=== PATIENT | female | born 1935 | race Caucasian/White ===

== ENCOUNTER 2016-10-31 09:34 | Emergency (ER) | payer MEDICARE, OTHER ==
--- NOTE | 2016-10-31 09:40 | EDM.PDOC ---
ED HPI GENERAL MEDICAL PROBLEM - General Chief Complaint: Respiratory Problem Stated Complaint: SOB, NOT FEELING GOOD Time Seen by Provider: 10/31/16 09:40 Source of Information: Reports: Patient, Family (daughter), Old Records, RN, RN Notes Reviewed History Limitations: Reports: No Limitations - History of Present Illness INITIAL COMMENTS - FREE TEXT/NARRATIVE: Arrives by POV with c/o "Just not feeling well at all". Pt reports increased Rt low back/flank pain since trying to lift and help her when he fell last week. Pt also c/o moist cough with increased shortness of breath with posttussive vomiting. In addition to posttussive vomiting, she admits to decreased appetite, nausea, and vomiting. Denies fevers, chest pain, or edema. Onset: Gradual Duration: Day(s): (3-4) Location: Reports: Chest, Back, Generalized Quality: Reports: Ache Severity: Severe Improves with: Reports: None Worsens with: Reports: Movement Context: Reports: Lifting Associated Symptoms: Reports: No Other Symptoms Treatments BALLASTER: Reports: Acetaminophen Left Lower Back Pain Score (Numeric/FACES): 8 - Related Data Allergies Allergy/AdvReac Type Severity Reaction Status Date / Time No Known Allergies Allergy Verified 10/31/16 09:46 Home Meds: Home Meds Albuterol [Proair HFA] 2 puff INH BID PRN 10/31/16 [History] Aspirin [[place] Aspirin] 81 mg PO DAILY 10/31/16 [History] Calcium Carbonate/Vitamin D3 [Calcium 500 + Vit D Caplet] 1 tab PO DAILY [History] Clopidogrel Bisulfate [Clopidogrel] 75 mg PO DAILY 10/31/16 [History] Esomeprazole Magnesium [Nexium 24Hr] 20 mg PO DAILY 10/31/16 [History] Metoprolol Succinate [Toprol XL] 50 mg PO DAILY 10/31/16 [History] Risedronate Sodium 35 mg PO WEEKLY 10/31/16 [History] atorvaSTATin [Lipitor] 40 mg PO DAILY 10/31/16 [History] Past Medical History HEENT History: Reports: Impaired Vision Cardiovascular History: Reports: High Cholesterol, Hypertension Respiratory History: Reports: Pulmonary Fibrosis, SOB Gastrointestinal History: Reports: GERD Musculoskeletal History: Reports: Back Pain, Chronic, Osteoarthritis Neurological History: Reports: CVA Endocrine/Metabolic History: Reports: Osteoporosis - Past Surgical History HEENT Surgical History: Reports: Adenoidectomy, Tonsillectomy GI Surgical History: Reports: Appendectomy Social & Family History - Family History Family Medical History: Noncontributory - Tobacco Use Smoking Status *Q: Never Smoker - Alcohol Use Alcohol Use History: No - Living Situation & Occupation Living situation: Reports: , with Spouse Occupation: Retired ED ROS GENERAL - Review of Systems Review Of Systems: ROS reveals no pertinent complaints other than HPI. ED EXAM, GENERAL - Physical Exam Exam: See Below Exam Limited By: No Limitations General Appearance: Alert, No Apparent Distress, Other (frail elderly) Ears: Normal External Exam, Hearing Grossly Normal Nose: Normal Inspection, Normal Mucosa, No Blood Throat/Mouth: Normal Inspection, Normal Lips, Normal Oropharynx, Normal Voice, No Airway Compromise Head: Atraumatic, Normocephalic Neck: Normal Inspection, Supple, Non-Tender, Full Range of Motion Respiratory/Chest: No Respiratory Distress, No Accessory Muscle Use, Decreased Breath Sounds, Crackles Cardiovascular: Normal Peripheral Pulses, Regular Rate, Rhythm, No Edema, No Gallop, No JVD, No Murmur, No Rub, Tachycardia GI/Abdominal: Normal Bowel Sounds, Soft, No Organomegaly, No Distention, No Abnormal Bruit, Tender (RUQ). No: Guarding, Rigid, Rebound (Female) Exam: Deferred Rectal (Female) Exam: Deferred Back Exam: CVA Tenderness (R), Decreased Range of Motion, Paraspinal Tenderness (Rt lower). No: CVA Tenderness (L), Vertebral Tenderness EKG INTERPRETATION EKG Date: 10/31/16 Time: 10:30 Rhythm: other (Sinus tach) Rate (beats/min): 109 [place]: LAD-left axis deviation P-wave: present QRS: other (probable left atrial enlargement, early transition) ST-T: other (nonspecific anterior T wave abnormalities) QT: normal Comparison: NA - no prior EKG Course - Vital Signs Last Recorded V/S: Last Vital Signs Temp 35.9 C 10/31/16 11:33 Pulse 106 H 10/31/16 11:33 Resp 32 H 10/31/16 11:33 BP 126/71 10/31/16 11:33 Pulse Ox 95 10/31/16 11:33 - Orders/Labs/Meds Orders: Active Orders 24 hr Category Date Time Status EKG 12 Lead [EKG Documentation Completion] [] STAT Care 10/31/16 10:06 Active Peripheral IV Care [] . DIRECTED Care 10/31/16 10:07 Active CULTURE BLOOD [] Stat Lab 10/31/16 11:05 Received CULTURE BLOOD [] Stat Lab 10/31/16 11:10 Results Sodium Chloride 0.9% [Saline Flush] Med 10/31/16 10:06 Active 10 ml FLUSH ASDIRECTED PRN Blood Culture x2 Reflex Set [OM.PC] Stat Oth 10/31/16 10:56 Ordered Peripheral IV Insertion Adult [OM.PC] Stat Ot 10/31/16 10:06 Ordered Medication Orders Sodium Chloride (Saline Flush) 10 ml FLUSH ASDIRECTED PRN PRN Reason: Keep Vein Open Last Admin: 10/31/16 10:26 Dose: 10 ml Labs: Laboratory Tests 10/31/16 10/31/16 10/31/16 Range/Units 10:17 10:17 10:54 WBC 22.5 H (5.0-10.0) 10^3/uL RBC 4.27 (4.2-5.4) 10^6/uL Hgb 12.9 (12.0-16.0) g/dL Hct 38.4 (37.0-47.0) % MCV 89.9 (80-100) fL MCH 30.2 (27.0-34.0) pg MCHC 33.6 (33.0-35.0) g/dL Plt Count 390 (150-450) 10^3/uL Neut % (Auto) 91.6 H (42.2-75.2) % Lymph % (Auto) 4.8 L (20.5-50.1) % [place] % (Auto) 3.4 (2-8) % Eos % (Auto) 0.1 L (1.0-3.0) % Baso % (Auto) 0.1 (0.0-1.0) % Sodium 136 (135-145) mmol/L Potassium 4.0 (3.6-5.0) mmol/L Chloride 97 L (101-111) mmol/L Carbon Dioxide 21.0 (21.0-31.0) mmol/L Anion Gap 22.0 BUN 31 H (7-18) mg/dL Creatinine 1.1 (0.6-1.3) mg/dL Est Cr Clr Drug Dosing 32.26 mL/min Estimated GFR (MDRD) 48 BUN/Creatinine Ratio 28.18 Glucose 142 H (74-105) mg/dL Lactic Acid (0.5-2.2) mmol/L Calcium 9.1 (8.4-10.2) mg/dl Total Bilirubin 1.1 H (0.2-1.0) mg/dL AST 45 H (10-42) IU/L ALT 30 (10-60) IU/L Alkaline Phosphatase 105 (42-121) IU/L Troponin I < 0.02 (0.00-0.02) ng/ml B-Natriuretic Peptide 275 H (0-100) pg/ml Total Protein 8.1 (6.7-8.2) g/dl Albumin 3.1 L (3.2-5.5) g/dl Globulin 5.0 Albumin/Globulin Ratio 0.62 Amylase 53 (28-100) U/L Lipase 23 (22-51) U/L Urine Color Dark yellow (YELLOW) Urine Appearance Turbid (CLEAR) Urine pH 5.5 (5.0-9.0) Ur Specific [place] 1.025 (1.005-1.030) Urine Protein 100 H (NEGATIVE) Urine Glucose (UA) Negative (NEGATIVE) Urine Ketones 15 H (NEGATIVE) Urine Occult Blood Small H (NEGATIVE) Urine Nitrite Negative (NEGATIVE) Urine Bilirubin Large H (NEGATIVE) Urine Urobilinogen 4.0 H (0.2-1.0) mg/dL Ur Leukocyte Esterase Small H (NEGATIVE) Urine RBC 0-5 /HPF Urine WBC 5-10 H (0-5/HPF) /HPF Ur Epithelial Cells Many H /HPF Amorphous Sediment Rare (0/HPF) /HPF Urine Bacteria Moderate H (0-FEW/HPF) /HPF 10/31/16 Range/Units 11:05 WBC (5.0-10.0) 10^3/uL RBC (4.2-5.4) 10^6/uL Hgb (12.0-16.0) g/dL Hct (37.0-47.0) % MCV (80-100) fL MCH (27.0-34.0) pg MCHC (33.0-35.0) g/dL Plt Count (150-450) 10^3/uL Neut % (Auto) (42.2-75.2) % Lymph % (Auto) (20.5-50.1) % [place] % (Auto) (2-8) % Eos % (Auto) (1.0-3.0) % Baso % (Auto) (0.0-1.0) % Sodium (135-145) mmol/L Potassium (3.6-5.0) mmol/L Chloride (101-111) mmol/L Carbon Dioxide (21.0-31.0) mmol/L Anion Gap BUN (7-18) mg/dL Creatinine (0.6-1.3) mg/dL Est Cr Clr Drug Dosing mL/min Estimated GFR (MDRD) BUN/Creatinine Ratio Glucose (74-105) mg/dL Lactic Acid 1.6 (0.5-2.2) mmol/L Calcium (8.4-10.2) mg/dl Total Bilirubin (0.2-1.0) mg/dL AST (10-42) IU/L ALT (10-60) IU/L Alkaline Phosphatase (42-121) IU/L Troponin I (0.00-0.02) ng/ml B-Natriuretic Peptide (0-100) pg/ml Total Protein (6.7-8.2) g/dl Albumin (3.2-5.5) g/dl Globulin Albumin/Globulin Ratio Amylase (28-100) U/L Lipase (22-51) U/L Urine Color (YELLOW) Urine Appearance (CLEAR) Urine pH (5.0-9.0) Ur Specific [place] (1.005-1.030) Urine Protein (NEGATIVE) Urine Glucose (UA) (NEGATIVE) Urine Ketones (NEGATIVE) Urine Occult Blood (NEGATIVE) Urine Nitrite (NEGATIVE) Urine Bilirubin (NEGATIVE) Urine Urobilinogen (0.2-1.0) mg/dL Ur Leukocyte Esterase (NEGATIVE) Urine RBC /HPF Urine WBC (0-5/HPF) /HPF Ur Epithelial Cells /HPF Amorphous Sediment (0/HPF) /HPF Urine Bacteria (0-FEW/HPF) /HPF Meds: Medications Generic Name Dose Route Start Last Admin Trade Name Freq PRN Reason Stop Dose Admin Sodium Chloride 10 ml 10/31/16 10:06 10/31/16 10:26 Saline Flush FLUSH 10 ml ASDIRECTED PRN Administration Keep Vein Open Discontinued Medications Generic Name Dose Route Start Last Admin Trade Name Freq PRN Reason Stop Dose Admin Hydromorphone HCl 0.25 mg 10/31/16 10:08 10/31/16 10:26 Dilaudid IVPUSH 10/31/16 10:09 0.25 mg ONETIME ONE Administration Sodium Chloride 1,000 mls @ 500 mls/hr 10/31/16 10:08 10/31/16 10:26 Normal Saline IV 10/31/16 12:07 500 mls/hr .BOLUS ONE Administration Piperacillin Sod/Tazobactam 100 mls @ 200 mls/hr 10/31/16 12:06 10/31/16 12: 59 Sod 3.375 gm/ Sodium Chloride IV 10/31/16 12:35 200 mls/hr ONETIME ONE Administration Ondansetron HCl 4 mg 10/31/16 10:08 10/31/16 10:26 Zofran IV 10/31/16 10:09 4 mg ONETIME ONE Administration - Radiology Interpretation Free Text/Narrative:: CXR: abnormal, but stable/unchanged per Rad. report. US abdomen, limited: sludge, polyp, no stones, no cholecystitis per Rad. report. Departure - Departure Time of Disposition: 14:12 Disposition: Home, Self-Care 01 Condition: fair Clinical Impression: Pyelonephritis, Pulmonary fibrosis, Dehydration, Post-tussive vomiting - Discharge Information Instructions: Pyelonephritis, Adult, [id number], Dehydration, Adult, Easy-to- Read Forms: ED Department Discharge Additional Instructions: Rx: Levaquin 500mg Rx: Zofran 4mg Follow up in clinic in 2 to 3 days for recheck. Return to ER if worse at any time. - My Orders Last 24 Hours: My Active Orders 10/31/16 10:06 EKG 12 Lead [EKG Documentation Completion] [RC] STAT Sodium Chloride 0.9% [Saline Flush] 10 ml FLUSH ASDIRECTED PRN Peripheral IV Insertion Adult [OM.PC] Stat 10/31/16 10:07 Peripheral IV Care [RC] . DIRECTED 10/31/16 10:56 Blood Culture x2 Reflex Set [OM.PC] Stat 10/31/16 11:05 CULTURE BLOOD [BC] Stat 10/31/16 11:10 CULTURE BLOOD [BC] Stat - Assessment/Plan Last 24 Hours: My Active Orders 10/31/16 10:06 EKG 12 Lead [EKG Documentation Completion] [RC] STAT Sodium Chloride 0.9% [Saline Flush] 10 ml FLUSH ASDIRECTED PRN Peripheral IV Insertion Adult [OM.PC] Stat 10/31/16 10:07 Peripheral IV Care [RC] . DIRECTED 10/31/16 10:56 Blood Culture x2 Reflex Set [OM.PC] Stat 10/31/16 11:05 CULTURE BLOOD [BC] Stat 10/31/16 11:10 CULTURE BLOOD [BC] Stat
[2016-10-31] MEDS ORDERED: Sodium Chloride 0.9% 10 ML Syringe FLUSH PRN (10:06)
[2016-10-31] MEDS ORDERED: Sodium Chloride 0.9% 1,000 ML IV ONE (10:08)
[2016-10-31] MEDS ORDERED: HYDROmorphone 1 MG/ML Syringe IVPUSH ONE (10:08)
[2016-10-31] MEDS ORDERED: Ondansetron 4 MG/2 ML SDV IV ONE (10:08)
[2016-10-31 10:45] LABS: CHLORIDE,CL 97 mmol/L (101-111); SODIUM,NA 136 mmol/L (135-145)
[2016-10-31 11:34] VITALS: BP 126/71
--- NOTE | 2016-10-31 12:00 | CR ---
CLINICAL HISTORY: 81-year-old female with cough and dyspnea reported on CT scan chest February 2016 t o have "hiatus hernia and chronic abnormal interstitial disease". INTERPRETATION: Abnormal. Chronic, extensive interstitial fibrosis (left base greater than right) as noted on previous CT scan. Normal cardiac silhouette without cephalization of vascular flow or new signs of alveolar edema or d ependent pleural fluid accumulation. No new lung mass or focal lobar alveolar consolidation. Clinica l aspiration (hiatus hernia)? Bronchiectasis. Evidence of vertebra plasty lower thoracic and upper lumbar vertebra. Osteoporosis and multiple insu fficiency fractures.
[2016-10-31] MEDS ORDERED: Piperacillin/Tazobactam 3.375 GM in Sodium Chloride 0.9% 100 ML IV ONE (12:06)
--- NOTE | 2016-10-31 14:03 | US ---
Clinical history: 81-year-old female with vomiting, right upper quadrant and right flank pain. (WBC 22,000) Interpretation: Gallbladder clearly demonstrated in the right upper quadrant beneath the liver riley n is normal size, anatomic configuration with uniformly thin wall. No sign of pericystic fluid, or m obile dependent intraluminal echogenic "shadowing" stones but... solitary tiny fixed mucosal wall po lyp identified posteriorly. No abnormal dilatation of the intra/extrahepatic biliary ducts. Pancreas unremarkable. No ascites. Homogeneous normal sonodensity of the liver (common hepatic duct measures 3.5 mm and the common bile duct measures 3.2 mm diameter). CONCLUSION: Tiny polyp otherwise negative gallbladder i.e. not inflamed and no stones. Liver and pancreas unremarkable. No ascites.
--- NOTE | 2016-11-02 13:29 | EKG ---
10/31/2016- BO RONQUILLO - EKG per my reading shows sinus tachycardia at the rate of 109, inverted anterior T-waves. [facility] /[id number]
== END 2016-10-31 14:55 | disposition home or self-care (01) ==
LOC: DL.ED 09:34
DX: N12 Tubulo-interstitial nephritis, not specified as acute or chronic (principal); J84.10 Pulmonary fibrosis, unspecified; R11.10 Vomiting, unspecified; E86.0 Dehydration; R06.02 Shortness of breath; H54.7 Unspecified visual loss; I10 Essential (primary) hypertension; K21.9 Gastro-esophageal reflux disease without esophagitis; M81.0 Age-related osteoporosis without current pathological fracture; Z90.49 Acquired absence of other specified parts of digestive tract; Z79.82 Long term (current) use of aspirin; Z79.899 Other long term (current) drug therapy
CPT/HCPCS: 36415; 71020; 76705; 80053; 81001; 82150; 83605; 83690; 83880; 84484; 85025; 87040; 93005; 93010; 96361; 96365; 96375; 99284; J1170; J2405; J2543; J7030; J7050

== ENCOUNTER 2016-11-03 16:37 | Emergency (ER) | payer MEDICARE, OTHER ==
[2016-11-03 17:27] LABS: CHLORIDE,CL 92 mmol/L (101-111); SODIUM,NA 134 mmol/L (135-145)
[2016-11-03] MEDS ORDERED: Ondansetron 4 MG/2 ML SDV IV ONE (17:28)
[2016-11-03] MEDS ORDERED: Sodium Chloride 0.9% 500 ML IV ONE (17:28)
--- NOTE | 2016-11-03 17:36 | EDM.PDOC ---
<Clyde Lopez M - Last Filed: 11/03/16 18:36> ED HPI GENERAL MEDICAL PROBLEM - General Chief Complaint: Flank Pain Stated Complaint: COMING FROM CLINIC Time Seen by Provider: 11/03/16 17:15 Source of Information: Reports: Patient, Family History Limitations: Reports: No Limitations - History of Present Illness INITIAL COMMENTS - FREE TEXT/NARRATIVE: This 81 yo female patient reports to the ED due to profound weakness, a fever ( 100.4), generalized back pain and not doing well at home. The patient was seen in the ED on 10/31/16, diagnosed with pylonephritis, given Vanco and discharged with Levaquin. Since that time, the patient has been getting worse. The patient lives in [place] with her . Onset: Gradual Duration: Day(s):, Constant, Getting Worse Location: Reports: Generalized Quality: Reports: Ache, Dull Severity: Severe Improves with: Reports: None Worsens with: Reports: None Context: Reports: Other Associated Symptoms: Reports: Cough, Shortness of Breath, Weakness - Related Data Allergies Allergy/AdvReac Type Severity Reaction Status Date / Time No Known Allergies Allergy Verified 11/03/16 16:45 Home Meds: Home Meds Albuterol [Proair HFA] 2 puff INH BID PRN 10/31/16 [History] Aspirin [[place] Aspirin] 81 mg PO DAILY 10/31/16 [History] Calcium Carbonate/Vitamin D3 [Calcium 500 + Vit D Caplet] 1 tab PO DAILY [History] Clopidogrel Bisulfate [Clopidogrel] 75 mg PO DAILY 10/31/16 [History] Esomeprazole Magnesium [Nexium 24Hr] 20 mg PO DAILY 10/31/16 [History] Metoprolol Succinate [Toprol XL] 50 mg PO DAILY 10/31/16 [History] Risedronate Sodium 35 mg PO WEEKLY 10/31/16 [History] atorvaSTATin [Lipitor] 40 mg PO DAILY 10/31/16 [History] Past Medical History HEENT History: Reports: Impaired Vision Other HEENT History: wears glasses Cardiovascular History: Reports: High Cholesterol, Hypertension Respiratory History: Reports: Pulmonary Fibrosis, SOB Other Respiratory History: "Residual Lung Diseas" Gastrointestinal History: Reports: GERD Genitourinary History: Reports: None ADDICTION PSYCHIATRIST History: Reports: Musculoskeletal History: Reports: Back Pain, Chronic, Osteoarthritis Neurological History: Reports: CVA Other Neuro History: between 5 to 10 years ago Psychiatric History: Reports: Anxiety Endocrine/Metabolic History: Reports: Osteoporosis Hematologic History: Reports: None Immunologic History: Reports: None Oncologic (Cancer) History: Reports: None Dermatologic History: Reports: None - Past Surgical History HEENT Surgical History: Reports: Adenoidectomy, Tonsillectomy GI Surgical History: Reports: Appendectomy Female Surgical History: Reports: None Social & Family History - Family History Family Medical History: Noncontributory - Tobacco Use Smoking Status *Q: Never Smoker Second Hand Smoke Exposure: No - Caffeine Use Caffeine Use: Reports: Coffee, Soda - Recreational Drug Use Recreational Drug Use: No - Living Situation & Occupation Living situation: Reports: , with Spouse Occupation: Retired ED ROS GENERAL - Review of Systems Review Of Systems: ROS reveals no pertinent complaints other than HPI. ED EXAM, GENERAL - Physical Exam Exam: See Below Exam Limited By: No Limitations General Appearance: Alert, WD/WN, Moderate Distress, Thin Eye Exam: Bilateral Eye: EOMI, Normal Inspection, PERRL Ears: Normal External Exam, Normal Canal, Hearing Grossly Normal, Normal TMs Nose: Normal Inspection, Normal Mucosa, No Blood Throat/Mouth: Normal Inspection, Normal Lips, Normal Teeth, Normal Gums, Normal Oropharynx, Normal Voice, No Airway Compromise, Other (dry) Head: Atraumatic, Normocephalic Neck: Normal Inspection, Supple, Non-Tender, Full Range of Motion Respiratory/Chest: No Respiratory Distress, Decreased Breath Sounds (bilateral lower lobes) Cardiovascular: Normal Peripheral Pulses, Regular Rate, Rhythm, No Edema, No Gallop, No JVD, No Murmur, No Rub GI/Abdominal: Normal Bowel Sounds, Soft, No Organomegaly, No Distention, No Abnormal Bruit, No Mass, Pelvis Stable, Tender (mile epigastric tenderness) (Female) Exam: Deferred Rectal (Female) Exam: Deferred Back Exam: Other (patient reports chronic back pain no assessment of the back done during visit) Extremities: Normal Inspection, Normal Range of Motion, Non-Tender, No Pedal Edema, Normal Capillary Refill Neurological: Alert, Oriented, CN II-XII Intact, Normal Cognition Psychiatric: Normal Affect, Normal Mood Skin Exam: Warm, Dry, Intact, Normal Color, No Rash Lymphatic: No Adenopathy Course - Vital Signs Last Recorded V/S: Last Vital Signs Temp 36.6 C 11/03/16 18:15 Pulse 101 H 11/03/16 18:15 Resp 18 11/03/16 18:15 BP 147/76 H 11/03/16 18:15 Pulse Ox 95 11/03/16 18:15 - Orders/Labs/Meds Orders: Active Orders 24 hr Category Date Time Status CULTURE BLOOD [BC] Stat Lab 11/03/16 16:53 Received CULTURE BLOOD [BC] Stat Lab 11/03/16 17:00 Received Blood Culture x2 Reflex Set [OM.PC] Stat Oth 11/03/16 16:42 Ordered Labs: Laboratory Tests 11/03/16 11/03/16 11/03/16 Range/Units 16:53 16:53 16:53 WBC 19.6 H (5.0-10.0) 10^3/uL RBC 4.20 (4.2-5.4) 10^6/uL Hgb 12.7 (12.0-16.0) g/dL Hct 38.1 (37.0-47.0) % MCV 90.7 (80-100) fL MCH 30.2 (27.0-34.0) pg MCHC 33.3 (33.0-35.0) g/dL Plt Count 504 H (150-450) 10^3/uL Neut % (Auto) 94.5 H (42.2-75.2) % Lymph % (Auto) 3.9 L (20.5-50.1) % [place] % (Auto) 1.3 L (2-8) % Eos % (Auto) 0.1 L (1.0-3.0) % Baso % (Auto) 0.2 (0.0-1.0) % Sodium 134 L (135-145) mmol/L Potassium 4.8 (3.6-5.0) mmol/L Chloride 92 L (101-111) mmol/L Carbon Dioxide 21.0 (21.0-31.0) mmol/L Anion Gap 25.8 BUN 47 H (7-18) mg/dL Creatinine 1.2 (0.6-1.3) mg/dL Est Cr Clr Drug Dosing TNP Estimated GFR (MDRD) 43 BUN/Creatinine Ratio 39.16 Glucose 135 H (74-105) mg/dL Lactic Acid 1.8 (0.5-2.2) mmol/L Calcium 9.4 (8.4-10.2) mg/dl Total Bilirubin 1.0 (0.2-1.0) mg/dL AST 30 (10-42) IU/L ALT 32 (10-60) IU/L Alkaline Phosphatase 95 (42-121) IU/L Total Protein 8.5 H (6.7-8.2) g/dl Albumin 3.1 L (3.2-5.5) g/dl Globulin 5.4 Albumin/Globulin Ratio 0.57 Urine Color (YELLOW) Urine Appearance (CLEAR) Urine pH (5.0-9.0) Ur Specific [place] (1.005-1.030) Urine Protein (NEGATIVE) Urine Glucose (UA) (NEGATIVE) Urine Ketones (NEGATIVE) Urine Occult Blood (NEGATIVE) Urine Nitrite (NEGATIVE) Urine Bilirubin (NEGATIVE) Urine Urobilinogen (0.2-1.0) mg/dL Ur Leukocyte Esterase (NEGATIVE) Urine RBC /HPF Urine WBC (0-5/HPF) /HPF Ur Epithelial Cells /HPF Urine Bacteria (0-FEW/HPF) /HPF // Range/Units 17:06 WBC (5.0-10.0) 10^3/uL RBC (4.2-5.4) 10^6/uL Hgb (12.0-16.0) g/dL Hct (37.0-47.0) % MCV (80-100) fL MCH (27.0-34.0) pg MCHC (33.0-35.0) g/dL Plt Count (150-450) 10^3/uL Neut % (Auto) (42.2-75.2) % Lymph % (Auto) (20.5-50.1) % [place] % (Auto) (2-8) % Eos % (Auto) (1.0-3.0) % Baso % (Auto) (0.0-1.0) % Sodium (135-145) mmol/L Potassium (3.6-5.0) mmol/L Chloride (101-111) mmol/L Carbon Dioxide (21.0-31.0) mmol/L Anion Gap BUN (7-18) mg/dL Creatinine (0.6-1.3) mg/dL Est Cr Clr Drug Dosing Estimated GFR (MDRD) BUN/Creatinine Ratio Glucose (74-105) mg/dL Lactic Acid (0.5-2.2) mmol/L Calcium (8.4-10.2) mg/dl Total Bilirubin (0.2-1.0) mg/dL AST (10-42) IU/L ALT (10-60) IU/L Alkaline Phosphatase (42-121) IU/L Total Protein (6.7-8.2) g/dl Albumin (3.2-5.5) g/dl Globulin Albumin/Globulin Ratio Urine Color Yellow (YELLOW) Urine Appearance Turbid (CLEAR) Urine pH 5.5 (5.0-9.0) Ur Specific [place] >= 1.030 (1.005-1.030) Urine Protein 30 H (NEGATIVE) Urine Glucose (UA) Negative (NEGATIVE) Urine Ketones 40 H (NEGATIVE) Urine Occult Blood Small H (NEGATIVE) Urine Nitrite Negative (NEGATIVE) Urine Bilirubin Small H (NEGATIVE) Urine Urobilinogen 0.2 (0.2-1.0) mg/dL Ur Leukocyte Esterase Negative (NEGATIVE) Urine RBC 0-5 /HPF Urine WBC 0-5 (0-5/HPF) /HPF Ur Epithelial Cells Many H /HPF Urine Bacteria Moderate H (0-FEW/HPF) /HPF Meds: Medications Discontinued Medications Generic Name Dose Route Start Last Admin Trade Name Freq PRN Reason Stop Dose Admin Sodium Chloride 500 mls @ 999 mls/hr 11/03/16 17:28 11/03/16 17:43 Normal Saline IV 11/03/16 17:58 999 mls/hr .BOLUS ONE Administration Ondansetron HCl 4 mg 11/03/16 17:28 11/03/16 17:43 Zofran IV 11/03/16 17:29 4 mg ONETIME ONE Administration - Re-Assessments/Exams Free Text/Narrative Re-Assessment/Exam: 11/03/16 18:45 Discussed the examination, lab and chest x-ray results with Dr. Quinonez. Dr. Quinonez requested a CT of abdomen and pelvis due to the hematuria. The CT was ordered and care transferred to Dr. Buck due to shift change. Departure - Departure Disposition: DC/Tfer to [facility] 02 Clinical Impression: UTI, Urinary tract infectious disease, Ureteric colic, Dehydration, Small bowel obstruction, partial - Discharge Information Forms: Interfacility Transfer EMTALA <Harris Buck - Last Filed: 11/03/16 20:03> Course - Re-Assessments/Exams Free Text/Narrative Re-Assessment/Exam: 11/03/16 20:01 results discussed with Pt & family and case discussed with Dr Santamaria who kindly accepted Pt. Departure - Departure Time of Disposition: 20:02 Condition: Fair
--- NOTE | 2016-11-03 18:36 | CR ---
Clinical history: 81-year-old female cough and shortness of breath. Interpretation: Chronic bronchitic and left lower lobe bronchiectatic like density but pulmonary vas cularity relatively less congested i.e. improved since 31 October 2016 exam. Patient rotated accentuating the cardiac silhouette but no new cephalization of flow, signs of alveo lar edema or dependent pleural fluid accumulation i.e. no indication CHF at this time. Large hiatus hernia incarcerated in the lower middle mediastinum. Vertebral plasty osteoporotic lowe r thoracic and upper lumbar vertebra (several insufficiency fractures mid dorsal spine). No lung mass, hilar lymphadenopathy or new focal lobar consolidation. No pneumothorax.
[2016-11-03 20:07] VITALS: BP 147/83
== END 2016-11-03 20:39 ==
LOC: DL.ED 16:37
DX: N39.0 Urinary tract infection, site not specified (principal); E86.0 Dehydration; N23 Unspecified renal colic; K56.69 Other intestinal obstruction; I10 Essential (primary) hypertension; K21.9 Gastro-esophageal reflux disease without esophagitis; E78.00 Pure hypercholesterolemia, unspecified; F41.9 Anxiety disorder, unspecified; M19.90 Unspecified osteoarthritis, unspecified site; Z90.49 Acquired absence of other specified parts of digestive tract; Z86.73 Personal history of transient ischemic attack (TIA), and cerebral infarction without residual deficits; Z79.82 Long term (current) use of aspirin; Z79.899 Other long term (current) drug therapy; Z98.890 Other specified postprocedural states
CPT/HCPCS: 36415; 71020; 74176; 80053; 81001; 83605; 85025; 87040; 96361; 96374; 99285; J2405; J7030; 99284

== ENCOUNTER 2016-12-01 13:04 | Inpatient (IN) | payer MEDICARE, OTHER ==
[~2016-12-01 13:04] MED LIST: Acetaminophen/HYDROcodone 325-10 MG Tab PO PRN; Magnesium Hydroxide 400 MG/5 ML Susp 30 ML Cup PO PRN; Ondansetron 4 MG Tab.DIS PO PRN; Polyethylene Glycol 3350 Powder 17 GM Packet PO PRN; Sodium Chloride 0.65% Nasal Spray 45 ML Bottle NAS PRN; guaiFENesin 100 MG/5 ML Soln 5 ML UD Cup PO PRN
[2016-12-01] MEDS ORDERED: Albuterol 6.7 GM Inhaler INH PRN (15:49)
--- NOTE | 2016-12-01 16:06 | PCM.HP ---
H&P History of Present Illness - General Date of Service: 12/01/16 Admit Problem/Dx: Admission Diagnosis/Problem Admission Diagnosis/Problem Weakness - History of Present Illness Initial Comments - Free Text/Narative: 81 y.o. with past medical history of idiopathic pulmonary fibrosis and obstructive sleep apnea, osteoporosis, dyslipidemia, chronic back problem. She was originally admitted to [facility] presenting with complaints of abdominal pain and was found to have small bowel obstruction and was also found to have pyelonephritis. Patient was being treated with antibiotic therapy. Clinical course also complicated by acute change in mental status with focal neurological deficit and possible seizures. Neurology evaluation performed for stroke and seizures. Patient also had a cardiology evaluation performed for transesophageal echocardiogram to rule out cardiac source of embolism. During hospitalization patient also started to develop shortness of breath. Initial CT scan chest showed presence of baseline interstitial densities present repeat CT scan performed on November 16 showed dramatic increase in ground glass density throughout the lung especially upper lobes related to previous. Porcelain Enamel Repairer was consulted. The patient was seen by Pulmonary as well as infectious disease for question of fungal involvement. Infectious disease decided to stopping antibiotics and monitor the patient closely. Meropenem was stopped on 11/29/16. The patient has improved respiratory status valdez For the last several days she is denying any significant hemoptysis, fever, chills, chest pain, wheezing, nasal stuffiness postnasal drip, lower extremity swelling, orthopnea or paroxysmal nocturnal dyspnea. joint pains, or rashes, or any other symptoms or concerns. The only symptoms she reported to me today is her shortness breath with exertion. She and her daughter said that the shortness breath is at the baseline and similar to what it was prior to her previous hospitalization. She has not been using or needing to use supplemental oxygen for the last 2 days. Laboratory data from today shows WBC 7.9. Hemoglobin 9.3. Hematocrit 29.6. Platelets 322. BMP, BNP, magnesium, phosphorous are within normal limits. Patient was discharged from [facility] and admitted to swing bed for generalized weakness as she may benefit from physical and occupational therapy - Related Data Allergies/Adverse Reactions: Allergies Allergy/AdvReac Type Severity Reaction Status Date / Time No Known Allergies Allergy Verified 12/01/16 13:46 Home Medications: Home Meds Albuterol [Proair HFA] 2 puff INH BID PRN 10/31/16 [History] Aspirin [[place] Aspirin] 81 mg PO DAILY 10/31/16 [History] Calcium Carbonate/Vitamin D3 [Calcium 500 + Vit D Caplet] 1 tab PO TIDMEALS 05/07 [History] Clopidogrel Bisulfate [Clopidogrel] 75 mg PO DAILY 10/31/16 [History] Esomeprazole Magnesium [Nexium 24Hr] 20 mg PO BID 10/31/16 [History] Metoprolol Succinate [Toprol XL] 50 mg PO DAILY 10/31/16 [History] Risedronate Sodium 35 mg PO WEEKLY 10/31/16 [History] atorvaSTATin [Lipitor] 40 mg PO DAILY 10/31/16 [History] Albuterol/Ipratropium [DuoNeb 3.0-0.5 MG/3 ML] 3 ml NEB BIDRT 12/01/16 [History] Budesonide [Pulmicort] 0.5 mg NEB BIDRT 12/01/16 [History] Furosemide [Lasix] 20 mg PO DAILY 12/01/16 [History] Naproxen Sodium [Aleve] 220 mg PO Q72H 12/01/16 [History] Ondansetron [Zofran] 4 mg PO Q6H PRN 12/01/16 [History] Potassium Chloride [K-Tab ER] 20 meq PO DAILY 12/01/16 [History] levETIRAcetam [Keppra] 500 mg PO BID 12/01/16 [History] Past Medical History HEENT History: Reports: Impaired Vision Other HEENT History: wears glasses Cardiovascular History: Reports: High Cholesterol, Hypertension Respiratory History: Reports: Pulmonary Fibrosis, SOB Other Respiratory History: "Residual Lung Diseas" Gastrointestinal History: Reports: GERD Genitourinary History: Reports: None CUPOLA CHARGER History: Reports: Musculoskeletal History: Reports: Back Pain, Chronic, Osteoarthritis Neurological History: Reports: Cerebral Aneurysms, CVA Other Neuro History: between 5 to 10 years ago Psychiatric History: Reports: Anxiety Endocrine/Metabolic History: Reports: Osteoporosis Hematologic History: Reports: None Immunologic History: Reports: None Oncologic (Cancer) History: Reports: None Dermatologic History: Reports: None - Infectious Disease History Infectious Disease History: Reports: None - Past Surgical History Head Surgeries/Procedures: Reports: None HEENT Surgical History: Reports: Adenoidectomy, Tonsillectomy Cardiovascular Surgical History: Reports: Aneurysm, Other (See Below) Other Cardiovascular Surgeries/Procedures: aneurysm repair Respiratory Surgical History: Reports: None GI Surgical History: Reports: Appendectomy Female Surgical History: Reports: None Neurological Surgical History: Reports: Other (See Below) Other Neurological Surgeries/Procedures: cement to lumbar areas Social & Family History - Family History Family Medical History: Noncontributory - Tobacco Use Smoking Status *Q: Never Smoker Second Hand Smoke Exposure: No - Caffeine Use Caffeine Use: Reports: Coffee, Soda - Recreational Drug Use Recreational Drug Use: No - Living Situation & Occupation Living situation: Reports: , with Spouse Occupation: Retired H&P Review of Systems - Review of Systems: Review Of Systems: See Below General: Reports: No Symptoms HEENT: Reports: No Symptoms Pulmonary: Reports: Shortness of Breath (Exertional). Denies: Wheezing, Pleuritic Chest Pain, Cough, Sputum, Hemoptysis Cardiovascular: Reports: No Symptoms Gastrointestinal: Reports: No Symptoms Genitourinary: Reports: No Symptoms Musculoskeletal: Reports: No Symptoms Skin: Reports: No Symptoms Psychiatric: Reports: No Symptoms Neurological: Reports: No Symptoms Hematologic/Lymphatic: Reports: No Symptoms Immunologic: Reports: No Symptoms Exam - Exam Exam: See Below - Vital Signs Vital Signs: Last Vital Signs Temp 36.9 C 12/01/16 13:34 Pulse 96 12/01/16 13:34 Resp 20 12/01/16 13:34 BP 105/66 12/01/16 13:34 Pulse Ox 96 12/01/16 13:34 Weight: 45.994 kg - Exam General: Alert, Oriented, Cooperative. No: Mild Distress, Moderate Distress, Severe Distress, Sedated, Lethargic, Obtunded HEENT: Conjunctiva Clear, EACs Clear, EOMI, Hearing Intact, Mucosa Moist & [place] , Nares Patent, Normal Nasal Septum, Posterior Pharynx Clear, Pupils Equal, Pupils Reactive, TMs Clear Neck: Supple, Trachea Midline Lungs: Normal Respiratory Effort, Rales (Sporadic). No: Decreased Breath Sounds , Crackles, Rhonchi, Rub, Stridor, Wheezing Cardiovascular: Regular Rate, Regular Rhythm Abdomen: Normal Bowel Sounds, Soft, Pelvis Stable. No: Peritoneal Signs, Distention, Guarding, Rigidity, Rebound (Female) Exam: Deferred Rectal (Female) Exam: Deferred Back Exam: Normal Inspection, Full Range of Motion Extremities: Normal Inspection, Normal Pulses. No: Clubbing, Cyanosis, Edema Skin: Warm, Dry, Intact Neurological: Cranial Nerves Intact, Reflexes Equal Bilateral, Strength Equal Bilateral, Normal Speech, Normal Tone Neuro Extensive - Mental Status: Alert, Oriented x3, Normal Mood/Affect Neuro Extensive - Motor, Sensory, Reflexes: CN II-XII Intact Psychiatric: Alert, Normal Affect, Normal Mood *Q Meaningful Use (ADM) - VTE *Q VTE Criteria *Q: - Stroke *Q Stroke Criteria *Q: - AMI *Q AMI Criteria *Q: Problem List Initiated/Reviewed/Updated: Yes Orders Last 24hrs: Active Orders 24 hr Category Date Time Status Patient Status [ADT] Routine ADT 12/01/16 11:06 Active Ambulate [RC] ASDIRECTED Care 12/01/16 11:05 Active Ambulate [RC] ASDIRECTED Care 12/01/16 11:05 Active Antiembolic Devices [RC] PER UNIT ROUTINE Care 12/01/16 11:13 Active Height and Weight [RC] PER UNIT ROUTINE Care 12/01/16 11:09 Active Intake and Output [RC] ASDIRECTED Care 12/01/16 11:05 Active Oxygen Therapy [RC] PRN Care 12/01/16 11:06 Active Up ad Adela [RC] ASDIRECTED Care 12/01/16 11:05 Active VTE/DVT Education [RC] PER UNIT ROUTINE Care 12/01/16 11:06 Active Vital Signs [RC] PER UNIT ROUTINE Care 12/01/16 11:06 Active OT Evaluation and Treatment [CONS] Routine Cons 12/01/16 11:05 Active PT Evaluation and Treatment [CONS] Routine Cons 12/01/16 11:05 Active Regular Diet [DIET] Diet 12/01/16 Breakfast Active Acetaminophen [Tylenol] Med 12/01/16 11:05 Active 650 mg PO Q4H PRN Acetaminophen/HYDROcodone [[place] 325-10 MG] Med 12/01/16 11:05 Active 0.5 tab PO Q4H PRN Albuterol [Proventil HFA] Med 12/01/16 15:49 Ordered 2 puff INH BID PRN Albuterol/Ipratropium [DuoNeb 3.0-0.5 MG/3 ML] Med 12/01/16 18:00 Ordered 3 ml NEB BIDRT Aspirin [Halfprin] Med 12/02/16 09:00 Ordered 81 mg PO DAILY Budesonide [Pulmicort] Med 12/01/16 18:00 Ordered 0.5 mg NEB BIDRT Calcium Carbonate/Vitamin D3 [Calcium 500 + Vit D Med 12/01/16 18:00 Ordered Caplet] 1 tab PO TIDMEALS Clopidogrel [Plavix] Med 12/02/16 09:00 Ordered 75 mg PO DAILY Docusate Sodium/Sennosides [Senna Plus] Med 12/01/16 11:05 Active 1 tab PO BEDTIME PRN Esomeprazole Magnesium [Nexium 24Hr] Med 12/01/16 21:00 Ordered 20 mg PO BID Furosemide [Lasix] Med 12/02/16 09:00 Ordered 20 mg PO DAILY Magnesium Hydroxide [Milk of Magnesia] Med 12/01/16 11:05 Active 30 ml PO Q12H PRN Metoprolol Succinate [Toprol XL] Med 12/02/16 09:00 Ordered 25 mg PO DAILY Ondansetron [Zofran ODT] Med 12/01/16 11:05 Active 4 mg PO Q6H PRN Polyethylene Glycol 3350 [MiraLAX] Med 12/01/16 11:05 Active 17 gm PO DAILY PRN Potassium Chloride [K-Tab ER] Med 12/02/16 09:00 Ordered 40 meq PO DAILY Risedronate Sodium [Risedronate Sodium] Med 12/01/16 16:00 Ordered 35 mg PO WEEKLY Sodium Chloride 0.65% [[place] Nasal [place]] Med 12/01/16 11:05 Active 0 ml JHONATHAN BID PRN atorvaSTATin [Lipitor] Med 12/02/16 09:00 Ordered 40 mg PO DAILY guaiFENesin [Robitussin] Med 12/01/16 11:05 Active 100 mg PO Q4H PRN levETIRAcetam [Keppra] Med 12/01/16 21:00 Ordered 500 mg PO BID Antiembolic Hose [OM.PC] Routine Oth 12/01/16 11:05 Ordered Sequential Compression Device [OM.PC] Routine Oth 12/01/16 11:05 Ordered Resuscitation Status Routine Resus Stat 12/01/16 11:05 Ordered Medication Orders Acetaminophen (Tylenol) 650 mg PO Q4H PRN PRN Reason: Pain (Mild 1-3)/fever Hydrocodone Bitart/Acetaminophen ([place] 325-10 Mg) 0.5 tab PO Q4H PRN PRN Reason: Pain (moderate 4-6) Albuterol (Proventil Hfa) gm INH BID PRN PRN Reason: Shortness of Breath Albuterol/Ipratropium (Duoneb 3.0-0.5 Mg/3 Ml) 3 ml NEB BIDRT THUAN Aspirin (Halfprin) 81 mg PO DAILY THUAN Budesonide (Pulmicort) 0.5 mg NEB BIDRT THUAN Clopidogrel Bisulfate (Plavix) 75 mg PO DAILY THUAN Furosemide (Lasix) 20 mg PO DAILY THUAN Guaifenesin (Robitussin) 100 mg PO Q4H PRN PRN Reason: Cough Levetiracetam (Keppra) 500 mg PO BID THUAN Magnesium Hydroxide (Milk Of Magnesia) 30 ml PO Q12H PRN PRN Reason: Constipation Metoprolol Succinate (Toprol Xl) 25 mg PO DAILY THUAN Non-Formulary Medication (Calcium Carbonate/Vitamin D3 [Calcium 500 + Vit D Caplet]) 1 tab PO TIDMEALS THUAN Non-Formulary Medication (Esomeprazole Magnesium [Nexium 24hr]) 20 mg PO BID THUAN Non-Formulary Medication (Risedronate Sodium [Risedronate Sodium]) 35 mg PO WEEKLY THUAN Non-Formulary Medication (Atorvastatin [Lipitor]) 40 mg PO DAILY THUAN Non-Formulary Medication (Potassium Chloride [K-Tab Er]) 40 meq PO DAILY THUAN Ondansetron HCl (Zofran Odt) 4 mg PO Q6H PRN PRN Reason: nausea, able to take PO Polyethylene Glycol (Miralax) 17 gm PO DAILY PRN PRN Reason: Constipation Senna/Docusate Sodium (Senna Plus) 1 tab PO BEDTIME PRN PRN Reason: Constipation Sodium Chloride ([place] Nasal [place]) 0 ml JHONATHAN BID PRN PRN Reason: Nasal Congestion Assessment/Plan Comment:: Generalized weakness, from prolonged hospitalization and multiple comorbidities Admit to swing bed She'll benefit from occupational therapy and physical therapy treatment Status post sepsis She finished IV antibiotic on 11/29/16 Legionella culture, AFB culture and smear, preliminary fungal culture, Bronchial wash culture, Streptococcus pneumoniae antigen in urine, sputum culture, blood cultures were negative Aspergillus IGG was slightly elevated, it was thout not to be sufficient enough to make a diagnosis of pulmonary aspergillosis Also blastomyces positive by MAHI but immunodiffusion neg,low dose titers of histoplasma positive too. Histo plasma serum and urine antigen, respiratory virus culture are pending Bilateral groundglass opacities, infectious vs non infectious BNP was not significantly elevated. CT scan of chest on 11/16 reported Dramatic increase in groundglass density throughout the lungs especially upper lobes relative to the comparison. She was requiring oxygen but not for the last 2 days Per her record her respiratory symptoms slightly improved since switching her antibiotic from Zosyn to meropenem Continue with DuoNeb and budesonide History of seizure while in the hospital, Neurology was consulted and she is currently on Keppra. Small bowel obstruction, resolved. Chronic obstructive pulmonary disease exacerbation, Continue with DuoNeb and budesonide Ambulation, DIVINA hose, and SCDs for DVT prophylaxis She wants to be DNR/DNI for CODE STATUS
[2016-12-01] MEDS: Calcium Carbonate/Vitamin D3 1250 MG-200 Unit Tab PO SCH (18:33)
[2016-12-01] MEDS: Omeprazole 20 MG Cap.CR PO SCH (18:33)
[2016-12-01] MEDS: Albuterol/Ipratropium 3.0-0.5 MG/3 ML Neb Soln NEB SCH (18:34)
[2016-12-01] MEDS: Budesonide 0.5 MG/2 ML Neb Susp NEB SCH (18:34)
[2016-12-01] MEDS: levETIRAcetam 500 MG Tab PO SCH (20:53)
[2016-12-02] MEDS: Omeprazole 20 MG Cap.CR PO SCH ×2 (05:43→17:20)
[2016-12-02] MEDS: Albuterol/Ipratropium 3.0-0.5 MG/3 ML Neb Soln NEB SCH ×2 (06:39→17:59)
[2016-12-02] MEDS: Budesonide 0.5 MG/2 ML Neb Susp NEB SCH ×2 (06:40→17:59)
[2016-12-02] MEDS: Potassium Chloride 10 MEQ Tab.ER PO SCH (08:51)
[2016-12-02] MEDS: Calcium Carbonate/Vitamin D3 1250 MG-200 Unit Tab PO SCH ×3 (08:51→17:20)
[2016-12-02] MEDS: Clopidogrel 75 MG Tab PO SCH (08:52)
[2016-12-02] MEDS: Furosemide 20 MG Tab PO SCH (08:52)
[2016-12-02] MEDS: atorvaSTATin 20 MG Tab PO SCH (08:52)
[2016-12-02] MEDS: Aspirin 81 MG Tab.EC PO SCH (08:52)
[2016-12-02] MEDS: levETIRAcetam 500 MG Tab PO SCH ×2 (08:52→20:29)
[2016-12-02] MEDS: Metoprolol Succinate 25 MG Tab.ER PO SCH (08:53)
[2016-12-03] MEDS: Omeprazole 20 MG Cap.CR PO SCH ×2 (06:00→17:30)
[2016-12-03] MEDS: Albuterol/Ipratropium 3.0-0.5 MG/3 ML Neb Soln NEB SCH ×2 (07:51→17:11)
[2016-12-03] MEDS: Budesonide 0.5 MG/2 ML Neb Susp NEB SCH ×2 (07:51→17:11)
[2016-12-03] MEDS: Calcium Carbonate/Vitamin D3 1250 MG-200 Unit Tab PO SCH ×3 (08:35→17:30)
[2016-12-03] MEDS: atorvaSTATin 20 MG Tab PO SCH (08:35)
[2016-12-03] MEDS: Potassium Chloride 10 MEQ Tab.ER PO SCH (08:35)
[2016-12-03] MEDS: levETIRAcetam 500 MG Tab PO SCH ×2 (08:36→20:48)
[2016-12-03] MEDS: Aspirin 81 MG Tab.EC PO SCH (08:36)
[2016-12-03] MEDS: Furosemide 20 MG Tab PO SCH (08:36)
[2016-12-03] MEDS: Clopidogrel 75 MG Tab PO SCH (08:36)
[2016-12-03] MEDS: Metoprolol Succinate 25 MG Tab.ER PO SCH (08:37)
[2016-12-03] MEDS: Acetaminophen 325 MG Tab PO PRN (17:30)
[2016-12-04] MEDS: Omeprazole 20 MG Cap.CR PO SCH ×2 (05:03→17:47)
[2016-12-04] MEDS: Acetaminophen 325 MG Tab PO PRN (05:07)
[2016-12-04] MEDS: Albuterol/Ipratropium 3.0-0.5 MG/3 ML Neb Soln NEB SCH ×2 (07:36→18:14)
[2016-12-04] MEDS: Budesonide 0.5 MG/2 ML Neb Susp NEB SCH ×2 (07:36→18:14)
[2016-12-04] MEDS: Calcium Carbonate/Vitamin D3 1250 MG-200 Unit Tab PO SCH ×3 (09:03→17:47)
[2016-12-04] MEDS: Potassium Chloride 10 MEQ Tab.ER PO SCH (09:03)
[2016-12-04] MEDS: Aspirin 81 MG Tab.EC PO SCH (09:03)
[2016-12-04] MEDS: Furosemide 20 MG Tab PO SCH (09:04)
[2016-12-04] MEDS: levETIRAcetam 500 MG Tab PO SCH ×2 (09:04→20:38)
[2016-12-04] MEDS: atorvaSTATin 20 MG Tab PO SCH (09:04)
[2016-12-04] MEDS: Clopidogrel 75 MG Tab PO SCH (09:04)
[2016-12-04] MEDS: Metoprolol Succinate 25 MG Tab.ER PO SCH (09:06)
[2016-12-05] MEDS: Omeprazole 20 MG Cap.CR PO SCH ×2 (05:08→17:17)
[2016-12-05 07:06] LABS: CHLORIDE,CL 106 mmol/L (101-111); SODIUM,NA 140 mmol/L (135-145)
[2016-12-05] MEDS: Albuterol/Ipratropium 3.0-0.5 MG/3 ML Neb Soln NEB SCH ×2 (07:25→18:25)
[2016-12-05] MEDS: Budesonide 0.5 MG/2 ML Neb Susp NEB SCH ×2 (07:25→18:25)
[2016-12-05] MEDS: levETIRAcetam 500 MG Tab PO SCH ×2 (09:14→20:56)
[2016-12-05] MEDS: Potassium Chloride 10 MEQ Tab.ER PO SCH (09:14)
[2016-12-05] MEDS: atorvaSTATin 20 MG Tab PO SCH (09:14)
[2016-12-05] MEDS: Clopidogrel 75 MG Tab PO SCH (09:16)
[2016-12-05] MEDS: Furosemide 20 MG Tab PO SCH (09:16)
[2016-12-05] MEDS: Calcium Carbonate/Vitamin D3 1250 MG-200 Unit Tab PO SCH ×3 (09:16→17:17)
[2016-12-05] MEDS: Metoprolol Succinate 25 MG Tab.ER PO SCH (09:17)
[2016-12-05] MEDS: Aspirin 81 MG Tab.EC PO SCH (09:17)
[2016-12-05] MEDS: RISEDRONATE SODIUM 35 MG PO SCH (17:25)
[2016-12-06] MEDS: Omeprazole 20 MG Cap.CR PO SCH ×2 (06:22→17:21)
[2016-12-06] MEDS: RISEDRONATE SODIUM 35 MG PO SCH (06:25)
[2016-12-06] MEDS: Budesonide 0.5 MG/2 ML Neb Susp NEB SCH ×2 (07:31→17:22)
[2016-12-06] MEDS: Albuterol/Ipratropium 3.0-0.5 MG/3 ML Neb Soln NEB SCH ×2 (07:31→17:22)
[2016-12-06] MEDS: Potassium Chloride 10 MEQ Tab.ER PO SCH (09:12)
[2016-12-06] MEDS: Clopidogrel 75 MG Tab PO SCH (09:13)
[2016-12-06] MEDS: atorvaSTATin 20 MG Tab PO SCH (09:13)
[2016-12-06] MEDS: levETIRAcetam 500 MG Tab PO SCH ×2 (09:13→20:38)
[2016-12-06] MEDS: Aspirin 81 MG Tab.EC PO SCH (09:14)
[2016-12-06] MEDS: Calcium Carbonate/Vitamin D3 1250 MG-200 Unit Tab PO SCH ×3 (09:14→17:21)
[2016-12-06] MEDS: Furosemide 20 MG Tab PO SCH (09:14)
[2016-12-06] MEDS: Metoprolol Succinate 25 MG Tab.ER PO SCH (09:14)
[2016-12-07] MEDS: Omeprazole 20 MG Cap.CR PO SCH ×2 (05:20→17:28)
[2016-12-07] MEDS: Budesonide 0.5 MG/2 ML Neb Susp NEB SCH ×2 (09:30→17:12)
[2016-12-07] MEDS: Albuterol/Ipratropium 3.0-0.5 MG/3 ML Neb Soln NEB SCH ×3 (09:30→20:24)
[2016-12-07] MEDS: levETIRAcetam 500 MG Tab PO SCH ×2 (10:03→20:24)
[2016-12-07] MEDS: Clopidogrel 75 MG Tab PO SCH (10:03)
[2016-12-07] MEDS: atorvaSTATin 20 MG Tab PO SCH (10:03)
[2016-12-07] MEDS: Metoprolol Succinate 25 MG Tab.ER PO SCH (10:03)
[2016-12-07] MEDS: Calcium Carbonate/Vitamin D3 1250 MG-200 Unit Tab PO SCH ×3 (10:03→17:28)
[2016-12-07] MEDS: Potassium Chloride 10 MEQ Tab.ER PO SCH (10:04)
[2016-12-07] MEDS: Furosemide 20 MG Tab PO SCH (10:04)
[2016-12-07] MEDS: Aspirin 81 MG Tab.EC PO SCH (10:04)
[2016-12-08] MEDS: Omeprazole 20 MG Cap.CR PO SCH ×2 (05:39→16:51)
[2016-12-08] MEDS: Potassium Chloride 10 MEQ Tab.ER PO SCH (08:54)
[2016-12-08] MEDS: levETIRAcetam 500 MG Tab PO SCH ×2 (08:55→21:17)
[2016-12-08] MEDS: atorvaSTATin 20 MG Tab PO SCH (08:55)
[2016-12-08] MEDS: Calcium Carbonate/Vitamin D3 1250 MG-200 Unit Tab PO SCH ×3 (08:56→17:36)
[2016-12-08] MEDS: Furosemide 20 MG Tab PO SCH (08:56)
[2016-12-08] MEDS: Aspirin 81 MG Tab.EC PO SCH (08:56)
[2016-12-08] MEDS: Clopidogrel 75 MG Tab PO SCH (08:56)
[2016-12-08] MEDS: Metoprolol Succinate 25 MG Tab.ER PO SCH (08:57)
[2016-12-08] MEDS: Albuterol/Ipratropium 3.0-0.5 MG/3 ML Neb Soln NEB SCH ×4 (09:05→21:17)
[2016-12-08] MEDS: Budesonide 0.5 MG/2 ML Neb Susp NEB SCH ×2 (09:05→18:11)
--- NOTE | 2016-12-08 10:00 | PCM.PN ---
- General Info Date of Service: 12/08/16 Admission Dx/Problem (Free Text): Admission Diagnosis/Problem Admission Diagnosis/Problem Weakness Subjective Update: The patient complains of shortness of breath Shortness of breath is worse when she ambulates but with rest Has been going on since admission Exercise tolerance is limited - Review of Systems General: Reports: Weakness Pulmonary: Reports: Shortness of Breath Cardiovascular: Reports: Dyspnea on Exertion. Denies: Chest Pain, Lightheadedness Gastrointestinal: Reports: No Symptoms Genitourinary: Reports: No Symptoms Musculoskeletal: Reports: No Symptoms Skin: Reports: No Symptoms Neurological: Reports: No Symptoms Psychiatric: Reports: No Symptoms - Patient Data Vitals - most recent: Last Vital Signs Temp 37.2 C 12/08/16 07:58 Pulse 78 12/08/16 09:06 Resp 20 12/08/16 07:58 BP 109/58 L 12/08/16 08:57 Pulse Ox 96 12/08/16 09:06 Weight - most recent: 46.539 kg I&O - last 24 hours: Intake & Output 12/07/16 12/08/16 12/08/16 22:59 06:59 14:59 Intake Total 315 350 Balance 315 350 Med Orders - Current: Current Medications Acetaminophen (Tylenol) 650 mg PO Q4H PRN PRN Reason: Pain (Mild 1-3)/fever Last Admin: 12/04/16 05:07 Dose: 650 mg Hydrocodone Bitart/Acetaminophen ([place] 325-10 Mg) 0.5 tab PO Q4H PRN PRN Reason: Pain (moderate 4-6) Albuterol (Proventil Hfa) 0 gm INH BID PRN PRN Reason: Shortness of Breath Last Admin: 12/07/16 12:59 Dose: 2 puff Albuterol/Ipratropium (Duoneb 3.0-0.5 Mg/3 Ml) 3 ml NEB QIDRT [facility] Last Admin: 12/08/16 09:05 Dose: 3 ml Aspirin (Halfprin) 81 mg PO DAILY [facility] Last Admin: 12/08/16 08:56 Dose: 81 mg Atorvastatin Calcium (Lipitor) 40 mg PO DAILY [facility] Last Admin: 12/08/16 08:55 Dose: 40 mg Budesonide (Pulmicort) 0.5 mg NEB BIDRT [facility] Last Admin: 12/08/16 09:05 Dose: 0.5 mg Calcium Carbonate (Calcium Carbonate/Vitamin D 1250 Mg-200 Unit) 1 tab PO TIDMEALS [facility] Last Admin: 12/08/16 08:56 Dose: 1 tab Clopidogrel Bisulfate (Plavix) 75 mg PO DAILY [facility] Last Admin: 12/08/16 08:56 Dose: 75 mg Furosemide (Lasix) 20 mg PO DAILY [facility] Last Admin: 12/08/16 08:56 Dose: 20 mg Guaifenesin (Robitussin) 100 mg PO Q4H PRN PRN Reason: Cough Levetiracetam (Keppra) 500 mg PO BID [facility] Last Admin: 12/08/16 08:55 Dose: 500 mg Magnesium Hydroxide (Milk Of Magnesia) 30 ml PO Q12H PRN PRN Reason: Constipation Metoprolol Succinate (Toprol Xl) 25 mg PO DAILY [facility] Last Admin: 12/08/16 08:57 Dose: 25 mg Omeprazole (Omeprazole) 20 mg PO BIDAC [facility] Last Admin: 12/08/16 05:39 Dose: 20 mg Ondansetron HCl (Zofran Odt) 4 mg PO Q6H PRN PRN Reason: nausea, able to take PO Risedronate Sodium 35 MgPt's Own Med* * 0 each PO Mo@0600 [facility] Last Admin: 12/06/16 06:25 Dose: 1 each Polyethylene Glycol (Miralax) 17 gm PO DAILY PRN PRN Reason: Constipation Potassium Chloride (Klor-Con 10) 40 meq PO DAILY@0800 [facility] Last Admin: 12/08/16 08:54 Dose: 40 meq Senna/Docusate Sodium (Senna Plus) 1 tab PO BEDTIME PRN PRN Reason: Constipation Sodium Chloride (Zinc Nasal [place]) 0 ml JHONATHAN BID PRN PRN Reason: Nasal Congestion Discontinued Medications Albuterol/Ipratropium (Duoneb 3.0-0.5 Mg/3 Ml) 3 ml NEB BIDRT [facility] Last Admin: 12/07/16 09:30 Dose: Not Given - Exam General: no acute distress HEENT: Pupils equal, Pupils reactive, EOMI, Mucous membr. moist/pink Neck: supple Lungs: Rales Cardiovascular: Regular Rate GI/Abdominal Exam: Normal Bowel Sounds, Soft, Non-Tender, No Organomegaly, No Distention, No Abnormal Bruit, No Mass, Pelvis Stable Extremities: No: No Pedal Edema, Pedal Edema Psy/Mental Status: alert - Problem List Review Problem List Initiated/Reviewed/Updated: Yes - My Orders Last 24 Hours: My Active Orders 12/07/16 14:07 RT Aerosol Therapy [RC] ,,,12/07/16 17:00 Albuterol/Ipratropium [DuoNeb 3.0-0.5 MG/3 ML] 3 ml NEB QIDRT 12/08/16 09:42 CXR [Chest 1V Frontal] [CR] Routine 12/08/16 09:43 B-TYPE NATRIURETIC PEPTIDE,BNP [CHEM] Routine BASIC METABOLIC PANEL,BMP [CHEM] Routine CBC WITH AUTO DIFF [HEME] Routine - Plan Plan:: Generalized weakness, from prolonged hospitalization and multiple comorbidities Patient is getting physical and occupational therapy Status post sepsis She finished IV antibiotic on 11/29/16 Legionella culture, AFB culture and smear, preliminary fungal culture, Bronchial wash culture, Streptococcus pneumoniae antigen in urine, sputum culture, blood cultures were negative Aspergillus IGG was slightly elevated, it was thought not to be sufficient enough to make a diagnosis of pulmonary aspergillosis Also blastomyces positive by MAHI but immunodiffusion neg,low dose titers of histoplasma positive too. Histo plasma serum and urine antigen, respiratory virus culture are pending Bilateral groundglass opacities, infectious vs non infectious BNP was not significantly elevated. CT scan of chest on 11/16 reported Dramatic increase in groundglass density throughout the lungs especially upper lobes relative to the comparison. Per her record her respiratory symptoms slightly improved since switching her antibiotic from Zosyn to meropenem Continue with DuoNeb and budesonide The patient is significantly more short of breath History of seizure while in the hospital, Neurology was consulted and she is currently on Keppra. Small bowel obstruction, resolved. Chronic obstructive pulmonary disease exacerbation, Continue with DuoNeb and budesonide Plan Obtain chest x-ray Send sample for brain natruretic peptide Send sample for Complete blood count Obtain basic metabolic panel
[2016-12-08 10:37] LABS: CHLORIDE,CL 107 mmol/L (101-111); SODIUM,NA 140 mmol/L (135-145)
--- NOTE | 2016-12-08 11:25 | CR ---
CLINICAL HISTORY: 81-year-old female with shortness of breath. INTERPRETATION: Less than optimal inspiratory effort and chronic abnormal interstitial pattern this patient with large hiatus hernia noted on 03 November 2016 exam. Left ventricular configuration and subtle relative increase venous congestion but no alveolar edema or dependent pleural fluid accumulation. No new lung mass, hilar lymphadenopathy or focal lobar pneumonia. CONCLUSION: Pulmonary venous congestion. Clinical? No lobar pneumonia. Large hiatus hernia. Signs of vertebroplasty several levels lower thoracic and upper lumbar spine.
[2016-12-09] MEDS: Omeprazole 20 MG Cap.CR PO SCH ×2 (06:33→17:03)
[2016-12-09] MEDS: Calcium Carbonate/Vitamin D3 1250 MG-200 Unit Tab PO SCH ×3 (08:32→17:03)
[2016-12-09] MEDS: Potassium Chloride 10 MEQ Tab.ER PO SCH (08:33)
[2016-12-09] MEDS: Budesonide 0.5 MG/2 ML Neb Susp NEB SCH ×2 (09:11→17:05)
[2016-12-09] MEDS: Albuterol/Ipratropium 3.0-0.5 MG/3 ML Neb Soln NEB SCH ×4 (09:11→21:21)
[2016-12-09] MEDS: Aspirin 81 MG Tab.EC PO SCH (09:13)
[2016-12-09] MEDS: Metoprolol Succinate 25 MG Tab.ER PO SCH (09:13)
[2016-12-09] MEDS: Furosemide 20 MG Tab PO SCH (09:13)
[2016-12-09] MEDS: levETIRAcetam 500 MG Tab PO SCH ×2 (09:14→21:21)
[2016-12-09] MEDS: atorvaSTATin 20 MG Tab PO SCH (09:14)
[2016-12-09] MEDS: Clopidogrel 75 MG Tab PO SCH (09:14)
--- NOTE | 2016-12-09 11:38 | PCM.PN ---
- General Info Date of Service: 12/09/16 - Review of Systems General: Reports: No Symptoms, Weakness, Malaise HEENT: Reports: No Symptoms Pulmonary: Reports: Shortness of Breath, Cough Cardiovascular: Reports: Dyspnea on Exertion Gastrointestinal: Reports: No Symptoms Genitourinary: Reports: No Symptoms Skin: Reports: No Symptoms Psychiatric: Reports: No Symptoms - Patient Data Vitals - most recent: Last Vital Signs Temp 37.1 C 12/09/16 07:55 Pulse 73 12/09/16 09:18 Resp 16 12/09/16 07:55 BP 103/59 L 12/09/16 09:13 Pulse Ox 93 L 12/09/16 09:18 Weight - most recent: 46.539 kg I&O - last 24 hours: Intake & Output 12/08/16 12/09/16 12/09/16 22:59 06:59 14:59 Intake Total 220 50 Balance 220 50 Med Orders - Current: Current Medications Acetaminophen (Tylenol) 650 mg PO Q4H PRN PRN Reason: Pain (Mild 1-3)/fever Last Admin: 12/04/16 05:07 Dose: 650 mg Hydrocodone Bitart/Acetaminophen ([place] 325-10 Mg) 0.5 tab PO Q4H PRN PRN Reason: Pain (moderate 4-6) Last Admin: 12/08/16 21:18 Dose: 0.5 tab Albuterol (Proventil Hfa) 0 gm INH BID PRN PRN Reason: Shortness of Breath Last Admin: 12/07/16 12:59 Dose: 2 puff Albuterol/Ipratropium (Duoneb 3.0-0.5 Mg/3 Ml) 3 ml NEB QIDRT [facility] Last Admin: 12/09/16 09:11 Dose: 3 ml Aspirin (Halfprin) 81 mg PO DAILY [facility] Last Admin: 12/09/16 09:13 Dose: 81 mg Atorvastatin Calcium (Lipitor) 40 mg PO DAILY [facility] Last Admin: 12/09/16 09:14 Dose: 40 mg Budesonide (Pulmicort) 0.5 mg NEB BIDRT [facility] Last Admin: 12/09/16 09:11 Dose: 0.5 mg Calcium Carbonate (Calcium Carbonate/Vitamin D 1250 Mg-200 Unit) 1 tab PO TIDMEALS [facility] Last Admin: 12/09/16 08:32 Dose: 1 tab Clopidogrel Bisulfate (Plavix) 75 mg PO DAILY [facility] Last Admin: 12/09/16 09:14 Dose: 75 mg Furosemide (Lasix) 40 mg PO DAILY [facility] Guaifenesin (Robitussin) 100 mg PO Q4H PRN PRN Reason: Cough Levetiracetam (Keppra) 500 mg PO BID [facility] Last Admin: 12/09/16 09:14 Dose: 500 mg Levofloxacin (Levaquin) 500 mg PO Q48H [facility] Magnesium Hydroxide (Milk Of Magnesia) 30 ml PO Q12H PRN PRN Reason: Constipation Metoprolol Succinate (Toprol Xl) 25 mg PO DAILY [facility] Last Admin: 12/09/16 09:13 Dose: 25 mg Omeprazole (Omeprazole) 20 mg PO BIDAC [facility] Last Admin: 12/09/16 06:33 Dose: 20 mg Ondansetron HCl (Zofran Odt) 4 mg PO Q6H PRN PRN Reason: nausea, able to take PO Risedronate Sodium 35 MgPt's Own Med* * 0 each PO Mo@0600 [facility] Last Admin: 12/06/16 06:25 Dose: 1 each Polyethylene Glycol (Miralax) 17 gm PO DAILY PRN PRN Reason: Constipation Potassium Chloride (Klor-Con 10) 40 meq PO DAILY@0800 [facility] Last Admin: 12/09/16 08:33 Dose: 40 meq Prednisone (Prednisone) 20 mg PO .DAILY TAPER [facility] Senna/Docusate Sodium (Senna Plus) 1 tab PO BEDTIME PRN PRN Reason: Constipation Sodium Chloride ([place] Nasal [place]) 0 ml JHONATHAN BID PRN PRN Reason: Nasal Congestion Discontinued Medications Albuterol/Ipratropium (Duoneb 3.0-0.5 Mg/3 Ml) 3 ml NEB BIDRT [facility] Last Admin: 12/07/16 09:30 Dose: Not Given Furosemide (Lasix) 20 mg PO DAILY [facility] Last Admin: 12/09/16 09:13 Dose: 20 mg - Problem List Review Problem List Initiated/Reviewed/Updated: Yes - My Orders Last 24 Hours: My Active Orders 12/09/16 11:15 predniSONE 20 mg PO .DAILY TAPER 12/09/16 12:00 Levofloxacin [Levaquin] 500 mg PO Q48H 12/10/16 09:00 Furosemide [Lasix] 40 mg PO DAILY - Plan Plan:: Generalized weakness, from prolonged hospitalization and multiple comorbidities Patient is getting physical and occupational therapy Status post sepsis She finished IV antibiotic on 11/29/16 Legionella culture, AFB culture and smear, preliminary fungal culture, Bronchial wash culture, Streptococcus pneumoniae antigen in urine, sputum culture, blood cultures were negative Aspergillus IGG was slightly elevated, it was thought not to be sufficient enough to make a diagnosis of pulmonary aspergillosis Also blastomyces positive by [facility] but immunodiffusion neg,low dose titers of histoplasma positive too. Histo plasma serum and urine antigen, respiratory virus culture are pending Bilateral groundglass opacities, infectious vs non infectious BNP is normal CT scan of chest on 11/16 reported Dramatic increase in groundglass density throughout the lungs especially upper lobes relative to the comparison. Per her record her respiratory symptoms slightly improved since switching her antibiotic from Zosyn to meropenem Continue with DuoNeb and budesonide The patient is significantly more short of breath I obtained a repeat chest x-ray and this showed stable infiltrates compared to previous studies. However the patient is still very symptomatic I will go ahead and start the patient on empiric treatment with prednisone 20 mg Increase Lasix to 40 mg daily Start patient on levofloxacin History of seizure while in the hospital, Neurology was consulted and she is currently on Keppra. Small bowel obstruction, resolved. Chronic obstructive pulmonary disease exacerbation, Continue with DuoNeb and budesonide I added steroids due to treatment
[2016-12-09] MEDS: Levofloxacin 500 MG Tab PO SCH (12:07)
[2016-12-09] MEDS: predniSONE 20 MG Tab PO SCH (12:08)
[2016-12-10] MEDS: Omeprazole 20 MG Cap.CR PO SCH ×2 (06:16→18:20)
[2016-12-10] MEDS: Albuterol/Ipratropium 3.0-0.5 MG/3 ML Neb Soln NEB SCH ×4 (08:06→22:23)
[2016-12-10] MEDS: Budesonide 0.5 MG/2 ML Neb Susp NEB SCH ×2 (08:06→18:20)
[2016-12-10] MEDS: levETIRAcetam 500 MG Tab PO SCH ×2 (10:32→22:22)
[2016-12-10] MEDS: atorvaSTATin 20 MG Tab PO SCH (10:32)
[2016-12-10] MEDS: Metoprolol Succinate 25 MG Tab.ER PO SCH (10:33)
[2016-12-10] MEDS: Clopidogrel 75 MG Tab PO SCH (10:33)
[2016-12-10] MEDS: Potassium Chloride 10 MEQ Tab.ER PO SCH (10:33)
[2016-12-10] MEDS: Calcium Carbonate/Vitamin D3 1250 MG-200 Unit Tab PO SCH ×3 (10:33→18:20)
[2016-12-10] MEDS: Furosemide 40 MG Tab PO SCH (10:33)
[2016-12-10] MEDS: predniSONE 20 MG Tab PO SCH (10:33)
[2016-12-10] MEDS: Aspirin 81 MG Tab.EC PO SCH (10:33)
[2016-12-11] MEDS: Omeprazole 20 MG Cap.CR PO SCH ×2 (06:47→18:19)
[2016-12-11] MEDS: Budesonide 0.5 MG/2 ML Neb Susp NEB SCH ×2 (07:34→18:21)
[2016-12-11] MEDS: Albuterol/Ipratropium 3.0-0.5 MG/3 ML Neb Soln NEB SCH ×4 (07:34→21:11)
[2016-12-11] MEDS: Aspirin 81 MG Tab.EC PO SCH (09:56)
[2016-12-11] MEDS: Calcium Carbonate/Vitamin D3 1250 MG-200 Unit Tab PO SCH ×3 (09:56→18:19)
[2016-12-11] MEDS: levETIRAcetam 500 MG Tab PO SCH ×2 (09:56→21:10)
[2016-12-11] MEDS: predniSONE 20 MG Tab PO SCH (09:56)
[2016-12-11] MEDS: Furosemide 40 MG Tab PO SCH (09:57)
[2016-12-11] MEDS: atorvaSTATin 20 MG Tab PO SCH (09:57)
[2016-12-11] MEDS: Potassium Chloride 10 MEQ Tab.ER PO SCH (09:57)
[2016-12-11] MEDS: Clopidogrel 75 MG Tab PO SCH (09:57)
[2016-12-11] MEDS: Metoprolol Succinate 25 MG Tab.ER PO SCH (09:58)
[2016-12-11] MEDS: Levofloxacin 500 MG Tab PO SCH (11:44)
[2016-12-12] MEDS: Omeprazole 20 MG Cap.CR PO SCH ×2 (06:03→17:44)
[2016-12-12] MEDS: RISEDRONATE SODIUM 35 MG PO SCH (06:03)
[2016-12-12] MEDS: Budesonide 0.5 MG/2 ML Neb Susp NEB SCH ×2 (07:25→17:44)
[2016-12-12] MEDS: Albuterol/Ipratropium 3.0-0.5 MG/3 ML Neb Soln NEB SCH ×4 (07:26→21:11)
[2016-12-12] MEDS: Potassium Chloride 10 MEQ Tab.ER PO SCH (08:50)
[2016-12-12] MEDS: Calcium Carbonate/Vitamin D3 1250 MG-200 Unit Tab PO SCH ×3 (08:51→17:44)
[2016-12-12] MEDS: predniSONE 20 MG Tab PO SCH (08:51)
[2016-12-12] MEDS: Aspirin 81 MG Tab.EC PO SCH (08:51)
[2016-12-12] MEDS: Metoprolol Succinate 25 MG Tab.ER PO SCH (08:51)
[2016-12-12] MEDS: atorvaSTATin 20 MG Tab PO SCH (08:51)
[2016-12-12] MEDS: Furosemide 40 MG Tab PO SCH (08:52)
[2016-12-12] MEDS: Clopidogrel 75 MG Tab PO SCH (08:52)
[2016-12-12] MEDS: levETIRAcetam 500 MG Tab PO SCH ×2 (08:52→21:11)
[2016-12-13] MEDS: Omeprazole 20 MG Cap.CR PO SCH ×2 (05:38→17:02)
[2016-12-13] MEDS: Budesonide 0.5 MG/2 ML Neb Susp NEB SCH ×2 (07:52→18:39)
[2016-12-13] MEDS: Albuterol/Ipratropium 3.0-0.5 MG/3 ML Neb Soln NEB SCH ×4 (07:52→22:02)
[2016-12-13] MEDS: Calcium Carbonate/Vitamin D3 1250 MG-200 Unit Tab PO SCH ×3 (08:40→17:56)
[2016-12-13] MEDS: Potassium Chloride 10 MEQ Tab.ER PO SCH (08:41)
[2016-12-13] MEDS: predniSONE 20 MG Tab PO SCH (08:42)
[2016-12-13] MEDS: Aspirin 81 MG Tab.EC PO SCH (08:42)
[2016-12-13] MEDS: Furosemide 40 MG Tab PO SCH (08:43)
[2016-12-13] MEDS: atorvaSTATin 20 MG Tab PO SCH (08:43)
[2016-12-13] MEDS: levETIRAcetam 500 MG Tab PO SCH ×2 (08:43→22:02)
[2016-12-13] MEDS: Clopidogrel 75 MG Tab PO SCH (08:44)
[2016-12-13] MEDS: Metoprolol Succinate 25 MG Tab.ER PO SCH (08:44)
[2016-12-13] MEDS: Levofloxacin 500 MG Tab PO SCH (12:02)
[2016-12-14] MEDS: Omeprazole 20 MG Cap.CR PO SCH ×2 (06:47→17:53)
[2016-12-14] MEDS: Budesonide 0.5 MG/2 ML Neb Susp NEB SCH ×2 (07:18→17:55)
[2016-12-14] MEDS: Albuterol/Ipratropium 3.0-0.5 MG/3 ML Neb Soln NEB SCH ×4 (07:18→21:59)
[2016-12-14] MEDS: Calcium Carbonate/Vitamin D3 1250 MG-200 Unit Tab PO SCH ×3 (08:54→17:53)
[2016-12-14] MEDS: Potassium Chloride 10 MEQ Tab.ER PO SCH (08:55)
[2016-12-14] MEDS: Aspirin 81 MG Tab.EC PO SCH (08:55)
[2016-12-14] MEDS: levETIRAcetam 500 MG Tab PO SCH ×2 (08:56→21:59)
[2016-12-14] MEDS: Furosemide 40 MG Tab PO SCH (08:56)
[2016-12-14] MEDS: atorvaSTATin 20 MG Tab PO SCH (08:57)
[2016-12-14] MEDS: Metoprolol Succinate 25 MG Tab.ER PO SCH (08:57)
[2016-12-14] MEDS: Clopidogrel 75 MG Tab PO SCH (08:57)
[2016-12-14] MEDS: Acetaminophen 325 MG Tab PO PRN (15:13)
[2016-12-15] MEDS: Omeprazole 20 MG Cap.CR PO SCH ×2 (06:19→17:52)
[2016-12-15] MEDS: Albuterol/Ipratropium 3.0-0.5 MG/3 ML Neb Soln NEB SCH ×3 (07:16→20:36)
[2016-12-15] MEDS: Potassium Chloride 10 MEQ Tab.ER PO SCH (07:16)
[2016-12-15] MEDS: Calcium Carbonate/Vitamin D3 1250 MG-200 Unit Tab PO SCH ×3 (07:16→17:52)
[2016-12-15] MEDS: Budesonide 0.5 MG/2 ML Neb Susp NEB SCH ×2 (07:31→16:45)
[2016-12-15] MEDS: Aspirin 81 MG Tab.EC PO SCH (09:08)
[2016-12-15] MEDS: levETIRAcetam 500 MG Tab PO SCH ×2 (09:09→20:34)
[2016-12-15] MEDS: Furosemide 40 MG Tab PO SCH (09:09)
[2016-12-15] MEDS: Clopidogrel 75 MG Tab PO SCH (09:10)
[2016-12-15] MEDS: Metoprolol Succinate 25 MG Tab.ER PO SCH (09:10)
[2016-12-15] MEDS: atorvaSTATin 20 MG Tab PO SCH (09:10)
[2016-12-15] MEDS: Levofloxacin 500 MG Tab PO SCH (11:35)
[2016-12-16] MEDS: Omeprazole 20 MG Cap.CR PO SCH ×2 (05:56→18:20)
[2016-12-16] MEDS: Budesonide 0.5 MG/2 ML Neb Susp NEB SCH ×3 (07:06→17:12)
[2016-12-16] MEDS: Albuterol/Ipratropium 3.0-0.5 MG/3 ML Neb Soln NEB SCH ×5 (07:06→22:51)
[2016-12-16] MEDS: Calcium Carbonate/Vitamin D3 1250 MG-200 Unit Tab PO SCH ×3 (09:05→18:20)
[2016-12-16] MEDS: Furosemide 40 MG Tab PO SCH (09:05)
[2016-12-16] MEDS: Potassium Chloride 10 MEQ Tab.ER PO SCH (09:05)
[2016-12-16] MEDS: Metoprolol Succinate 25 MG Tab.ER PO SCH (09:06)
[2016-12-16] MEDS: levETIRAcetam 500 MG Tab PO SCH ×2 (09:06→22:51)
[2016-12-16] MEDS: atorvaSTATin 20 MG Tab PO SCH (09:06)
[2016-12-16] MEDS: Aspirin 81 MG Tab.EC PO SCH (09:06)
[2016-12-16] MEDS: Clopidogrel 75 MG Tab PO SCH (09:06)
[2016-12-17] MEDS: Omeprazole 20 MG Cap.CR PO SCH ×2 (05:57→17:45)
[2016-12-17] MEDS: Budesonide 0.5 MG/2 ML Neb Susp NEB SCH ×2 (07:06→17:08)
[2016-12-17] MEDS: Albuterol/Ipratropium 3.0-0.5 MG/3 ML Neb Soln NEB SCH ×4 (07:06→20:56)
[2016-12-17] MEDS: Clopidogrel 75 MG Tab PO SCH (09:10)
[2016-12-17] MEDS: Calcium Carbonate/Vitamin D3 1250 MG-200 Unit Tab PO SCH ×3 (09:10→17:45)
[2016-12-17] MEDS: atorvaSTATin 20 MG Tab PO SCH (09:10)
[2016-12-17] MEDS: levETIRAcetam 500 MG Tab PO SCH ×2 (09:10→20:56)
[2016-12-17] MEDS: Metoprolol Succinate 25 MG Tab.ER PO SCH (09:11)
[2016-12-17] MEDS: Furosemide 40 MG Tab PO SCH (09:11)
[2016-12-17] MEDS: Aspirin 81 MG Tab.EC PO SCH (09:11)
[2016-12-17] MEDS: Potassium Chloride 10 MEQ Tab.ER PO SCH (09:11)
[2016-12-17] MEDS: Levofloxacin 500 MG Tab PO SCH (12:44)
[2016-12-18] MEDS: Omeprazole 20 MG Cap.CR PO SCH ×2 (05:13→17:40)
[2016-12-18] MEDS: Albuterol/Ipratropium 3.0-0.5 MG/3 ML Neb Soln NEB SCH ×4 (07:25→20:43)
[2016-12-18] MEDS: Budesonide 0.5 MG/2 ML Neb Susp NEB SCH ×2 (07:25→18:01)
[2016-12-18] MEDS: Calcium Carbonate/Vitamin D3 1250 MG-200 Unit Tab PO SCH ×3 (08:49→17:40)
[2016-12-18] MEDS: Furosemide 40 MG Tab PO SCH (08:49)
[2016-12-18] MEDS: atorvaSTATin 20 MG Tab PO SCH (08:49)
[2016-12-18] MEDS: Clopidogrel 75 MG Tab PO SCH (08:50)
[2016-12-18] MEDS: Aspirin 81 MG Tab.EC PO SCH (08:50)
[2016-12-18] MEDS: Potassium Chloride 10 MEQ Tab.ER PO SCH (08:50)
[2016-12-18] MEDS: Metoprolol Succinate 25 MG Tab.ER PO SCH (08:51)
[2016-12-18] MEDS: levETIRAcetam 500 MG Tab PO SCH ×2 (08:51→20:43)
[2016-12-19] MEDS: RISEDRONATE SODIUM 35 MG PO SCH (05:37)
[2016-12-19] MEDS: Omeprazole 20 MG Cap.CR PO SCH ×2 (05:37→17:15)
[2016-12-19 07:24] LABS: CHLORIDE,CL 106 mmol/L (101-111); SODIUM,NA 139 mmol/L (135-145)
[2016-12-19] MEDS: Albuterol/Ipratropium 3.0-0.5 MG/3 ML Neb Soln NEB SCH ×4 (07:28→21:30)
[2016-12-19] MEDS: Budesonide 0.5 MG/2 ML Neb Susp NEB SCH ×3 (07:29→17:03)
[2016-12-19] MEDS: Clopidogrel 75 MG Tab PO SCH (08:51)
[2016-12-19] MEDS: Furosemide 40 MG Tab PO SCH (08:51)
[2016-12-19] MEDS: Calcium Carbonate/Vitamin D3 1250 MG-200 Unit Tab PO SCH ×3 (08:51→17:15)
[2016-12-19] MEDS: Potassium Chloride 10 MEQ Tab.ER PO SCH (08:51)
[2016-12-19] MEDS: Aspirin 81 MG Tab.EC PO SCH (08:51)
[2016-12-19] MEDS: Metoprolol Succinate 25 MG Tab.ER PO SCH (08:51)
[2016-12-19] MEDS: levETIRAcetam 500 MG Tab PO SCH ×2 (08:51→21:30)
[2016-12-19] MEDS: atorvaSTATin 20 MG Tab PO SCH (08:51)
[2016-12-19] MEDS: Levofloxacin 500 MG Tab PO SCH (11:55)
[2016-12-20] MEDS: Budesonide 0.5 MG/2 ML Neb Susp NEB SCH (06:01)
[2016-12-20] MEDS: Albuterol/Ipratropium 3.0-0.5 MG/3 ML Neb Soln NEB SCH ×2 (06:01→11:45)
[2016-12-20] MEDS: Omeprazole 20 MG Cap.CR PO SCH (06:01)
[2016-12-20 08:24] VITALS: BP 106/65
[2016-12-20] MEDS: Furosemide 40 MG Tab PO SCH (09:57)
[2016-12-20] MEDS: Aspirin 81 MG Tab.EC PO SCH (09:57)
[2016-12-20] MEDS: Clopidogrel 75 MG Tab PO SCH (09:57)
[2016-12-20] MEDS: Metoprolol Succinate 25 MG Tab.ER PO SCH (09:57)
[2016-12-20] MEDS: Calcium Carbonate/Vitamin D3 1250 MG-200 Unit Tab PO SCH ×2 (09:57→13:40)
[2016-12-20] MEDS: atorvaSTATin 20 MG Tab PO SCH (09:58)
[2016-12-20] MEDS: levETIRAcetam 500 MG Tab PO SCH (09:58)
[2016-12-20] MEDS: Potassium Chloride 10 MEQ Tab.ER PO SCH (09:58)
--- NOTE | 2016-12-20 10:52 | PCM.DCSUM1 ---
Discharge Summary - Hospital Course Free Text/Narrative:: admitted with Generalized weakness, from prolonged hospitalization and multiple comorbidities Patient improved with physical and occupational therapy Status post sepsis She finished IV antibiotic Legionella culture, AFB culture and smear, preliminary fungal culture, Bronchial wash culture, Streptococcus pneumoniae antigen in urine, sputum culture, blood cultures were negative Aspergillus IGG was slightly elevated, it was thought not to be sufficient enough to make a diagnosis of pulmonary aspergillosis Also blastomyces positive by [facility] but immunodiffusion neg,low dose titers of histoplasma positive too. Bilateral groundglass opacities, infectious vs non infectious was treated with ABx, steroids, nebulizers, diuretics improved History of seizure while in the hospital, Neurology was consulted and started on Keppra. Small bowel obstruction, resolved. Chronic obstructive pulmonary disease exacerbation, Continue home treatment with with DuoNeb and budesonide - Discharge Data Discharge Date: 12/20/16 Discharge Disposition: Home, Self-Care 01 Condition: Good - Patient Summary/Data Consults: Consultations 12/01/16 11:05 OT Evaluation and Treatment [CONS] Routine PT Evaluation and Treatment [CONS] Routine - Patient Instructions Diet: Usual Diet as Tolerated Activity: As Tolerated - Discharge Plan Prescriptions/Med Rec: Albuterol [Proventil HFA] 0 gm INH Q4H PRN #1 inhaler PRN Reason: Shortness Of Breath Albuterol/Ipratropium [DuoNeb 3.0-0.5 MG/3 ML] 3 ml NEB QIDRT #120 neb Furosemide [Lasix] 40 mg PO DAILY #30 tablet Home Medications: Home Meds Aspirin [[place] Aspirin] 81 mg PO DAILY 10/31/16 [History] Calcium Carbonate/Vitamin D3 [Calcium 500 + Vit D Caplet] 1 tab PO TIDMEALS 05/07 [History] Clopidogrel Bisulfate [Clopidogrel] 75 mg PO DAILY 10/31/16 [History] Esomeprazole Magnesium [Nexium 24Hr] 20 mg PO BID 10/31/16 [History] Metoprolol Succinate [Toprol XL] 50 mg PO DAILY 10/31/16 [History] Risedronate Sodium 35 mg PO WEEKLY 10/31/16 [History] atorvaSTATin [Lipitor] 40 mg PO DAILY 10/31/16 [History] Budesonide [Pulmicort] 0.5 mg NEB BIDRT 12/01/16 [History] Potassium Chloride [K-Tab ER] 20 meq PO DAILY 12/01/16 [History] levETIRAcetam [Keppra] 500 mg PO BID 12/01/16 [History] Albuterol [Proventil HFA] 0 gm INH Q4H PRN #1 inhaler 12/20/16 [Rx] Albuterol/Ipratropium [DuoNeb 3.0-0.5 MG/3 ML] 3 ml NEB QIDRT #120 neb 12/20/16 [Rx] Furosemide [Lasix] 40 mg PO DAILY #30 tablet 12/20/16 [Rx] - Discharge Summary/Plan Comment DC Time >30 min.: No - General Info Date of Service: 12/20/16 Admission Dx/Problem (Free Text: Admission Diagnosis/Problem Admission Diagnosis/Problem Weakness Subjective Update: feeling well, no SOB at rest Shortness of breath is worse when she ambulates much improved since admission no associated CP, no fever Functional Status: Reports: Tolerating Diet - Review of Systems General: Denies: Fever, Weakness Cardiovascular: Denies: Chest Pain - Patient Data Vitals - Most Recent: Last Vital Signs Temp 36.8 C 12/20/16 08:23 Pulse 94 12/20/16 09:57 Resp 20 12/20/16 08:23 BP 106/65 12/20/16 09:57 Pulse Ox 98 12/20/16 08:23 Weight - Most Recent: 46.72 kg I&O - Last 24 hours: Intake & Output 12/19/16 12/20/16 12/20/16 22:59 06:59 14:59 Intake Total 118 500 Balance 118 500 Med Orders - Current: Current Medications Acetaminophen (Tylenol) 650 mg PO Q4H PRN PRN Reason: Pain (Mild 1-3)/fever Last Admin: 12/14/16 15:13 Dose: 650 mg Hydrocodone Bitart/Acetaminophen ([place] 325-10 Mg) 0.5 tab PO Q4H PRN PRN Reason: Pain (moderate 4-6) Last Admin: 12/08/16 21:18 Dose: 0.5 tab Albuterol (Proventil Hfa) 0 gm INH BID PRN PRN Reason: Shortness of Breath Last Admin: 12/07/16 12:59 Dose: 2 puff Albuterol/Ipratropium (Duoneb 3.0-0.5 Mg/3 Ml) 3 ml NEB QIDRT [facility] Last Admin: 12/20/16 06:01 Dose: 3 ml Aspirin (Halfprin) 81 mg PO DAILY [facility] Last Admin: 12/20/16 09:57 Dose: 81 mg Atorvastatin Calcium (Lipitor) 40 mg PO DAILY [facility] Last Admin: 12/20/16 09:58 Dose: 40 mg Budesonide (Pulmicort) 0.5 mg NEB BIDRT [facility] Last Admin: 12/20/16 06:01 Dose: 0.5 mg Calcium Carbonate (Calcium Carbonate/Vitamin D 1250 Mg-200 Unit) 1 tab PO TIDMEALS [facility] Last Admin: 12/20/16 09:57 Dose: 1 tab Clopidogrel Bisulfate (Plavix) 75 mg PO DAILY [facility] Last Admin: 12/20/16 09:57 Dose: 75 mg Furosemide (Lasix) 40 mg PO DAILY [facility] Last Admin: 12/20/16 09:57 Dose: 40 mg Guaifenesin (Robitussin) 100 mg PO Q4H PRN PRN Reason: Cough Levetiracetam (Keppra) 500 mg PO BID [facility] Last Admin: 12/20/16 09:58 Dose: 500 mg Magnesium Hydroxide (Milk Of Magnesia) 30 ml PO Q12H PRN PRN Reason: Constipation Metoprolol Succinate (Toprol Xl) 25 mg PO DAILY [facility] Last Admin: 12/20/16 09:57 Dose: 25 mg Omeprazole (Omeprazole) 20 mg PO BIDAC [facility] Last Admin: 12/20/16 06:01 Dose: 20 mg Ondansetron HCl (Zofran Odt) 4 mg PO Q6H PRN PRN Reason: nausea, able to take PO Risedronate Sodium 35 MgPt's Own Med* * 0 each PO Mo@0600 [facility] Last Admin: 12/19/16 05:37 Dose: 1 each Polyethylene Glycol (Miralax) 17 gm PO DAILY PRN PRN Reason: Constipation Potassium Chloride (Klor-Con 10) 40 meq PO DAILY@0800 [facility] Last Admin: 12/20/16 09:58 Dose: 40 meq Senna/Docusate Sodium (Senna Plus) 1 tab PO BEDTIME PRN PRN Reason: Constipation Sodium Chloride ([place] Nasal [place]) 0 ml JHONATHAN BID PRN PRN Reason: Nasal Congestion Discontinued Medications Albuterol/Ipratropium (Duoneb 3.0-0.5 Mg/3 Ml) 3 ml NEB BIDRT [facility] Last Admin: 12/07/16 09:30 Dose: Not Given Furosemide (Lasix) 20 mg PO DAILY [facility] Last Admin: 12/09/16 09:13 Dose: 20 mg Levofloxacin (Levaquin) 500 mg PO Q48H [facility] Last Admin: 12/19/16 11:55 Dose: 500 mg Prednisone (Prednisone) 20 mg PO DAILY@0800 [facility] Stop: 12/13/16 08:01 Last Admin: 12/13/16 08:42 Dose: 20 mg - Exam General: Reports: Alert, Oriented Lungs: Reports: Clear to Auscultation, Normal Respiratory Effort. Denies: Rhonchi, Wheezing Cardiovascular: Reports: Regular Rate, Regular Rhythm GI/Abdominal Exam: Normal Bowel Sounds, Soft, Non-Tender Extremities: Normal Inspection, No Pedal Edema *Q Meaningful Use (DIS) - VTE *Q VTE Criteria *Q: - Stroke *Q Stroke Criteria *Q: - AMI *Q AMI Criteria *Q:
== END 2016-12-20 17:00 | disposition home or self-care (01) | DRG 947 ==
LOC: DL.MS 13:04
PROVIDERS: ADMIT Family Medicine; ATTEND Family Medicine
DX: R53.1 Weakness (principal); J18.9 Pneumonia, unspecified organism; J44.0 Chronic obstructive pulmonary disease with (acute) lower respiratory infection; R09.02 Hypoxemia; G40.909 Epilepsy, unspecified, not intractable, without status epilepticus; R91.8 Other nonspecific abnormal finding of lung field; G47.33 Obstructive sleep apnea (adult) (pediatric); M19.90 Unspecified osteoarthritis, unspecified site; E78.5 Hyperlipidemia, unspecified; M54.9 Dorsalgia, unspecified; G89.29 Other chronic pain; I10 Essential (primary) hypertension; K21.9 Gastro-esophageal reflux disease without esophagitis; Z79.82 Long term (current) use of aspirin
CPT/HCPCS: 36415; 71010; 80048; 83880; 85025; 94060; 94640; 97110-GO; 97110-GP; 97116-GP; 97161-GP; 97166-GO; 97530-GO; 97535-GO; A9270-GY

== ENCOUNTER 2017-05-11 12:24 | Inpatient (IN) | payer MEDICARE, OTHER ==
[2017-05-11 13:57] LABS: CHLORIDE,CL 101 mmol/L (101-111); SODIUM,NA 136 mmol/L (135-145)
[2017-05-11] MEDS ORDERED: Albuterol/Ipratropium 3.0-0.5 MG/3 ML Neb Soln NEB ONE (14:16)
--- NOTE | 2017-05-11 14:16 | EDM.PDOC ---
ED HPI GENERAL MEDICAL PROBLEM - General Chief Complaint: Chest Pain Stated Complaint: [id number] COUGH AND SOB CHEST PAIN Time Seen by Provider: 05/11/17 13:50 Source of Information: Reports: Patient History Limitations: Reports: No Limitations - History of Present Illness INITIAL COMMENTS - FREE TEXT/NARRATIVE: This 81 yo female patient was brought to the ED due to increased shortness of breath. The patient reports she noticed increased difficulties breathing today, but has been having difficulties catching her breath for the past several months. The patient reports she can only walk short distances while at home before she has to rest to catch her breath. Onset: Today, Sudden Duration: Constant Location: Reports: Chest Quality: Reports: Other Severity: Moderate Improves with: Reports: Rest Worsens with: Reports: Movement Associated Symptoms: Reports: Cough, Shortness of Breath - Related Data Allergies Allergy/AdvReac Type Severity Reaction Status Date / Time No Known Allergies Allergy Verified 12/01/16 13:46 Home Meds: Home Meds Aspirin [[place] Aspirin] 81 mg PO DAILY 10/31/16 [History] Calcium Carbonate/Vitamin D3 [Calcium 500 + Vit D Caplet] 1 tab PO TIDMEALS 05/07 [History] Clopidogrel Bisulfate [Clopidogrel] 75 mg PO DAILY 10/31/16 [History] Esomeprazole Magnesium [Nexium 24Hr] 20 mg PO BID 10/31/16 [History] Metoprolol Succinate [Toprol XL] 50 mg PO DAILY 10/31/16 [History] Risedronate Sodium 35 mg PO WEEKLY 10/31/16 [History] atorvaSTATin [Lipitor] 40 mg PO DAILY 10/31/16 [History] Budesonide [Pulmicort] 0.5 mg NEB BIDRT 12/01/16 [History] Potassium Chloride [K-Tab ER] 20 meq PO DAILY 12/01/16 [History] levETIRAcetam [Keppra] 500 mg PO BID 12/01/16 [History] Albuterol [Proventil HFA] 0 gm INH Q4H PRN #1 inhaler 12/20/16 [Rx] Albuterol/Ipratropium [DuoNeb 3.0-0.5 MG/3 ML] 3 ml NEB QIDRT #120 neb 12/20/16 [Rx] Furosemide [Lasix] 40 mg PO DAILY #30 tablet 12/20/16 [Rx] Past Medical History HEENT History: Reports: Cataract, Impaired Vision Other HEENT History: wears glasses Cardiovascular History: Reports: CAD, High Cholesterol, Hypertension Respiratory History: Reports: Pulmonary Fibrosis, SOB Other Respiratory History: "Residual Lung Diseas", 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 Gastrointestinal History: Reports: GERD Genitourinary History: Reports: None 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: Musculoskeletal History: Reports: Back Pain, Chronic, Osteoarthritis Neurological History: Reports: Cerebral Aneurysms, CVA Other Neuro History: between 5 to 10 years ago Psychiatric History: Reports: Anxiety Endocrine/Metabolic History: Reports: Osteoporosis Hematologic History: Reports: None Immunologic History: Reports: None Oncologic (Cancer) History: Reports: None Dermatologic History: Reports: None - Infectious Disease History Infectious Disease History: Reports: None - Past Surgical History Head Surgeries/Procedures: Reports: None HEENT Surgical History: Reports: Adenoidectomy, Cataract Surgery, Tonsillectomy Cardiovascular Surgical History: Reports: Aneurysm, Other (See Below) Other Cardiovascular Surgeries/Procedures: aneurysm repair Respiratory Surgical History: Reports: None GI Surgical History: Reports: Appendectomy Female Surgical History: Reports: None Neurological Surgical History: Reports: Other (See Below) Other Neurological Surgeries/Procedures: cement to lumbar areas Social & Family History - Family History Family Medical History: Noncontributory - Tobacco Use Smoking Status *Q: Never Smoker Second Hand Smoke Exposure: No - Caffeine Use Caffeine Use: Reports: Coffee, Soda - Recreational Drug Use Recreational Drug Use: No - Living Situation & Occupation Living situation: Reports: , with Spouse Occupation: Retired ED ROS GENERAL - Review of Systems Review Of Systems: ROS reveals no pertinent complaints other than HPI. ED EXAM, GENERAL - Physical Exam Exam: See Below Exam Limited By: No Limitations General Appearance: Alert, WD/WN, Moderate Distress Eye Exam: Bilateral Eye: EOMI, Normal Inspection, PERRL Ears: Normal External Exam, Normal Canal, Hearing Grossly Normal, Normal TMs Nose: Normal Inspection, Normal Mucosa, No Blood Throat/Mouth: Normal Inspection, Normal Lips, Normal Teeth, Normal Gums, Normal Oropharynx, Normal Voice, No Airway Compromise Head: Atraumatic, Normocephalic Neck: Normal Inspection, Supple, Non-Tender, Full Range of Motion Respiratory/Chest: Decreased Breath Sounds, Rhonchi Cardiovascular: Normal Peripheral Pulses, Regular Rate, Rhythm, No Edema, No Gallop, No JVD, No Rub, Systolic Murmur GI/Abdominal: Normal Bowel Sounds, Soft, Non-Tender, No Organomegaly, No Distention, No Abnormal Bruit, No Mass (Female) Exam: Deferred Rectal (Female) Exam: Deferred Back Exam: Normal Inspection, Full Range of Motion, NT Extremities: Normal Inspection, Normal Range of Motion, Non-Tender, Normal Capillary Refill, No Pedal Edema Neurological: Alert, Oriented, CN II-XII Intact, Normal Cognition, Normal Gait, Normal Reflexes, No Motor/Sensory Deficits Psychiatric: Normal Affect, Normal Mood Skin Exam: Warm, Dry, Intact, Normal Color, No Rash Lymphatic: No Adenopathy Course - Vital Signs Last Recorded V/S: Last Vital Signs Temp 37.5 C 05/11/17 14:42 Pulse 84 05/11/17 14:18 Resp 22 H 05/11/17 14:18 BP 115/63 05/11/17 14:18 Pulse Ox 96 05/11/17 14:18 - Orders/Labs/Meds Orders: Active Orders 24 hr Category Date Time Status EKG Documentation Completion [RC] URGENT Care 05/11/17 13:21 Active RT Aerosol Therapy [RC] ASDIRECTED Care 05/11/17 14:17 Active B-TYPE NATRIURETIC PEPTIDE,BNP [CHEM] Stat Lab 05/11/17 15:37 Ordered CULTURE BLOOD [BC] Stat Lab 05/11/17 13:31 Received CULTURE BLOOD [BC] Stat Lab 05/11/17 13:35 Received INFLUENZA A+B AG SCREEN [RM] Stat Lab 05/11/17 15:37 Uncollected Sodium Chloride 0.9% [Normal Saline] 1,000 ml Med 05/11/17 15:38 Ordered IV .BOLUS Sodium Chloride 0.9% [Saline Flush] Med 05/11/17 13:22 Active 10 ml FLUSH ASDIRECTED PRN Blood Culture x2 Reflex Set [OM.PC] Stat Oth 05/11/17 13:22 Ordered Saline Lock Insert [OM.PC] Routine Oth 05/11/17 13:22 Ordered Medication Orders Sodium Chloride (Normal Saline) 1,000 mls @ 400 mls/hr IV .BOLUS ONE Stop: 05/11/17 18:07 Sodium Chloride (Saline Flush) 10 ml FLUSH ASDIRECTED PRN PRN Reason: Keep Vein Open Labs: Laboratory Tests 05/11/17 05/11/17 05/11/17 Range/Units 13:31 13:31 13:31 WBC 17.9 H (5.0-10.0) 10^3/uL RBC 4.11 L (4.2-5.4) 10^6/uL Hgb 12.1 D (12.0-16.0) g/dL Hct 37.2 (37.0-47.0) % MCV 90.5 (80-100) fL MCH 29.4 (27.0-34.0) pg MCHC 32.5 L (33.0-35.0) g/dL Plt Count 248 D (150-450) 10^3/uL Neut % (Auto) 82.7 H (42.2-75.2) % Lymph % (Auto) 9.1 L (20.5-50.1) % [place] % (Auto) 7.6 (2-8) % Eos % (Auto) 0.4 L (1.0-3.0) % Baso % (Auto) 0.2 (0.0-1.0) % Sodium 136 (135-145) mmol/L Potassium 3.7 (3.6-5.0) mmol/L Chloride 101 (101-111) mmol/L Carbon Dioxide 26.0 (21.0-31.0) mmol/L Anion Gap 12.7 BUN 18 (7-18) mg/dL Creatinine 0.8 (0.6-1.3) mg/dL Est Cr Clr Drug Dosing 41.37 mL/min Estimated GFR (MDRD) > 60 BUN/Creatinine Ratio 22.50 Glucose 111 H (74-105) mg/dL Lactic Acid 0.9 (0.5-2.2) mmol/L Calcium 8.8 (8.4-10.2) mg/dl Total Bilirubin 1.5 H (0.2-1.0) mg/dL AST 18 (10-42) IU/L ALT 12 (10-60) IU/L Alkaline Phosphatase 57 (42-121) IU/L Troponin I < 0.02 (0.00-0.02) ng/ml Total Protein 7.7 (6.7-8.2) g/dl Albumin 3.7 (3.2-5.5) g/dl Globulin 4.0 Albumin/Globulin Ratio 0.93 Urine Color (YELLOW) Urine Appearance (CLEAR) Urine pH (5.0-9.0) Ur Specific [place] (1.005-1.030) Urine Protein (NEGATIVE) Urine Glucose (UA) (NEGATIVE) Urine Ketones (NEGATIVE) Urine Occult Blood (NEGATIVE) Urine Nitrite (NEGATIVE) Urine Bilirubin (NEGATIVE) Urine Urobilinogen (0.2-1.0) mg/dL Ur Leukocyte Esterase (NEGATIVE) Urine RBC /HPF Urine WBC (0-5/HPF) /HPF Ur Epithelial Cells /HPF Urine Bacteria (0-FEW/HPF) /HPF 05/11/17 Range/Units 14:30 WBC (5.0-10.0) 10^3/uL RBC (4.2-5.4) 10^6/uL Hgb (12.0-16.0) g/dL Hct (37.0-47.0) % MCV (80-100) fL MCH (27.0-34.0) pg MCHC (33.0-35.0) g/dL Plt Count (150-450) 10^3/uL Neut % (Auto) (42.2-75.2) % Lymph % (Auto) (20.5-50.1) % [place] % (Auto) (2-8) % Eos % (Auto) (1.0-3.0) % Baso % (Auto) (0.0-1.0) % Sodium (135-145) mmol/L Potassium (3.6-5.0) mmol/L Chloride (101-111) mmol/L Carbon Dioxide (21.0-31.0) mmol/L Anion Gap BUN (7-18) mg/dL Creatinine (0.6-1.3) mg/dL Est Cr Clr Drug Dosing mL/min Estimated GFR (MDRD) BUN/Creatinine Ratio Glucose (74-105) mg/dL Lactic Acid (0.5-2.2) mmol/L Calcium (8.4-10.2) mg/dl Total Bilirubin (0.2-1.0) mg/dL AST (10-42) IU/L ALT (10-60) IU/L Alkaline Phosphatase (42-121) IU/L Troponin I (0.00-0.02) ng/ml Total Protein (6.7-8.2) g/dl Albumin (3.2-5.5) g/dl Globulin Albumin/Globulin Ratio Urine Color Yellow (YELLOW) Urine Appearance Slightly cloudy (CLEAR) Urine pH 7.0 (5.0-9.0) Ur Specific [place] 1.015 (1.005-1.030) Urine Protein Negative (NEGATIVE) Urine Glucose (UA) Negative (NEGATIVE) Urine Ketones Negative (NEGATIVE) Urine Occult Blood Trace-intact H (NEGATIVE) Urine Nitrite Negative (NEGATIVE) Urine Bilirubin Negative (NEGATIVE) Urine Urobilinogen 0.2 (0.2-1.0) mg/dL Ur Leukocyte Esterase Trace H (NEGATIVE) Urine RBC 5-10 H /HPF Urine WBC 0-5 (0-5/HPF) /HPF Ur Epithelial Cells Rare /HPF Urine Bacteria Rare (0-FEW/HPF) /HPF Meds: Medications Generic Name Dose Route Start Last Admin Trade Name Freq PRN Reason Stop Dose Admin Sodium Chloride 1,000 mls @ 400 mls/hr 05/11/17 15:38 Normal Saline IV 05/11/17 18:07 .BOLUS ONE Sodium Chloride 10 ml 05/11/17 13:22 Saline Flush FLUSH ASDIRECTED PRN Keep Vein Open Discontinued Medications Generic Name Dose Route Start Last Admin Trade Name Freq PRN Reason Stop Dose Admin Albuterol/Ipratropium 3 ml 05/11/17 14:16 05/11/17 14:39 Duoneb 3.0-0.5 Mg/3 Ml NEB 05/11/17 14:17 3 ml ONETIME ONE Administration Ceftriaxone Sodium 1 gm 05/11/17 15:19 Rocephin IVPUSH 05/11/17 15:20 ONETIME ONE Departure - Departure Time of Disposition: 15:38 Disposition: Admitted As Inpatient 67 Condition: Fair Clinical Impression: Pneumonia Qualifiers: Pneumonia type: due to unspecified organism Laterality: unspecified laterality Lung location: unspecified part of lung Qualified Code(s): J18.9 - Pneumonia, unspecified organism - Discharge Information Referrals: Kenny Valentine MD [Primary Care Provider] - Care Plan Goals: Discussed the examination, history, lab and x-ray results with Dr. Higuera who accepted the patient for admission to [facility] in [place]. - My Orders Last 24 Hours: My Active Orders 12/21/17 13:21 EKG Documentation Completion [RC] URGENT 05/11/17 13:22 Sodium Chloride 0.9% [Saline Flush] 10 ml FLUSH ASDIRECTED PRN Blood Culture x2 Reflex Set [OM.PC] Stat Saline Lock Insert [OM.PC] Routine 05/11/17 13:31 CULTURE BLOOD [BC] Stat 05/11/17 13:35 CULTURE BLOOD [BC] Stat 05/11/17 14:17 RT Aerosol Therapy [RC] ASDIRECTED 05/11/17 15:37 B-TYPE NATRIURETIC PEPTIDE,BNP [CHEM] Stat INFLUENZA A+B AG SCREEN [RM] Stat 05/11/17 15:38 Sodium Chloride 0.9% [Normal Saline] 1,000 ml IV .BOLUS - Assessment/Plan Last 24 Hours: My Active Orders 05/11/17 13:21 EKG Documentation Completion [RC] URGENT 05/11/17 13:22 Sodium Chloride 0.9% [Saline Flush] 10 ml FLUSH ASDIRECTED PRN Blood Culture x2 Reflex Set [OM.PC] Stat Saline Lock Insert [OM.PC] Routine 05/11/17 13:31 CULTURE BLOOD [BC] Stat 05/11/17 13:35 CULTURE BLOOD [BC] Stat 05/11/17 14:17 RT Aerosol Therapy [RC] ASDIRECTED 05/11/17 15:37 B-TYPE NATRIURETIC PEPTIDE,BNP [CHEM] Stat INFLUENZA A+B AG SCREEN [RM] Stat 05/11/17 15:38 Sodium Chloride 0.9% [Normal Saline] 1,000 ml IV .BOLUS
[2017-05-11] MEDS ORDERED: cefTRIAXone 1 GM Vial IVPUSH ONE (15:19)
--- NOTE | 2017-05-11 15:22 | CR ---
Clinic history: 81-year-old female emergency department with shortness of breath. Interpretation: Optimal inspiratory effort upright PA/lateral chest films confirm generalized chronic interstitial fibrosis, unchanged except for technique since 08 December 2016 AP film. Normal cardiac silhouette without new signs of alveolar edema or dependent effusion. (Focal eventrati on right hemidiaphragm) Vertebroplasty (x3) lower thoracic and upper lumbar vertebra, osteoporotic spine. No new lung mass, hilar lymphadenopathy or focal lobar pneumonia. CONCLUSION: No acute new cardiopulmonary abnormality. Chronic severe interstitial fibrosis.
[2017-05-11] MEDS ORDERED: Sodium Chloride 0.9% 1,000 ML IV ONE (15:38)
[2017-05-11] MEDS: Sodium Chloride 0.9% 10 ML Syringe FLUSH PRN (15:45)
[2017-05-11] MEDS ORDERED: Polyethylene Glycol 3350 Powder 17 GM Packet PO PRN (16:17)
[2017-05-11] MEDS ORDERED: Albuterol 0.083% 2.5 MG/3 ML Neb Soln NEB PRN (16:17)
[2017-05-11] MEDS ORDERED: Magnesium Hydroxide 400 MG/5 ML Susp 30 ML Cup PO PRN (16:17)
[2017-05-11] MEDS ORDERED: Ondansetron 4 MG/2 ML SDV IVPUSH PRN (16:17)
[2017-05-11] MEDS ORDERED: Levofloxacin/Dextrose 5%-Water 250 MG/50 ML Premix Bag IV SCH (16:30)
[2017-05-11] MEDS ORDERED: Albuterol/Ipratropium 3.0-0.5 MG/3 ML Neb Soln NEB SCH (16:30)
--- NOTE | 2017-05-11 16:40 | PCM.HP ---
H&P History of Present Illness - General Date of Service: 05/11/17 Admit Problem/Dx: Admission Diagnosis/Problem Admission Diagnosis/Problem Acute bronchitis Source of Information: Patient History Limitations: Reports: No Limitations - History of Present Illness Initial Comments - Free Text/Narative: 81 y.o. with past medical history of idiopathic pulmonary fibrosis and obstructive sleep apnea, osteoporosis, dyslipidemia, chronic back problem presents to the emergency room for having shortness breath, cough with yellow phlegm, sore throat, runny nose, sinus congestion, feeling cold, generalized weakness started about 1 week ago and progressively getting worse. Patient had temp of 100 Fahrenheit on admission. She denies headache, nausea, vomiting, chest pain, palpitation, abdominal pain, diarrhea, blood in stool, black stool, dysuria, urinary frequency, unilateral weakness/numbness/tingling, rash, lower extremities edema, any other symptoms or concerns. Patient had the multiple health problems last summer and for that she had prolonged hospitalization and stayed in swing bed. At that time I took care of her at the swing bed. Patient uses oxygen at home but only at night, 2 L/m In emergency room patient respiratory rate was 24, saturation 96 on 2 L of oxygen., Temperature 99.5 Fahrenheit. Laboratory data reported WBC 17.9 with left shift. Sodium 136. Potassium 3.7. Glucose 111. Lactic acid 0.9. Creatinine 0.8. Total bilirubin 1.5. AST 18. ALT 12. Alkaline phosphatase because 57. Troponin less than 0.02. BNP 19. Urinalysis reported trace oxide esterase. RBCs 5-10. WBC 0-5. CXR reported no acute finding. Patient was started on IV fluid and received 1 g of Rocephin and 1 DuoNeb nebulizer - Related Data Allergies/Adverse Reactions: Allergies Allergy/AdvReac Type Severity Reaction Status Date / Time No Known Allergies Allergy Verified 05/11/17 16:19 Home Medications: Home Meds Aspirin [Vantage Aspirin] 81 mg PO DAILY 10/31/16 [History] Calcium Carbonate/Vitamin D3 [Calcium 500 + Vit D Caplet] 1 tab PO TIDMEALS 05/07 [History] Clopidogrel Bisulfate [Clopidogrel] 75 mg PO DAILY 10/31/16 [History] Esomeprazole Magnesium [Nexium 24Hr] 20 mg PO BID 10/31/16 [History] Metoprolol Succinate [Toprol XL] 50 mg PO DAILY 10/31/16 [History] Risedronate Sodium 35 mg PO WEEKLY 10/31/16 [History] atorvaSTATin [Lipitor] 40 mg PO DAILY 10/31/16 [History] Budesonide [Pulmicort] 0.5 mg NEB BIDRT 12/01/16 [History] Potassium Chloride [K-Tab ER] 20 meq PO DAILY 12/01/16 [History] levETIRAcetam [Keppra] 500 mg PO BID 12/01/16 [History] Albuterol [Proventil HFA] 0 gm INH Q4H PRN #1 inhaler 12/20/16 [Rx] Albuterol/Ipratropium [DuoNeb 3.0-0.5 MG/3 ML] 3 ml NEB QIDRT #120 neb 12/20/16 [Rx] Furosemide [Lasix] 40 mg PO DAILY #30 tablet 12/20/16 [Rx] Past Medical History HEENT History: Reports: Cataract, Impaired Vision Other HEENT History: wears glasses Cardiovascular History: Reports: CAD, High Cholesterol, Hypertension Respiratory History: Reports: Pulmonary Fibrosis, SOB Other Respiratory History: "Residual Lung Diseas", 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 Gastrointestinal History: Reports: GERD Genitourinary History: Reports: None [employer]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: Musculoskeletal History: Reports: Back Pain, Chronic, Osteoarthritis Neurological History: Reports: Cerebral Aneurysms, CVA Other Neuro History: between 5 to 10 years ago Psychiatric History: Reports: Anxiety Endocrine/Metabolic History: Reports: Osteoporosis Hematologic History: Reports: None Immunologic History: Reports: None Oncologic (Cancer) History: Reports: None Dermatologic History: Reports: None - Infectious Disease History Infectious Disease History: Reports: None - Past Surgical History Head Surgeries/Procedures: Reports: None HEENT Surgical History: Reports: Adenoidectomy, Cataract Surgery, Tonsillectomy Cardiovascular Surgical History: Reports: Aneurysm, Other (See Below) Other Cardiovascular Surgeries/Procedures: aneurysm repair Respiratory Surgical History: Reports: None GI Surgical History: Reports: Appendectomy Female Surgical History: Reports: None Neurological Surgical History: Reports: Other (See Below) Other Neurological Surgeries/Procedures: cement to lumbar areas Social & Family History - Family History Family Medical History: Noncontributory - Tobacco Use Smoking Status *Q: Never Smoker Second Hand Smoke Exposure: No - Caffeine Use Caffeine Use: Reports: Coffee, Soda - Recreational Drug Use Recreational Drug Use: No - Living Situation & Occupation Living situation: Reports: , with Spouse Occupation: Retired H&P Review of Systems - Review of Systems: Review Of Systems: ROS reveals no pertinent complaints other than HPI. Exam - Exam Exam: See Below - Vital Signs Vital Signs: Last Vital Signs Temp 37.5 C 05/11/17 16:04 Pulse 82 05/11/17 16:04 Resp 20 05/11/17 16:04 BP 110/65 05/11/17 16:04 Pulse Ox 96 05/11/17 16:04 Weight: 46.72 kg - Exam General: Alert, Oriented, Cooperative, Mild Distress. No: Severe Distress, Sedated, Lethargic, Obtunded HEENT: Conjunctiva Clear, EACs Clear, EOMI, Hearing Intact, Nares Patent, Normal Nasal Septum, Posterior Pharynx Clear, Pupils Equal, Pupils Reactive, TMs Clear, PERRLA (Mucosal congestion in the nose. Dry lips) Neck: Supple, Trachea Midline, +2 Carotid Pulse wo Bruit Lungs: Decreased Breath Sounds (But fair air exchange), Crackles (Fine crackles in bases). No: Rub, Stridor, Wheezing Cardiovascular: Regular Rate, Regular Rhythm, Normal S1, Normal S2 GI/Abdominal Exam: Normal Bowel Sounds, Soft, Non-Tender, No Organomegaly, No Distention, No Abnormal Bruit, No Mass (Female) Exam: Deferred Rectal (Female) Exam: Deferred Back Exam: Normal Inspection, Full Range of Motion. No: CVA Tenderness (L), CVA Tenderness (R) Extremities: Normal Inspection, Normal Range of Motion, Non-Tender, No Pedal Edema, Normal Capillary Refill Skin: Dry, Intact. No: Rash Neurological: Cranial Nerves Intact, Sensation Intact. No: Focal Deficit Neuro Extensive - Mental Status: Alert, Oriented x3, Normal Mood/Affect Psychiatric: Alert, Normal Affect, Normal Mood - Patient Data Result Diagrams: 05/11/17 13:31 05/11/17 13:31 *Q Meaningful Use (ADM) - VTE *Q VTE Criteria *Q: - Stroke *Q Stroke Criteria *Q: - AMI *Q AMI Criteria *Q: - Problem List (1) Acute bronchitis SNOMED Code(s): 10375447 ICD Code: J20.9 - ACUTE BRONCHITIS, UNSPECIFIED Status: Acute Priority: High Current Visit: Yes (2) Leukocytosis SNOMED Code(s): 945478693 ICD Code: D72.829 - ELEVATED WHITE BLOOD CELL COUNT, UNSPECIFIED Status: Acute Current Visit: Yes (3) Dehydration SNOMED Code(s): 28957334 ICD Code: E86.0 - DEHYDRATION Status: Acute Priority: Medium Current Visit: Yes (4) Generalized weakness SNOMED Code(s): 58587720 ICD Code: R53.1 - WEAKNESS Status: Acute Current Visit: Yes (5) Pulmonary fibrosis SNOMED Code(s): 86352900 ICD Code: J84.10 - PULMONARY FIBROSIS, UNSPECIFIED Status: Chronic Current Visit: No Problem List Initiated/Reviewed/Updated: Yes Orders Last 24hrs: Active Orders 24 hr Category Date Time Status Patient Status [ADT] Routine ADT 05/11/17 16:17 Active Height and Weight [RC] DAILY Care 05/11/17 16:17 Active Intake and Output [RC] Q6H Care 05/11/17 16:19 Active Notify Provider Vital Signs [RC] ASDIRECTED Care 05/11/17 16:19 Active Oxygen Therapy [RC] PRN Care 05/11/17 16:17 Active RT Aerosol Therapy [RC] ASDIRECTED Care 05/11/17 16:21 Active Up ad Adela [RC] ASDIRECTED Care 05/11/17 16:17 Active VTE/DVT Education [RC] PER UNIT ROUTINE Care 05/11/17 16:17 Active Vital Signs [RC] Q4H Care 05/11/17 16:17 Active Heart Healthy Diet [DIET] Diet 05/11/17 Breakfast Active BASIC METABOLIC PANEL,BMP [CHEM] AM Lab 05/12/17 05:11 Ordered CBC WITH AUTO DIFF [HEME] AM Lab 05/12/17 05:11 Ordered CULTURE SPUTUM + SMEAR [RM] Stat Lab 05/11/17 16:17 Uncollected MAGNESIUM [CHEM] AM Lab 05/12/17 05:11 Ordered Acetaminophen [Tylenol] Med 05/11/17 16:17 Ordered 650 mg PO Q4H PRN Albuterol [Proventil Neb Soln] Med 05/11/17 16:17 Ordered 2.5 mg NEB Q2H PRN Albuterol/Ipratropium [DuoNeb 3.0-0.5 MG/3 ML] Med 05/11/17 16:30 Ordered 3 ml NEB Q6H Heparin Sodium Med 05/11/17 16:30 Ordered 5,000 units SUBCUT Q121H Levofloxacin/Dextrose 5%-Water [Levaquin in D5W 250 MG/ Med 05/11/17 16:30 Ordered 50 ML] 250 mg IV Q24H Magnesium Hydroxide [Milk of Magnesia] Med 05/11/17 16:17 Ordered 30 ml PO Q12H PRN Ondansetron [Zofran] Med 05/11/17 16:17 Ordered 4 mg IVPUSH Q6H PRN Polyethylene Glycol 3350 [MiraLAX] Med 05/11/17 16:17 Ordered 17 gm PO DAILY PRN Resuscitation Status Routine Resus Stat 05/11/17 16:17 Ordered Medication Orders Acetaminophen (Tylenol) 650 mg PO Q4H PRN PRN Reason: Pain (Mild 1-3)/fever Albuterol (Proventil Neb Soln) 2.5 mg NEB Q2H PRN PRN Reason: shortness of breath/wheezing Albuterol/Ipratropium (Duoneb 3.0-0.5 Mg/3 Ml) 3 ml NEB Q6H THUAN Heparin Sodium (Porcine) (Heparin Sodium) 5,000 units SUBCUT Q121H THUAN Sodium Chloride (Normal Saline) 1,000 mls @ 400 mls/hr IV .BOLUS ONE Stop: 05/11/17 18:07 Last Admin: 05/11/17 15:44 Dose: 400 mls/hr Levofloxacin/Dextrose (Levaquin In D5w 250 Mg/50 Ml) 250 mg IV Q24H THUAN Magnesium Hydroxide (Milk Of Magnesia) 30 ml PO Q12H PRN PRN Reason: Constipation Ondansetron HCl (Zofran) 4 mg IVPUSH Q6H PRN PRN Reason: Nausea/Vomiting Polyethylene Glycol (Miralax) 17 gm PO DAILY PRN PRN Reason: Constipation Sodium Chloride (Saline Flush) 10 ml FLUSH ASDIRECTED PRN PRN Reason: Keep Vein Open Last Admin: 05/11/17 15:45 Dose: 10 ml Assessment/Plan Comment:: Impression 81-year-old female with history of pulmonary fibrosis on nightly oxygen at home presented with upper and lower respiratory symptoms concerning for acute bronchitis and I cannot rule out clinical pneumonia. Plan Patient received 1 L of normal saline at 400 mL per hour in ER. She received also 1 dose of Rocephin -Start normal saline at 100 mL per hour for another liter -Start Levaquin -DuoNeb every 4 hours -Albuterol to every 2 hours as needed -Continue Pulmicort -Tessalon and Robitussin for cough -Mucomyst inhalation every 12 hours -Resume home medications Incentive spirometer and flutter device Heparin for DVT prophylaxis Patient wants to be DNR/DNI for CODE STATUS Plan of care was discussed with patient and she verbalized understanding agreed with it
[2017-05-11] MEDS ORDERED: Sodium Chloride 0.9% 1,000 ML IV SCH (16:45)
[2017-05-11] MEDS: Omeprazole 20 MG Cap.CR PO SCH (17:30)
[2017-05-11] MEDS: Levofloxacin/Dextrose 5%-Water 250 MG in Premix Bag 1 BAG IV SCH (17:31)
[2017-05-11] MEDS: Calcium Carbonate/Vitamin D3 1250 MG-200 Unit Tab PO SCH (17:50)
[2017-05-11] MEDS: Acetylcysteine 20% 200 MG/ML 4 ML Nebulizer Soln SDV INH SCH (18:11)
[2017-05-11] MEDS: Albuterol/Ipratropium 3.0-0.5 MG/3 ML Neb Soln NEB SCH ×2 (18:12→22:55)
[2017-05-11] MEDS: Budesonide 0.5 MG/2 ML Neb Susp NEB SCH (18:12)
[2017-05-11] MEDS: Acetaminophen 325 MG Tab PO PRN (19:52)
[2017-05-11] MEDS ORDERED: levETIRAcetam 500 MG Tab PO SCH (21:00)
[2017-05-11] MEDS: levETIRAcetam 500 MG Tab PO SCH (21:36)
[2017-05-11] MEDS: atorvaSTATin 20 MG Tab PO SCH (21:36)
[2017-05-11] MEDS: guaiFENesin 100 MG/5 ML Soln 5 ML UD Cup PO PRN (21:37)
[2017-05-11] MEDS: Heparin Sodium 5,000 Units/ML Vial SUBCUT SCH (21:38)
[2017-05-12] MEDS: Albuterol/Ipratropium 3.0-0.5 MG/3 ML Neb Soln NEB SCH ×6 (03:22→22:19)
[2017-05-12] MEDS: Heparin Sodium 5,000 Units/ML Vial SUBCUT SCH ×3 (05:42→22:19)
[2017-05-12] MEDS: Omeprazole 20 MG Cap.CR PO SCH ×2 (05:42→17:03)
[2017-05-12] MEDS: Sodium Chloride 0.9% 10 ML Syringe FLUSH PRN ×2 (05:44→20:41)
[2017-05-12 06:50] LABS: CHLORIDE,CL 107 mmol/L (101-111); SODIUM,NA 136 mmol/L (135-145)
[2017-05-12] MEDS: guaiFENesin 100 MG/5 ML Soln 5 ML UD Cup PO PRN (07:30)
[2017-05-12] MEDS: Acetylcysteine 20% 200 MG/ML 4 ML Nebulizer Soln SDV INH SCH ×2 (07:34→17:03)
[2017-05-12] MEDS: Budesonide 0.5 MG/2 ML Neb Susp NEB SCH ×2 (07:35→17:07)
[2017-05-12] MEDS ORDERED: Potassium Chloride 10 MEQ Tab.ER PO ONE (08:13)
[2017-05-12] MEDS ORDERED: Furosemide 40 MG Tab PO SCH (09:00)
[2017-05-12] MEDS ORDERED: Potassium Chloride 10 MEQ Tab.ER PO SCH (09:00)
--- NOTE | 2017-05-12 09:18 | PCM.PN ---
- General Info Date of Service: 05/12/17 Admission Dx/Problem (Free Text): Admission Diagnosis/Problem Admission Diagnosis/Problem Acute bronchitis Subjective Update: Patient stated that she is feeling better. Her shortness of breath and cough improved. She still feeling weak. She denies fever, chills, nausea, vomiting, abdominal pain, chest pain, diarrhea, or symptoms, any other symptoms. - Patient Data Vitals - Most Recent: Last Vital Signs Temp 36.3 C 05/12/17 06:52 Pulse 68 05/12/17 06:52 Resp 20 05/12/17 06:52 BP 92/49 L 05/12/17 06:52 Pulse Ox 96 05/12/17 07:35 Weight - Most Recent: 49.079 kg I&O - Last 24 Hours: Intake & Output 05/11/17 05/12/17 05/12/17 22:59 06:59 14:59 Intake Total 1785 836 Output Total 300 500 Balance 1485 336 Lab Results Last 24 Hours: Laboratory Results - last 24 hr 05/12/17 05/12/17 05/12/17 Range/Units 06:18 06:18 06:18 WBC 11.4 H (5.0-10.0) 10^3/uL RBC 3.32 L (4.2-5.4) 10^6/uL Hgb 9.7 L D (12.0-16.0) g/dL Hct 30.7 L (37.0-47.0) % MCV 92.5 (80-100) fL MCH 29.2 (27.0-34.0) pg MCHC 31.6 L (33.0-35.0) g/dL Plt Count 196 (150-450) 10^3/uL Neut % (Auto) 75.0 (42.2-75.2) % Lymph % (Auto) 15.2 L (20.5-50.1) % [place] % (Auto) 8.1 H (2-8) % Eos % (Auto) 1.4 (1.0-3.0) % Baso % (Auto) 0.3 (0.0-1.0) % Sodium 136 (135-145) mmol/L Potassium 3.4 L (3.6-5.0) mmol/L Chloride 107 (101-111) mmol/L Carbon Dioxide 26.0 (21.0-31.0) mmol/L Anion Gap 6.4 BUN 14 (7-18) mg/dL Creatinine 0.6 (0.6-1.3) mg/dL Est Cr Clr Drug Dosing 57.94 mL/min Estimated GFR (MDRD) > 60 BUN/Creatinine Ratio 23.33 Glucose 93 (74-105) mg/dL Calcium 7.9 L (8.4-10.2) mg/dl Magnesium 1.7 L (1.8-2.5) mg/dL Total Bilirubin 1.2 H (0.2-1.0) mg/dL AST 15 (10-42) IU/L ALT 10 (10-60) IU/L Alkaline Phosphatase 44 (42-121) IU/L C-Reactive Protein 16.5 H (0.0-1.3) mg/dL Total Protein 5.9 L (6.7-8.2) g/dl Albumin 2.7 L (3.2-5.5) g/dl Globulin 3.2 Albumin/Globulin Ratio 0.84 Duc Results Last 24 Hours: Microbiology 05/11/17 18:03 Gram Stain - Final Sputum - Expectorated Med Orders - Current: Current Medications Acetaminophen (Tylenol) 650 mg PO Q4H PRN PRN Reason: Pain (Mild 1-3)/fever Last Admin: 05/11/17 19:52 Dose: 650 mg Acetylcysteine (Mucomyst 20%) 600 mg INH BIDRT [facility] Last Admin: 05/12/17 07:34 Dose: 600 mg Albuterol (Proventil Neb Soln) 2.5 mg NEB Q2H PRN PRN Reason: shortness of breath/wheezing Albuterol/Ipratropium (Duoneb 3.0-0.5 Mg/3 Ml) 3 ml NEB Q4HRRT [facility] Last Admin: 05/12/17 07:35 Dose: 3 ml Atorvastatin Calcium (Lipitor) 40 mg PO BEDTIME [facility] Last Admin: 05/11/17 21:36 Dose: 40 mg Benzonatate (Tessalon Perles) 100 mg PO TID PRN PRN Reason: Cough Budesonide (Pulmicort) 0.5 mg NEB BIDRT [facility] Last Admin: 05/12/17 07:35 Dose: 0.5 mg Calcium Carbonate (Calcium Carbonate/Vitamin D 1250 Mg-200 Unit) 1 tab PO TIDMEALS [facility] Last Admin: 05/11/17 17:50 Dose: 1 tab Clopidogrel Bisulfate (Plavix) 75 mg PO DAILY [facility] Guaifenesin (Robitussin) 100 mg PO Q6H PRN PRN Reason: Cough Last Admin: 05/12/17 07:30 Dose: 100 mg Heparin Sodium (Porcine) (Heparin Sodium) 5,000 units SUBCUT Q8HR [facility] Last Admin: 05/12/17 05:42 Dose: 5,000 units Levofloxacin/Dextrose 250 mg/ (Premix) 50 mls @ 50 mls/hr IV Q24H [facility] Last Infusion: 05/11/17 18:50 Dose: Infused Levetiracetam (Keppra) 500 mg PO BID@1200,2100 [facility] Last Admin: 05/11/17 21:36 Dose: 500 mg Magnesium Hydroxide (Milk Of Magnesia) 30 ml PO Q12H PRN PRN Reason: Constipation Magnesium Oxide (Magnesium Oxide) 250 mg PO BIDM [facility] Metoprolol Succinate (Toprol Xl) 50 mg PO DAILY [facility] Non-Formulary Risedronate Sodium 35 Mg 35 mg PO Mo@0600 [facility] Omeprazole (Omeprazole) 20 mg PO BIDAC [facility] Last Admin: 05/12/17 05:42 Dose: 20 mg Ondansetron HCl (Zofran) 4 mg IVPUSH Q6H PRN PRN Reason: Nausea/Vomiting Polyethylene Glycol (Miralax) 17 gm PO DAILY PRN PRN Reason: Constipation Senna/Docusate Sodium (Senna Plus) 1 tab PO DAILY PRN PRN Reason: Constipation Sodium Chloride (Saline Flush) 10 ml FLUSH ASDIRECTED PRN PRN Reason: Keep Vein Open Last Admin: 05/12/17 05:44 Dose: 10 ml Discontinued Medications Albuterol/Ipratropium (Duoneb 3.0-0.5 Mg/3 Ml) 3 ml NEB ONETIME ONE Stop: 05/11/17 14:17 Last Admin: 05/11/17 14:39 Dose: 3 ml Albuterol/Ipratropium (Duoneb 3.0-0.5 Mg/3 Ml) 3 ml NEB Q6H [facility] Last Admin: 05/11/17 19:35 Dose: Not Given Ceftriaxone Sodium (Rocephin) 1 gm IVPUSH ONETIME ONE Stop: 05/11/17 15:20 Last Admin: 05/11/17 15:48 Dose: 1 gm Furosemide (Lasix) 40 mg PO DAILY THUAN Sodium Chloride (Normal Saline) 1,000 mls @ 400 mls/hr IV .BOLUS ONE Stop: 05/11/17 18:07 Last Infusion: 05/11/17 19:31 Dose: Infused Sodium Chloride (Normal Saline) 1,000 mls @ 100 mls/hr IV ASDIRECTED THUAN Stop: 05/12/17 02:44 Last Infusion: 05/12/17 05:45 Dose: Infused Levetiracetam (Keppra) 500 mg PO BID THUAN Last Admin: 05/11/17 22:50 Dose: Not Given Levofloxacin/Dextrose (Levaquin In D5w 250 Mg/50 Ml) 250 mg IV Q24H THUAN Potassium Chloride (Klor-Con 10) 20 meq PO DAILY THUAN Potassium Chloride (Klor-Con 10) 20 meq PO ONETIME ONE Stop: 05/12/17 08:14 - Exam General: Alert, Oriented, Cooperative, No Acute Distress. No: Moderate Distress , Severe Distress, Sedated, Lethargic, Obtunded HEENT: Pupils Equal, Pupils Reactive, Mucous Membr. Moist/Pavo Neck: Supple, Trachea Midline, No JVD Lungs: Decreased Breath Sounds (With fair air exchange, markedly improved from yesterday), Crackles (Fine crackles in bases). No: Rhonchi, Rub, Stridor, Wheezing Cardiovascular: Regular Rate, Regular Rhythm, No Murmurs GI/Abdominal Exam: Normal Bowel Sounds, Soft, Non-Tender, No Organomegaly, No Distention, No Abnormal Bruit, No Mass (Female) Exam: Deferred Back Exam: Normal Inspection, Full Range of Motion. No: CVA Tenderness (L), CVA Tenderness (R) Extremities: Normal Inspection, Normal Range of Motion, Non-Tender, No Pedal Edema, Normal Capillary Refill Skin: Dry, Intact. No: Rash Neurological: No New Focal Deficit Psy/Mental Status: Alert, Normal Affect, Normal Mood - Problem List & Annotations (1) Acute bronchitis SNOMED Code(s): 43012492 Code(s): J20.9 - ACUTE BRONCHITIS, UNSPECIFIED Status: Acute Priority: High Current Visit: Yes (2) Leukocytosis SNOMED Code(s): 874569240 Code(s): D72.829 - ELEVATED WHITE BLOOD CELL COUNT, UNSPECIFIED Status: Acute Current Visit: Yes (3) Dehydration SNOMED Code(s): 03504701 Code(s): E86.0 - DEHYDRATION Status: Acute Priority: Medium Current Visit: Yes (4) Generalized weakness SNOMED Code(s): 97380911 Code(s): R53.1 - WEAKNESS Status: Acute Current Visit: Yes (5) Pulmonary fibrosis SNOMED Code(s): 75780801 Code(s): J84.10 - PULMONARY FIBROSIS, UNSPECIFIED Status: Chronic Current Visit: No - Problem List Review Problem List Initiated/Reviewed/Updated: Yes - My Orders Last 24 Hours: My Active Orders 05/11/17 14:30 CULTURE URINE [RM] Routine 05/11/17 16:17 Patient Status [ADT] Routine Height and Weight [RC] 0600 Oxygen Therapy [RC] PRN Up ad Adela [RC] ASDIRECTED VTE/DVT Education [RC] PER UNIT ROUTINE Vital Signs [RC] Q4H Acetaminophen [Tylenol] 650 mg PO Q4H PRN Albuterol [Proventil Neb Soln] 2.5 mg NEB Q2H PRN Magnesium Hydroxide [Milk of Magnesia] 30 ml PO Q12H PRN Ondansetron [Zofran] 4 mg IVPUSH Q6H PRN Polyethylene Glycol 3350 [MiraLAX] 17 gm PO DAILY PRN Resuscitation Status Routine 05/11/17 16:19 Intake and Output [RC] Q6H Notify Provider Vital Signs [RC] ASDIRECTED 05/11/17 16:49 Docusate Sodium/Sennosides [Senna Plus] 1 tab PO DAILY PRN 05/11/17 16:51 RT Aerosol Therapy [RC] 03,07,11,15,19,23 Benzonatate [Tessalon Perles] 100 mg PO TID PRN guaiFENesin [Robitussin] 100 mg PO Q6H PRN 05/11/17 16:53 Flutter Valve Therapy [RT Chest Physiotherapy] [RC] ASDIRECTED RT Incentive Spirometry [RC] ASDIRECTED 05/11/17 17:00 Levofloxacin/Dextrose 5%-Water [Levaquin in D5W 250 MG/50 ML] 250 mg Premix Bag 1 bag IV Q24H Omeprazole 20 mg PO BIDAC 05/11/17 18:00 Acetylcysteine [Mucomyst 20%] 600 mg INH BIDRT Budesonide [Pulmicort] 0.5 mg NEB BIDRT Calcium Carbonate/Vitamin D3 [Calcium Carbonate/Vitamin D 1250 MG-200 Unit] 1 tab PO TIDMEALS 05/11/17 18:03 CULTURE SPUTUM + SMEAR [RM] Stat 05/11/17 19:00 Albuterol/Ipratropium [DuoNeb 3.0-0.5 MG/3 ML] 3 ml NEB Q4HRRT 05/11/17 21:00 levETIRAcetam [Keppra] 500 mg PO BID@1200,2100 05/11/17 21:30 atorvaSTATin [Lipitor] 40 mg PO BEDTIME 05/11/17 22:00 Heparin Sodium 5,000 units SUBCUT Q8HR 05/12/17 09:00 Clopidogrel [Plavix] 75 mg PO DAILY Metoprolol Succinate [Toprol XL] 50 mg PO DAILY 05/12/17 18:00 Magnesium Oxide 250 mg PO BIDM 05/13/17 05:11 CXR [Chest 2V] [CR] AM CBC WITH AUTO DIFF [HEME] AM CMP [COMPREHENSIVE METABOLIC PN,CMP] [CHEM] AM 05/15/17 06:00 Risedronate Sodium [Risedronate Sodium] 35 mg PO Mo@0600 - Plan Plan:: Impression 81-year-old female with history of pulmonary fibrosis on nightly oxygen at home presented with upper and lower respiratory symptoms concerning for acute bronchitis and I cannot rule out clinical pneumonia. WBC are trending downward Plan Patient received 1 L of normal saline at 400 mL per hour in ER. She received also 1 dose of Rocephin 1 g IV -She received 1 L of normal saline at 100 mL per hour upon admission -Continue Levaquin -Continue DuoNeb every 4 hours -Continue Albuterol to every 2 hours as needed -Continue Pulmicort -Continue Tessalon and Robitussin for cough -Continue Mucomyst inhalation every 12 hours -Resume home medications Incentive spirometer and flutter device Encourage oral fluid intake -If no significant improvement by tomorrow then we may think about systemic steroids -Physical therapy consult for generalized weakness Heparin for DVT prophylaxis Patient wants to be DNR/DNI for CODE STATUS Plan of care was discussed with patient and she verbalized understanding agreed with it
[2017-05-12] MEDS: Clopidogrel 75 MG Tab PO SCH (10:18)
[2017-05-12] MEDS: Calcium Carbonate/Vitamin D3 1250 MG-200 Unit Tab PO SCH ×3 (10:20→17:03)
[2017-05-12] MEDS: Metoprolol Succinate 50 MG Tab.ER PO SCH (10:20)
[2017-05-12] MEDS: levETIRAcetam 500 MG Tab PO SCH ×2 (13:53→20:38)
[2017-05-12] MEDS: Levofloxacin/Dextrose 5%-Water 250 MG in Premix Bag 1 BAG IV SCH (17:06)
[2017-05-12] MEDS: atorvaSTATin 20 MG Tab PO SCH (20:38)
[2017-05-13] MEDS: Acetaminophen 325 MG Tab PO PRN (01:29)
[2017-05-13] MEDS: Benzonatate 100 MG Cap PO PRN (01:37)
[2017-05-13] MEDS: Albuterol/Ipratropium 3.0-0.5 MG/3 ML Neb Soln NEB SCH ×6 (03:19→22:04)
[2017-05-13] MEDS: Omeprazole 20 MG Cap.CR PO SCH ×2 (06:09→17:39)
[2017-05-13] MEDS: Heparin Sodium 5,000 Units/ML Vial SUBCUT SCH ×3 (06:10→21:53)
[2017-05-13 06:45] LABS: CHLORIDE,CL 109 mmol/L (101-111); SODIUM,NA 140 mmol/L (135-145)
[2017-05-13] MEDS: Budesonide 0.5 MG/2 ML Neb Susp NEB SCH ×2 (07:39→18:10)
[2017-05-13] MEDS: Acetylcysteine 20% 200 MG/ML 4 ML Nebulizer Soln SDV INH SCH ×2 (07:41→17:39)
[2017-05-13] MEDS: Clopidogrel 75 MG Tab PO SCH (09:37)
[2017-05-13] MEDS: Calcium Carbonate/Vitamin D3 1250 MG-200 Unit Tab PO SCH ×3 (09:37→17:38)
[2017-05-13] MEDS: Metoprolol Succinate 50 MG Tab.ER PO SCH (09:38)
[2017-05-13] MEDS ORDERED: Furosemide 20 MG/2 ML VIAL IVPUSH ONE (10:47)
[2017-05-13] MEDS ORDERED: Furosemide 40 MG/4 ML VIAL IVPUSH ONE (10:47)
--- NOTE | 2017-05-13 11:02 | PCM.PN ---
- General Info Date of Service: 05/13/17 Admission Dx/Problem (Free Text): Admission Diagnosis/Problem Admission Diagnosis/Problem Acute bronchitis/shortness of breath Subjective Update: Patient stated that she is feeling better. Her shortness of breath and cough improved. She is still feeling weak. She denies fever, chills, nausea, vomiting , abdominal pain, chest pain, diarrhea, or symptoms, any other symptoms. Functional Status: Reports: Tolerating Diet, Ambulating (with assistance) - Review of Systems General: Reports: Weakness, Fatigue, Appetite (acceptable). Denies: Fever, Chills HEENT: Denies: Dysphasia, Headaches, Sinus Congestion, Sore Throat Pulmonary: Reports: Shortness of Breath. Denies: Cough, Sputum, Wheezing Cardiovascular: Reports: Dyspnea on Exertion. Denies: Chest Pain, Lightheadedness Gastrointestinal: Denies: Abdominal Pain, Nausea, Vomiting Genitourinary: Denies: Dysuria, Frequency, Burning, Flank Pain Musculoskeletal: Denies: Neck Pain, Leg Pain, Joint Pain Skin: Denies: Jaundice, Bruising, Pruritis, Rash Neurological: Denies: Dizziness, Numbness, Tingling, Tremors Psychiatric: Denies: Confusion, Anxiety - Patient Data Vitals - Most Recent: Last Vital Signs Temp 36.7 C 05/13/17 08:15 Pulse 89 05/13/17 09:38 Resp 18 05/13/17 08:15 BP 115/57 L 05/13/17 09:38 Pulse Ox 96 05/13/17 08:15 Weight - Most Recent: 49.895 kg I&O - Last 24 Hours: Intake & Output 05/12/17 05/13/17 05/13/17 22:59 06:59 14:59 Intake Total 400 1000 Output Total 1400 Balance 400 -400 Lab Results Last 24 Hours: Laboratory Results - last 24 hr 05/13/17 05/13/17 Range/Units 05:57 05:57 WBC 9.2 (5.0-10.0) 10^3/uL RBC 3.33 L (4.2-5.4) 10^6/uL Hgb 9.7 L (12.0-16.0) g/dL Hct 30.8 L (37.0-47.0) % MCV 92.5 (80-100) fL MCH 29.1 (27.0-34.0) pg MCHC 31.5 L (33.0-35.0) g/dL Plt Count 216 (150-450) 10^3/uL Neut % (Auto) 64.9 (42.2-75.2) % Lymph % (Auto) 21.4 (20.5-50.1) % [place] % (Auto) 8.4 H (2-8) % Eos % (Auto) 5.1 H (1.0-3.0) % Baso % (Auto) 0.2 (0.0-1.0) % Sodium 140 (135-145) mmol/L Potassium 3.9 (3.6-5.0) mmol/L Chloride 109 (101-111) mmol/L Carbon Dioxide 26.0 (21.0-31.0) mmol/L Anion Gap 8.9 BUN 13 (7-18) mg/dL Creatinine 0.6 (0.6-1.3) mg/dL Est Cr Clr Drug Dosing 58.90 mL/min Estimated GFR (MDRD) > 60 BUN/Creatinine Ratio 21.66 Glucose 102 (74-105) mg/dL Calcium 8.9 (8.4-10.2) mg/dl Total Bilirubin 0.5 (0.2-1.0) mg/dL AST 17 (10-42) IU/L ALT 11 (10-60) IU/L Alkaline Phosphatase 45 (42-121) IU/L Total Protein 6.3 L (6.7-8.2) g/dl Albumin 2.8 L (3.2-5.5) g/dl Globulin 3.5 Albumin/Globulin Ratio 0.80 Med Orders - Current: Current Medications Acetaminophen (Tylenol) 650 mg PO Q4H PRN PRN Reason: Pain (Mild 1-3)/fever Last Admin: 05/13/17 01:29 Dose: 650 mg Acetylcysteine (Mucomyst 20%) 600 mg INH BIDRT [facility] Last Admin: 05/13/17 07:41 Dose: 600 mg Albuterol (Proventil Neb Soln) 2.5 mg NEB Q2H PRN PRN Reason: shortness of breath/wheezing Albuterol/Ipratropium (Duoneb 3.0-0.5 Mg/3 Ml) 3 ml NEB Q4HRRT [facility] Last Admin: 05/13/17 07:39 Dose: 3 ml Atorvastatin Calcium (Lipitor) 40 mg PO BEDTIME [facility] Last Admin: 05/12/17 20:38 Dose: 40 mg Benzonatate (Tessalon Perles) 100 mg PO TID PRN PRN Reason: Cough Last Admin: 05/13/17 01:37 Dose: 100 mg Budesonide (Pulmicort) 0.5 mg NEB BIDRT [facility] Last Admin: 05/13/17 07:39 Dose: 0.5 mg Calcium Carbonate (Calcium Carbonate/Vitamin D 1250 Mg-200 Unit) 1 tab PO TIDMEALS [facility] Last Admin: 05/13/17 09:37 Dose: 1 tab Clopidogrel Bisulfate (Plavix) 75 mg PO DAILY [facility] Last Admin: 05/13/17 09:37 Dose: 75 mg Furosemide (Lasix) 20 mg IVPUSH NOW ONE Stop: 05/13/17 10:48 Guaifenesin (Robitussin) 100 mg PO Q6H PRN PRN Reason: Cough Last Admin: 05/12/17 07:30 Dose: 100 mg Heparin Sodium (Porcine) (Heparin Sodium) 5,000 units SUBCUT Q8HR [facility] Last Admin: 05/13/17 06:10 Dose: 5,000 units Levofloxacin/Dextrose 250 mg/ (Premix) 50 mls @ 50 mls/hr IV Q24H [facility] Last Admin: 05/12/17 17:06 Dose: 50 mls/hr Levetiracetam (Keppra) 500 mg PO BID@1200,2100 [facility] Last Admin: 05/12/17 20:38 Dose: 500 mg Magnesium Hydroxide (Milk Of Magnesia) 30 ml PO Q12H PRN PRN Reason: Constipation Magnesium Oxide (Magnesium Oxide) 250 mg PO BIDM [facility] Last Admin: 05/13/17 09:38 Dose: 250 mg Metoprolol Succinate (Toprol Xl) 25 mg PO DAILY [facility] Omeprazole (Omeprazole) 20 mg PO BIDAC [facility] Last Admin: 05/13/17 06:09 Dose: 20 mg Ondansetron HCl (Zofran) 4 mg IVPUSH Q6H PRN PRN Reason: Nausea/Vomiting Risedronate Sodium 35 Mg Pt Own Med * * 0 each PO Mo@0600 [facility] Polyethylene Glycol (Miralax) 17 gm PO DAILY PRN PRN Reason: Constipation Senna/Docusate Sodium (Senna Plus) 1 tab PO DAILY PRN PRN Reason: Constipation Sodium Chloride (Saline Flush) 10 ml FLUSH ASDIRECTED PRN PRN Reason: Keep Vein Open Last Admin: 05/12/17 20:41 Dose: 10 ml Discontinued Medications Albuterol/Ipratropium (Duoneb 3.0-0.5 Mg/3 Ml) 3 ml NEB ONETIME ONE Stop: 05/11/17 14:17 Last Admin: 05/11/17 14:39 Dose: 3 ml Albuterol/Ipratropium (Duoneb 3.0-0.5 Mg/3 Ml) 3 ml NEB Q6H [facility] Last Admin: 05/11/17 19:35 Dose: Not Given Ceftriaxone Sodium (Rocephin) 1 gm IVPUSH ONETIME ONE Stop: 05/11/17 15:20 Last Admin: 05/11/17 15:48 Dose: 1 gm Furosemide (Lasix) 40 mg PO DAILY [facility] Furosemide (Lasix) 40 mg IVPUSH NOW ONE Stop: 05/13/17 10:48 Sodium Chloride (Normal Saline) 1,000 mls @ 400 mls/hr IV .BOLUS ONE Stop: 05/11/17 18:07 Last Infusion: 05/11/17 19:31 Dose: Infused Sodium Chloride (Normal Saline) 1,000 mls @ 100 mls/hr IV ASDIRECTED [facility] Stop: 05/12/17 02:44 Last Infusion: 05/12/17 05:45 Dose: Infused Levetiracetam (Keppra) 500 mg PO BID [facility] Last Admin: 05/11/17 22:50 Dose: Not Given Levofloxacin/Dextrose (Levaquin In D5w 250 Mg/50 Ml) 250 mg IV Q24H [facility] Metoprolol Succinate (Toprol Xl) 50 mg PO DAILY [facility] Last Admin: 05/13/17 09:38 Dose: 50 mg Potassium Chloride (Klor-Con 10) 20 meq PO DAILY [facility] Potassium Chloride (Klor-Con 10) 20 meq PO ONETIME ONE Stop: 05/12/17 08:14 Last Admin: 05/12/17 10:20 Dose: 20 meq - Exam Quality Assessment: Supplemental Oxygen, DVT Prophylaxis. No: Urine Catheter General: Alert, Oriented, Cooperative HEENT: Pupils Equal, Mucous Membr. Moist/[place]ck: No JVD. No: Lymphadenopathy Lungs: Crackles, Rhonchi. No: Wheezing Cardiovascular: Regular Rate, Regular Rhythm, Murmurs GI/Abdominal Exam: Normal Bowel Sounds, Soft. No: Guarding, Rigid, Rebound, Tender (Female) Exam: No: Deferred Back Exam: Normal Inspection, Full Range of Motion Extremities: Normal Inspection, No Pedal Edema Skin: Warm, Dry, Intact Neurological: No New Focal Deficit, Normal Speech, Normal Tone Psy/Mental Status: Alert, Normal Affect, Normal Mood - Problem List Review Problem List Initiated/Reviewed/Updated: Yes - My Orders Last 24 Hours: My Active Orders 05/13/17 10:47 Furosemide [Lasix] 20 mg IVPUSH NOW ONE 05/14/17 09:00 Metoprolol Succinate [Toprol XL] 25 mg PO DAILY - Plan Plan:: Impression 81-year-old female with history of pulmonary fibrosis on nightly oxygen at home presented with upper and lower respiratory symptoms concerning for acute bronchitis and I cannot rule out clinical pneumonia. WBC are trending downward and normalized Plan: 1. Bronchitis -Continue Levaquin -Continue DuoNeb every 4 hours -Continue Albuterol to every 2 hours as needed -Continue Pulmicort -Continue Tessalon and Robitussin for cough -Continue Mucomyst inhalation every 12 hours -Resume home medications Incentive spirometer and flutter device -PT/OT evaluation is done and recommended short stay in swing bed for strengthening -She at home use oxygen at night but will likely need supplemental oxygen 24 hrs -Will give lasix 20 mg IV X 1 dose 2. Hypertension: Her BP on the low side will decrease Metoprolol to 25 mg daily [ was at 50 mg daily] 3. DVT prophylaxis: Heparin for DVT prophylaxis 4. GI prophylaxis: Continue Protonix 40 mg daily 5. Code Status: Patient wants to be DNR/DNI
[2017-05-13] MEDS ORDERED: Pantoprazole 40 MG Tab.CR PO SCH (12:00)
[2017-05-13] MEDS: levETIRAcetam 500 MG Tab PO SCH ×2 (13:31→21:53)
[2017-05-13] MEDS: Levofloxacin/Dextrose 5%-Water 250 MG in Premix Bag 1 BAG IV SCH (17:37)
[2017-05-13] MEDS: guaiFENesin 100 MG/5 ML Soln 5 ML UD Cup PO PRN (20:24)
[2017-05-13] MEDS: atorvaSTATin 20 MG Tab PO SCH (21:53)
[2017-05-14] MEDS: Albuterol/Ipratropium 3.0-0.5 MG/3 ML Neb Soln NEB SCH ×7 (03:13→21:51)
[2017-05-14] MEDS: Omeprazole 20 MG Cap.CR PO SCH ×2 (06:10→17:31)
[2017-05-14] MEDS: Heparin Sodium 5,000 Units/ML Vial SUBCUT SCH ×3 (06:10→21:52)
[2017-05-14] MEDS: Acetylcysteine 20% 200 MG/ML 4 ML Nebulizer Soln SDV INH SCH (07:25)
[2017-05-14] MEDS: Budesonide 0.5 MG/2 ML Neb Susp NEB SCH ×2 (07:25→18:23)
[2017-05-14] MEDS: Clopidogrel 75 MG Tab PO SCH (08:18)
[2017-05-14] MEDS: Metoprolol Succinate 25 MG Tab.ER PO SCH (08:18)
[2017-05-14] MEDS: Calcium Carbonate/Vitamin D3 1250 MG-200 Unit Tab PO SCH ×3 (08:19→17:31)
--- NOTE | 2017-05-14 09:49 | PCM.PN ---
- General Info Date of Service: 05/14/17 Admission Dx/Problem (Free Text): Admission Diagnosis/Problem Admission Diagnosis/Problem Acute bronchitis/shortness of breath Subjective Update: Patient stated that she is feeling better today and Her shortness of breath and cough has improved. She is still feeling weak. She denies fever, chills, nausea , vomiting, abdominal pain, chest pain, diarrhea Functional Status: Reports: Pain Controlled, Tolerating Diet, Ambulating (onle with assistance), Urinating - Review of Systems General: Reports: Weakness, Fatigue. Denies: Fever, Chills HEENT: Denies: Ear Pain, Sinus Congestion, Sore Throat, Visual Changes Pulmonary: Reports: Shortness of Breath, Other (b/L crackes in lower bases). Denies: Cough, Wheezing Cardiovascular: Reports: Dyspnea on Exertion. Denies: Chest Pain, Lightheadedness Gastrointestinal: Denies: Abdominal Pain, Diarrhea, Difficulty Swallowing, Nausea, Vomiting Genitourinary: Denies: Dysuria, Frequency, Urgency, Flank Pain Musculoskeletal: Denies: Neck Pain, Hand Pain, Leg Pain, Foot Pain Skin: Denies: Cyanosis, Jaundice, Bruising, Pruritis, Rash Neurological: Denies: Confusion, Tingling, Tremors Psychiatric: Denies: Confusion, Anxiety - Patient Data Vitals - Most Recent: Last Vital Signs Temp 36.5 C 05/14/17 07:00 Pulse 87 05/14/17 08:18 Resp 24 H 05/14/17 07:00 BP 107/63 05/14/17 08:18 Pulse Ox 97 05/14/17 07:00 Weight - Most Recent: 49.895 kg I&O - Last 24 Hours: Intake & Output 05/13/17 05/14/17 05/14/17 22:59 06:59 14:59 Intake Total 700 120 200 Output Total 425 Balance 700 -305 200 Med Orders - Current: Current Medications Acetaminophen (Tylenol) 650 mg PO Q4H PRN PRN Reason: Pain (Mild 1-3)/fever Last Admin: 05/13/17 01:29 Dose: 650 mg Acetylcysteine (Mucomyst 20%) 600 mg INH BIDRT [facility] Last Admin: 05/14/17 07:25 Dose: 600 mg Albuterol (Proventil Neb Soln) 2.5 mg NEB Q2H PRN PRN Reason: shortness of breath/wheezing Albuterol/Ipratropium (Duoneb 3.0-0.5 Mg/3 Ml) 3 ml NEB Q4HRRT [facility] Last Admin: 05/14/17 07:25 Dose: 3 ml Atorvastatin Calcium (Lipitor) 40 mg PO BEDTIME [facility] Last Admin: 05/13/17 21:53 Dose: 40 mg Benzonatate (Tessalon Perles) 100 mg PO TID PRN PRN Reason: Cough Last Admin: 05/13/17 01:37 Dose: 100 mg Budesonide (Pulmicort) 0.5 mg NEB BIDRT [facility] Last Admin: 05/14/17 07:25 Dose: 0.5 mg Calcium Carbonate (Calcium Carbonate/Vitamin D 1250 Mg-200 Unit) 1 tab PO TIDMEALS [facility] Last Admin: 05/14/17 08:19 Dose: 1 tab Clopidogrel Bisulfate (Plavix) 75 mg PO DAILY [facility] Last Admin: 05/14/17 08:18 Dose: 75 mg Guaifenesin (Robitussin) 100 mg PO Q6H PRN PRN Reason: Cough Last Admin: 05/13/17 20:24 Dose: 100 mg Heparin Sodium (Porcine) (Heparin Sodium) 5,000 units SUBCUT Q8HR [facility] Last Admin: 05/14/17 06:10 Dose: 5,000 units Levofloxacin/Dextrose 250 mg/ (Premix) 50 mls @ 50 mls/hr IV Q24H [facility] Last Admin: 05/13/17 17:37 Dose: 50 mls/hr Levetiracetam (Keppra) 500 mg PO BID@1200,2100 [facility] Last Admin: 05/13/17 21:53 Dose: 500 mg Magnesium Hydroxide (Milk Of Magnesia) 30 ml PO Q12H PRN PRN Reason: Constipation Magnesium Oxide (Magnesium Oxide) 250 mg PO BIDM [facility] Last Admin: 05/14/17 08:19 Dose: 250 mg Metoprolol Succinate (Toprol Xl) 25 mg PO DAILY [facility] Last Admin: 05/14/17 08:18 Dose: 25 mg Omeprazole (Omeprazole) 20 mg PO BIDAC [facility] Last Admin: 05/14/17 06:10 Dose: 20 mg Ondansetron HCl (Zofran) 4 mg IVPUSH Q6H PRN PRN Reason: Nausea/Vomiting Risedronate Sodium 35 Mg Pt Own Med * * 0 each PO Mo@0600 [facility] Polyethylene Glycol (Miralax) 17 gm PO DAILY PRN PRN Reason: Constipation Senna/Docusate Sodium (Senna Plus) 1 tab PO DAILY PRN PRN Reason: Constipation Sodium Chloride (Saline Flush) 10 ml FLUSH ASDIRECTED PRN PRN Reason: Keep Vein Open Last Admin: 05/12/17 20:41 Dose: 10 ml Discontinued Medications Albuterol/Ipratropium (Duoneb 3.0-0.5 Mg/3 Ml) 3 ml NEB ONETIME ONE Stop: 05/11/17 14:17 Last Admin: 05/11/17 14:39 Dose: 3 ml Albuterol/Ipratropium (Duoneb 3.0-0.5 Mg/3 Ml) 3 ml NEB Q6H [facility] Last Admin: 05/11/17 19:35 Dose: Not Given Ceftriaxone Sodium (Rocephin) 1 gm IVPUSH ONETIME ONE Stop: 05/11/17 15:20 Last Admin: 05/11/17 15:48 Dose: 1 gm Furosemide (Lasix) 40 mg PO DAILY [facility] Furosemide (Lasix) 40 mg IVPUSH NOW ONE Stop: 05/13/17 10:48 Last Admin: 05/13/17 11:16 Dose: Not Given Furosemide (Lasix) 20 mg IVPUSH NOW ONE Stop: 05/13/17 10:48 Last Admin: 05/13/17 12:08 Dose: 20 mg Sodium Chloride (Normal Saline) 1,000 mls @ 400 mls/hr IV .BOLUS ONE Stop: 05/11/17 18:07 Last Infusion: 05/11/17 19:31 Dose: Infused Sodium Chloride (Normal Saline) 1,000 mls @ 100 mls/hr IV ASDIRECTED [facility] Stop: 05/12/17 02:44 Last Infusion: 05/12/17 05:45 Dose: Infused Levetiracetam (Keppra) 500 mg PO BID [facility] Last Admin: 05/11/17 22:50 Dose: Not Given Levofloxacin/Dextrose (Levaquin In D5w 250 Mg/50 Ml) 250 mg IV Q24H [facility] Metoprolol Succinate (Toprol Xl) 50 mg PO DAILY [facility] Last Admin: 05/13/17 09:38 Dose: 50 mg Pantoprazole Sodium (Protonix) 40 mg PO ACBREAKFAST [facility] Last Admin: 05/13/17 13:31 Dose: 40 mg Potassium Chloride (Klor-Con 10) 20 meq PO DAILY [facility] Potassium Chloride (Klor-Con 10) 20 meq PO ONETIME ONE Stop: 05/12/17 08:14 Last Admin: 05/12/17 10:20 Dose: 20 meq - Exam Quality Assessment: Supplemental Oxygen, DVT Prophylaxis. No: Urine Catheter General: Alert, Oriented, Cooperative, No Acute Distress HEENT: Pupils Equal, Pupils Reactive, Mucous Membr. Moist/[place]ck: Supple, No JVD, No Thyromegaly. No: Lymphadenopathy Lungs: Clear to Auscultation, Normal Respiratory Effort, Crackles. No: Wheezing Cardiovascular: Regular Rate, Regular Rhythm, Murmurs GI/Abdominal Exam: Normal Bowel Sounds, Non-Tender. No: Guarding, Rigid, Rebound, Tender (Female) Exam: Deferred Back Exam: Normal Inspection, Full Range of Motion Extremities: Normal Inspection, Normal Range of Motion, No Pedal Edema Skin: Warm, Dry, Intact Neurological: No New Focal Deficit, Normal Speech Psy/Mental Status: Alert, Normal Affect, Normal Mood - Problem List Review Problem List Initiated/Reviewed/Updated: Yes - My Orders Last 24 Hours: My Active Orders 05/14/17 09:00 Metoprolol Succinate [Toprol XL] 25 mg PO DAILY - Plan Plan:: Impression 81-year-old female with history of pulmonary fibrosis on nightly oxygen at home presented with upper and lower respiratory symptoms concerning for acute bronchitis and I cannot rule out clinical pneumonia. WBC are trending downward and normalized Plan: 1. Acute Bronchitis -Continue Levaquin -Continue DuoNeb every 4 hours -Continue Albuterol to every 2 hours as needed -Continue Pulmicort -Continue Tessalon and Robitussin for cough -stop Mucomyst -Incentive spirometer and flutter device -PT/OT evaluation is done and recommended short stay in swing bed for strengthening -She at home use oxygen at night but will likely need supplemental oxygen 24 hrs 2. Hypertension: Her BP on the low side will continue Metoprolol tomeka 25 mg daily [ was at 50 mg daily, decreased on 05/13/17] 3. DVT prophylaxis: Heparin for DVT prophylaxis 4. GI prophylaxis: Continue Omeprazole at 20 mg BID 5. Code Status: Patient wants to be DNR/DNI
[2017-05-14] MEDS: levETIRAcetam 500 MG Tab PO SCH ×2 (12:00→21:51)
[2017-05-14] MEDS ORDERED: Albuterol/Ipratropium 3.0-0.5 MG/3 ML Neb Soln NEB SCH (13:00)
[2017-05-14] MEDS: Levofloxacin/Dextrose 5%-Water 250 MG in Premix Bag 1 BAG IV SCH (17:32)
[2017-05-14] MEDS: atorvaSTATin 20 MG Tab PO SCH (21:50)
[2017-05-15] MEDS ORDERED: RISEDRONATE SODIUM 35 MG PO SCH (06:00)
[2017-05-15] MEDS: Acetaminophen 325 MG Tab PO PRN (06:02)
[2017-05-15] MEDS: Omeprazole 20 MG Cap.CR PO SCH (06:02)
[2017-05-15] MEDS: guaiFENesin 100 MG/5 ML Soln 5 ML UD Cup PO PRN (06:02)
[2017-05-15] MEDS: Heparin Sodium 5,000 Units/ML Vial SUBCUT SCH ×2 (06:05→13:57)
[2017-05-15] MEDS: Budesonide 0.5 MG/2 ML Neb Susp NEB SCH (07:27)
[2017-05-15] MEDS: Albuterol/Ipratropium 3.0-0.5 MG/3 ML Neb Soln NEB SCH ×2 (07:27→12:16)
[2017-05-15] MEDS: Metoprolol Succinate 25 MG Tab.ER PO SCH (08:51)
[2017-05-15] MEDS: Clopidogrel 75 MG Tab PO SCH (08:51)
[2017-05-15] MEDS: Calcium Carbonate/Vitamin D3 1250 MG-200 Unit Tab PO SCH ×2 (08:52→11:21)
[2017-05-15] MEDS: Benzonatate 100 MG Cap PO PRN (08:52)
[2017-05-15] MEDS: levETIRAcetam 500 MG Tab PO SCH (11:18)
[2017-05-15 12:35] VITALS: BP 102/77
--- NOTE | 2017-05-16 09:18 | EKG ---
05/11/2017- BO RONQUILLO - This is a standard 12-lead EKG showing normal sinus rhythm. Ventricular rate 82 beats per minute. Normal HI interval, QRS duration. No significant ST-T changes. [facility] /[id number]
--- NOTE | 2017-06-14 10:50 | DISCH ---
DISCHARGE DIAGNOSES: 1. Generalized and progressive weakness. 2. Fever, leukocytosis, and upper respiratory symptoms with negative chest x-ray for pneumonia. 3. Anemia, normocytic. 4. Hypoalbuminemia. 5. Severe pulmonary fibrosis. 6. Large hiatal hernia. 7. Osteoporosis with history of compression fractures. 8. Impaired mobility. 9. Seizure disorder by history, stable. 10.Cerebrovascular disease with previous stroke by history. BRIEF HISTORY OF PRESENT ILLNESS: Mrs. Christian is an 81-year-old lady with a history of severe idiopathic pulmonary fibrosis and obstructive sleep apnea. She presented to the emergency room with fever, cough productive of yellow sputum, sore throat, runny nose, congestion, and shortness of breath. Symptoms had started about a week prior to presentation and were gradually getting worse. Temperature was 100.7 degrees on admission. There were no other associated symptoms. She was admitted for further management. PERTINENT LABS AND X-RAYS: Pertinent labs at time of admission showed a white count of 17.9 with a left shift. Urinalysis was negative. Electrolytes were normal. Nonfasting blood sugar 111. LFTs were normal. Troponin was negative at less than 0.02. C-reactive protein was elevated at 16.5. BNP was in the normal range at 90. White count before transfer to swing bed was 9.2, hemoglobin and hematocrit were 9.7 and 30.8. Screening for influenza A and B was negative. Sputum culture showed normal rashaad. Urine culture showed more than 3 colony types and were presumed to be contaminants. Two sets of blood cultures showed no growth after 5 days. Two-view chest x-ray done at the time of admission showed changes consistent with her chronic severe interstitial fibrosis, but no new cardiopulmonary abnormality. This was compared to a film from November 2016. Chest x-ray was repeated following admission and a followup 2-view film showed no acute focal pneumonia or pleural effusions and again showed chronic interstitial lung disease. She had a moderate-sized hiatal hernia noted as well. The 12-lead EKG showed normal sinus rhythm with a ventricular rate of 82 with an occasional PVC, borderline left axis deviation. No acute ST-T wave changes were noted. HOSPITAL COURSE: Mrs. Christian was admitted as an acute inpatient. She was started on IV ceftriaxone and IV Levaquin. Respiratory therapy was continued with scheduled DuoNeb and Pulmicort nebulized treatments as well as p.r.n. albuterol nebulizer treatments. Her usual medications were continued. Mrs. Christian improved. She felt less short of breath. Fever resolved. She was coughing less. She still continued to be quite weak and it was felt that she could benefit from admission to swing bed for continued work with physical and occupational therapy for strengthening. Review of her clinical data showed that her appetite had improved, she was tolerating her diet. She was taking adequate fluids. Her fever had resolved and her vital signs were stable. Followup lab work also showed improvement. White count came down to the normal range. Differential was also normal. Electrolytes remained normal. On the day of discharge from acute care and admission to swing bed, she was seated comfortably in her room. She voiced no new concerns or complaints. She was obviously feeling better, but remained quite weak. She easily becomes short of breath with exertion. PHYSICAL EXAMINATION: Vital Signs: Blood pressure was 102/77, pulse 95, respiratory rate 20, oxygen saturation 93% on 1 to 2 L and she was afebrile. HEENT: Unremarkable. ENT was clear. Chest: Showed diminished bilateral breath sounds with dry paper crackles consistent with her pulmonary fibrosis. Heart: Showed regular rate and rhythm. Abdomen: Soft and benign. Extremities: Showed no edema. Neurological: She was intact. MEDICATIONS: Medications were reviewed and reconciled prior to her swing bed admission and can be found in [facility]. ALLERGIES: No known allergies. Condition at the time of discharge from acute care and admission to swing bed is stable. CODE STATUS: DNR/DNI. [facility] /[id number] [facility]
== END 2017-05-15 15:29 | disposition swing bed (61) | DRG 203 ==
LOC: DL.ED 12:24 → DL.MS 16:01
PROVIDERS: ADMIT Family Medicine; ATTEND Family Medicine
DX: J20.9 Acute bronchitis, unspecified (principal); E86.0 Dehydration; D72.829 Elevated white blood cell count, unspecified; I25.10 Atherosclerotic heart disease of native coronary artery without angina pectoris; I10 Essential (primary) hypertension; Z99.81 Dependence on supplemental oxygen; Z66 Do not resuscitate; J84.112 Idiopathic pulmonary fibrosis; R53.1 Weakness; R06.02 Shortness of breath; G47.33 Obstructive sleep apnea (adult) (pediatric); M54.9 Dorsalgia, unspecified; G89.29 Other chronic pain; M19.90 Unspecified osteoarthritis, unspecified site; Z86.73 Personal history of transient ischemic attack (TIA), and cerebral infarction without residual deficits; K21.9 Gastro-esophageal reflux disease without esophagitis; E78.5 Hyperlipidemia, unspecified; H54.7 Unspecified visual loss; Z79.82 Long term (current) use of aspirin
CPT/HCPCS: 36415; 71020; 80053; 81001; 83605; 83880; 84484; 85025; 87040 ×2; 87086; 87804 ×2; 93005 ×2; 93010 ×2; 94640; 99285; J0696; J7030; J7050; 83735; 86140; 87070; 87205; 94010; 94667; 97161-GP; 99284; A9270-GY; J1644; J1940; J1956

== ENCOUNTER 2017-05-15 15:30 | Inpatient (IN) | payer MEDICARE, OTHER ==
[2017-05-15] MEDS ORDERED: Bisacodyl 10 MG Supp RECTAL PRN (16:08)
[2017-05-15] MEDS ORDERED: Benzonatate 100 MG Cap PO PRN (16:49)
[2017-05-15] MEDS ORDERED: Ondansetron 4 MG/2 ML SDV IV PRN (16:49)
[2017-05-15] MEDS ORDERED: Polyethylene Glycol 3350 Powder 17 GM Packet PO PRN (17:21)
[2017-05-15] MEDS: Calcium Carbonate/Vitamin D3 1250 MG-200 Unit Tab PO SCH (18:16)
[2017-05-15] MEDS: Omeprazole 20 MG Cap.CR PO SCH (18:16)
[2017-05-15] MEDS: Budesonide 0.5 MG/2 ML Neb Susp NEB SCH (18:16)
[2017-05-15] MEDS: Levofloxacin/Dextrose 5%-Water 250 MG/50 ML Premix Bag IV SCH (18:17)
[2017-05-15] MEDS: atorvaSTATin 20 MG Tab PO SCH (20:49)
[2017-05-15] MEDS: levETIRAcetam 500 MG Tab PO SCH (20:49)
[2017-05-16] MEDS: Omeprazole 20 MG Cap.CR PO SCH ×2 (05:45→17:06)
[2017-05-16] MEDS: Budesonide 0.5 MG/2 ML Neb Susp NEB SCH ×3 (07:44→17:36)
[2017-05-16] MEDS: Acetaminophen 325 MG Tab PO PRN (08:17)
[2017-05-16] MEDS: Calcium Carbonate/Vitamin D3 1250 MG-200 Unit Tab PO SCH ×2 (08:19→17:30)
[2017-05-16] MEDS: levETIRAcetam 500 MG Tab PO SCH ×2 (09:29→21:36)
[2017-05-16] MEDS: Metoprolol Succinate 25 MG Tab.ER PO SCH (09:29)
[2017-05-16] MEDS: Clopidogrel 75 MG Tab PO SCH (09:30)
[2017-05-16] MEDS: Levofloxacin/Dextrose 5%-Water 250 MG/50 ML Premix Bag IV SCH (17:31)
[2017-05-16] MEDS: Sodium Chloride 0.9% 10 ML Syringe FLUSH PRN ×2 (17:31→21:37)
[2017-05-16] MEDS: atorvaSTATin 20 MG Tab PO SCH (21:36)
[2017-05-16] MEDS: guaiFENesin 100 MG/5 ML Soln 5 ML UD Cup PO PRN (21:36)
[2017-05-16] MEDS ORDERED: Benzocaine/Cetylpyridinium/Menthol Lozenge MUCMEM PRN (21:47)
[2017-05-17] MEDS: guaiFENesin 100 MG/5 ML Soln 5 ML UD Cup PO PRN (03:18)
[2017-05-17] MEDS: Omeprazole 20 MG Cap.CR PO SCH ×2 (05:45→18:22)
[2017-05-17] MEDS: Budesonide 0.5 MG/2 ML Neb Susp NEB SCH ×2 (07:32→17:42)
[2017-05-17] MEDS: Metoprolol Succinate 25 MG Tab.ER PO SCH (09:44)
[2017-05-17] MEDS: levETIRAcetam 500 MG Tab PO SCH ×2 (09:44→20:49)
[2017-05-17] MEDS: Clopidogrel 75 MG Tab PO SCH (09:44)
[2017-05-17] MEDS: Calcium Carbonate/Vitamin D3 1250 MG-200 Unit Tab PO SCH ×2 (09:44→18:22)
[2017-05-17] MEDS: RISEDRONATE 35 MG PO SCH (15:28)
[2017-05-17] MEDS: Levofloxacin/Dextrose 5%-Water 250 MG in Premix Bag 1 BAG IV SCH (18:23)
[2017-05-17] MEDS: Sodium Chloride 0.9% 10 ML Syringe FLUSH PRN ×2 (18:25→22:00)
[2017-05-17] MEDS: atorvaSTATin 20 MG Tab PO SCH (20:49)
[2017-05-18] MEDS: Omeprazole 20 MG Cap.CR PO SCH ×2 (05:36→17:14)
[2017-05-18] MEDS: Albuterol 0.083% 2.5 MG/3 ML Neb Soln NEB PRN ×2 (07:50→18:37)
[2017-05-18] MEDS: Budesonide 0.5 MG/2 ML Neb Susp NEB SCH ×2 (07:50→18:33)
[2017-05-18] MEDS: Clopidogrel 75 MG Tab PO SCH (08:16)
[2017-05-18] MEDS: Metoprolol Succinate 25 MG Tab.ER PO SCH (08:16)
[2017-05-18] MEDS: Calcium Carbonate/Vitamin D3 1250 MG-200 Unit Tab PO SCH ×2 (08:16→17:14)
[2017-05-18] MEDS: levETIRAcetam 500 MG Tab PO SCH ×2 (08:16→20:34)
[2017-05-18] MEDS: Levofloxacin/Dextrose 5%-Water 250 MG in Premix Bag 1 BAG IV SCH (17:51)
[2017-05-18] MEDS: atorvaSTATin 20 MG Tab PO SCH (20:34)
[2017-05-19] MEDS: Omeprazole 20 MG Cap.CR PO SCH ×2 (05:55→17:02)
[2017-05-19] MEDS: Budesonide 0.5 MG/2 ML Neb Susp NEB SCH ×2 (07:16→17:09)
[2017-05-19] MEDS: Calcium Carbonate/Vitamin D3 1250 MG-200 Unit Tab PO SCH ×2 (08:37→17:02)
[2017-05-19] MEDS: Metoprolol Succinate 25 MG Tab.ER PO SCH (08:37)
[2017-05-19] MEDS: Clopidogrel 75 MG Tab PO SCH (08:37)
[2017-05-19] MEDS: levETIRAcetam 500 MG Tab PO SCH ×2 (08:37→20:23)
[2017-05-19] MEDS: Levofloxacin/Dextrose 5%-Water 250 MG in Premix Bag 1 BAG IV SCH (17:02)
[2017-05-19] MEDS: atorvaSTATin 20 MG Tab PO SCH (20:23)
[2017-05-20] MEDS: Omeprazole 20 MG Cap.CR PO SCH ×2 (05:42→17:46)
[2017-05-20] MEDS: Acetaminophen 325 MG Tab PO PRN (05:52)
[2017-05-20] MEDS: Budesonide 0.5 MG/2 ML Neb Susp NEB SCH ×2 (07:14→18:06)
[2017-05-20] MEDS: Metoprolol Succinate 25 MG Tab.ER PO SCH (08:46)
[2017-05-20] MEDS: Clopidogrel 75 MG Tab PO SCH (08:46)
[2017-05-20] MEDS: Calcium Carbonate/Vitamin D3 1250 MG-200 Unit Tab PO SCH ×2 (08:46→17:46)
[2017-05-20] MEDS: levETIRAcetam 500 MG Tab PO SCH ×2 (08:46→20:24)
[2017-05-20] MEDS: Levofloxacin/Dextrose 5%-Water 250 MG in Premix Bag 1 BAG IV SCH (17:46)
[2017-05-20] MEDS: Albuterol 0.083% 2.5 MG/3 ML Neb Soln NEB PRN (18:06)
[2017-05-20] MEDS: atorvaSTATin 20 MG Tab PO SCH (20:23)
[2017-05-21] MEDS: Omeprazole 20 MG Cap.CR PO SCH ×2 (05:58→17:50)
[2017-05-21] MEDS: Budesonide 0.5 MG/2 ML Neb Susp NEB SCH ×3 (07:27→17:28)
[2017-05-21] MEDS: Calcium Carbonate/Vitamin D3 1250 MG-200 Unit Tab PO SCH ×2 (09:50→17:50)
[2017-05-21] MEDS: levETIRAcetam 500 MG Tab PO SCH ×2 (09:51→20:43)
[2017-05-21] MEDS: Clopidogrel 75 MG Tab PO SCH (09:51)
[2017-05-21] MEDS: Metoprolol Succinate 25 MG Tab.ER PO SCH (09:52)
[2017-05-21] MEDS: Sodium Chloride 0.9% 10 ML Syringe FLUSH PRN ×3 (09:54→18:52)
[2017-05-21] MEDS: Levofloxacin/Dextrose 5%-Water 250 MG in Premix Bag 1 BAG IV SCH (17:52)
[2017-05-21] MEDS: atorvaSTATin 20 MG Tab PO SCH (20:43)
[2017-05-22] MEDS: Omeprazole 20 MG Cap.CR PO SCH ×2 (06:07→16:46)
[2017-05-22] MEDS: RISEDRONATE 35 MG PO SCH (06:08)
[2017-05-22] MEDS: Albuterol 0.083% 2.5 MG/3 ML Neb Soln NEB PRN ×2 (07:21→18:03)
[2017-05-22] MEDS: Budesonide 0.5 MG/2 ML Neb Susp NEB SCH ×2 (07:23→18:03)
[2017-05-22] MEDS: Calcium Carbonate/Vitamin D3 1250 MG-200 Unit Tab PO SCH ×2 (08:22→17:59)
[2017-05-22] MEDS: Clopidogrel 75 MG Tab PO SCH (09:39)
[2017-05-22] MEDS: levETIRAcetam 500 MG Tab PO SCH ×2 (09:40→21:16)
[2017-05-22] MEDS: Metoprolol Succinate 25 MG Tab.ER PO SCH (09:40)
[2017-05-22] MEDS: Levofloxacin/Dextrose 5%-Water 250 MG in Premix Bag 1 BAG IV SCH (17:54)
[2017-05-22] MEDS: Sodium Chloride 0.9% 10 ML Syringe FLUSH PRN (17:56)
[2017-05-22] MEDS: atorvaSTATin 20 MG Tab PO SCH (21:16)
[2017-05-23] MEDS: Omeprazole 20 MG Cap.CR PO SCH (05:55)
[2017-05-23] MEDS: Albuterol 0.083% 2.5 MG/3 ML Neb Soln NEB PRN (07:15)
[2017-05-23] MEDS: Budesonide 0.5 MG/2 ML Neb Susp NEB SCH (07:17)
[2017-05-23] MEDS: Calcium Carbonate/Vitamin D3 1250 MG-200 Unit Tab PO SCH (09:06)
[2017-05-23] MEDS: Clopidogrel 75 MG Tab PO SCH (09:07)
[2017-05-23] MEDS: Metoprolol Succinate 25 MG Tab.ER PO SCH (09:07)
[2017-05-23] MEDS: levETIRAcetam 500 MG Tab PO SCH (09:07)
[2017-05-23 14:47] VITALS: BP 91/58
--- NOTE | 2017-06-14 10:14 | PN ---
DATE: 05/19/2017 SUBJECTIVE: Mrs. Christian is an 81-year-old lady who was admitted to [facility] to work with Physical and Occupational Therapy because of generalized weakness and debility. She had been an acute inpatient from May 11 to May 15. She presented with fever, cough, and acute upper respiratory tract symptoms. Chest x-ray did not show an acute infiltrate; however, chest x-ray is markedly abnormal due to her chronic severe interstitial fibrosis. She was treated with respiratory medications and nebulizer therapy and has improved. She is now working on a daily basis with Physical and Occupational Therapy. Review of her clinical data shows that she is tolerating her diet. Appetite is good. She is taking in fluids. She is voiding and moving her bowels. Vital signs have been stable, and she has remained afebrile since the time of admission to [facility]. No new lab or x-rays have been performed. PHYSICAL EXAMINATION: General: She is seated comfortably in her recliner. She voices no new concerns or complaints. Vital Signs: Blood pressure was 123/66, pulse 68, respiratory rate 20 and unlabored, and oxygen saturation 98% on 0.5 L. She was afebrile. HEENT: Unremarkable. ENT was clear. Chest: Showed diminished bilateral breath sounds with fine papery crackles bilaterally. Heart: Showed regular rate and rhythm. Abdomen: Soft and benign. Extremities: Showed no edema. Neurological: She was intact. ASSESSMENT AND PLAN: Mrs. Christian's oxygen saturation has been staying up when she is at rest, but it is noted that she has increased respiratory effort with exertion with some change in her oxygen saturation. We will continue to monitor this, and we will perform a walking desaturation study prior to discharge from the hospital. She had been on portable oxygen in the past and continues on a concentrator at home for nighttime use, but it may be that with her progressive pulmonary fibrosis that her oxygen levels are once again decreasing. No other changes are made in her care today. [facility] /[id number] MTDD
--- NOTE | 2017-06-14 10:32 | PN ---
DATE: 05/21/2017 RESULTS OF WALKING DESATURATION STUDY SUBJECTIVE: Mrs. Christian is an 81-year-old lady with a history of severe pulmonary fibrosis. She is on oxygen at night at home with concentrator. She had been on portable oxygen in the past but is no longer using that. The staff had noticed earlier in the week that she would desaturate with exercise with increased respiratory effort, and today, we performed an exercise desaturation study. Results: At rest, on room air, she was 90% with a heart rate of 72. Half a minute into exercise, oxygen saturation was 87%. One 1 minute, into exercise, she was 83% with a heart rate of 81. Oxygen was placed and run at 2 L/minute. At 2.5 minutes of exercise, her oxygen saturation increased from 83% to 86%. At the end of 2.5 minutes, it was 91% with a heart rate of 81. One minute post exercise, saturation was 95% on 2 L with a heart rate of 76. She walked a distance of 250 feet and was short of breath during the walk. Based on these results, we will contact [facility] and arrange for portable oxygen. She has used this in the past but improved enough that she felt she no longer needed it. IMPRESSION: Hypoxemia in a patient with severe pulmonary fibrosis. Results of walking desaturation study as above. Documentation sent to [facility] for portable oxygen. [facility] /[id number] MTDD
--- NOTE | 2017-06-14 11:14 | DISCH ---
SWING BED DISCHARGE DIAGNOSES: 1. General debility and weakness, improved. 2. Hypoxemia. A walking desaturation study demonstrated the need for daytime oxygen. 3. Severe pulmonary fibrosis by history. 4. Acute respiratory illness, resolved. 5. Cerebrovascular disease with previous stroke by history. 6. Seizure disorder, stable. See admission history and physical for remainder of medical history. BRIEF HISTORY OF PRESENT ILLNESS: Mrs. Christian is an 81-year-old lady who was in Acute Care from May 11 to May 15 when she presented with an acute respiratory illness with fever and leukocytosis as well as a productive cough. Chest x-ray did not show an acute infiltrate, however, she does have severe pulmonary fibrosis, and she was admitted to Acute Care for further management. During acute care, it was noted that she was generally weak and debilitated, and it was felt that she could benefit from some time spent in Swing Bed for improved strength and safety. She has been working with Physical and Occupational Therapy on a daily basis, and they now feel that she is ready to be discharged to home. PERTINENT LABORATORY AND X-RAY DATA: No x-rays or lab workup was performed during her swing bed admission. Review of her clinical data shows that she is taking in adequate fluids by mouth. Appetite is good. She is tolerating 100% of her meals. She is voiding and moving her bowels. Her vital signs have been stable. Blood pressure is well controlled. She has remained afebrile. There have been no falls or injuries. Overall, she is feeling better. HOSPITAL COURSE: She continued and completed a course of IV Levaquin. She continued on her usual medications, as well as respiratory medications. It was noted that she was somewhat hypoxic with exertion with increased dyspnea, and a walking desaturation study was performed on May 21 at 5:00 p.m. in the afternoon. At rest, oxygen saturation was 90% on room air with a pulse of 72. At 0.5 minutes of exercise, she was 87% on room air, and at 1 minute, 83% on room air. She was then placed on nasal oxygen, and over a 1 minute period, oxygen saturation increased from 86% to 91%. Heart rate remained about 80. At 1 minute post-exercise, she was 95% on 2 L with a heart rate of 76. She walked a distance of 250 feet. She exhibited dyspnea on exertion during the test. Orders were sent to [facility] for portable oxygen therapy. Mrs. Christian has a concentrator at home. She had been on portable oxygen in the past but improved enough that she did not use it anymore, but apparently now, she is requiring it. This may be due to progression of her severe pulmonary fibrosis. Today, on the day of discharge, she is seated in her room. She voices no concerns or complaints. She is sleeping and eating well, voiding and moving her bowels. There have been no falls or injuries. Her gait is much improved. During this admission, her had been admitted to Acute Care. She is his primary caregiver, and he had been at home alone, and now, he is in the hospital and also has been admitted to Swing Bed. His final disposition is unclear at this point. Mrs. Christian did say it is becoming increasingly difficult for her to physically care for him at home as well, particularly given the fact that she has progressive pulmonary fibrosis herself. Final disposition for the two of them remains to be seen, but she will be going home on her own with home health. We have made a referral to [facility] from the [place] [facility], and they will be following her at home. She will follow up with Dr. Valentine as an outpatient. DISCHARGE PLAN: 1. [facility] will admit her and follow her. 2. She will go home on portable oxygen. She already has a concentrator at home. 3. She should seek care sooner if she has any acute respiratory illness. HOME MEDICATIONS: 1. Albuterol HFA two puffs every 4 hours as needed. 2. Aspirin EC 81 mg daily. 3. Risedronate 35 mg once a week. 4. Metoprolol succinate 50 mg daily. 5. Plavix 75 mg daily. 6. Keppra 500 mg twice a day. 7. Atorvastatin 40 mg daily. 8. Pulmicort 0.5 mg b.i.d. by nebulizer. 9. Nexium 20 mg daily. 10.Calcium carbonate with vitamin D, one tablet 3 times a day with meals. 11.DuoNeb nebulizer treatment 4 times a day. ALLERGIES: No known allergies. CONDITION AT THE TIME OF DISCHARGE: Much improved and stable. She is able to ambulate independently with the use of her walker. CODE STATUS: Do not intubate/do not resuscitate. [facility] /[id number] BART
--- NOTE | 2017-06-14 11:17 | HP ---
REASON FOR ADMISSION TO SWING BED: Generalized weakness with impaired mobility. Admitted to work with Physical and Occupational Therapy for continued recovery from recent acute respiratory illness. HISTORY OF PRESENT ILLNESS: Mrs. Christian is an 81-year-old lady who was admitted as an acute inpatient from 05/11/2017 to 05/15/2017 after she presented to the Emergency Department with acute upper respiratory symptoms. She had a cough, productive of yellowish sputum. She had fever. Lab work showed elevated white count with a left shift as well as an elevated CRP. Chest x-ray did not show an acute infiltrate; however, she does have severe interstitial pulmonary fibrosis. She was admitted and managed as an acute inpatient with IV antibiotics and with respiratory treatments and improved. She was weak and debilitated with impaired gait with increased fall risk. She agreed to be admitted to Swing- bed for ongoing physical and occupational therapy for increased strength and safety. PAST MEDICAL HISTORY: Severe interstitial pulmonary fibrosis. She uses home oxygen at night. Cerebrovascular disease with previous embolic stroke without significant deficit. 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 PAST SURGICAL HISTORY: Appendectomy, tonsils and adenoids. SOCIAL HISTORY: She is . She and her live in the [place] area. Their daughter Ana is a requirements manager at the [employer] and they have considered possibly moving to the [facility]. She has never smoked cigarettes and drinks rare social alcohol. IMMUNIZATION HISTORY: PPV23 on 08/10/2016. PCV13 on 12/03/2015. Zoster on 02/16/2015. High-dose influenza on 02/21/2017. MEDICATIONS: Current medications are reviewed and are reconciled in [facility]. Medications include: 1. Albuterol and DuoNeb nebulizer treatments. 2. Pulmicort nebulizer. 3. Keppra for seizure disorder. 4. Lipitor. 5. Plavix and aspirin for cerebrovascular disease. 6. Metoprolol succinate. 7. Low-dose aspirin. ALLERGIES: She has no known allergies. PHYSICAL EXAMINATION: General: She is a very pleasant lady. She is in no acute distress. She has improved since her acute admission. Vital Signs: Blood pressure was 121/55, pulse 92, respiratory rate 20, oxygen saturation 93% on 1 L, and she was afebrile. Height 5 feet 2 inches, weight 105 pounds 8 ounces. HEENT: Unremarkable. ENT is clear. Chest: Showed diminished bilateral breath sounds with bilateral dry crackles, consistent with her pulmonary fibrosis. Heart: Showed regular rate and rhythm. Abdomen: Soft, flat, and benign. Extremities: Showed no edema. Neurologic: She is intact. IMPRESSION: An 81-year-old lady with recent acute upper respiratory tract symptoms for which she was treated in Acute Care. She is now admitted to Swing Bed for ongoing therapy and recovery from her weakness and debility following her acute illness, to improve her gait and safety. 1. She will be continued on her usual medications. 2. We will continue with IV Levaquin. 3. She will work on daily basis with Physical and Occupational therapy with the goal of returning home. No other changes are made in her care today. CODE STATUS: DNR/DNI. [facility] /[id number] MTDD
== END 2017-05-23 17:29 | disposition home health service (06) | DRG 948 ==
LOC: UNDOADMIN 15:30 → DL.MS 15:30
PROVIDERS: ADMIT Internal Medicine; ATTEND Internal Medicine
DX: R53.1 Weakness (principal); R53.81 Other malaise; J84.10 Pulmonary fibrosis, unspecified; Z99.81 Dependence on supplemental oxygen; Z86.73 Personal history of transient ischemic attack (TIA), and cerebral infarction without residual deficits; E78.5 Hyperlipidemia, unspecified; K21.9 Gastro-esophageal reflux disease without esophagitis; M81.0 Age-related osteoporosis without current pathological fracture; R09.02 Hypoxemia; G40.909 Epilepsy, unspecified, not intractable, without status epilepticus; I67.9 Cerebrovascular disease, unspecified; M47.9 Spondylosis, unspecified; Z66 Do not resuscitate; Z79.82 Long term (current) use of aspirin
CPT/HCPCS: 94640; 97110-GP; 97116-GP; 97162-GP; A9270-GY; J1956; J7050; J7620-GY

== ENCOUNTER 2017-06-15 12:44 | Inpatient (IN) | payer MEDICARE, OTHER ==
--- NOTE | 2017-06-15 12:44 | EDM.PDOC ---
ED HPI GENERAL MEDICAL PROBLEM - General Chief Complaint: Chest Pain Stated Complaint: sob. chest pain Time Seen by Provider: 06/15/17 12:35 Source of Information: Reports: Patient History Limitations: Reports: No Limitations - History of Present Illness INITIAL COMMENTS - FREE TEXT/NARRATIVE: This 81 yo female patient reports to the ED with increased chest pain and increased shortness of breath. The patient reports she was seen in the [facility] yesterday for similar symptoms and was scheduled to have a CT of her chest today. The patient reports no history of falls or acute injuries. Duration: Day(s): (2), Constant, Getting Worse Location: Reports: Chest Quality: Reports: Ache, Dull Severity: Moderate Improves with: Reports: None Worsens with: Reports: None Associated Symptoms: Reports: No Other Symptoms Middle Chest Pain Score (Numeric/FACES): 8 - Related Data Allergies Allergy/AdvReac Type Severity Reaction Status Date / Time No Known Allergies Allergy Verified 06/15/17 12:29 Home Meds: Home Meds Aspirin [[place] Aspirin] 81 mg PO DAILY 10/31/16 [History] Calcium Carbonate/Vitamin D3 [Calcium 500 + Vit D Caplet] 1 tab PO TIDMEALS 05/07 [History] Clopidogrel Bisulfate [Clopidogrel] 75 mg PO DAILY 10/31/16 [History] Esomeprazole Magnesium [Nexium 24Hr] 20 mg PO DAILY 10/31/16 [History] Metoprolol Succinate [Toprol XL] 50 mg PO DAILY 10/31/16 [History] Risedronate Sodium 35 mg PO WEEKLY 10/31/16 [History] atorvaSTATin [Lipitor] 40 mg PO DAILY 10/31/16 [History] Budesonide [Pulmicort] 0.5 mg NEB BIDRT 12/01/16 [History] levETIRAcetam [Keppra] 500 mg PO BID 12/01/16 [History] Albuterol [Proventil HFA] 0 gm INH Q4H PRN #1 inhaler 12/20/16 [Rx] Albuterol/Ipratropium [DuoNeb 3.0-0.5 MG/3 ML] 3 ml NEB QIDRT #120 neb 12/20/16 [Rx] Past Medical History HEENT History: Reports: Cataract, Impaired Vision Other HEENT History: wears glasses Cardiovascular History: Reports: CAD, High Cholesterol, Hypertension Respiratory History: Reports: COPD, Pulmonary Fibrosis, SOB Other Respiratory History: "Residual Lung Diseas", 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 Gastrointestinal History: Reports: GERD Genitourinary History: Reports: None 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: Reports: Musculoskeletal History: Reports: Back Pain, Chronic, Osteoarthritis Neurological History: Reports: Cerebral Aneurysms, CVA Other Neuro History: between 5 to 10 years ago Psychiatric History: Reports: Anxiety Endocrine/Metabolic History: Reports: Osteoporosis Hematologic History: Reports: None Immunologic History: Reports: None Oncologic (Cancer) History: Reports: None Dermatologic History: Reports: None - Infectious Disease History Infectious Disease History: Reports: None - Past Surgical History Head Surgeries/Procedures: Reports: None HEENT Surgical History: Reports: Adenoidectomy, Cataract Surgery, Tonsillectomy Cardiovascular Surgical History: Reports: Aneurysm, Other (See Below) Other Cardiovascular Surgeries/Procedures: aneurysm repair Respiratory Surgical History: Reports: None GI Surgical History: Reports: Appendectomy Female Surgical History: Reports: None Neurological Surgical History: Reports: Other (See Below) Other Neurological Surgeries/Procedures: cement to lumbar areas Social & Family History - Family History Family Medical History: Noncontributory - Tobacco Use Smoking Status *Q: Never Smoker Second Hand Smoke Exposure: No - Caffeine Use Caffeine Use: Reports: Coffee - Recreational Drug Use Recreational Drug Use: No - Living Situation & Occupation Living situation: Reports: , with Spouse Occupation: Retired ED ROS GENERAL - Review of Systems Review Of Systems: ROS reveals no pertinent complaints other than HPI. ED EXAM, GENERAL - Physical Exam Exam: See Below Exam Limited By: No Limitations General Appearance: Alert, WD/WN, Moderate Distress, Thin Eye Exam: Bilateral Eye: EOMI, Normal Inspection, PERRL Ears: Normal External Exam, Normal Canal, Hearing Grossly Normal, Normal TMs Nose: Normal Inspection, Normal Mucosa, No Blood Throat/Mouth: Normal Inspection, Normal Lips, Normal Teeth, Normal Gums, Normal Oropharynx, Normal Voice, No Airway Compromise Head: Atraumatic, Normocephalic Neck: Normal Inspection, Supple, Non-Tender, Full Range of Motion Respiratory/Chest: Decreased Breath Sounds (due to effort) Cardiovascular: Normal Peripheral Pulses, Regular Rate, Rhythm, No Edema, No Gallop, No JVD, No Murmur, No Rub GI/Abdominal: Normal Bowel Sounds, Soft, Non-Tender, No Organomegaly, No Distention, No Abnormal Bruit, No Mass (Female) Exam: Deferred Rectal (Female) Exam: Deferred Back Exam: Normal Inspection, Full Range of Motion, NT Extremities: Normal Inspection, Normal Range of Motion, Non-Tender, Normal Capillary Refill, No Pedal Edema Neurological: Alert, Oriented, CN II-XII Intact, Normal Cognition, Normal Gait, Normal Reflexes, No Motor/Sensory Deficits Psychiatric: Normal Affect, Normal Mood Skin Exam: Warm, Dry, Intact, Normal Color, No Rash Lymphatic: No Adenopathy Course - Vital Signs Last Recorded V/S: Last Vital Signs Temp 36.7 C 06/15/17 12:05 Pulse 80 06/15/17 12:05 Resp 22 H 06/15/17 12:05 BP 160/77 H 06/15/17 12:05 Pulse Ox 97 06/15/17 12:05 - Orders/Labs/Meds Orders: Active Orders 24 hr Category Date Time Status EKG Documentation Completion [RC] URGENT Care 06/15/17 12:06 Active CULTURE BLOOD [BC] Stat Lab 06/15/17 12:20 Results CULTURE BLOOD [BC] Stat Lab 06/15/17 12:27 Received UA W/MICROSCOPIC [URIN] Stat Lab 06/15/17 12:07 Uncollected Blood Culture x2 Reflex Set [OM.PC] Stat Oth 06/15/17 12:07 Ordered Labs: Laboratory Tests 06/15/17 06/15/17 06/15/17 Range/Units 12:27 12:27 12:27 WBC 10.9 H (5.0-10.0) 10^3/uL RBC 4.12 L (4.2-5.4) 10^6/uL Hgb 12.1 D (12.0-16.0) g/dL Hct 38.1 (37.0-47.0) % MCV 92.5 (80-100) fL MCH 29.4 (27.0-34.0) pg MCHC 31.8 L (33.0-35.0) g/dL Plt Count 220 (150-450) 10^3/uL Neut % (Auto) 67.1 (42.2-75.2) % Lymph % (Auto) 21.9 (20.5-50.1) % [place] % (Auto) 7.3 (2-8) % Eos % (Auto) 3.4 H (1.0-3.0) % Baso % (Auto) 0.3 (0.0-1.0) % D-Dimer, Quantitative 403 H (0-400) ng/mL Sodium 138 (135-145) mmol/L Potassium 4.0 (3.6-5.0) mmol/L Chloride 103 (101-111) mmol/L Carbon Dioxide 26.0 (21.0-31.0) mmol/L Anion Gap 13.0 BUN 24 H (7-18) mg/dL Creatinine 0.9 (0.6-1.3) mg/dL Est Cr Clr Drug Dosing 38.56 mL/min Estimated GFR (MDRD) > 60 BUN/Creatinine Ratio 26.66 Glucose 96 (74-105) mg/dL Lactic Acid (0.5-2.2) mmol/L Calcium 9.3 (8.4-10.2) mg/dl Total Bilirubin 0.7 (0.2-1.0) mg/dL AST 18 (10-42) IU/L ALT 13 (10-60) IU/L Alkaline Phosphatase 60 (42-121) IU/L Troponin I < 0.02 (0.00-0.02) ng/ml B-Natriuretic Peptide 38 (0-100) pg/ml Total Protein 7.5 (6.7-8.2) g/dl Albumin 3.8 (3.2-5.5) g/dl Globulin 3.7 Albumin/Globulin Ratio 1.03 /25/18 Range/Units 12:27 WBC (5.0-10.0) 10^3/uL RBC (4.2-5.4) 10^6/uL Hgb (12.0-16.0) g/dL Hct (37.0-47.0) % MCV (80-100) fL MCH (27.0-34.0) pg MCHC (33.0-35.0) g/dL Plt Count (150-450) 10^3/uL Neut % (Auto) (42.2-75.2) % Lymph % (Auto) (20.5-50.1) % [place] % (Auto) (2-8) % Eos % (Auto) (1.0-3.0) % Baso % (Auto) (0.0-1.0) % D-Dimer, Quantitative (0-400) ng/mL Sodium (135-145) mmol/L Potassium (3.6-5.0) mmol/L Chloride (101-111) mmol/L Carbon Dioxide (21.0-31.0) mmol/L Anion Gap BUN (7-18) mg/dL Creatinine (0.6-1.3) mg/dL Est Cr Clr Drug Dosing mL/min Estimated GFR (MDRD) BUN/Creatinine Ratio Glucose (74-105) mg/dL Lactic Acid 1.0 (0.5-2.2) mmol/L Calcium (8.4-10.2) mg/dl Total Bilirubin (0.2-1.0) mg/dL AST (10-42) IU/L ALT (10-60) IU/L Alkaline Phosphatase (42-121) IU/L Troponin I (0.00-0.02) ng/ml B-Natriuretic Peptide (0-100) pg/ml Total Protein (6.7-8.2) g/dl Albumin (3.2-5.5) g/dl Globulin Albumin/Globulin Ratio Departure - Departure Time of Disposition: 13:32 Disposition: Admitted As Inpatient 67 Condition: Fair Clinical Impression: Non-traumatic compression fracture of T4 thoracic vertebra Qualifiers: Encounter type: initial encounter Qualified Code(s): M48.54XA - Collapsed vertebra, not elsewhere classified, thoracic region, initial encounter for fracture Care Plan Goals: Discussed the examination, lab, EKG, x-ray and CT results with Dr. Valentine. Dr. Valentine accepted the patient for pain management as an inpatient at [facility]. - My Orders Last 24 Hours: My Active Orders 06/15/17 12:06 EKG Documentation Completion [RC] URGENT 06/15/17 12:07 UA W/MICROSCOPIC [URIN] Stat Blood Culture x2 Reflex Set [OM.PC] Stat 06/15/17 12:20 CULTURE BLOOD [BC] Stat 06/15/17 12:27 CULTURE BLOOD [BC] Stat - Assessment/Plan Last 24 Hours: My Active Orders 06/15/17 12:06 EKG Documentation Completion [RC] URGENT 06/15/17 12:07 UA W/MICROSCOPIC [URIN] Stat Blood Culture x2 Reflex Set [OM.PC] Stat 06/15/17 12:20 CULTURE BLOOD [BC] Stat 06/15/17 12:27 CULTURE BLOOD [BC] Stat
[2017-06-15 12:55] LABS: CHLORIDE,CL 103 mmol/L (101-111); SODIUM,NA 138 mmol/L (135-145)
--- NOTE | 2017-06-15 13:27 | CR ---
Clinical history: 81-year-old female with back pain and shortness of breath. Interpretation: 1. Multiple insufficiency fractures and vertebral plasty lower thoracic and two lumbar vertebra this osteoporotic patient unchanged since 13 May 2017 exam. 2. Chronic abnormal interstitial fibrotic pattern of the lung muñoz. Subtle nodular density left upp er lobe present April 2017. 3. Hiatus hernia incarcerated in the lower middle mediastinum. 4. Mild left ventriculomegaly but no new cephalization of flow, signs of alveolar edema or dependent pleural fluid accumulation. 5. No new lung mass, hilar lymphadenopathy or focal lobar pneumonia. CONCLUSION: No acute new cardiopulmonary abnormality (see above).
--- NOTE | 2017-06-15 15:22 | CT ---
Clinical history: 81-year-old female with persistent severe back pain, a history of COPD, extensive p ulmonary fibrosis, osteoporosis and spinal fractures (vertebral plasty T9, T12 and L1 vertebral vahid s}. Scan technique: Volume acquisition of data emergency unenhanced CT scan of the chest (bony thorax, nicolasa ngs and mediastinum) obtained without oral or IV contrast while patient was lying supine on the [employer] multi slice scanner [place], [place]. All data archived in the PACS system for storage, reformatting and study (lung/mediastinal windows). Interpretation: 1. New insufficiency (greater than 50% compression) fracture T4 vertebral body since 13 May 2017 lateral film. 2. Reproducible vertebral plana T6 with associated greater than 30% compression fractures T7, T10 and T11 vertebral bodies. 3. Severe kyphotic deformity with thoracic cord "draped" over mid dorsal spine but no signs of spondy lolisthesis. 4. Normal cardiac silhouette without sign of pericardial effusion. No alveolar edema or dependent ple ural effusion. No CHF. 5. Huge hiatus hernia incarcerated in the lower middle mediastinum. Calcifications stent of the tanner l caliber thoracic aorta. 6. Extensive cystic/bullous lung and peripheral pulmonary fibrotic disease bilaterally. 7. No discrete parenchymal lung nodule or mass lesion, significant hilar/mediastinal lymphadenopathy, or focal lobar pneumonia.
[2017-06-15] MEDS ORDERED: Albuterol 6.7 GM Inhaler INH PRN (16:30)
[2017-06-15] MEDS: Calcium Carbonate/Vitamin D3 1250 MG-200 Unit Tab PO SCH (17:08)
[2017-06-15] MEDS: oxyCODONE 5 MG Tab PO PRN ×2 (17:08→20:54)
[2017-06-15] MEDS: Budesonide 0.5 MG/2 ML Neb Susp NEB SCH (18:46)
[2017-06-15] MEDS: Albuterol/Ipratropium 3.0-0.5 MG/3 ML Neb Soln NEB SCH ×2 (18:46→20:56)
[2017-06-15] MEDS: levETIRAcetam 500 MG Tab PO SCH (20:54)
--- NOTE | 2017-06-15 22:03 | HP ---
CHIEF COMPLAINT: Shortness of breath and midback pain. HISTORY OF PRESENT ILLNESS: The patient is an 81-year-old lady, who was admitted through the emergency room because of shortness of breath and midback pain, which has been going on for the last couple of days and today, it got worse. She was seen by the [facility] and she was advised to be brought to the emergency room. In the emergency room, she was worked up and basically she was ruled out for [place], pulmonary embolism. She was noted to have a new compression fracture that is more than 50% on the T4 vertebral body since May 13, 2017. There is also reproducible T6 associated with greater than 30% compression fracture of T7 and T10 and T11 vertebral bodies. Because of this and the intractability of the pain, she was admitted for further evaluation and management. REVIEW OF SYSTEMS: She denies any fever or chills. Denies any recent history of fall or injuries. No syncope, headache. Denies any abdominal pain or any other complaints. PAST MEDICAL HISTORY: Remarkable for interstitial lung disease, history of osteoporosis and compression fracture, history of coronary artery disease, pulmonary fibrosis, COPD, gastroesophageal reflux, osteoarthritis, history of CVA, and anxiety. SOCIAL HISTORY: The patient is . Nonsmoker, nonalcohol drinker. She is currently living by herself as her was recently admitted to a senior living. She lives in [place]. HOME MEDICATIONS: 1. Risedronate. 2. Esomeprazole. 3. Calcium with vitamin D. 4. Plavix. 5. DuoNeb. 6. Budesonide. 7. Keppra. 8. Atorvastatin. 9. Aspirin. 10.Albuterol. 11.Metoprolol. ALLERGIES: Tramadol. PHYSICAL EXAMINATION: General: The patient is alert and oriented, in moderate distress from the back pain. Vital Signs: Blood pressure is 127/109, pulse of 82, respirations 20, temperature of 98.2. Weight is 107 pounds. HEENT: Normocephalic. There is pink palpebral conjunctiva. Sclerae anicteric. No JVD. No lymphadenopathy. Heart: Regular rate and rhythm. Normal S1 and S2. No gallops. No rubs. Lungs: Equal bilaterally with diminished breath sounds on both bases, but no significant wheezing or crackles. Back: Examination of the T-spine is remarkable for mild reproducible tenderness on the T-spine area. Abdomen: Soft and nontender. Bowel sounds are positive. Extremities: Negative for any significant pedal edema. No calf tenderness. LABORATORY DATA: Lab workup: CBC; WBC is 10.9, hemoglobin is 12.1, hematocrit 38.1, platelets are 220. D-dimer is 403. Comp panel; BUN is 24. The rest of the panel is unremarkable. Troponin is less than 0.02. BNP is 38. CAT scan of the chest showing new compression fracture T4 which is more than 50%. Chest x- ray is unremarkable. Negative for any acute abnormality. ADMITTING DIAGNOSES: 1. Intractable back pain secondary to compression fracture which is new. 2. Shortness of breath secondary to #1. 3. Interstitial lung disease. 4. History of cerebrovascular accident. 5. Coronary artery disease. 6. Osteoporosis. 7. History of seizure. TREATMENT PLAN: The patient is going to be admitted to General Medicine floor. She will be resuming her home medication. We will also put the patient on pain management and the rest of the management as necessary. [facility] /[id number]
[2017-06-16] MEDS: Sodium Chloride 0.9% 10 ML Syringe FLUSH PRN ×4 (04:20→18:20)
[2017-06-16] MEDS: Morphine 2 MG/ML Syringe IVPUSH PRN ×3 (04:20→18:18)
[2017-06-16] MEDS: oxyCODONE 5 MG Tab PO PRN ×3 (05:23→21:26)
[2017-06-16] MEDS: Pantoprazole 40 MG Tab.CR PO SCH (05:23)
[2017-06-16] MEDS: Budesonide 0.5 MG/2 ML Neb Susp NEB SCH ×2 (06:28→19:01)
[2017-06-16] MEDS: Albuterol/Ipratropium 3.0-0.5 MG/3 ML Neb Soln NEB SCH ×4 (06:28→21:41)
[2017-06-16] MEDS: Clopidogrel 75 MG Tab PO SCH (08:59)
[2017-06-16] MEDS: Aspirin 81 MG Tab.EC PO SCH (08:59)
[2017-06-16] MEDS: levETIRAcetam 500 MG Tab PO SCH ×2 (08:59→21:26)
[2017-06-16] MEDS: Enoxaparin 30 MG/0.3 ML Syringe SUBCUT SCH (08:59)
[2017-06-16] MEDS: atorvaSTATin 20 MG Tab PO SCH (09:00)
[2017-06-16] MEDS: Calcium Carbonate/Vitamin D3 1250 MG-200 Unit Tab PO SCH ×3 (09:00→17:54)
[2017-06-16] MEDS ORDERED: Polyethylene Glycol 3350 Powder 17 GM Packet PO SCH (10:00)
[2017-06-16] MEDS: Metoprolol Succinate 25 MG Tab.ER PO SCH (10:15)
[2017-06-16] MEDS: Lidocaine 5% 700 MG Patch TOP SCH (10:16)
--- NOTE | 2017-06-16 11:22 | PN ---
DATE: 06/16/2017 SUBJECTIVE: The patient is still complaining of back pain and still has pain with breathing secondary to the compression fracture on her T4. Otherwise she denies any fever, chills, nausea, vomiting, abdominal pain, or any other complaints. OBJECTIVE: Vital Signs: Blood pressure is 101/59, pulse of 86, respirations of 20. Heart: Regular rate and rhythm. Normal S1 and S2. No gallops. No rubs. Lungs: Diminished breath sounds on both bases but no significant crackles. No wheezing. Abdomen: Soft and nontender. Bowel sounds positive. Extremities: Negative for any significant pedal edema. No calf tenderness. MEDICATIONS: Reviewed. PLAN: We will continue with her present management and continue with pain management. I am also going to have Physical Therapy see patient for evaluation and management. [facility] /[id number]
[2017-06-16] MEDS: Polyethylene Glycol 3350 Powder 17 GM Packet PO SCH (13:12)
[2017-06-16] MEDS: Ondansetron 4 MG Tab.DIS PO PRN (18:17)
[2017-06-17] MEDS: Pantoprazole 40 MG Tab.CR PO SCH (06:03)
[2017-06-17] MEDS: Morphine 2 MG/ML Syringe IVPUSH PRN ×3 (06:03→17:55)
[2017-06-17] MEDS: Albuterol/Ipratropium 3.0-0.5 MG/3 ML Neb Soln NEB SCH ×4 (07:23→20:39)
[2017-06-17] MEDS: Budesonide 0.5 MG/2 ML Neb Susp NEB SCH ×2 (07:23→17:00)
[2017-06-17] MEDS: Aspirin 81 MG Tab.EC PO SCH (09:34)
[2017-06-17] MEDS: Lidocaine 5% 700 MG Patch TOP SCH (09:34)
[2017-06-17] MEDS: levETIRAcetam 500 MG Tab PO SCH ×2 (09:34→20:39)
[2017-06-17] MEDS: Calcium Carbonate/Vitamin D3 1250 MG-200 Unit Tab PO SCH ×3 (09:34→17:35)
[2017-06-17] MEDS: Metoprolol Succinate 25 MG Tab.ER PO SCH (09:38)
[2017-06-17] MEDS: atorvaSTATin 20 MG Tab PO SCH (09:38)
[2017-06-17] MEDS: Enoxaparin 30 MG/0.3 ML Syringe SUBCUT SCH (09:38)
[2017-06-17] MEDS: Polyethylene Glycol 3350 Powder 17 GM Packet PO SCH (09:38)
[2017-06-17] MEDS: Clopidogrel 75 MG Tab PO SCH (09:38)
--- NOTE | 2017-06-17 11:23 | PCM.PN ---
- General Info Date of Service: 06/17/17 Admission Dx/Problem (Free Text): Admitted with New compression Fracture at T4 with severe pain Subjective Update: today she still complain of pain but it is better. appetite is good, No nausea or vomiting and had BL yesterday but not today Functional Status: Reports: Pain Controlled, Tolerating Diet, Urinating - Review of Systems General: Reports: Weakness, Appetite (good). Denies: Fever, Chills HEENT: Denies: Ear Pain, Headaches, Sinus Congestion, Visual Changes Pulmonary: Denies: Shortness of Breath, Cough, Wheezing Cardiovascular: Denies: Chest Pain, Lightheadedness Gastrointestinal: Denies: Abdominal Pain, Diarrhea, Difficulty Swallowing, Nausea, Vomiting Genitourinary: Denies: Dysuria, Burning, Urgency, Flank Pain Musculoskeletal: Reports: Back Pain. Denies: Neck Pain, Hand Pain, Joint Pain Skin: Denies: Cyanosis, Jaundice, Bruising, Pruritis, Rash Neurological: Reports: Difficulty Walking. Denies: Confusion, Headache Psychiatric: Denies: Confusion, Anxiety, Hallucinations - Patient Data Vitals - Most Recent: Last Vital Signs Temp 37.0 C 06/17/17 07:00 Pulse 63 06/17/17 09:38 Resp 18 06/17/17 07:00 BP 111/68 06/17/17 09:38 Pulse Ox 99 06/17/17 07:24 Weight - Most Recent: 48.761 kg I&O - Last 24 Hours: Intake & Output 06/16/17 06/17/17 06/17/17 22:59 06:59 14:59 Intake Total 750 300 Output Total 1300 1000 Balance -550 -700 Med Orders - Current: Current Medications Acetaminophen (Tylenol) 650 mg PO Q4H PRN PRN Reason: Pain (Mild 1-3)/fever Albuterol (Proventil Hfa) 0 gm INH Q4H PRN PRN Reason: Shortness of Breath Albuterol/Ipratropium (Duoneb 3.0-0.5 Mg/3 Ml) 3 ml NEB QIDRT [facility] Last Admin: 06/17/17 07:23 Dose: 3 ml Aspirin (Halfprin) 81 mg PO DAILY [facility] Last Admin: 06/17/17 09:34 Dose: 81 mg Atorvastatin Calcium (Lipitor) 40 mg PO DAILY [facility] Last Admin: 06/17/17 09:38 Dose: 40 mg Budesonide (Pulmicort) 0.5 mg NEB BIDRT [facility] Last Admin: 06/17/17 07:23 Dose: 0.5 mg Calcium Carbonate (Calcium Carbonate/Vitamin D 1250 Mg-200 Unit) 1 tab PO TIDMEALS [facility] Last Admin: 06/17/17 09:34 Dose: 1 tab Clopidogrel Bisulfate (Plavix) 75 mg PO DAILY [facility] Last Admin: 06/17/17 09:38 Dose: 75 mg Docusate Sodium (Colace) 100 mg PO BID PRN PRN Reason: Constipation Enoxaparin Sodium (Lovenox) 30 mg SUBCUT DAILY [facility] Last Admin: 06/17/17 09:38 Dose: 30 mg Levetiracetam (Keppra) 500 mg PO BID [facility] Last Admin: 06/17/17 09:34 Dose: 500 mg Lidocaine (Lidoderm 5%) 700 mg TOP Q24H [facility] Last Admin: 06/17/17 09:34 Dose: 700 mg Metoprolol Succinate (Toprol Xl) 25 mg PO DAILY [facility] Last Admin: 06/17/17 09:38 Dose: 25 mg Miscellaneous Information (Remove Patch) 1 ea TRDERM BEDTIME [facility] Last Admin: 06/16/17 21:27 Dose: Not Given Morphine Sulfate (Morphine) 2 mg IVPUSH Q2H PRN PRN Reason: Pain (severe 7-10) Last Admin: 06/17/17 06:03 Dose: 2 mg Ondansetron HCl (Zofran Odt) 4 mg PO Q4H PRN PRN Reason: nausea, able to take PO Last Admin: 06/16/17 18:17 Dose: 4 mg Oxycodone HCl (Oxycodone) 5 mg PO Q4H PRN PRN Reason: Pain (moderate 4-6) Last Admin: 06/16/17 21:26 Dose: 5 mg Pantoprazole Sodium (Protonix) 40 mg PO ACBREAKFAST [facility] Last Admin: 06/17/17 06:03 Dose: 40 mg Risedronate Sodium 35 Mg Pt's Own Med 0 each PO Mo@0600 [facility] Polyethylene Glycol (Miralax) 17 gm PO DAILY [facility] Last Admin: 06/17/17 09:38 Dose: 17 gm Sodium Chloride (Saline Flush) 10 ml FLUSH ASDIRECTED PRN PRN Reason: Keep Vein Open Last Admin: 06/16/17 18:20 Dose: 10 ml Discontinued Medications Polyethylene Glycol (Miralax) 17 gm PO DAILY [facility] Last Admin: 06/16/17 11:14 Dose: Not Given - Exam Quality Assessment: DVT Prophylaxis. No: Supplemental Oxygen, Urine Catheter General: Alert, Oriented, Cooperative, No Acute Distress HEENT: Pupils Equal, EOMI, Mucous Membr. Moist/[place] Neck: Supple, No JVD, No Thyromegaly Lungs: Clear to Auscultation, Normal Respiratory Effort. No: Crackles, Wheezing Cardiovascular: Regular Rate, Regular Rhythm, Murmurs GI/Abdominal Exam: Normal Bowel Sounds, Soft, Non-Tender, No Organomegaly. No: Guarding, Rigid, Rebound (Female) Exam: Deferred Back Exam: Normal Inspection, Vertebral Tenderness Extremities: Normal Inspection, No Pedal Edema Skin: Warm, Dry, Intact Neurological: No New Focal Deficit Psy/Mental Status: Alert, Normal Affect, Normal Mood - Problem List Review Problem List Initiated/Reviewed/Updated: Yes - Plan Plan:: This is a 81 Y/O F with past medical history of Interstitial Lung disease, history of osteoporosis and compression fracture, Coronary artery disease, Pulmonary Fibrosis, COPD, GERD, History of CVA and anxiety, presented to ED with back pain and shortness of breath. CT chest showed New Insufficiency fracture T4 vertebral body, No PE 1. Back pain secondary to new T4 vertebral body fracture: -Will continue Morphine 2 mg IV q2hr prn -Continue Oxycodone 5 mg q4h prn -PT/OT eval on Monday -Stool softner Docusate 100 mg BID PRN 2. Hypertension: BP acceptable Continue Metoprolol 25 mg daily 3. COPD: Continue Duoneb and albuteol PRN 4. Anxiety/Depression: Continue Keppra 500 mg BID 5. GI prophylaxis: Protonix 6. DVT prophylaxis: Enoxaparin 30 mg daily Code status: DNR/DNI
[2017-06-17] MEDS: oxyCODONE 5 MG Tab PO PRN (12:19)
[2017-06-17] MEDS: Acetaminophen 325 MG Tab PO PRN (12:23)
[2017-06-17] MEDS: Ondansetron 4 MG Tab.DIS PO PRN ×2 (13:38→17:27)
[2017-06-17] MEDS: Sodium Chloride 0.9% 10 ML Syringe FLUSH PRN (13:42)
[2017-06-17] MEDS: Docusate Sodium 100 MG Cap PO PRN ×2 (17:54→20:39)
[2017-06-17] MEDS: Bisacodyl 10 MG Supp RECTAL PRN (18:04)
[2017-06-18] MEDS: Ondansetron 4 MG Tab.DIS PO PRN (05:34)
[2017-06-18] MEDS: Pantoprazole 40 MG Tab.CR PO SCH (05:34)
[2017-06-18] MEDS: Morphine 2 MG/ML Syringe IVPUSH PRN (05:35)
[2017-06-18 06:53] LABS: ANION GAP 12.2; CHLORIDE,CL 96 mmol/L (101-111); SODIUM,NA 138 mmol/L (135-145)
[2017-06-18] MEDS: Budesonide 0.5 MG/2 ML Neb Susp NEB SCH ×2 (07:19→17:45)
[2017-06-18] MEDS: Albuterol/Ipratropium 3.0-0.5 MG/3 ML Neb Soln NEB SCH ×4 (07:19→20:05)
[2017-06-18] MEDS: Acetaminophen 325 MG Tab PO PRN ×3 (08:12→20:04)
[2017-06-18] MEDS: Aspirin 81 MG Tab.EC PO SCH (08:12)
[2017-06-18] MEDS: Docusate Sodium 100 MG Cap PO PRN (08:13)
[2017-06-18] MEDS: Clopidogrel 75 MG Tab PO SCH (08:13)
[2017-06-18] MEDS: atorvaSTATin 20 MG Tab PO SCH (08:13)
[2017-06-18] MEDS: oxyCODONE 5 MG Tab PO PRN ×3 (08:13→19:03)
[2017-06-18] MEDS: levETIRAcetam 500 MG Tab PO SCH ×2 (08:13→20:05)
[2017-06-18] MEDS: Metoprolol Succinate 25 MG Tab.ER PO SCH (08:15)
[2017-06-18] MEDS: Calcium Carbonate/Vitamin D3 1250 MG-200 Unit Tab PO SCH ×3 (08:15→17:02)
[2017-06-18] MEDS: Polyethylene Glycol 3350 Powder 17 GM Packet PO SCH (08:16)
[2017-06-18] MEDS: Enoxaparin 30 MG/0.3 ML Syringe SUBCUT SCH (08:20)
[2017-06-18] MEDS: Lidocaine 5% 700 MG Patch TOP SCH (08:20)
--- NOTE | 2017-06-18 10:14 | PCM.PN ---
- General Info Date of Service: 06/18/17 Admission Dx/Problem (Free Text): Admitted with New compression Fracture at T4 with severe pain and constipation Subjective Update: Today she still complain of pain but it is getting better, appetite is good, No nausea or vomiting and had BM last night Functional Status: Reports: Pain Controlled, Tolerating Diet, Ambulating, Urinating - Review of Systems General: Reports: Weakness. Denies: Fever, Malaise HEENT: Denies: Dysphasia, Sinus Congestion, Sore Throat, Visual Changes Pulmonary: Denies: Shortness of Breath, Cough, Sputum, Wheezing Cardiovascular: Denies: Chest Pain, Lightheadedness Gastrointestinal: Denies: Abdominal Pain, Decreased Appetite, Difficulty Swallowing, Nausea, Vomiting Genitourinary: Denies: Frequency, Burning, Urgency, Flank Pain Musculoskeletal: Denies: Shoulder Pain, Leg Pain, Joint Pain Skin: Denies: Cyanosis, Jaundice, Bruising, Pruritis, Rash Neurological: Denies: Confusion, Dizziness, Tingling, Tremors Psychiatric: Denies: Confusion, Anxiety - Patient Data Vitals - Most Recent: Last Vital Signs Temp 37.1 C 06/18/17 07:00 Pulse 74 06/18/17 08:15 Resp 21 H 06/18/17 07:00 BP 124/70 06/18/17 08:15 Pulse Ox 99 06/18/17 07:19 Weight - Most Recent: 48.761 kg I&O - Last 24 Hours: Intake & Output 06/17/17 06/18/17 06/18/17 22:59 06:59 14:59 Intake Total 100 Output Total 200 Balance -100 Lab Results Last 24 Hours: Laboratory Results - last 24 hr 06/17/17 06/18/17 Range/Units 16:24 06:05 Sodium 138 (135-145) mmol/L Potassium 4.2 (3.6-5.0) mmol/L Chloride 96 L (101-111) mmol/L Carbon Dioxide 34.0 H (21.0-31.0) mmol/L Anion Gap 12.2 BUN 20 H (7-18) mg/dL Creatinine 0.9 (0.6-1.3) mg/dL Est Cr Clr Drug Dosing 38.38 mL/min Estimated GFR (MDRD) > 60 Glucose 95 (74-105) mg/dL POC Glucose 117 H (83-110) mg/dl Calcium 9.3 (8.4-10.2) mg/dl Duc Results Last 24 Hours: Microbiology 06/16/17 05:00 Urine Culture - Final Urine, Voided Med Orders - Current: Current Medications Acetaminophen (Tylenol) 650 mg PO Q4H PRN PRN Reason: Pain (Mild 1-3)/fever Last Admin: 06/18/17 08:12 Dose: 650 mg Albuterol (Proventil Hfa) 0 gm INH Q4H PRN PRN Reason: Shortness of Breath Albuterol/Ipratropium (Duoneb 3.0-0.5 Mg/3 Ml) 3 ml NEB QIDRT [facility] Last Admin: 06/18/17 07:19 Dose: 3 ml Aspirin (Halfprin) 81 mg PO DAILY [facility] Last Admin: 06/18/17 08:12 Dose: 81 mg Atorvastatin Calcium (Lipitor) 40 mg PO DAILY [facility] Last Admin: 06/18/17 08:13 Dose: 40 mg Bisacodyl (Dulcolax) 10 mg RECTAL DAILY PRN PRN Reason: Constipation Last Admin: 06/17/17 18:04 Dose: 10 mg Budesonide (Pulmicort) 0.5 mg NEB BIDRT [facility] Last Admin: 06/18/17 07:19 Dose: 0.5 mg Calcium Carbonate (Calcium Carbonate/Vitamin D 1250 Mg-200 Unit) 1 tab PO TIDMEALS [facility] Last Admin: 06/18/17 08:15 Dose: 1 tab Clopidogrel Bisulfate (Plavix) 75 mg PO DAILY [facility] Last Admin: 06/18/17 08:13 Dose: 75 mg Enoxaparin Sodium (Lovenox) 30 mg SUBCUT DAILY [facility] Last Admin: 06/18/17 08:20 Dose: 30 mg Levetiracetam (Keppra) 500 mg PO BID [facility] Last Admin: 06/18/17 08:13 Dose: 500 mg Lidocaine (Lidoderm 5%) 700 mg TOP Q24H [facility] Last Admin: 06/18/17 08:20 Dose: 700 mg Metoprolol Succinate (Toprol Xl) 25 mg PO DAILY [facility] Last Admin: 06/18/17 08:15 Dose: 25 mg Miscellaneous Information (Remove Patch) 1 ea TRDERM BEDTIME [facility] Last Admin: 06/17/17 20:39 Dose: Not Given Morphine Sulfate (Morphine) 2 mg IVPUSH Q2H PRN PRN Reason: Pain (severe 7-10) Last Admin: 06/18/17 05:35 Dose: 2 mg Ondansetron HCl (Zofran Odt) 4 mg PO Q4H PRN PRN Reason: nausea, able to take PO Last Admin: 06/18/17 05:34 Dose: 4 mg Oxycodone HCl (Oxycodone) 5 mg PO Q4H PRN PRN Reason: Pain (moderate 4-6) Last Admin: 06/18/17 08:13 Dose: 5 mg Pantoprazole Sodium (Protonix) 40 mg PO ACBREAKFAST [facility] Last Admin: 06/18/17 05:34 Dose: 40 mg Risedronate Sodium 35 Mg Pt's Own Med 0 each PO Mo@0600 [facility] Polyethylene Glycol (Miralax) 17 gm PO DAILY [facility] Last Admin: 06/18/17 08:16 Dose: 17 gm Senna/Docusate Sodium (Senna Plus) 1 tab PO BID [facility] Sodium Chloride (Saline Flush) 10 ml FLUSH ASDIRECTED PRN PRN Reason: Keep Vein Open Last Admin: 06/17/17 13:42 Dose: 10 ml Discontinued Medications Docusate Sodium (Colace) 100 mg PO BID PRN PRN Reason: Constipation Last Admin: 06/18/17 08:13 Dose: 100 mg Docusate Sodium (Colace) 100 mg PO BID [facility] Polyethylene Glycol (Miralax) 17 gm PO DAILY [facility] Last Admin: 06/16/17 11:14 Dose: Not Given Senna/Docusate Sodium (Senna Plus) 1 tab PO BID [facility] - Exam Quality Assessment: Supplemental Oxygen, DVT Prophylaxis. No: Urine Catheter General: Alert, Oriented, Cooperative, No Acute Distress HEENT: Pupils Equal, Mucous Membr. Moist/[place] Neck: Supple, No JVD, No Thyromegaly Lungs: Clear to Auscultation, Normal Respiratory Effort. No: Rhonchi, Wheezing Cardiovascular: Regular Rate, Regular Rhythm, No Murmurs GI/Abdominal Exam: Normal Bowel Sounds, Soft, Non-Tender, No Organomegaly. No: Rigid, Rebound, Tender (Female) Exam: Deferred Back Exam: Normal Inspection Extremities: Normal Inspection, No Pedal Edema Skin: Warm, Dry, Intact Neurological: No New Focal Deficit Psy/Mental Status: Alert, Normal Affect, Normal Mood - Problem List Review Problem List Initiated/Reviewed/Updated: Yes - My Orders Last 24 Hours: My Active Orders 06/17/17 16:39 Bisacodyl [Dulcolax] 10 mg RECTAL DAILY PRN 06/18/17 10:00 Docusate Sodium/Sennosides [Senna Plus] 1 tab PO BID - Plan Plan:: This is a 81 Y/O F with past medical history of Interstitial Lung disease, history of osteoporosis and compression fracture, Coronary artery disease, Pulmonary Fibrosis, COPD, GERD, History of CVA and anxiety, presented to ED with back pain and shortness of breath. CT chest showed New Insufficiency fracture T4 vertebral body, No PE 1. Back pain secondary to new T4 vertebral body fracture: -Will continue Morphine 2 mg IV q2hr prn -Continue Oxycodone 5 mg q4h prn -PT/OT eval on Monday -Stool softner Docusate 100 mg BID 2. Hypertension: BP acceptable Continue Metoprolol 25 mg daily 3. COPD: Continue Duoneb and albuteol PRN 4. Anxiety/Depression: Continue Keppra 500 mg BID 5. GI prophylaxis: Protonix 40 mg daily 6. DVT prophylaxis: Enoxaparin 30 mg daily Code status: DNR/DNI
[2017-06-18] MEDS ORDERED: Magnesium Hydroxide 400 MG/5 ML Susp 30 ML Cup PO ONE (19:47)
[2017-06-18] MEDS ORDERED: Docusate Sodium 100 MG Cap PO SCH (21:00)
[2017-06-19] MEDS: Pantoprazole 40 MG Tab.CR PO SCH (05:29)
[2017-06-19] MEDS ORDERED: RISEDRONATE SODIUM 35 MG PO SCH (06:00)
[2017-06-19] MEDS: Budesonide 0.5 MG/2 ML Neb Susp NEB SCH ×2 (07:56→17:00)
[2017-06-19] MEDS: Albuterol/Ipratropium 3.0-0.5 MG/3 ML Neb Soln NEB SCH ×4 (07:56→22:30)
--- NOTE | 2017-06-19 09:00 | EKG ---
06/15/2017 - BO RONQUILLO A - EKG is sinus rhythm with a rate of 81, normal CT interval. There is a left axis deviation. There are nonspecific ST-T wave changes on the anterior leads, but there are no signs of acute myocardial injury. [facility] /[id number]
[2017-06-19] MEDS: atorvaSTATin 20 MG Tab PO SCH (10:46)
[2017-06-19] MEDS: Aspirin 81 MG Tab.EC PO SCH (10:47)
[2017-06-19] MEDS: levETIRAcetam 500 MG Tab PO SCH ×2 (10:47→22:30)
[2017-06-19] MEDS: Metoprolol Succinate 25 MG Tab.ER PO SCH (10:48)
[2017-06-19] MEDS: Clopidogrel 75 MG Tab PO SCH (10:49)
[2017-06-19] MEDS: Calcium Carbonate/Vitamin D3 1250 MG-200 Unit Tab PO SCH ×3 (10:49→18:15)
[2017-06-19] MEDS: Polyethylene Glycol 3350 Powder 17 GM Packet PO SCH (10:50)
[2017-06-19] MEDS: Enoxaparin 30 MG/0.3 ML Syringe SUBCUT SCH (10:50)
[2017-06-19] MEDS: Lidocaine 5% 700 MG Patch TOP SCH (10:50)
[2017-06-19] MEDS: oxyCODONE 5 MG Tab PO PRN (11:03)
[2017-06-19] MEDS: Acetaminophen 325 MG Tab PO PRN ×2 (11:04→22:41)
[2017-06-19] MEDS: Magnesium Hydroxide 400 MG/5 ML Susp 30 ML Cup PO SCH ×2 (13:23→22:30)
[2017-06-19] MEDS ORDERED: Lactulose Soln 10 GM/15 ML 30 ML UD Cup PO PRN (13:36)
[2017-06-19] MEDS: Bisacodyl 10 MG Supp RECTAL PRN (15:18)
[2017-06-19] MEDS ORDERED: Magnesium Citrate Solution 296 ML Bottle PO ONE (19:54)
[2017-06-20] MEDS: oxyCODONE 5 MG Tab PO PRN ×3 (00:49→13:30)
[2017-06-20] MEDS: Pantoprazole 40 MG Tab.CR PO SCH (06:30)
[2017-06-20] MEDS: Budesonide 0.5 MG/2 ML Neb Susp NEB SCH (07:18)
[2017-06-20] MEDS: Albuterol/Ipratropium 3.0-0.5 MG/3 ML Neb Soln NEB SCH ×2 (07:18→11:51)
--- NOTE | 2017-06-20 09:01 | PN ---
DATE: 06/19/2017 SUBJECTIVE: Ms. Christian is an 81-year-old female was admitted here because of back pain and constipation. The patient was noted to have a compression fracture at L4 and has been having severe pain. The pressing issue that was tackled today is she has been having some abdominal pain and spiked a fever last night. Otherwise, she denies any nausea, vomiting. On my visit with her, she was eating lunch and she is tolerating it well. Has not had any bowel movement in the last 3 days. PHYSICAL EXAMINATION: Vital Signs: Blood pressure 124/61, heart rate of 74 beats per minute, respirations 20 breaths per minute, oxygen saturation 99% on 2 L, temperature 97.3. General: The patient is awake, in distress. Chest: Symmetric chest expansion. Lungs with bilateral air entry. Cardiovascular System: Regular rate and rhythm. Abdomen: Soft. Normoactive bowel sounds. Some tenderness noted to the epigastric area. LABORATORY DATA: Laboratory ordered today showed a resolution of the leukocytosis from 10.9 to 7.7, hemoglobin 12.1 to 11.8. Lactic acid then was 1.0. Urinalysis showed urine wbc's of 40 to 50 with moderate leukocyte esterase. Final urine culture showed more than 3 types of colonies of mixed gram-positive organisms. ASSESSMENT AND PLAN: For the constipation, she was on Dulcolax, MiraLax, and senna plus. We will add milk of magnesia and lactulose. We did order an abdominal x-ray today which showed just constipation, no signs of obstruction. The patient has been having back pain, which was deemed to be from the new compression fracture; however, she is not needing to use her Morphine, the last use was yesterday. She was taking oxycodone; we will continue with that. We will continue Protonix as well. The patient to continue to work with Physical Therapy. We will continue to monitor for further signs of fever. [facility] /[id number] MTDD
[2017-06-20] MEDS: Calcium Carbonate/Vitamin D3 1250 MG-200 Unit Tab PO SCH ×2 (09:42→13:29)
[2017-06-20] MEDS: Aspirin 81 MG Tab.EC PO SCH (09:42)
[2017-06-20] MEDS: levETIRAcetam 500 MG Tab PO SCH (09:42)
[2017-06-20] MEDS: atorvaSTATin 20 MG Tab PO SCH (09:42)
[2017-06-20] MEDS: Clopidogrel 75 MG Tab PO SCH (09:42)
[2017-06-20] MEDS: Metoprolol Succinate 25 MG Tab.ER PO SCH (09:44)
[2017-06-20] MEDS: Lidocaine 5% 700 MG Patch TOP SCH (09:46)
[2017-06-20] MEDS: Enoxaparin 30 MG/0.3 ML Syringe SUBCUT SCH (09:48)
[2017-06-20] MEDS: Polyethylene Glycol 3350 Powder 17 GM Packet PO SCH (09:49)
[2017-06-20] MEDS: Magnesium Hydroxide 400 MG/5 ML Susp 30 ML Cup PO SCH (09:51)
[2017-06-20] MEDS: Acetaminophen 325 MG Tab PO PRN (13:29)
[2017-06-20 14:58] VITALS: BP 132/66
--- NOTE | 2017-07-03 11:25 | DISCH ---
FINAL DIAGNOSES: 1. Back pain secondary to compression fracture. 2. Shortness of breath secondary to pain. 3. Interstitial lung disease. 4. History of cerebrovascular accident. 5. History of coronary artery disease. 6. Osteoporosis. 7. History of seizure. BRIEF HISTORY AND PHYSICAL: The patient is an 81-year-old lady, presented to the ER because of shortness of breath and back pain in the last 2 days. Worked up for [place], PE was normal. Noted to have new compression fracture more than 60% on T4 in April and also T6, T7, T10, and T11. Because of intractable pain, admitted. Documented PE on exam, normal vital signs. Back is remarkable for a mild reproducible tenderness in the T-spine area. WORKUP DONE IN HOSPITAL: Laboratories showed mild leukocytosis initially, which has resolved. Hemoglobin 12.1 and 11.8. D-dimer 403. BMP unremarkable. Urinalysis, moderate leukocyte esterase, and final urine culture showed probable contamination. Blood culture, no growth after 5 days and negative for influenza. HOSPITAL COURSE: The patient was admitted into a medical-surgical bed. Given this intractable back pain, started on the medications, and she was also able to work with physical therapy. Subsequently, noticed some improvement. Appetite has been good. No intolerance to pain medication. She was on morphine initially and then oxycodone. Stool softener was started for constipation. Her DuoNeb and albuterol as needed continued for her COPD. Her Keppra was continued for her seizures. DVT prophylaxis with enoxaparin. The patient remained hemodynamically stable. Her blood pressure has been controlled during her stay in the swing bed. At some point, she was not able to have bowel movement, and she was given milk of magnesia and lactulose. Abdominal x-ray was done, which showed just constipation, no signs of obstruction. Subsequently, she is not needing to use her morphine. Vital signs on discharge; blood pressure 132/66, heart rate of 70 beats per minute, respirations 20 breaths per minute, and oxygen saturation 98%. DISCHARGE INSTRUCTIONS: The patient is stable to be discharged home. The patient is to follow up with primary care within 1 to 2 weeks from discharge. We will continue physical therapy, monitor side effects from pain medication, and ensure normal bowel movements given the recent constipation. To come back to the emergency room if with emergent health concerns. [facility] /[id number]
== END 2017-06-20 15:00 | disposition home or self-care (01) | DRG 544 ==
LOC: DL.ED 12:44 → DL.MS 15:40 → UNDOADMIN 15:40 → DL.MS 16:25
PROVIDERS: ADMIT Internal Medicine; ATTEND Internal Medicine
DX: M48.54XA Collapsed vertebra, not elsewhere classified, thoracic region, initial encounter for fracture (principal); I25.10 Atherosclerotic heart disease of native coronary artery without angina pectoris; J44.9 Chronic obstructive pulmonary disease, unspecified; K21.9 Gastro-esophageal reflux disease without esophagitis; Z86.73 Personal history of transient ischemic attack (TIA), and cerebral infarction without residual deficits; F41.9 Anxiety disorder, unspecified; M81.0 Age-related osteoporosis without current pathological fracture; K59.00 Constipation, unspecified; I10 Essential (primary) hypertension
CPT/HCPCS: 36415; 71046; 71250; 74018; 80048; 80053; 81001; 82962; 83605; 83880; 84484; 85025; 85379; 87040; 87086; 87804; 93005; 93010; 94010; 94640; 97110-GP; 97116-GP; 97161-GP; 99285; A9270-GY; J1650; J2270; J7050

== ENCOUNTER 2017-06-27 23:29 | Emergency (ER) | payer MEDICARE, OTHER ==
[2017-06-27] MEDS ORDERED: Ondansetron 4 MG/2 ML SDV IV ONE (23:43)
[2017-06-27] MEDS ORDERED: Morphine 2 MG/ML Syringe IVPUSH ONE (23:45)
--- NOTE | 2017-06-28 00:07 | EDM.PDOC ---
ED HPI GENERAL MEDICAL PROBLEM - General Chief Complaint: Neuro Symptoms/Deficits Stated Complaint: IN BY AMBULANCE Time Seen by Provider: 06/27/17 23:29 Source of Information: Reports: EMS, Family History Limitations: Reports: Altered Mental Status - History of Present Illness INITIAL COMMENTS - FREE TEXT/NARRATIVE: ED via [facility], Report patient confused. Last spoke with daughter at 1800 and everything seemed fine, around 2200 other daughter called and no answer so went to check on patient, and she was confused so called EMS, Hx compression fracture one week ago. Pneumonia this fall with small stroke and seizure. Prior hx aneurysm clipped 5 years ago. Frequent UTI hx. O2 dependent at home on 2 liters. Family report patient ins DNR/DNI - Related Data Allergies Allergy/AdvReac Type Severity Reaction Status Date / Time tramadol Allergy Nausea and Verified 06/27/17 23:36 Vomiting Home Meds: Home Meds Aspirin [Jane Lew Aspirin] 81 mg PO DAILY 10/31/16 [History] Calcium Carbonate/Vitamin D3 [Calcium 500 + Vit D Caplet] 1 tab PO TIDMEALS 05/07 [History] Clopidogrel Bisulfate [Clopidogrel] 75 mg PO DAILY 10/31/16 [History] Esomeprazole Magnesium [Nexium 24Hr] 20 mg PO ACBREAKFAST 10/31/16 [History] Metoprolol Succinate [Toprol XL] 25 mg PO DAILY 10/31/16 [History] Risedronate Sodium 35 mg PO .Monday10/31/16 [History] atorvaSTATin [Lipitor] 40 mg PO DAILY 10/31/16 [History] Budesonide [Pulmicort] 0.5 mg NEB BIDRT 12/01/16 [History] levETIRAcetam [Keppra] 500 mg PO BID 12/01/16 [History] Albuterol/Ipratropium [DuoNeb 3.0-0.5 MG/3 ML] 3 ml NEB QIDRT #120 neb 12/20/16 [Rx] Acetaminophen [Tylenol Extra Strength] 1,000 mg PO Q6HR PRN MDD 3000 mg [History] Albuterol [Proventil HFA] 2 puff IH Q4HR PRN 06/16/17 [History] Lactulose [Cephulac] 20 gm PO BID PRN #1 bottle 06/20/17 [Rx] Lidocaine 5% [Lidoderm 5%] 700 mg TOP Q24H #30 patch 06/20/17 [Rx] oxyCODONE 5 mg PO Q4H PRN #60 tablet 06/20/17 [Rx] Past Medical History HEENT History: Reports: Cataract, Impaired Vision Other HEENT History: wears glasses Cardiovascular History: Reports: CAD, High Cholesterol, Hypertension Respiratory History: Reports: COPD, Pulmonary Fibrosis, SOB Other Respiratory History: "Residual Lung Diseas", 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 Gastrointestinal History: Reports: GERD Genitourinary History: Reports: None 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: Musculoskeletal History: Reports: Back Pain, Chronic, Osteoarthritis, Other ( See Below) Other Musculoskeletal History: T4 compression 06/15/17 Neurological History: Reports: Cerebral Aneurysms, CVA Other Neuro History: between 5 to 10 years ago Psychiatric History: Reports: Anxiety Endocrine/Metabolic History: Reports: Osteoporosis Hematologic History: Reports: None Immunologic History: Reports: None Oncologic (Cancer) History: Reports: None Dermatologic History: Reports: None - Infectious Disease History Infectious Disease History: Reports: None - Past Surgical History Head Surgeries/Procedures: Reports: None HEENT Surgical History: Reports: Adenoidectomy, Cataract Surgery, Tonsillectomy Cardiovascular Surgical History: Reports: Aneurysm, Other (See Below) Other Cardiovascular Surgeries/Procedures: aneurysm repair Respiratory Surgical History: Reports: None GI Surgical History: Reports: Appendectomy Female Surgical History: Reports: None Neurological Surgical History: Reports: Other (See Below) Other Neurological Surgeries/Procedures: cement to lumbar areas Social & Family History - Family History Family Medical History: Noncontributory - Tobacco Use Smoking Status *Q: Unknown Ever Smoked Second Hand Smoke Exposure: No - Caffeine Use Caffeine Use: Reports: Coffee - Recreational Drug Use Recreational Drug Use: No - Living Situation & Occupation Living situation: Reports: , with Spouse Occupation: Retired ED ROS GENERAL - Review of Systems Review Of Systems: Unable To Obtain ED EXAM, NEURO - Physical Exam Exam: See Below Exam Limited By: No Limitations General Appearance: Alert, Anxious, Mild Distress Eye Exam: Bilateral Eye: EOMI, PERRL (3mm) Ears: Normal External Exam, Normal TMs Nose: Normal Inspection Throat/Mouth: Normal Oropharynx, Other (dried blood on lip) Head Exam: Atraumatic, Normocephalic Neck: Normal Inspection, Full Range of Motion Respiratory/Chest: No Respiratory Distress, Decreased Breath Sounds Cardiovascular: Normal Peripheral Pulses, Regular Rate, Rhythm, Tachycardia. No : No Edema (trace pedal) GI/Abdominal: Normal Bowel Sounds, Soft, No Distention, Other (retching, pérez liquid, small amounts) (Female) Exam: Other (distended bladder) Neurological: Alert, Normal Reflexes, Other (slow to follow commands, slightly weaker leg lift on right than left. hand compliance intern strength equal. speech clear, intermittent recognition of family. ). No: Oriented x 3 Psychiatric: Normal Affect Skin Exam: Warm, Dry, Intact, Normal Color Course - Vital Signs Last Recorded V/S: Last Vital Signs Temp 98.9 F 06/27/17 23:34 Pulse 101 H 06/28/17 00:41 Resp 22 H 06/27/17 23:34 BP 168/88 H 06/28/17 00:41 Pulse Ox 99 06/28/17 00:00 - Orders/Labs/Meds Orders: Active Orders 24 hr Category Date Time Status EKG 12 Lead [EKG Documentation Completion] [RC] URGENT Care 06/27/17 23:33 Active CULTURE BLOOD [BC] Stat Lab 06/28/17 00:00 Received INFLUENZA A+B AG SCREEN [RM] Stat Lab 06/27/17 00:00 Received OCCULT BLOOD DIAGNOSTIC [OP] Stat Lab 06/28/17 00:20 Uncollected OCCULT BLOOD, GASTRIC [OP] Stat Lab 06/28/17 00:00 Received Sodium Chloride 0.9% [Normal Saline] 1,000 ml Med 06/28/17 00:28 Active IV .BOLUS Medication Orders Sodium Chloride (Normal Saline) 1,000 mls @ 100 mls/hr IV .BOLUS ONE Stop: 06/28/17 10:27 Last Admin: 06/28/17 00:43 Dose: 100 mls/hr Labs: Laboratory Tests 06/27/17 06/27/17 06/27/17 Range/Units 00:14 23:48 23:48 WBC 14.0 H (5.0-10.0) 10^3/uL RBC 4.23 (4.2-5.4) 10^6/uL Hgb 12.5 (12.0-16.0) g/dL Hct 38.5 (37.0-47.0) % MCV 91.0 D (80-100) fL MCH 29.6 (27.0-34.0) pg MCHC 32.5 L (33.0-35.0) g/dL Plt Count 336 D (150-450) 10^3/uL Neut % (Auto) 81.9 H (42.2-75.2) % Lymph % (Auto) 13.0 L (20.5-50.1) % Chambers % (Auto) 4.4 (2-8) % Eos % (Auto) 0.5 L (1.0-3.0) % Baso % (Auto) 0.2 (0.0-1.0) % PT (9.0-12.0) SEC INR (0.9-1.2) Sodium 137 (135-145) mmol/L Potassium 4.2 (3.6-5.0) mmol/L Chloride 103 (101-111) mmol/L Carbon Dioxide 23.0 D (21.0-31.0) mmol/L Anion Gap 15.2 BUN 18 (7-18) mg/dL Creatinine 0.9 (0.6-1.3) mg/dL Est Cr Clr Drug Dosing 37.62 mL/min Estimated GFR (MDRD) > 60 BUN/Creatinine Ratio 20.00 Glucose 135 H (74-105) mg/dL Lactic Acid (0.5-2.2) mmol/L Calcium 8.9 (8.4-10.2) mg/dl Total Bilirubin 0.8 (0.2-1.0) mg/dL AST 29 (10-42) IU/L ALT 20 (10-60) IU/L Alkaline Phosphatase 69 (42-121) IU/L CK-MB (CK-2) (0.4-4.7) ng/mL Troponin I < 0.02 (0.00-0.02) ng/ml Total Protein 7.9 (6.7-8.2) g/dl Albumin 4.0 (3.2-5.5) g/dl Globulin 3.9 Albumin/Globulin Ratio 1.03 Urine Color Yellow (YELLOW) Urine Appearance Clear (CLEAR) Urine pH 7.5 (5.0-9.0) Ur Specific [place] 1.020 (1.005-1.030) Urine Protein Negative (NEGATIVE) Urine Glucose (UA) Negative (NEGATIVE) Urine Ketones Trace H (NEGATIVE) Urine Occult Blood Negative (NEGATIVE) Urine Nitrite Negative (NEGATIVE) Urine Bilirubin Negative (NEGATIVE) Urine Urobilinogen 0.2 (0.2-1.0) mg/dL Ur Leukocyte Esterase Negative (NEGATIVE) Urine RBC 0-5 /HPF Urine WBC 0-5 (0-5/HPF) /HPF Ur Epithelial Cells Occasional /HPF Urine Bacteria Many H (0-FEW/HPF) /HPF 06/27/17 06/27/17 06/27/17 Range/Units 23:48 23:48 23:48 WBC (5.0-10.0) 10^3/uL RBC (4.2-5.4) 10^6/uL Hgb (12.0-16.0) g/dL Hct (37.0-47.0) % MCV (80-100) fL MCH (27.0-34.0) pg MCHC (33.0-35.0) g/dL Plt Count (150-450) 10^3/uL Neut % (Auto) (42.2-75.2) % Lymph % (Auto) (20.5-50.1) % Chambers % (Auto) (2-8) % Eos % (Auto) (1.0-3.0) % Baso % (Auto) (0.0-1.0) % PT 10.3 (9.0-12.0) SEC INR 1.0 (0.9-1.2) Sodium (135-145) mmol/L Potassium (3.6-5.0) mmol/L Chloride (101-111) mmol/L Carbon Dioxide (21.0-31.0) mmol/L Anion Gap BUN (7-18) mg/dL Creatinine (0.6-1.3) mg/dL Est Cr Clr Drug Dosing mL/min Estimated GFR (MDRD) BUN/Creatinine Ratio Glucose (74-105) mg/dL Lactic Acid 2.9 H (0.5-2.2) mmol/L Calcium (8.4-10.2) mg/dl Total Bilirubin (0.2-1.0) mg/dL AST (10-42) IU/L ALT (10-60) IU/L Alkaline Phosphatase (42-121) IU/L CK-MB (CK-2) 1.60 (0.4-4.7) ng/mL Troponin I (0.00-0.02) ng/ml Total Protein (6.7-8.2) g/dl Albumin (3.2-5.5) g/dl Globulin Albumin/Globulin Ratio Urine Color (YELLOW) Urine Appearance (CLEAR) Urine pH (5.0-9.0) Ur Specific Len[place] (1.005-1.030) Urine Protein (NEGATIVE) Urine Glucose (UA) (NEGATIVE) Urine Ketones (NEGATIVE) Urine Occult Blood (NEGATIVE) Urine Nitrite (NEGATIVE) Urine Bilirubin (NEGATIVE) Urine Urobilinogen (0.2-1.0) mg/dL Ur Leukocyte Esterase (NEGATIVE) Urine RBC /HPF Urine WBC (0-5/HPF) /HPF Ur Epithelial Cells /HPF Urine Bacteria (0-FEW/HPF) /HPF Meds: Medications Generic Name Dose Route Start Last Admin Trade Name Freq PRN Reason Stop Dose Admin Sodium Chloride 1,000 mls @ 100 mls/hr 06/28/17 00:28 06/28/17 00:43 Normal Saline IV 06/28/17 10:27 100 mls/hr .BOLUS ONE Administration Discontinued Medications Generic Name Dose Route Start Last Admin Trade Name Freq PRN Reason Stop Dose Admin Piperacillin Sod/Tazobactam 100 mls @ 200 mls/hr 06/28/17 00:27 06/28/17 00: 44 Sod 3.375 gm/ Sodium Chloride IV 06/28/17 00:56 200 mls/hr ONETIME ONE Administration Metoprolol Tartrate 2.5 mg 06/28/17 00:24 06/28/17 00:41 Lopressor IVPUSH 06/28/17 00:25 Not Given ONETIME ONE Morphine Sulfate 2 mg 06/27/17 23:45 06/27/17 23:48 Morphine IVPUSH 06/27/17 23:46 2 mg ONETIME ONE Administration Ondansetron HCl 4 mg 06/27/17 23:43 06/27/17 23:47 Zofran IV 06/27/17 23:44 4 mg ONETIME ONE Administration - Radiology Interpretation Free Text/Narrative:: CT chest multiple compression fractures T5, T7, moderate compression T8T10, T112 mild compression L1, L2, L3, L4 and severe compression L5 Pulmonary Fibrosis, Superimposing perihileral interstitial infiltrates cannot be excluded Moderate hiatal hernia Ct head: No acute intracranial process - Re-Assessments/Exams Free Text/Narrative Re-Assessment/Exam: 06/28/17 01:06 remains alert, c/o pain between shoulder blades, chilled, shaking at times. Oriented person. Does not recognize place, nor time of day. Dr Iván Aguilar accepting of patient in transfer for further evaluation of altered mental status. Tx via [facility]. Departure - Departure Time of Disposition: :25 Disposition: DC/Tfer to Acute Hospital 02 Condition: Fair Clinical Impression: Compression fracture of lumbosacral spine Qualifiers: Encounter type: initial encounter Fracture type: closed Qualified Code(s): S32.000A - Wedge compression fracture of unspecified lumbar vertebra, initial encounter for closed fracture Thoracic compression fracture Qualifiers: Encounter type: initial encounter Fracture type: closed Qualified Code(s): S22.000A - Wedge compression fracture of unspecified thoracic vertebra, initial encounter for closed fracture Altered mental status, unspecified Qualifiers: Altered mental status type: disorientation Qualified Code(s): R41.0 - Disorientation, unspecified - Discharge Information Forms: ED Department Discharge - My Orders Last 24 Hours: My Active Orders 06/27/17 00:00 INFLUENZA A+B AG SCREEN [RM] Stat 06/27/17 23:33 EKG 12 Lead [EKG Documentation Completion] [RC] URGENT 06/28/17 00:00 CULTURE BLOOD [BC] Stat OCCULT BLOOD, GASTRIC [OP] Stat 06/28/17 00:20 OCCULT BLOOD DIAGNOSTIC [OP] Stat 06/28/17 00:28 Sodium Chloride 0.9% [Normal Saline] 1,000 ml IV .BOLUS - Assessment/Plan Last 24 Hours: My Active Orders 06/27/17 00:00 INFLUENZA A+B AG SCREEN [RM] Stat 06/27/17 23:33 EKG 12 Lead [EKG Documentation Completion] [RC] URGENT 06/28/17 00:00 CULTURE BLOOD [BC] Stat OCCULT BLOOD, GASTRIC [OP] Stat 06/28/17 00:20 OCCULT BLOOD DIAGNOSTIC [OP] Stat 06/28/17 00:28 Sodium Chloride 0.9% [Normal Saline] 1,000 ml IV .BOLUS
[2017-06-28 00:15] LABS: CHLORIDE,CL 103 mmol/L (101-111); SODIUM,NA 137 mmol/L (135-145)
[2017-06-28] MEDS ORDERED: Metoprolol Tartrate 5 MG/5 ML SDV IVPUSH ONE (00:24)
[2017-06-28] MEDS ORDERED: Piperacillin/Tazobactam 3.375 GM in Sodium Chloride 0.9% 100 ML IV ONE (00:27)
[2017-06-28] MEDS ORDERED: Sodium Chloride 0.9% 1,000 ML IV ONE (00:28)
[2017-06-28 01:06] VITALS: BP 165/83
--- NOTE | 2017-06-28 13:40 | EKG ---
06/27/2017- BO RONQUILLO - FINDINGS: A 12-lead EKG shows normal sinus rhythm with sinus tachycardia with heart rate of 113. No significant ST elevation or ST depression noted on this 12-lead EKG except for nonspecific ST-T wave changes noted on lead V4, V5, and V6; could be from lead placement. [facility] /[id number]
== END 2017-06-28 01:25 ==
LOC: DL.ED 23:29
DX: S22.050A Wedge compression fracture of T5-T6 vertebra, initial encounter for closed fracture (principal); S22.060A Wedge compression fracture of T7-T8 vertebra, initial encounter for closed fracture; S22.070A Wedge compression fracture of T9-T10 vertebra, initial encounter for closed fracture; S32.010A Wedge compression fracture of first lumbar vertebra, initial encounter for closed fracture; S32.020A Wedge compression fracture of second lumbar vertebra, initial encounter for closed fracture; S32.030A Wedge compression fracture of third lumbar vertebra, initial encounter for closed fracture; S32.040A Wedge compression fracture of fourth lumbar vertebra, initial encounter for closed fracture; S32.050A Wedge compression fracture of fifth lumbar vertebra, initial encounter for closed fracture; R41.0 Disorientation, unspecified; E78.00 Pure hypercholesterolemia, unspecified; I10 Essential (primary) hypertension; Z88.5 Allergy status to narcotic agent; Z79.82 Long term (current) use of aspirin; Z79.899 Other long term (current) drug therapy; X58.XXXA Exposure to other specified factors, initial encounter
CPT/HCPCS: 36415; 70450; 71250; 74176; 80053; 81001; 82553; 83605; 84484; 85025; 85610; 87040; 87804; 93005; 93010; 96365; 96375; 99285; J2270; J2405; J2543; J7030; J7050

== ENCOUNTER 2020-10-01 10:56 | Inpatient (IN) | payer MEDICARE, OTHER ==
[2020-10-01] MEDS ORDERED: Albuterol/Ipratropium 3.0-0.5 MG/3 ML Neb Soln NEB ONE (11:17)
--- NOTE | 2020-10-01 11:22 | EDM.PDOC ---
ED HPI GENERAL MEDICAL PROBLEM - General Time Seen by Provider: 10/01/20 11:10 Source of Information: Reports: Patient History Limitations: Reports: No Limitations - History of Present Illness INITIAL COMMENTS - FREE TEXT/NARRATIVE: This 85 yo female patient reports to the ED from [facility] due to a 2-3 day history of increased shortness of breath. The patient reports she normally has breathing treatments in the morning and evening which do help her feel less short of breath, but she reports her breathing has been getting more difficult despite treatments. The patient has a history of interstitial lung disease, pulmonary fibrosis, COPD, and CAD. 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 Treatments Lower Back Pain Score (Numeric/FACES): 7 - Related Data Allergies Allergy/AdvReac Type Severity Reaction Status Date / Time tramadol Allergy Nausea and Verified 10/01/20 11:36 Vomiting Home Meds: Home Meds Aspirin [Caroline Aspirin EC] 81 mg PO DAILY 10/31/16 [History] Calcium Carbonate/Vitamin D3 [Calcium 500-Vit D3 125 Caplet] 1 tab PO TIDMEALS 10/31/16 [History] Clopidogrel Bisulfate [Clopidogrel] 75 mg PO DAILY 10/31/16 [History] Esomeprazole Magnesium [Nexium 24Hr] 20 mg PO ACBREAKFAST 10/31/16 [History] Metoprolol Succinate [Toprol XL] 25 mg PO DAILY 10/31/16 [History] Risedronate Sodium 35 mg PO .Monday10/31/16 [History] atorvaSTATin [Lipitor] 40 mg PO DAILY 10/31/16 [History] Budesonide [Pulmicort] 0.5 mg NEB BIDRT 12/01/16 [History] levETIRAcetam [Keppra] 500 mg PO BID 12/01/16 [History] Albuterol/Ipratropium [DuoNeb 3.0-0.5 MG/3 ML] 3 ml NEB QIDRT #120 neb 12/20/16 [Rx] Acetaminophen [Tylenol Extra Strength] 1,000 mg PO Q6HR PRN MDD 3000 mg 06/16/17 [History] Albuterol [Proventil HFA] 2 puff IH Q4HR PRN 06/16/17 [History] Lactulose [Cephulac] 20 gm PO BID PRN #1 bottle 06/20/17 [Rx] Lidocaine 5% [Lidoderm 5%] 700 mg TOP Q24H #30 patch 06/20/17 [Rx] Acetaminophen [Tylenol Arthritis Pain] 1,300 mg PO Q8H PRN 10/01/20 [History] Alendronate Sodium [Fosamax] 70 mg PO ASDIRECTED 10/01/20 [History] Areds 2 1 tab PO BID 10/01/20 [History] Benzonatate [Tessalon Perle] 100 mg PO DAILY 10/01/20 [History] Furosemide 40 mg PO DAILY 10/01/20 [History] Nut.Sup,Spec.Frm,L-Fr,Iron/Fos [Twocal HN] 180 ml PO TID 10/01/20 [History] Pantoprazole Sodium [Protonix] 20 mg PO DAILY 10/01/20 [History] Saliva Substitute Combo No.9 [Biotene] 237 ml MM BID 10/01/20 [History] Sennosides/Docusate Sodium [Senna Plus 8.6-50 mg Tablet] 2 each PO BID 10/01/20 [History] oxyCODONE 5 mg PO DAILY 10/01/20 [History] predniSONE [Prednisone] 10 mg PO DAILY 10/01/20 [History] Past Medical History HEENT History: Reports: Cataract, Impaired Vision Other HEENT History: wears glasses Cardiovascular History: Reports: CAD, High Cholesterol, Hypertension Respiratory History: Reports: COPD, Pulmonary Fibrosis, SOB Other Respiratory History: "Residual Lung Diseas", 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 Gastrointestinal History: Reports: GERD Genitourinary History: Reports: None 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: Musculoskeletal History: Reports: Back Pain, Chronic, Osteoarthritis, Other (See Below) Other Musculoskeletal History: T4 compression 06/15/17 Neurological History: Reports: Cerebral Aneurysms, CVA Other Neuro History: between 5 to 10 years ago Psychiatric History: Reports: Anxiety Endocrine/Metabolic History: Reports: Osteoporosis Hematologic History: Reports: None Immunologic History: Reports: None Oncologic (Cancer) History: Reports: None Dermatologic History: Reports: None - Infectious Disease History Infectious Disease History: Reports: None - Past Surgical History Head Surgeries/Procedures: Reports: None HEENT Surgical History: Reports: Adenoidectomy, Cataract Surgery, Tonsillectomy Cardiovascular Surgical History: Reports: Aneurysm, Other (See Below) Other Cardiovascular Surgeries/Procedures: aneurysm repair Respiratory Surgical History: Reports: None GI Surgical History: Reports: Appendectomy Female Surgical History: Reports: None Neurological Surgical History: Reports: Other (See Below) Other Neurological Surgeries/Procedures: cement to lumbar areas Social & Family History - Family History Family Medical History: No Pertinent Family History - Caffeine Use Caffeine Use: Reports: Coffee - Living Situation & Occupation Living situation: Reports: , with Spouse Occupation: Retired ED ROS GENERAL - Review of Systems Review Of Systems: Comprehensive ROS is negative, except as noted in HPI. ED EXAM, GENERAL - Physical Exam Exam: See Below Exam Limited By: No Limitations General Appearance: Alert, WD/WN, Moderate Distress, Thin Eye Exam: Bilateral Eye: EOMI, Normal Inspection, PERRL Ears: Normal External Exam, Normal Canal, Hearing Grossly Normal, Normal TMs Nose: Normal Inspection, Normal Mucosa, No Blood Throat/Mouth: Normal Inspection, Normal Lips, Normal Teeth, Normal Gums, Normal Oropharynx, Normal Voice, No Airway Compromise Head: Atraumatic, Normocephalic Neck: Normal Inspection, Supple, Non-Tender, Full Range of Motion Respiratory/Chest: Respiratory Distress, Decreased Breath Sounds, Crackles (throughout) Cardiovascular: Normal Peripheral Pulses, Regular Rate, Rhythm (Heartrate is at the upper limit of normal), No Edema, No Gallop, No JVD, No Rub GI/Abdominal: Normal Bowel Sounds, Soft, Non-Tender, No Organomegaly, No Distention, No Abnormal Bruit, No Mass (Female) Exam: Deferred Rectal (Female) Exam: Deferred Extremities: Normal Inspection, Normal Range of Motion, Non-Tender, Normal Capillary Refill, No Pedal Edema Neurological: Alert, Oriented, CN II-XII Intact, Normal Cognition, Normal Gait, Normal Reflexes, No Motor/Sensory Deficits Psychiatric: Normal Affect, Normal Mood Skin Exam: Warm, Dry, Intact, Normal Color, No Rash Lymphatic: No Adenopathy #1 Interpretation EKG Date: 10/01/20 Time: 11:11 Rhythm: NSR [place]: Normal P-Wave: Present QRS: Normal ST-T: Normal QT: Normal Comparison: No Change Course - Vital Signs Last Recorded V/S: Last Vital Signs Temp 36.6 C 10/01/20 11:18 Pulse 104 H 10/01/20 11:18 Resp 38 H 10/01/20 11:18 BP 150/71 H 10/01/20 11:18 Pulse Ox 76 L 10/01/20 11:18 - Orders/Labs/Meds Orders: Active Orders 24 hr Category Date Time Status Admission Diagnosis [ADT] Urgent ADT 10/01/20 12:21 Ordered Admission Status [Patient Status] [ADT] Routine ADT 10/01/20 12:21 Ordered EKG Documentation Completion [RC] STAT Care 10/01/20 10:57 Active RT Aerosol Therapy [RC] ASDIRECTED Care 10/01/20 11:17 Ordered CULTURE BLOOD [BC] Stat Lab 10/01/20 10:57 Ordered CULTURE BLOOD [BC] Stat Lab 10/01/20 11:30 Ordered REFLEX LACTIC ACID YES OR NO [CHEM] Routine Lab 10/01/20 11:46 Received Labs: Laboratory Tests 10/01/20 10/01/20 10/01/20 Range/Units 11:14 11:14 11:14 WBC 17.3 H (5.0-10.0) 10^3/uL RBC 4.42 (4.2-5.4) 10^6/uL Hgb 14.1 D (12.0-16.0) g/dL Hct 43.9 (37.0-47.0) % MCV 99.3 D (80-100) fL MCH 31.9 (27.0-34.0) pg MCHC 32.1 L (33.0-35.0) g/dL Plt Count 290 (150-450) 10^3/uL Neut % (Auto) 87.1 H (42.2-75.2) % Lymph % (Auto) 7.6 L (20.5-50.1) % [place] % (Auto) 4.4 (2-8) % Eos % (Auto) 0.7 L (1.0-3.0) % Baso % (Auto) 0.2 (0.0-1.0) % D-Dimer, Quantitative (0-400) ng/mL Sodium 135 L (136-145) mmol/L Potassium 4.0 (3.5-5.1) mmol/L Chloride 97 L (98-107) mmol/L Carbon Dioxide 29 (21-32) mmol/L Anion Gap 13.0 (7-13) mEq/L BUN 20 H (7-18) mg/dL Creatinine 0.96 (0.55-1.02) mg/dL Est Cr Clr Drug Dosing 32.49 mL/min Estimated GFR (MDRD) 55 BUN/Creatinine Ratio 20.8 (No establ ref range) Glucose 159 H (70-99) mg/dL Lactic Acid 2.9 H* (0.4-2.0) mmol/L Calcium 8.9 (8.5-10.1) mg/dL Total Bilirubin 0.6 (0.2-1.0) mg/dL AST 15 (15-37) U/L ALT 20 (14-59) U/L Alkaline Phosphatase 76 (46-116) U/L Troponin I < 0.017 (0.000-0.056) ng/mL B-Natriuretic Peptide 90 (0-100) pg/ml Total Protein 7.9 (6.4-8.2) g/dL Albumin 3.2 L (3.4-5.0) g/dL Globulin 4.7 Albumin/Globulin Ratio 0.68 Urine Color (YELLOW) Urine Appearance (CLEAR) Urine pH (5.0-9.0) Ur Specific [place] (1.005-1.030) Urine Protein (NEGATIVE) Urine Glucose (UA) (NEGATIVE) Urine Ketones (NEGATIVE) Urine Occult Blood (NEGATIVE) Urine Nitrite (NEGATIVE) Urine Bilirubin (NEGATIVE) Urine Urobilinogen (0.2-1.0) mg/dL Ur Leukocyte Esterase (NEGATIVE) Influenza Type A RNA (NEGATIVE) Influenza Type B RNA (NEGATIVE) SARS-CoV-2 RNA (DANIA) (NEGATIVE) 10/01/20 10/01/20 10/01/20 Range/Units 11:14 11:27 11:30 WBC (5.0-10.0) 10^3/uL RBC (4.2-5.4) 10^6/uL Hgb (12.0-16.0) g/dL Hct (37.0-47.0) % MCV (80-100) fL MCH (27.0-34.0) pg MCHC (33.0-35.0) g/dL Plt Count (150-450) 10^3/uL Neut % (Auto) (42.2-75.2) % Lymph % (Auto) (20.5-50.1) % [place] % (Auto) (2-8) % Eos % (Auto) (1.0-3.0) % Baso % (Auto) (0.0-1.0) % D-Dimer, Quantitative 513 H (0-400) ng/mL Sodium (136-145) mmol/L Potassium (3.5-5.1) mmol/L Chloride (98-107) mmol/L Carbon Dioxide (21-32) mmol/L Anion Gap (7-13) mEq/L BUN (7-18) mg/dL Creatinine (0.55-1.02) mg/dL Est Cr Clr Drug Dosing mL/min Estimated GFR (MDRD) BUN/Creatinine Ratio (No establ ref range) Glucose (70-99) mg/dL Lactic Acid (0.4-2.0) mmol/L Calcium (8.5-10.1) mg/dL Total Bilirubin (0.2-1.0) mg/dL AST (15-37) U/L ALT (14-59) U/L Alkaline Phosphatase (46-116) U/L Troponin I (0.000-0.056) ng/mL B-Natriuretic Peptide (0-100) pg/ml Total Protein (6.4-8.2) g/dL Albumin (3.4-5.0) g/dL Globulin Albumin/Globulin Ratio Urine Color Yellow (YELLOW) Urine Appearance Clear (CLEAR) Urine pH 7.0 (5.0-9.0) Ur Specific [place] 1.015 (1.005-1.030) Urine Protein Negative (NEGATIVE) Urine Glucose (UA) Negative (NEGATIVE) Urine Ketones Negative (NEGATIVE) Urine Occult Blood Negative (NEGATIVE) Urine Nitrite Negative (NEGATIVE) Urine Bilirubin Negative (NEGATIVE) Urine Urobilinogen 0.2 (0.2-1.0) mg/dL Ur Leukocyte Esterase Negative (NEGATIVE) Influenza Type A RNA Negative (NEGATIVE) Influenza Type B RNA Negative (NEGATIVE) SARS-CoV-2 RNA (DANIA) Negative (NEGATIVE) Meds: Medications Discontinued Medications Generic Name Dose Route Start Last Admin Trade Name Freq PRN Reason Stop Dose Admin Albuterol/Ipratropium 3 ml 10/01/20 11:17 10/01/20 11:25 Albuterol/Ipratropium 3.0-0.5 Mg/3 Ml Neb Soln NEB 10/01/20 11:18 3 ml ONETIME ONE Administration Ceftriaxone Sodium 1 gm/ 50 mls @ 100 mls/hr 10/01/20 11:47 10/01/20 12:04 Sodium Chloride IV 10/01/20 12:16 100 mls/hr ONETIME ONE Administration Departure - Departure Time of Disposition: 12:24 Disposition: Admitted As Inpatient 67 Condition: Fair Clinical Impression: Pneumonia Qualifiers: Pneumonia type: due to unspecified organism Laterality: unspecified laterality Lung location: unspecified part of lung Qualified Code(s): J18.9 - Pneumonia, unspecified organism - Discharge Information *PRESCRIPTION DRUG MONITORING PROGRAM REVIEWED*: Not Applicable *COPY OF PRESCRIPTION DRUG MONITORING REPORT IN PATIENT MIAH: Not Applicable Care Plan Goals: Discussed the patient's history, examination, lab and x-ray results with Dr. Araya. Dr. Araya accepted the patient for continued evaluation and management as an inpatient at [facility]. Sepsis Event Note (ED) - Focused Exam Vital Signs: Vital Signs Temp Pulse Resp BP Pulse Ox Pulse Ox 10/01/20 11:18 36.6 C 104 H 38 H 150/71 H 76 L 10/01/20 11:17 96 94 L - My Orders Last 24 Hours: My Active Orders 10/01/20 10:57 EKG Documentation Completion [RC] STAT CULTURE BLOOD [BC] Stat 10/01/20 11:17 RT Aerosol Therapy [RC] ASDIRECTED 10/01/20 11:30 CULTURE BLOOD [BC] Stat 10/01/20 11:46 REFLEX LACTIC ACID YES OR NO [CHEM] Routine 10/01/20 12:21 Admission Diagnosis [ADT] Urgent Admission Status [Patient Status] [ADT] Routine - Assessment/Plan Last 24 Hours: My Active Orders 10/01/20 10:57 EKG Documentation Completion [RC] STAT CULTURE BLOOD [BC] Stat 10/01/20 11:17 RT Aerosol Therapy [RC] ASDIRECTED 10/01/20 11:30 CULTURE BLOOD [BC] Stat 10/01/20 11:46 REFLEX LACTIC ACID YES OR NO [CHEM] Routine 10/01/20 12:21 Admission Diagnosis [ADT] Urgent Admission Status [Patient Status] [ADT] Routine
[2020-10-01 11:46] LABS: CHLORIDE,CL 97 mmol/L (98-107); SODIUM,NA 135 mmol/L (136-145)
[2020-10-01] MEDS ORDERED: cefTRIAXone 1 GM in Sodium Chloride 0.9% 50 ML IV ONE (11:47)
--- NOTE | 2020-10-01 12:02 | CR ---
EXAMINATION: Chest 1V Frontal SEX: Female AGE: 85 years CLINICAL HISTORY: 85-year-old female with history of COPD, extensive pulmonary fibrosis and now SOB (short of breath). CXR April 2017 and May 2017 immediately available for comparison. INTERPRETATION: Abnormal. 1. Large hiatus hernia incarcerated in the lower middle mediastinum. Aspiration? Chronic asymmetric elevation right hemidiaphragm. 2. *Large cardiac silhouette (left ventricular configuration) and relative increase venous congestion proximally. Prominent proximal pulmonary artery segments. BNP? EKG? Bodyweight? No alveolar edema or dependent pleural effusion. 3. Chronic severe interstitial fibrosis. 4. Patchy new consolidation behind the heart, left lower lobe, may reflect aspiration or pneumonitis but CHF with underlying interstitial fibrosis could present in this manner. No focal lobar atelectasis or collapse. 5. No pneumothorax or pneumomediastinum. 6. Incidentally noted vertebral plasty (x3) lower thoracic and upper lumbar spine.
[2020-10-01 12:18] LABS: CORONAVIRUS COVID-19 NAA NEGATIVE (NEGATIVE)
[2020-10-01] MEDS ORDERED: Acetaminophen 325 MG Tab PO PRN (13:12)
[2020-10-01] MEDS ORDERED: Ondansetron 4 MG/2 ML SDV IVPUSH PRN (13:12)
--- NOTE | 2020-10-01 13:43 | PCM.SN.2 ---
- Free Text/Narrative Note: START OF DOCTOR ANGELICA HISTORY AND PHYSICAL / CONSULTATION NOTE Chief Complaint: Shortness of breath History of Present Illness: Patient is an 85-year-old female who presents [facility] dyspnea. She states that she has chronic dyspnea due to COPD/interstitial fibrosis/pulmonary fibrosis but it has worsened over the week leading up to her hospitalization. She admits to cough productive yellow sputum. She denies fever, rigors, nausea, vomiting, wheeze, abdominal pain, diarrhea, myalgia, chest pain. She denies peripheral edema. She denies anosmia and she denies dysgeusia. She presents for further evaluation Surgical History: Appendectomy, tonsillectomy, adenoidectomy, cerebral aneurysm coiling, vertebrop lasty x3, bilateral cataract surgery Family History: Diabetes Social History: Tobacco: Never Alcohol: Denies Caffeine: Coffee Drugs: Never Allergies: Ultram/tramadol Code Status: DNR, DNI Pertinent Laboratory Results / Pertinent Radiology Results / Pertinent Diagnostic Results / Pertinent Vital Signs: Blood pressure 150/71, heart rate 104, respirations 38, temperature 90.8 degr ees, 76% 2 L, white blood cell count 17.3 Physical Examination: General: -Alert -No acute distress -No dyspnea -Mildly to moderately tachypneic Head: -Atraumatic -Normocephalic Eyes: -Pupils equally round and reactive to light and accommodation -Extraocular muscles intact Neurological: -Cranial nerves II-XII intact Neck: -No jugular venous distention -No thyromegaly -No cervical lymphadenopathy Heart: -iRegular rate -Regular rhythm -No murmurs -No gallops -No rubs Lungs: -No wheeze -No rhonchi -Bilateral rales present more pronounced in the right lung field in the left lung field Abdomen: -Normal bowel sounds in all four quadrants -No rebound -No guarding -No tenderness Extremities: -2/4 pulse in all four extremities -No clubbing -No cyanosis -No edema -No calf tenderness present bilaterally -Negative Homans sign bilaterally Musculoskeletal: -5/5 bilateral upper extremity strength -5/5 bilateral lower extremity strength -Sensorium of bilateral upper extremities are equal and intact -Sensorium of bilateral lower extremities are equal and intact Additional Details / Additional Findings / Exceptions / Miscellaneous: Assessment / Plan: Pneumonia. Azithromycin 5 mg IV daily plus Rocephin 1 g IV daily plus DuoNeb every 4 hours COPD/pulmonary fibrosis/severe interstitial fibrosis. O2 dependent at 2 L. Solu- Medrol 40 mg IV every 8 hours plus DuoNeb every 4 hours plus annular 10 mg p.o. daily plus Claritin 10 mg p.o. daily plus benzoate 100 mg p.o. daily Anxiety History of CVA/cerebral aneurysm. Plavix 75 mg p.o. daily plus Zocor 40 mg p.o. nightly Osteoarthritis Osteoporosis Chronic pain. Oxycodone 5 mg p.o. daily plus lidocaine 5% patch to be applied to affected area daily History of cholelithiasis History nephrolithiasis Constipation. Senna/docusate: 2 tabs p.o. twice daily History of seizure. Keppra 500 mg p.o. twice daily Grade 1 diastolic dysfunction. Lasix 10 mg IV every 12 hours plus Toprol-XL 50 mg p.o. daily Coronary artery disease. Metoprolol XL 50 mg p.o. daily plus Plavix and 5 mg p.o. daily plus Lipitor 40 mg p.o. nightly GERD. Protonix 40 mg p.o. daily Hyperlipidemia. Lipitor 40 mg p.o. nightly Hypertension. Lasix 10 mg IV every 12 hours plus Toprol-XL 50 mg p.o. daily Obstructive sleep apnea. CPAP/BiPAP: Okay to use home device and/or pressure when sleeping if the patient uses CPAP/BiPAP at home DVT prophylaxis. Bilateral SCD Disposition: Anticipate discharge in 48 to 96 hours END OF DOCTOR EMAMIS HISTORY AND PHYSICAL / CONSULTATION NOTE
[2020-10-01] MEDS ORDERED: oxyCODONE 5 MG Tab PO PRN (13:44)
[2020-10-01] MEDS ORDERED: Carboxymethylcellulose Sodium 1% Ophth Gel 0.4 ML UD EYEBOTH PRN (14:59)
[2020-10-01] MEDS: Loratadine 10 MG Tab PO SCH (15:22)
[2020-10-01] MEDS: Furosemide 20 MG/2 ML VIAL IVPUSH SCH ×2 (15:24→22:21)
[2020-10-01] MEDS: methylPREDNISolone Sodium Succinate 40 MG/1 ML SDV IVPUSH SCH ×2 (15:24→22:16)
[2020-10-01] MEDS: Azithromycin 500 MG in Sodium Chloride 0.9% 250 ML IV SCH (15:26)
[2020-10-01] MEDS: Sodium Chloride 0.9% 10 ML Syringe FLUSH PRN ×2 (15:26→22:16)
[2020-10-01] MEDS: Albuterol/Ipratropium 3.0-0.5 MG/3 ML Neb Soln NEB SCH ×3 (16:00→23:47)
[2020-10-01] MEDS: Montelukast 10 MG Tab PO SCH (20:23)
[2020-10-01] MEDS: atorvaSTATin 20 MG Tab PO SCH (20:23)
[2020-10-01] MEDS: levETIRAcetam 500 MG Tab PO SCH (20:23)
[2020-10-02] MEDS: Albuterol/Ipratropium 3.0-0.5 MG/3 ML Neb Soln NEB SCH ×6 (03:37→22:01)
[2020-10-02] MEDS: Pantoprazole 40 MG Tab.CR PO SCH (06:10)
[2020-10-02] MEDS: Sodium Chloride 0.9% 10 ML Syringe FLUSH PRN ×2 (06:10→15:56)
[2020-10-02] MEDS: methylPREDNISolone Sodium Succinate 40 MG/1 ML SDV IVPUSH SCH ×3 (06:11→21:41)
[2020-10-02 06:32] LABS: ANION GAP 9.8 mEq/L (7-13); CHLORIDE,CL 101 mmol/L (98-107); SODIUM,NA 138 mmol/L (136-145)
--- NOTE | 2020-10-02 07:10 | PCM.SN.2 ---
- Free Text/Narrative Note: START OF DOCTOR ANGELICA PROGRESS NOTE Subjective: The patient Oswald that her respiratory status has improved compared to my encounter with her on October 01, 2020, however she has not yet back her at her baseline respiratory status. Overnight she denies fever, rigors, nausea, vomiting, wheeze, abdominal pain, chest pain, diarrhea. She admits to occasional cough which is productive of yellow sputum. I explained to the patient her current medical condition and plan of care and I have answered all of her questions Objective: General: -Alert -No acute distress -No dyspnea -Mild tachypnea Heart: -Regular rate -Regular rhythm -No murmurs -No gallops -No rubs Lungs: -No wheeze -No rhonchi -Diffuse bilateral rales Abdomen: -Normal bowel sounds in all four quadrants -No rebound -No guarding -No tenderness Extremities: -2/4 pulse in all four extremities -No clubbing -No cyanosis -No edema Additional Details / Additional Findings / Exceptions / Miscellaneous: Pertinent Laboratory Results / Pertinent Radiology Results / Pertinent Diagnostic Results / Pertinent Vital Signs: Respirations 24, patient saturating at 5% 3 L, white blood cell count 10.4, MCV 100.2 Assessment / Plan: Pneumonia. Azithromycin 5 mg IV daily plus Rocephin 1 g IV daily plus DuoNeb every 4 hours COPD/pulmonary fibrosis/severe interstitial fibrosis. O2 dependent at 2 L. Solu- Medrol 40 mg IV every 8 hours plus DuoNeb every 4 hours plus annular 10 mg p.o. daily plus Claritin 10 mg p.o. daily plus benzoate 100 mg p.o. daily Macrocytosis. Check TSH, free T4, B12, folate Anxiety History of CVA/cerebral aneurysm. Plavix 75 mg p.o. daily plus Zocor 40 mg p.o. nightly Osteoarthritis Osteoporosis Chronic pain. Oxycodone 5 mg p.o. daily plus lidocaine 5% patch to be applied to affected area daily History of cholelithiasis History nephrolithiasis Constipation. Senna/docusate: 2 tabs p.o. twice daily History of seizure. Keppra 500 mg p.o. twice daily Grade 1 diastolic dysfunction. Lasix 10 mg IV every 12 hours plus Toprol-XL 50 mg p.o. daily Coronary artery disease. Metoprolol XL 50 mg p.o. daily plus Plavix and 5 mg p.o. daily plus Lipitor 40 mg p.o. nightly GERD. Protonix 40 mg p.o. daily Hyperlipidemia. Lipitor 40 mg p.o. nightly Hypertension. Lasix 10 mg IV every 12 hours plus Toprol-XL 50 mg p.o. daily Obstructive sleep apnea. CPAP/BiPAP: Okay to use home device and/or pressure when sleeping if the patient uses CPAP/BiPAP at home DVT prophylaxis. Bilateral SCD Disposition: Anticipate discharge in 24 to 48 hours END OF DOCTOR EMAMIS PROGRESS NOTE
[2020-10-02] MEDS: Lidocaine 5% 700 MG Patch TOP SCH (09:27)
[2020-10-02] MEDS: Loratadine 10 MG Tab PO SCH (09:28)
[2020-10-02] MEDS: Benzonatate 100 MG Cap PO SCH (09:28)
[2020-10-02] MEDS: Furosemide 20 MG/2 ML VIAL IVPUSH SCH ×2 (09:28→16:49)
[2020-10-02] MEDS: levETIRAcetam 500 MG Tab PO SCH ×2 (09:29→20:25)
[2020-10-02] MEDS: oxyCODONE 5 MG Tab PO SCH (09:29)
[2020-10-02] MEDS: Clopidogrel 75 MG Tab PO SCH (09:29)
[2020-10-02] MEDS: Metoprolol Succinate 50 MG Tab.ER PO SCH (09:30)
[2020-10-02] MEDS: cefTRIAXone 1 GM in Sodium Chloride 0.9% 50 ML IV SCH (11:37)
[2020-10-02] MEDS: Azithromycin 500 MG in Sodium Chloride 0.9% 250 ML IV SCH (14:38)
[2020-10-02] MEDS: Non-Formulary Medication 1 Each (Saliva Substitute Combo No.9 [Biotene] 1,000 ML Mouthwash SCH ×2 (16:09→16:10)
[2020-10-02] MEDS: atorvaSTATin 20 MG Tab PO SCH (20:25)
[2020-10-02] MEDS: Montelukast 10 MG Tab PO SCH (20:33)
[2020-10-03] MEDS: Albuterol/Ipratropium 3.0-0.5 MG/3 ML Neb Soln NEB SCH ×6 (04:03→22:13)
[2020-10-03] MEDS: methylPREDNISolone Sodium Succinate 40 MG/1 ML SDV IVPUSH SCH ×3 (05:34→21:12)
[2020-10-03] MEDS: Pantoprazole 40 MG Tab.CR PO SCH (05:34)
[2020-10-03 06:21] LABS: ANION GAP 11.5 mEq/L (7-13); CHLORIDE,CL 100 mmol/L (98-107); SODIUM,NA 139 mmol/L (136-145)
--- NOTE | 2020-10-03 07:17 | PCM.SN.2 ---
- Free Text/Narrative Note: START OF DOCTOR EMAMIS PROGRESS NOTE Subjective: Patient indicates that she is still feeling dyspneic. She currently rates her respiratory status is a 6 out of 10 if 10 is her baseline. Overnight she denies fever, rigors, nausea, vomiting, wheeze, abdominal pain, chest pain. She states that she has occasional cough which is nonproductive. I explained to the patient her current medical condition and plan of care and I have answered all of her questions Objective: General: -Alert -No acute distress -No dyspnea -Mild tachypnea Heart: -Regular rate -Regular rhythm -No murmurs -No gallops -No rubs Lungs: -No wheeze -No rhonchi -Diffuse bilateral rales Abdomen: -Normal bowel sounds in all four quadrants -No rebound -No guarding -No tenderness Extremities: -2/4 pulse in all four extremities -No clubbing -No cyanosis -No edema Additional Details / Additional Findings / Exceptions / Miscellaneous: Pertinent Laboratory Results / Pertinent Radiology Results / Pertinent Diagnostic Results / Pertinent Vital Signs: 93% on 3 L Assessment / Plan: Pneumonia. Azithromycin 5 mg IV daily plus Rocephin 1 g IV daily plus DuoNeb every 4 hours COPD/pulmonary fibrosis/severe interstitial fibrosis. O2 dependent at 2 L. Solu- Medrol 40 mg IV every 8 hours plus DuoNeb every 4 hours plus annular 10 mg p.o. daily plus Claritin 10 mg p.o. daily plus benzoate 100 mg p.o. daily Macrocytosis. The following are within normal limits: TSH, free T4, B12, folate levels Anxiety History of CVA/cerebral aneurysm. Plavix 75 mg p.o. daily plus Zocor 40 mg p.o. nightly Osteoarthritis Osteoporosis Chronic pain. Oxycodone 5 mg p.o. daily plus lidocaine 5% patch to be applied to affected area daily History of cholelithiasis History nephrolithiasis Constipation. Senna/docusate: 2 tabs p.o. twice daily History of seizure. Keppra 500 mg p.o. twice daily Grade 1 diastolic dysfunction. Lasix 10 mg IV every 12 hours plus Toprol-XL 50 mg p.o. daily Coronary artery disease. Metoprolol XL 50 mg p.o. daily plus Plavix and 5 mg p.o. daily plus Lipitor 40 mg p.o. nightly GERD. Protonix 40 mg p.o. daily Hyperlipidemia. Lipitor 40 mg p.o. nightly Hypertension. Lasix 10 mg IV every 12 hours plus Toprol-XL 50 mg p.o. daily Obstructive sleep apnea. CPAP/BiPAP: Okay to use home device and/or pressure when sleeping if the patient uses CPAP/BiPAP at home DVT prophylaxis. Bilateral SCD Disposition: Hopeful discharge within 24 hours. I requested that physical therapy and Occupational Therapy evaluate the patient to assess home safety END OF DOCTOR ANGELICA PROGRESS NOTE
[2020-10-03] MEDS: Lidocaine 5% 700 MG Patch TOP SCH (08:38)
[2020-10-03] MEDS: Loratadine 10 MG Tab PO SCH (08:39)
[2020-10-03] MEDS: levETIRAcetam 500 MG Tab PO SCH ×2 (08:39→20:07)
[2020-10-03] MEDS: Benzonatate 100 MG Cap PO SCH (08:39)
[2020-10-03] MEDS: Clopidogrel 75 MG Tab PO SCH (08:39)
[2020-10-03] MEDS: Metoprolol Succinate 50 MG Tab.ER PO SCH (08:40)
[2020-10-03] MEDS: Furosemide 20 MG/2 ML VIAL IVPUSH SCH ×2 (08:40→14:24)
[2020-10-03] MEDS: oxyCODONE 5 MG Tab PO SCH (08:46)
[2020-10-03] MEDS: cefTRIAXone 1 GM in Sodium Chloride 0.9% 50 ML IV SCH (12:25)
[2020-10-03] MEDS: Azithromycin 500 MG in Sodium Chloride 0.9% 250 ML IV SCH (14:24)
[2020-10-03] MEDS: Montelukast 10 MG Tab PO SCH (20:07)
[2020-10-03] MEDS: atorvaSTATin 20 MG Tab PO SCH (20:07)
[2020-10-04] MEDS: Albuterol/Ipratropium 3.0-0.5 MG/3 ML Neb Soln NEB SCH ×7 (02:56→23:49)
[2020-10-04] MEDS: methylPREDNISolone Sodium Succinate 40 MG/1 ML SDV IVPUSH SCH ×2 (05:39→20:41)
[2020-10-04] MEDS: Pantoprazole 40 MG Tab.CR PO SCH (05:39)
[2020-10-04 06:30] LABS: CHLORIDE,CL 102 mmol/L (98-107); SODIUM,NA 141 mmol/L (136-145)
[2020-10-04] MEDS: Metoprolol Succinate 50 MG Tab.ER PO SCH (08:25)
[2020-10-04] MEDS: Loratadine 10 MG Tab PO SCH (08:25)
[2020-10-04] MEDS: oxyCODONE 5 MG Tab PO SCH (08:26)
[2020-10-04] MEDS: levETIRAcetam 500 MG Tab PO SCH ×2 (08:26→20:36)
[2020-10-04] MEDS: Lidocaine 5% 700 MG Patch TOP SCH (08:27)
[2020-10-04] MEDS: Clopidogrel 75 MG Tab PO SCH (08:27)
[2020-10-04] MEDS: Benzonatate 100 MG Cap PO SCH (08:27)
[2020-10-04] MEDS: Furosemide 20 MG/2 ML VIAL IVPUSH SCH (08:28)
--- NOTE | 2020-10-04 10:34 | PCM.PN ---
- General Info Date of Service: 10/04/20 Subjective Update: Feel improved but this am severely short of breath after taking a shower. - Patient Data Vitals - Most Recent: Last Vital Signs Temp 97.9 F 10/04/20 07:40 Pulse 76 10/04/20 08:25 Resp 20 10/04/20 07:40 BP 139/69 10/04/20 08:25 Pulse Ox 91 L 10/04/20 07:40 Weight - Most Recent: 100 lb 3.2 oz I&O - Last 24 Hours: Intake & Output 10/03/20 10/04/20 10/04/20 22:59 06:59 14:59 Intake Total 490 100 400 Balance 490 100 400 Lab Results Last 24 Hours: Laboratory Results - last 24 hr 10/04/20 Range/Units 05:30 Sodium 141 (136-145) mmol/L Potassium 5.0 (3.5-5.1) mmol/L Chloride 102 (98-107) mmol/L Carbon Dioxide 34 H (21-32) mmol/L Anion Gap 10.0 (7-13) mEq/L BUN 26 H (7-18) mg/dL Creatinine 0.80 (0.55-1.02) mg/dL Est Cr Clr Drug Dosing 37.56 mL/min Estimated GFR (MDRD) > 60 Glucose 112 H (70-99) mg/dL Calcium 8.1 L (8.5-10.1) mg/dL Duc Results Last 24 Hours: Microbiology 10/01/20 11:38 Aerobic Blood Culture - Preliminary Blood - Arm, Left NO GROWTH AFTER 2 DAYS Anaerobic Blood Culture - Preliminary NO GROWTH AFTER 2 DAYS 10/01/20 11:14 Aerobic Blood Culture - Preliminary Blood - Venous - Iv Start NO GROWTH AFTER 2 DAYS Anaerobic Blood Culture - Preliminary NO GROWTH AFTER 2 DAYS Med Orders - Current: Current Medications Acetaminophen (Acetaminophen 325 Mg Tab) 650 mg PO Q4H PRN PRN Reason: Pain (Mild 1-3)/fever Last Admin: 10/03/20 12:28 Dose: 650 mg Documented by: Albuterol/Ipratropium (Albuterol/Ipratropium 3.0-0.5 Mg/3 Ml Neb Soln) 3 ml NEB Q4HRRT THUAN Last Admin: 10/04/20 07:19 Dose: 3 ml Documented by: Artificial Tears (Carboxymethylcellulose Sodium 1% Ophth Gel 0.4 Ml Ud) 1 each EYEBOTH BID PRN PRN Reason: Dry Eyes Last Admin: 10/02/20 09:49 Dose: 1 each Documented by: Atorvastatin Calcium (Atorvastatin 20 Mg Tab) 40 mg PO BEDTIME COUNTS INCLUDE 234 BEDS AT THE [facility] Last Admin: 10/03/20 20:07 Dose: 40 mg Documented by: Benzonatate (Benzonatate 100 Mg Cap) 100 mg PO DAILY COUNTS INCLUDE 234 BEDS AT THE [facility] Last Admin: 10/04/20 08:27 Dose: 100 mg Documented by: Clopidogrel Bisulfate (Clopidogrel 75 Mg Tab) 75 mg PO DAILY COUNTS INCLUDE 234 BEDS AT THE [facility] Last Admin: 10/04/20 08:27 Dose: 75 mg Documented by: Furosemide (Furosemide 20 Mg/2 Ml Vial) 10 mg IVPUSH BIDDIURETIC COUNTS INCLUDE 234 BEDS AT THE [facility] Last Admin: 10/04/20 08:28 Dose: 10 mg Documented by: Azithromycin 500 mg/ Sodium (Chloride) 250 mls @ 250 mls/hr IV Q24H COUNTS INCLUDE 234 BEDS AT THE [facility] Last Admin: 10/03/20 14:24 Dose: 250 mls/hr Documented by: Ceftriaxone Sodium 1 gm/ (Sodium Chloride) 50 mls @ 100 mls/hr IV Q24H COUNTS INCLUDE 234 BEDS AT THE [facility] Last Admin: 10/03/20 12:25 Dose: 100 mls/hr Documented by: Levetiracetam (Levetiracetam 500 Mg Tab) 500 mg PO BID COUNTS INCLUDE 234 BEDS AT THE [facility] Last Admin: 10/04/20 08:26 Dose: 500 mg Documented by: Lidocaine (Lidocaine 5% 700 Mg Patch) 700 mg TOP Q24H COUNTS INCLUDE 234 BEDS AT THE [facility] Last Admin: 10/04/20 08:27 Dose: 700 mg Documented by: Loratadine (Loratadine 10 Mg Tab) 10 mg PO DAILY COUNTS INCLUDE 234 BEDS AT THE [facility] Last Admin: 10/04/20 08:25 Dose: 10 mg Documented by: Methylprednisolone Sodium Succinate (Methylprednisolone Sodium Succinate 40 Mg/1 Ml Sdv) 40 mg IVPUSH Q8HR COUNTS INCLUDE 234 BEDS AT THE [facility] Last Admin: 10/04/20 05:39 Dose: 40 mg Documented by: Metoprolol Succinate (Metoprolol Succinate 50 Mg Tab.Er) 50 mg PO DAILY COUNTS INCLUDE 234 BEDS AT THE [facility] Last Admin: 10/04/20 08:25 Dose: 50 mg Documented by: Miscellaneous Information (Remove Lidocaine Patch) 1 ea TRDERM BEDTIME COUNTS INCLUDE 234 BEDS AT THE [facility] Last Admin: 10/03/20 20:11 Dose: 1 ea Documented by: Montelukast Sodium (Montelukast 10 Mg Tab) 10 mg PO BEDTIME COUNTS INCLUDE 234 BEDS AT THE [facility] Last Admin: 10/03/20 20:07 Dose: 10 mg Documented by: Ondansetron HCl (Ondansetron 4 Mg/2 Ml Sdv) 4 mg IVPUSH Q4H PRN PRN Reason: Nausea/Vomiting Oxycodone HCl (Oxycodone 5 Mg Tab) 5 mg PO TID PRN PRN Reason: Pain (severe 7-10) Oxycodone HCl (Oxycodone 5 Mg Tab) 5 mg PO DAILY COUNTS INCLUDE 234 BEDS AT THE [facility] Last Admin: 10/04/20 08:26 Dose: 5 mg Documented by: Pantoprazole Sodium (Pantoprazole 40 Mg Tab.Cr) 40 mg PO ACBREAKFAST COUNTS INCLUDE 234 BEDS AT THE [facility] Last Admin: 10/04/20 05:39 Dose: 40 mg Documented by: Senna/Docusate Sodium (Docusate Sodium/Sennosides 50-8.6 Mg Tab) 2 tab PO BID COUNTS INCLUDE 234 BEDS AT THE [facility] Last Admin: 10/04/20 08:39 Dose: 2 tab Documented by: Sodium Chloride (Sodium Chloride 0.9% 10 Ml Syringe) 10 ml FLUSH ASDIRECTED PRN PRN Reason: Keep Vein Open Last Admin: 10/02/20 15:56 Dose: 10 ml Documented by: Discontinued Medications Albuterol/Ipratropium (Albuterol/Ipratropium 3.0-0.5 Mg/3 Ml Neb Soln) 3 ml NEB ONETIME ONE Stop: 10/01/20 11:18 Last Admin: 10/01/20 11:25 Dose: 3 ml Documented by: Furosemide (Furosemide 20 Mg/2 Ml Vial) 10 mg IVPUSH Q12HR COUNTS INCLUDE 234 BEDS AT THE [facility] Last Admin: 10/02/20 09:28 Dose: 10 mg Documented by: Ceftriaxone Sodium 1 gm/ (Sodium Chloride) 50 mls @ 100 mls/hr IV ONETIME ONE Stop: 10/01/20 12:16 Last Admin: 10/01/20 12:04 Dose: 100 mls/hr Documented by: Non-Formulary Medication (Saliva Substitute Combo No.9 [Biotene]) 237 ml .XX BID COUNTS INCLUDE 234 BEDS AT THE [facility] Last Admin: 10/02/20 16:10 Dose: Not Given Documented by: - Exam Quality Assessment: Supplemental Oxygen (3L) General: Alert, Oriented HEENT: Pupils Equal Lungs: Rales (mostly left sided) Cardiovascular: Regular Rate, Regular Rhythm, No Murmurs GI/Abdominal Exam: Normal Bowel Sounds, Soft, Non-Tender Back Exam: Normal Inspection Extremities: Normal Inspection, No Pedal Edema Skin: Warm, Dry, Intact Psy/Mental Status: Normal Affect - Patient Data Lab Results Last 24 hrs: Laboratory Results - last 24 hr 10/04/20 Range/Units 05:30 Sodium 141 (136-145) mmol/L Potassium 5.0 (3.5-5.1) mmol/L Chloride 102 (98-107) mmol/L Carbon Dioxide 34 H (21-32) mmol/L Anion Gap 10.0 (7-13) mEq/L BUN 26 H (7-18) mg/dL Creatinine 0.80 (0.55-1.02) mg/dL Est Cr Clr Drug Dosing 37.56 mL/min Estimated GFR (MDRD) > 60 Glucose 112 H (70-99) mg/dL Calcium 8.1 L (8.5-10.1) mg/dL Result Diagrams: 10/02/20 05:10 10/04/20 05:30 Duc Results Last 24 hrs: Microbiology 10/01/20 11:38 Aerobic Blood Culture - Preliminary Blood - Arm, Left NO GROWTH AFTER 2 DAYS Anaerobic Blood Culture - Preliminary NO GROWTH AFTER 2 DAYS 10/01/20 11:14 Aerobic Blood Culture - Preliminary Blood - Venous - Iv Start NO GROWTH AFTER 2 DAYS Anaerobic Blood Culture - Preliminary NO GROWTH AFTER 2 DAYS Sepsis Event Note - Evaluation Sepsis Screening Result: No Definite Risk - Focused Exam Vital Signs: Vital Signs Temp Pulse Pulse Resp BP BP Pulse Ox 10/04/20 08:25 76 139/69 10/04/20 07:40 97.9 F 76 20 139/69 91 L 10/04/20 07:20 68 10/04/20 03:00 91 10/04/20 02:59 98.3 F 82 24 H 127/65 91 L Pulse Ox 10/04/20 08:25 10/04/20 07:40 10/04/20 07:20 95 10/04/20 03:00 10/04/20 02:59 - Problem List Review Problem List Initiated/Reviewed/Updated: Yes - Assessment Assessment:: #acute on chronic hypoxic respiratory failure 2/2 ILD flare, COPD exacerbation and possible pneumonia - taper o2 as needed - if am crisis is transient will try to taper solumedrol - c/w prn nebs and empiric abx #hx CVA/cerebral aneurysm. Plavix 75 mg p.o. daily plus Zocor 40 mg p.o. nightly #Chronic pain. Oxycodone 5 mg p.o. daily plus lidocaine 5% patch to be applied to affected area daily #Constipation. Senna/docusate: 2 tabs p.o. twice daily #hx seizure. Keppra 500 mg p.o. twice daily #chronic diastolic CHF and HT - Lasix 10 mg IV every 12 hours >>> home 40 mg PO dose - Toprol-XL 50 mg p.o. daily #Coronary artery disease. Metoprolol XL 50 mg p.o. daily plus Plavix and 5 mg p.o. daily plus Lipitor 40 mg p.o. nightly #GERD. Protonix 40 mg p.o. daily #Hyperlipidemia. Lipitor 40 mg p.o. nightly #Obstructive sleep apnea. CPAP/BiPAP: Okay to use home device and/or pressure when sleeping if the patient uses CPAP/BiPAP at home DVT prophylaxis. Bilateral SCD DNR/DNI
[2020-10-04] MEDS: cefTRIAXone 1 GM in Sodium Chloride 0.9% 50 ML IV SCH (12:01)
[2020-10-04] MEDS: Azithromycin 500 MG in Sodium Chloride 0.9% 250 ML IV SCH (15:39)
[2020-10-04] MEDS: Montelukast 10 MG Tab PO SCH (20:36)
[2020-10-04] MEDS: atorvaSTATin 20 MG Tab PO SCH (20:36)
[2020-10-05] MEDS: Albuterol/Ipratropium 3.0-0.5 MG/3 ML Neb Soln NEB SCH ×2 (03:52→07:43)
[2020-10-05] MEDS: Pantoprazole 40 MG Tab.CR PO SCH (05:37)
[2020-10-05] MEDS ORDERED: Furosemide 40 MG Tab PO SCH (09:00)
[2020-10-05] MEDS: Clopidogrel 75 MG Tab PO SCH (09:16)
[2020-10-05] MEDS: Benzonatate 100 MG Cap PO SCH (09:16)
[2020-10-05] MEDS: Metoprolol Succinate 50 MG Tab.ER PO SCH (09:16)
[2020-10-05] MEDS: levETIRAcetam 500 MG Tab PO SCH (09:16)
[2020-10-05] MEDS: Loratadine 10 MG Tab PO SCH (09:16)
[2020-10-05] MEDS: oxyCODONE 5 MG Tab PO SCH (09:17)
[2020-10-05] MEDS: Lidocaine 5% 700 MG Patch TOP SCH (09:18)
[2020-10-05] MEDS: methylPREDNISolone Sodium Succinate 40 MG/1 ML SDV IVPUSH SCH (09:24)
--- NOTE | 2020-10-05 12:25 | PCM.DCSUM1 ---
Discharge Summary - Hospital Course Free Text/Narrative:: Patient is an 85-year-old female who presents c/o dyspnea. She states that she has chronic dyspnea due to COPD/interstitial fibrosis/pulmonary fibrosis but it has worsened over the week leading up to her hospitalization. She admits to cough productive yellow sputum. She denies fever, rigors, nausea, vomiting, wheeze, abdominal pain, diarrhea, myalgia, chest pain. She denies peripheral edema. She denies anosmia and she denies dysgeusia. She presents for further evaluation. Pt required 4L o2 supp via NC which is an increase from her baseline of 2L. She was treated broadly for COPD exac, ILD flare and pneumonia w/ improvement. Upon d/c she still requires 3L but is able to ambulate 200 ft. She is being returned to her NH. She will undergo PT there as well. Diagnosis: Stroke: No - Discharge Data Discharge Date: 10/05/20 Discharge Disposition: DC/Tfer to [facility] Condition: Fair - Referral to Home Health Primary Care Physician: PCP Unobtainable - Discharge Plan *PRESCRIPTION DRUG MONITORING PROGRAM REVIEWED*: Not Applicable *COPY OF PRESCRIPTION DRUG MONITORING REPORT IN PATIENT MIAH: Not Applicable Home Medications: Home Meds Calcium Carbonate/Vitamin D3 [Calcium 500-Vit D3 125 Caplet] 1 tab PO BID 10/31/16 [History] Clopidogrel Bisulfate [Clopidogrel] 75 mg PO DAILY 10/31/16 [History] Metoprolol Succinate [Toprol XL] 50 mg PO DAILY 10/31/16 [History] atorvaSTATin [Lipitor] 40 mg PO BEDTIME 10/31/16 [History] Budesonide [Pulmicort] 0.5 mg NEB BIDRT 12/01/16 [History] levETIRAcetam [Keppra] 500 mg PO BID 12/01/16 [History] Lactulose [Cephulac] 20 gm PO BID PRN #1 bottle 06/20/17 [Rx] Lidocaine 5% [Lidoderm 5%] 700 mg TOP Q24H #30 patch 06/20/17 [Rx] Acetaminophen [Tylenol Arthritis Pain] 1,300 mg PO Q8H 10/01/20 [History] Albuterol/Ipratropium [DuoNeb 3.0-0.5 MG/3 ML] 3 ml INH BID PRN 10/01/20 [History] Albuterol/Ipratropium [DuoNeb 3.0-0.5 MG/3 ML] 3 ml NEB BID 10/01/20 [History] Alendronate Sodium [Fosamax] 70 mg PO .Fridays10/01/20 [History] Areds 2 1 tab PO BID 10/01/20 [History] Benzonatate [Tessalon Perle] 100 mg PO DAILY 10/01/20 [History] Bisacodyl [Gentle Laxative] 10 mg RC DAILY PRN 10/01/20 [History] Calcium Carbonate [Tums] 1,000 mg PO QID PRN 10/01/20 [History] Carboxymethylcellulose Sodium [Artificial Tears] 1 drop EYEBOTH BID PRN 10/01/20 [History] Furosemide 40 mg PO DAILY 10/01/20 [History] Magnesium Hydroxide [Milk of Magnesia] 30 ml PO DAILY PRN 10/01/20 [History] Nut.Sup,Spec.Frm,L-Fr,Iron/Fos [Twocal HN] 180 ml PO TID 10/01/20 [History] Ondansetron [Zofran ODT] 4 mg PO Q6H PRN 10/01/20 [History] Pantoprazole Sodium [Protonix] 20 mg PO DAILY 10/01/20 [History] Saliva Substitute Combo No.9 [Biotene] 237 ml MM BID 10/01/20 [History] Sennosides [Senna] 8.6 mg PO DAILY PRN 10/01/20 [History] Sennosides/Docusate Sodium [Senna Plus 8.6-50 mg Tablet] 2 each PO BID 10/01/20 [History] Sodium Chloride 0.65% [Bear Nasal [place]ul[place]] 2 sprays JHONATHAN QID PRN 10/01/20 [History] Trolamine Salicylate/Aloe Vera [Aspercreme 10% Cream] 1 applic TP BID 10/01/20 [History] Trolamine Salicylate/Aloe Vera [Aspercreme 10% Cream] 1 applic TP BID PRN 10/01/20 [History] oxyCODONE 5 mg PO DAILY 10/01/20 [History] oxyCODONE 5 mg PO TID PRN 10/01/20 [History] predniSONE [Prednisone] 10 mg PO DAILY 10/01/20 [History] Oxygen Therapy Mode: Nasal Cannula Oxygen Flow Rate (L/min): 3 Forms: ED Department Discharge Referrals: Kenny Valentine MD [Physician] - - Discharge Summary/Plan Comment DC Time >30 min.: Yes (35 min) - Patient Data Vitals - Most Recent: Last Vital Signs Temp 97.4 F 10/05/20 08:04 Pulse 66 10/05/20 09:16 Resp 20 10/05/20 08:04 BP 138/66 10/05/20 09:16 Pulse Ox 97 10/05/20 08:04 Weight - Most Recent: 101 lb 9.6 oz I&O - Last 24 hours: Intake & Output 10/04/20 10/05/20 10/05/20 22:59 06:59 14:59 Intake Total 375 50 Balance 375 50 SARAH Results - Last 24 hrs: Microbiology 10/01/20 11:38 Aerobic Blood Culture - Preliminary Blood - Arm, Left NO GROWTH AFTER 4 DAYS Anaerobic Blood Culture - Preliminary NO GROWTH AFTER 4 DAYS 10/01/20 11:14 Aerobic Blood Culture - Preliminary Blood - Venous - Iv Start NO GROWTH AFTER 4 DAYS Anaerobic Blood Culture - Preliminary NO GROWTH AFTER 4 DAYS Med Orders - Current: Current Medications Acetaminophen (Acetaminophen 325 Mg Tab) 650 mg PO Q4H PRN PRN Reason: Pain (Mild 1-3)/fever Last Admin: 10/03/20 12:28 Dose: 650 mg Documented by: Albuterol/Ipratropium (Albuterol/Ipratropium 3.0-0.5 Mg/3 Ml Neb Soln) 3 ml NEB Q4HRRT [facility] Last Admin: 10/05/20 07:43 Dose: 3 ml Documented by: Artificial Tears (Carboxymethylcellulose Sodium 1% Ophth Gel 0.4 Ml Ud) 1 each EYEBOTH BID PRN PRN Reason: Dry Eyes Last Admin: 10/02/20 09:49 Dose: 1 each Documented by: Atorvastatin Calcium (Atorvastatin 20 Mg Tab) 40 mg PO BEDTIME [facility] Last Admin: 10/04/20 20:36 Dose: 40 mg Documented by: Benzonatate (Benzonatate 100 Mg Cap) 100 mg PO DAILY [facility] Last Admin: 10/05/20 09:16 Dose: 100 mg Documented by: Clopidogrel Bisulfate (Clopidogrel 75 Mg Tab) 75 mg PO DAILY [facility] Last Admin: 10/05/20 09:16 Dose: 75 mg Documented by: Furosemide (Furosemide 40 Mg Tab) 40 mg PO DAILY [facility] Last Admin: 10/05/20 09:16 Dose: 40 mg Documented by: Azithromycin 500 mg/ Sodium (Chloride) 250 mls @ 250 mls/hr IV Q24H [facility] Last Admin: 10/04/20 15:39 Dose: 250 mls/hr Documented by: Ceftriaxone Sodium 1 gm/ (Sodium Chloride) 50 mls @ 100 mls/hr IV Q24H [facility] Last Admin: 10/04/20 12:01 Dose: 100 mls/hr Documented by: Levetiracetam (Levetiracetam 500 Mg Tab) 500 mg PO BID [facility] Last Admin: 10/05/20 09:16 Dose: 500 mg Documented by: Lidocaine (Lidocaine 5% 700 Mg Patch) 700 mg TOP Q24H [facility] Last Admin: 10/05/20 09:18 Dose: 700 mg Documented by: Loratadine (Loratadine 10 Mg Tab) 10 mg PO DAILY [facility] Last Admin: 10/05/20 09:16 Dose: 10 mg Documented by: Methylprednisolone Sodium Succinate (Methylprednisolone Sodium Succinate 40 Mg/1 Ml Sdv) 40 mg IVPUSH Q12HR [facility] Last Admin: 10/05/20 09:24 Dose: 40 mg Documented by: Metoprolol Succinate (Metoprolol Succinate 50 Mg Tab.Er) 50 mg PO DAILY [facility] Last Admin: 10/05/20 09:16 Dose: 50 mg Documented by: Miscellaneous Information (Remove Lidocaine Patch) 1 ea TRDERM BEDTIME [facility] Last Admin: 10/04/20 20:38 Dose: 1 ea Documented by: Montelukast Sodium (Montelukast 10 Mg Tab) 10 mg PO BEDTIME [facility] Last Admin: 10/04/20 20:36 Dose: 10 mg Documented by: Ondansetron HCl (Ondansetron 4 Mg/2 Ml Sdv) 4 mg IVPUSH Q4H PRN PRN Reason: Nausea/Vomiting Oxycodone HCl (Oxycodone 5 Mg Tab) 5 mg PO TID PRN PRN Reason: Pain (severe 7-10) Oxycodone HCl (Oxycodone 5 Mg Tab) 5 mg PO DAILY [facility] Last Admin: 10/05/20 09:17 Dose: 5 mg Documented by: Pantoprazole Sodium (Pantoprazole 40 Mg Tab.Cr) 40 mg PO ACBREAKFAST [facility] Last Admin: 10/05/20 05:37 Dose: 40 mg Documented by: Senna/Docusate Sodium (Docusate Sodium/Sennosides 50-8.6 Mg Tab) 2 tab PO BID [facility] Last Admin: 10/05/20 09:15 Dose: 2 tab Documented by: Sodium Chloride (Sodium Chloride 0.9% 10 Ml Syringe) 10 ml FLUSH ASDIRECTED PRN PRN Reason: Keep Vein Open Last Admin: 10/02/20 15:56 Dose: 10 ml Documented by: Discontinued Medications Albuterol/Ipratropium (Albuterol/Ipratropium 3.0-0.5 Mg/3 Ml Neb Soln) 3 ml NEB ONETIME ONE Stop: 10/01/20 11:18 Last Admin: 10/01/20 11:25 Dose: 3 ml Documented by: Furosemide (Furosemide 20 Mg/2 Ml Vial) 10 mg IVPUSH Q12HR [facility] Last Admin: 10/02/20 09:28 Dose: 10 mg Documented by: Furosemide (Furosemide 20 Mg/2 Ml Vial) 10 mg IVPUSH BIDDIURETIC [facility] Last Admin: 10/04/20 08:28 Dose: 10 mg Documented by: Ceftriaxone Sodium 1 gm/ (Sodium Chloride) 50 mls @ 100 mls/hr IV ONETIME ONE Stop: 10/01/20 12:16 Last Admin: 10/01/20 12:04 Dose: 100 mls/hr Documented by: Methylprednisolone Sodium Succinate (Methylprednisolone Sodium Succinate 40 Mg/1 Ml Sdv) 40 mg IVPUSH Q8HR [facility] Last Admin: 10/04/20 05:39 Dose: 40 mg Documented by: Non-Formulary Medication (Saliva Substitute Combo No.9 [Biotene]) 237 ml .XX BID [facility] Last Admin: 10/02/20 16:10 Dose: Not Given Documented by:
[2020-10-05 12:45] VITALS: BP 132/64; PULSE 68
[2020-10-05] MEDS: cefTRIAXone 1 GM in Sodium Chloride 0.9% 50 ML IV SCH (17:39)
== END 2020-10-05 13:35 | DRG 196 ==
LOC: DL.ED 10:56 → DL.MS 12:21
PROVIDERS: ADMIT Internal Medicine; ATTEND Internal Medicine
DX: J84.10 Pulmonary fibrosis, unspecified (principal); J18.9 Pneumonia, unspecified organism; J96.21 Acute and chronic respiratory failure with hypoxia; J44.1 Chronic obstructive pulmonary disease with (acute) exacerbation; I10 Essential (primary) hypertension; I50.32 Chronic diastolic (congestive) heart failure; J44.0 Chronic obstructive pulmonary disease with (acute) lower respiratory infection; Z20.822 Contact with and (suspected) exposure to COVID-19; Z66 Do not resuscitate; F41.9 Anxiety disorder, unspecified; M19.90 Unspecified osteoarthritis, unspecified site; M81.0 Age-related osteoporosis without current pathological fracture; G89.29 Other chronic pain; K59.00 Constipation, unspecified; Z88.6 Allergy status to analgesic agent; Z79.02 Long term (current) use of antithrombotics/antiplatelets; R56.9 Unspecified convulsions; I25.10 Atherosclerotic heart disease of native coronary artery without angina pectoris; Z79.51 Long term (current) use of inhaled steroids; K21.9 Gastro-esophageal reflux disease without esophagitis; I11.0 Hypertensive heart disease with heart failure; E78.5 Hyperlipidemia, unspecified; G47.33 Obstructive sleep apnea (adult) (pediatric); H54.7 Unspecified visual loss; E78.00 Pure hypercholesterolemia, unspecified; M54.9 Dorsalgia, unspecified; Z79.899 Other long term (current) drug therapy; Z79.52 Long term (current) use of systemic steroids; Z87.442 Personal history of urinary calculi; Z99.81 Dependence on supplemental oxygen; Z79.82 Long term (current) use of aspirin; Z90.49 Acquired absence of other specified parts of digestive tract; Z90.89 Acquired absence of other organs; Z98.49 Cataract extraction status, unspecified eye; Z86.73 Personal history of transient ischemic attack (TIA), and cerebral infarction without residual deficits
CPT/HCPCS: 0240U; 36415; 71045; 80048; 80053; 81003; 82607; 82746; 83605; 83880; 84439; 84443; 84484; 85025; 85379; 87040; 93005; 93010; 94010; 94640; 96365; 99284; 99285-25; A9270-GY; J0456; J0696; J1940; J2920; J7050; J7620-GY; U0002

== ENCOUNTER 2020-10-28 16:04 | Inpatient (IN) | payer MEDICARE, OTHER, MEDICAID ==
--- NOTE | 2020-10-28 16:17 | PCM.SN.2 ---
- Free Text/Narrative Note: Referral to ER/Dr. Darin Cabrera is a resident of [facility]. Her code status is DNR. DNI. She has a history of ILD. She was recently hospitalized in in September for pneumonia. Staff called this afternoon at 13:30 to state she was feeling more short of breath: RR 24, Ox Sat 73% on 3L/min. Subjectively SOB. She agreed to ta ke 5 mg of MS solution to see if this would help. Around 15:30 she got up to BR and desated into the 60% range. Currently RR 28, 79% on 4L/min. Decision made to send to ER. I have a call out to her daughter, Yumiko Bishop, to discuss overall situation and progressive respiratory failure. Usual provider is Dr. Valentine, who is out of the office. She will be transferred by [facility] to ED. Signout given to ER nursing staff. Impression: Respiratory failure in patient with interstitial lung disease. Other: recently completed a Medrol Dose Pack and a Z-Pack. Today she was given an additional 40 mg of prednisone, in addition to her baseline of 10 mg daily.
[2020-10-28] MEDS ORDERED: methylPREDNISolone Sodium Succinate 125 MG/2 ML SDV IVPUSH ONE (16:41)
[2020-10-28] MEDS ORDERED: Albuterol/Ipratropium 3.0-0.5 MG/3 ML Neb Soln NEB ONE (16:41)
--- NOTE | 2020-10-28 17:38 | CR ---
PROCEDURE INFORMATION: Exam: XR Chest Exam date and time: 10/28/2020 5:12 PM Age: 85 years old Clinical indication: Shortness of breath; Additional info: Short of breath TECHNIQUE: Imaging protocol: XR of the chest. Views: 1 view. COMPARISON: CR Chest 1V Frontal 10/01/2020 11:40 AM FINDINGS: Lungs: Advanced pulmonary fibrosis again noted throughout both lungs. Pleural spaces: Unremarkable. No pleural effusion. No pneumothorax. Heart/Mediastinum: Suggestion of hiatal hernia. No cardiomegaly. Bones/joints: No acute process. IMPRESSION: Advanced pulmonary fibrosis again noted throughout both lungs
[2020-10-28 18:21] LABS: ANION GAP 9.9 mEq/L (7-13); CHLORIDE,CL 101 mmol/L (98-107); SODIUM,NA 140 mmol/L (136-145)
--- NOTE | 2020-10-28 18:32 | EDM.PDOC ---
Scribed by Elsa Villalba 10/28/20 [id number] for Emily Webster MD ED HPI GENERAL MEDICAL PROBLEM - General Chief Complaint: Respiratory Problem Stated Complaint: REFERRED BY DR. CASTELLON Time Seen by Provider: 10/28/20 16:44 Source of Information: Reports: Patient, EMS, EMS Notes Reviewed, Family (Daughter), Old Records, Provider (Dr. Shae Castellon), RN, RN Notes Reviewed History Limitations: Reports: No Limitations - History of Present Illness INITIAL COMMENTS - FREE TEXT/NARRATIVE: Patient arrives to ED by [facility] from [facility] with c/o shortness of breath x2 days, but much worse today. Patient comes from [facility] with decreased oxygen sats in the 60-70% on 3L/NC and increased RR 28. She was given 50mg prednisone, and morphine 5mg and wants to be seen in ED. Pt has Hx of COPD and severe pulmonary fibrosis. Pt denies fever, chills, or chest pain. Pt is DNR/DNI. Onset: Gradual Duration: Getting Worse Location: Reports: Chest Severity: Severe Improves with: Reports: None Worsens with: Reports: None Associated Symptoms: Reports: No Other Symptoms - Related Data Allergies Allergy/AdvReac Type Severity Reaction Status Date / Time tramadol AdvReac Unknown Nausea and Verified 10/28/20 17:52 Vomiting Home Meds: Home Meds Calcium Carbonate/Vitamin D3 [Calcium 500-Vit D3 125 Caplet] 1 tab PO BID 10/31/16 [History] Clopidogrel Bisulfate [Clopidogrel] 75 mg PO DAILY 10/31/16 [History] Metoprolol Succinate [Toprol XL] 50 mg PO DAILY 10/31/16 [History] atorvaSTATin [Lipitor] 40 mg PO BEDTIME 10/31/16 [History] Budesonide [Pulmicort] 0.5 mg NEB BIDRT 12/01/16 [History] levETIRAcetam [Keppra] 500 mg PO BID 12/01/16 [History] Lactulose [Cephulac] 20 gm PO BID PRN #1 bottle 06/20/17 [Rx] Lidocaine 5% [Lidoderm 5%] 700 mg TOP Q24H #30 patch 06/20/17 [Rx] Acetaminophen [Tylenol Arthritis Pain] 1,300 mg PO Q8H 10/01/20 [History] Albuterol/Ipratropium [DuoNeb 3.0-0.5 MG/3 ML] 3 ml INH BID PRN 10/01/20 [History] Albuterol/Ipratropium [DuoNeb 3.0-0.5 MG/3 ML] 3 ml NEB BID 10/01/20 [History] Alendronate Sodium [Fosamax] 70 mg PO .Fridays10/01/20 [History] Areds 2 1 tab PO BID 10/01/20 [History] Benzonatate [Tessalon Perle] 100 mg PO DAILY 10/01/20 [History] Bisacodyl [Gentle Laxative] 10 mg RC DAILY PRN 10/01/20 [History] Calcium Carbonate [Tums] 1,000 mg PO QID PRN 10/01/20 [History] Carboxymethylcellulose Sodium [Artificial Tears] 1 drop EYEBOTH BID PRN 10/01/20 [History] Furosemide 40 mg PO DAILY 10/01/20 [History] Magnesium Hydroxide [Milk of Magnesia] 30 ml PO DAILY PRN 10/01/20 [History] Nut.Sup,Spec.Frm,L-Fr,Iron/Fos [Twocal HN] 180 ml PO TID 10/01/20 [History] Ondansetron [Zofran ODT] 4 mg PO Q6H PRN 10/01/20 [History] Pantoprazole Sodium [Protonix] 20 mg PO DAILY 10/01/20 [History] Saliva Substitute Combo No.9 [Biotene] 237 ml MM BID 10/01/20 [History] Sennosides [Senna] 8.6 mg PO DAILY PRN 10/01/20 [History] Sennosides/Docusate Sodium [Senna Plus 8.6-50 mg Tablet] 2 each PO BID 10/01/20 [History] Sodium Chloride 0.65% [Seminary Nasal Somis] 2 sprays JHONATHAN QID PRN 10/01/20 [History] Trolamine Salicylate/Aloe Vera [Aspercreme 10% Cream] 1 applic TP BID 10/01/20 [History] Trolamine Salicylate/Aloe Vera [Aspercreme 10% Cream] 1 applic TP BID PRN 10/01/20 [History] oxyCODONE 5 mg PO DAILY 10/01/20 [History] oxyCODONE 5 mg PO TID PRN 10/01/20 [History] predniSONE [Prednisone] 10 mg PO DAILY 10/01/20 [History] Past Medical History HEENT History: Reports: Cataract, Impaired Vision Other HEENT History: wears glasses Cardiovascular History: Reports: CAD, High Cholesterol, Hypertension Respiratory History: Reports: COPD, Pulmonary Fibrosis, SOB Other Respiratory History: "Residual Lung Diseas", 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 Gastrointestinal History: Reports: GERD Genitourinary History: Reports: None [employer]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: Musculoskeletal History: Reports: Back Pain, Chronic, Osteoarthritis, Other (See Below) Other Musculoskeletal History: T4 compression 06/15/17 Neurological History: Reports: Cerebral Aneurysms, CVA Other Neuro History: between 5 to 10 years ago Psychiatric History: Reports: Anxiety Endocrine/Metabolic History: Reports: Osteoporosis Hematologic History: Reports: None Immunologic History: Reports: None Oncologic (Cancer) History: Reports: None Dermatologic History: Reports: None - Infectious Disease History Infectious Disease History: Reports: Novel Coronavirus, Other (See Below) Other Infectious Disease History: Covid HX 02/29/20 - Past Surgical History Head Surgeries/Procedures: Reports: None HEENT Surgical History: Reports: Adenoidectomy, Cataract Surgery, Tonsillectomy Other HEENT Surgeries/Procedures: both eyes Cardiovascular Surgical History: Reports: Aneurysm, Other (See Below) Other Cardiovascular Surgeries/Procedures: aneurysm repair Respiratory Surgical History: Reports: None GI Surgical History: Reports: Appendectomy Female Surgical History: Reports: None Neurological Surgical History: Reports: Other (See Below) Other Neurological Surgeries/Procedures: cement to lumbar areas Social & Family History - Family History Family Medical History: No Pertinent Family History - Caffeine Use Caffeine Use: Reports: Coffee - Living Situation & Occupation Living situation: Reports: , Extended Care Facility Occupation: Retired ED ROS GENERAL - Review of Systems Review Of Systems: Comprehensive ROS is negative, except as noted in HPI. ED EXAM, GENERAL - Physical Exam Exam: See Below Exam Limited By: No Limitations General Appearance: Alert, No Apparent Distress, Thin, Other (Frail elderly female, non-toxic appearing) Eye Exam: Bilateral Eye: EOMI, Normal Inspection, PERRL Ears: Normal External Exam, Hearing Grossly Normal Nose: Normal Inspection, Normal Mucosa, No Blood Throat/Mouth: Normal Inspection, Normal Lips, Normal Oropharynx, Normal Voice, No Airway Compromise Head: Atraumatic, Normocephalic Neck: Normal Inspection, Supple, Non-Tender, Full Range of Motion Respiratory/Chest: No Accessory Muscle Use, Chest Non-Tender, Decreased Breath Sounds, Crackles, Wheezing Cardiovascular: Regular Rate, Rhythm GI/Abdominal: Normal Bowel Sounds, Soft, Non-Tender, No Organomegaly, No Distention, No Abnormal Bruit, No Mass (Female) Exam: Deferred Rectal (Female) Exam: Deferred Back Exam: Normal Inspection, Full Range of Motion, NT Extremities: Normal Inspection, Normal Range of Motion, Non-Tender, No Pedal Edema, Normal Capillary Refill, Pedal Edema (Trace) Neurological: Alert, Oriented, CN II-XII Intact, Normal Cognition, No Motor/Sensory Deficits Psychiatric: Normal Affect, Normal Mood Skin Exam: Warm, Dry, Intact, Normal Color, No Rash #1 Interpretation EKG Date: 10/28/20 Time: 16:48 Rhythm: Other (sinus rhythm) Rate (Beats/Min): 88 Dun[place]: LAD-Left Dunmor Deviation P-Wave: Present QRS: Other (abnormal R wave progression, late transition.) ST-T: Other (nonspecific abnormal T) QT: Normal Course - Vital Signs Last Recorded V/S: Last Vital Signs Temp 98.4 F 10/28/20 16:37 Pulse 89 10/28/20 16:58 Resp 28 H 10/28/20 16:37 BP 134/74 10/28/20 16:37 Pulse Ox 97 10/28/20 16:58 - Orders/Labs/Meds Orders: Active Orders 24 hr Category Date Time Status EKG 12 Lead [EKG Documentation Completion] [RC] STAT Care 10/28/20 16:40 Active RT Aerosol Therapy [RC] ASDIRECTED Care 10/28/20 16:41 Active CULTURE BLOOD [BC] Stat Lab 10/28/20 17:34 Received CULTURE BLOOD [BC] Stat Lab 10/28/20 17:38 Received Blood Culture x2 Reflex Set [OM.PC] Stat Oth 10/28/20 16:40 Ordered Labs: Laboratory Tests 10/28/20 10/28/20 10/28/20 Range/Units 17:34 17:34 17:34 WBC 12.2 H (5.0-10.0) 10^3/uL RBC 3.76 L (4.2-5.4) 10^6/uL Hgb 11.8 L (12.0-16.0) g/dL Hct 37.9 (37.0-47.0) % MCV 100.8 H (80-100) fL MCH 31.4 (27.0-34.0) pg MCHC 31.1 L (33.0-35.0) g/dL Plt Count 285 (150-450) 10^3/uL Neut % (Auto) 77.9 H (42.2-75.2) % Lymph % (Auto) 13.6 L (20.5-50.1) % [place] % (Auto) 8.1 H (2-8) % Eos % (Auto) 0.2 L (1.0-3.0) % Baso % (Auto) 0.2 (0.0-1.0) % Sodium 140 (136-145) mmol/L Potassium 3.9 (3.5-5.1) mmol/L Chloride 101 (98-107) mmol/L Carbon Dioxide 33 H (21-32) mmol/L Anion Gap 9.9 (7-13) mEq/L BUN 17 (7-18) mg/dL Creatinine 0.74 (0.55-1.02) mg/dL Est Cr Clr Drug Dosing 44.76 mL/min Estimated GFR (MDRD) > 60 BUN/Creatinine Ratio 23.0 (No establ ref range) Glucose 115 H (70-99) mg/dL Lactic Acid 0.9 (0.4-2.0) mmol/L Calcium 8.1 L (8.5-10.1) mg/dL Total Bilirubin 0.5 (0.2-1.0) mg/dL AST 20 (15-37) U/L ALT 23 (14-59) U/L Alkaline Phosphatase 65 (46-116) U/L Troponin I High Sens 38 (<=51) pg/mL C-Reactive Protein 10.0 H (0.0-0.9) mg/dL B-Natriuretic Peptide 253 H (0-100) pg/ml Total Protein 6.6 (6.4-8.2) g/dL Albumin 2.4 L (3.4-5.0) g/dL Globulin 4.2 Albumin/Globulin Ratio 0.57 Meds: Medications Discontinued Medications Generic Name Dose Route Start Last Admin Trade Name [place] PRN Reason Stop Dose Admin Albuterol/Ipratropium 3 ml 10/28/20 16:41 10/28/20 16:55 Albuterol/Ipratropium 3.0-0.5 Mg/3 Ml Neb Soln NEB 10/28/20 16:42 3 ml ONETIME ONE Administration Methylprednisolone Sodium Succinate 62.5 mg 10/28/20 16:41 10/28/20 16:57 Methylprednisolone Sodium Succinate 125 Mg/2 Ml Sdv IVPUSH 10/28/20 16:42 62.5 mg ONETIME ONE Administration - Radiology Interpretation Free Text/Narrative:: [facility] Final Radiology Report Call: [phone] assistance Online chat: [email or web address] Name: BO RONQUILLO Age: 85Years F Date: 10/28/2020 SSN: -- : [id number] Study: CR CHEST 1V FRONTAL Requesting Physician: EMILY WEBSTER Images: 1 Addl Studies: Provided Clinical History: short of breath Contrast: Contrast Medium: Contrast Amount: Contrast Method: CONFIDENTIALITY STATEMENT This report is intended only for use by the referring physician, and only in accordance with law. If you received this in error, call [phone]. Page 1 of 1 PROCEDURE INFORMATION: Exam: XR Chest Exam date and time: 10/28/2020 5:12 PM Age: 85 years old Clinical indication: Shortness of breath; Additional info: Short of breath TECHNIQUE: Imaging protocol: XR of the chest. Views: 1 view. COMPARISON: CR Chest 1V Frontal 10/01/2020 11:40 AM FINDINGS: Lungs: Advanced pulmonary fibrosis again noted throughout both lungs. Pleural spaces: Unremarkable. No pleural effusion. No pneumothorax. Heart/Mediastinum: Suggestion of hiatal hernia. No cardiomegaly. Bones/joints: No acute process. IMPRESSION: Advanced pulmonary fibrosis again noted throughout both lungs Thank you for allowing us to participate in the care of your patient. Dictated and Authenticated by: Yaya Sandoval MD 10/28/2020 5:38 PM Central Time ([place] & [place]) Departure - Departure Time of Disposition: 18:30 (admitted to Dr. Araya) Disposition: Admitted As Inpatient 67 Condition: Fair, Poor Clinical Impression: Acute exacerbation of chronic obstructive pulmonary disease (COPD), Pulmonary fibrosis - Discharge Information *PRESCRIPTION DRUG MONITORING PROGRAM REVIEWED*: Not Applicable *COPY OF PRESCRIPTION DRUG MONITORING REPORT IN PATIENT MIAH: Not Applicable Forms: ED Department Discharge Sepsis Event Note (ED) - Focused Exam Vital Signs: Vital Signs Temp Pulse Resp BP Pulse Ox Pulse Ox 10/28/20 16:58 89 97 10/28/20 16:37 98.4 F 90 28 H 134/74 98 - My Orders Last 24 Hours: My Active Orders 10/28/20 16:40 EKG 12 Lead [EKG Documentation Completion] [RC] STAT Blood Culture x2 Reflex Set [OM.PC] Stat 10/28/20 16:41 RT Aerosol Therapy [RC] ASDIRECTED 10/28/20 17:34 CULTURE BLOOD [BC] Stat 10/28/20 17:38 CULTURE BLOOD [BC] Stat - Assessment/Plan Last 24 Hours: My Active Orders 10/28/20 16:40 EKG 12 Lead [EKG Documentation Completion] [RC] STAT Blood Culture x2 Reflex Set [OM.PC] Stat 10/28/20 16:41 RT Aerosol Therapy [RC] ASDIRECTED 10/28/20 17:34 CULTURE BLOOD [BC] Stat 10/28/20 17:38 CULTURE BLOOD [BC] Stat I have read and agree with the documentation that has been completed regarding this visit. By signing this record, I attest that the documentation was completed in my physical presence and is an accurate record of the encounter.
[2020-10-28] MEDS ORDERED: Ondansetron 4 MG/2 ML SDV IVPUSH PRN (19:20)
[2020-10-28] MEDS ORDERED: Acetaminophen 325 MG Tab PO PRN (19:20)
--- NOTE | 2020-10-28 19:30 | PCM.SN.2 ---
- Free Text/Narrative Note: START OF DOCTOR EMAMIS HISTORY AND PHYSICAL / CONSULTATION NOTE Chief Complaint: Shortness of breath History of Present Illness: The patient is a 85-year-old female who can switch to plain dyspnea. She states it started over the 24 hours leading up to her hospitalization. Patient has known history of O2 dependent COPD/pulmonary fibrosis/severe interstitial fibrosis for which she is O2 dependent 3 L. She denies fever, rigors, nausea, vomiting, wheeze, abdominal pain, diarrhea, myalgia, chest pain, peripheral edema, a nose Karlie, dysgeusia. She states that she has a cough however this is chronic for her. She presents for further evaluation Surgical History: Appendectomy, tonsillectomy, adenoidectomy, cerebral aneurysm coiling, bilateral cataract surgery, vertebroplasty x3 Family History: Diabetes Social History: Tobacco: Never Alcohol: Denies Caffeine: Coffee Drugs: Never Allergies: Tramadol Code Status: DNR, DNI Pertinent Laboratory Results / Pertinent Radiology Results / Pertinent Diagnostic Results / Pertinent Vital Signs: Blood pressure 1 3474, pulse 89, respiration 28, temperature 98.4 degrees, 97% on time 10 L oxygen via nonrebreather, white blood cell 4.2, hemoglobin 11.8, MCV 100.8 Physical Examination: General: -Alert -No acute distress -Mild to moderate dyspnea -Mild to moderate tachypnea Head: -Atraumatic -Normocephalic Eyes: -Pupils equally round and reactive to light and accommodation -Extraocular muscles intact Neurological: -Cranial nerves II-XII intact Neck: -No jugular venous distention -No thyromegaly -No cervical lymphadenopathy Heart: -Regular rate -Regular rhythm -No murmurs -No gallops -No rubs Lungs: -No wheeze -Bilateral rhonchi present -No rales -Distant breath sounds bilaterally Abdomen: -Normal bowel sounds in all four quadrants -No rebound -No guarding -No tenderness Extremities: -2/4 pulse in all four extremities -No clubbing -No cyanosis -No edema -No calf tenderness present bilaterally -Negative Homans sign bilaterally Musculoskeletal: -5/5 bilateral upper extremity strength -5/5 bilateral lower extremity strength -Sensorium of bilateral upper extremities are equal and intact -Sensorium of bilateral lower extremities are equal and intact Additional Details / Additional Findings / Exceptions / Miscellaneous: Assessment / Plan: Dyspnea, secondary to 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 DuoNeb every 4 hours + Medrol 80 mg IV every 8 hours to singular 10 mg p.o. nightly plus Claritin 10 mg p.o. nightly plus Levaquin 500 mg IV daily plus theophylline 200 mg p.o. twice daily Grade 1 diastolic dysfunction. Lasix 10 mg IV every 12 hours. Check strict I's/O. Daily weight. History of cerebral aneurysm, status post coiling History of CVA Osteoarthritis Osteoporosis Chronic pain Constipation History of seizure Macrocytic anemia. Will monitor hemoglobin level intermittently. TSH, free T4, B12, folate levels recently checked. Check iron panel, ferritin, fecal occult blood Coronary artery disease GERD. Protonix 40 mg p.o. daily Hyperlipidemia Hypertension Anxiety History of cholelithiasis History of nephrolithiasis Obstructive sleep apnea. CPAP/BiPAP: Okay to use home device and/or pressure wh en sleeping for obstructive sleep apnea if she uses CPAP/BiPAP at home DVT prophylaxis. Lovenox 30 mg of cutaneously daily Disposition: At the time of admission, the patient's home medications were pending input to the EMR/BHR system. Once their input, they will be reviewed and reconciled. Full discharge within 96 to 120 hours END OF DOCTOR EMAMIS HISTORY AND PHYSICAL / CONSULTATION NOTE
[2020-10-28] MEDS ORDERED: Enoxaparin 40 MG/0.4 ML Syringe SUBCUT SCH (20:00)
[2020-10-28] MEDS ORDERED: REMDESIVIR 200 MG in Sodium Chloride 0.9% 250 ML IV ONE (21:00)
[2020-10-28] MEDS: Furosemide 20 MG/2 ML VIAL IVPUSH SCH (21:01)
[2020-10-28] MEDS: methylPREDNISolone Sodium Succinate 40 MG/1 ML SDV IVPUSH SCH (21:03)
[2020-10-28] MEDS: Levofloxacin/Dextrose 5%-Water 500 MG in Premix Bag 1 BAG IV SCH (21:08)
[2020-10-28] MEDS: Loratadine 10 MG Tab PO SCH (21:09)
[2020-10-28] MEDS: Theophylline 200 MG Cap.ER PO SCH (21:09)
[2020-10-28] MEDS: Montelukast 10 MG Tab PO SCH (21:09)
[2020-10-28] MEDS: Albuterol 6.7 GM Inhaler INH SCH (21:14)
[2020-10-28] MEDS ORDERED: Albuterol/Ipratropium 3.0-0.5 MG/3 ML Neb Soln NEB SCH (23:00)
[2020-10-29] MEDS: Albuterol 6.7 GM Inhaler INH SCH ×6 (01:38→20:57)
[2020-10-29] MEDS: methylPREDNISolone Sodium Succinate 40 MG/1 ML SDV IVPUSH SCH ×3 (04:31→20:56)
[2020-10-29] MEDS: Pantoprazole 40 MG Tab.CR PO SCH (06:35)
[2020-10-29 06:48] LABS: ANION GAP 11.4 mEq/L (7-13); CHLORIDE,CL 100 mmol/L (98-107); SODIUM,NA 139 mmol/L (136-145)
[2020-10-29] MEDS: Furosemide 20 MG/2 ML VIAL IVPUSH SCH ×2 (08:12→13:12)
[2020-10-29] MEDS: Theophylline 200 MG Cap.ER PO SCH ×2 (08:12→20:57)
--- NOTE | 2020-10-29 08:22 | PCM.SN.2 ---
- Free Text/Narrative Note: START OF DOCTOR ANGELICA PROGRESS NOTE Subjective: The patient complains of shortness of breath. She states that her respiratory status is pre much unchanged compared to encounter with her on 06/30/2020. Overnight she denies fever, rigors, nausea, vomiting, wheeze, abdominal pain, chest pain. She states that she has a cough which is nonproductive. I explained to the patient her current medical condition and plan of care and have answered all of her questions Objective: General: -Alert -No acute distress -Moderately dyspnea -Moderately tachypnea Heart: -Regular rate -Regular rhythm -No murmurs -No gallops -No rubs Lungs: -No wheeze -No rhonchi -Left basilar rales present -Distant sounds bilaterally Abdomen: -Normal bowel sounds in all four quadrants -No rebound -No guarding -No tenderness Extremities: -2/4 pulse in all four extremities -No clubbing -No cyanosis -No edema Additional Details / Additional Findings / Exceptions / Miscellaneous: Pertinent Laboratory Results / Pertinent Radiology Results / Pertinent Diagnostic Results / Pertinent Vital Signs: Blood pressure 168/81, respiration 24, patient saturating 94% on 10 L Assessment / Plan: Dyspnea, secondary to 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 DuoNeb every 4 hours + Medrol 80 mg IV every 8 hours to singular 10 mg p.o. nightly plus Claritin 10 mg p.o. nightly plus Levaquin 500 mg IV daily plus theophylline 200 mg p.o. twice daily COVID-19 positive. Proventil HFA: 90 mcg/spray: 2 puffs every 4 hours while awake plus random severe 100 mg IV daily plus incentive spirometer to be used 10 times hourly while awake Grade 1 diastolic dysfunction. Lasix 10 mg IV every 12 hours plus Toprol-XL 25 mg p.o. daily. Check strict I's/O. Daily weight. History of cerebral aneurysm, status post coiling History of CVA. Lipitor 40 mg p.o. nightly plus Plavix and 5 mg p.o. daily Osteoarthritis Osteoporosis Chronic pain. Oxycodone 5 mg p.o. daily Constipation. Senna/Colace: 8.6/50 m tabs p.o. twice daily History of seizure. Keppra 500 mg p.o. twice daily Iron deficiency anemia/macrocytic anemia. Will monitor hemoglobin level intermittently. Fecal occult blood pending. Ferrous sulfate 325 mg p.o. daily plus vitamin C 500 mg p.o. daily Coronary artery disease. Lipitor 40 mg p.o. nightly plus Plavix and 5 mg p.o. daily plus metoprolol 25 mg p.o. daily GERD. Protonix 40 mg p.o. daily Hyperlipidemia. Lipitor 40 mg p.o. nightly Hypertension. Toprol-XL 25 mg p.o. daily plus hydralazine 25 mg p.o. 3 times daily plus Lasix 10 mg IV every 12 hours Anxiety History of cholelithiasis History of nephrolithiasis Obstructive sleep apnea. CPAP/BiPAP: Okay to use home device and/or pressure when sleeping for obstructive sleep apnea if she uses CPAP/BiPAP at home DVT prophylaxis. Lovenox 30 mg subcutaneously every 12 hours Disposition: Guarded prognosis END OF DOCTOR EMAMIS PROGRESS NOTE
[2020-10-29] MEDS: Ascorbic Acid 500 MG Tab PO SCH (09:28)
[2020-10-29] MEDS: hydrALAZINE 25 MG Tab PO SCH ×3 (09:28→23:45)
[2020-10-29] MEDS: Ferrous Sulfate 325 MG Tab PO SCH ×2 (09:29→17:00)
[2020-10-29] MEDS: Clopidogrel 75 MG Tab PO SCH (10:00)
[2020-10-29] MEDS: oxyCODONE 5 MG Tab PO SCH (10:00)
[2020-10-29] MEDS: levETIRAcetam 500 MG Tab PO SCH ×2 (10:01→20:57)
[2020-10-29] MEDS: Enoxaparin 30 MG/0.3 ML Syringe SUBCUT SCH ×2 (10:01→20:58)
[2020-10-29] MEDS: Metoprolol Succinate 50 MG Tab.ER PO SCH (10:20)
[2020-10-29] MEDS: Sodium Chloride 0.9% 10 ML Syringe FLUSH PRN (13:13)
[2020-10-29] MEDS: Levofloxacin/Dextrose 5%-Water 500 MG in Premix Bag 1 BAG IV SCH (20:56)
[2020-10-29] MEDS: Loratadine 10 MG Tab PO SCH (20:57)
[2020-10-29] MEDS: Montelukast 10 MG Tab PO SCH (20:57)
[2020-10-29] MEDS: atorvaSTATin 20 MG Tab PO SCH (20:57)
[2020-10-29] MEDS: REMDESIVIR 100 MG in Sodium Chloride 0.9% 100 ML IV SCH (22:10)
[2020-10-30] MEDS: Albuterol 6.7 GM Inhaler INH SCH ×6 (00:23→20:57)
[2020-10-30] MEDS: methylPREDNISolone Sodium Succinate 40 MG/1 ML SDV IVPUSH SCH ×3 (04:04→20:38)
[2020-10-30] MEDS: Pantoprazole 40 MG Tab.CR PO SCH (06:22)
[2020-10-30] MEDS: hydrALAZINE 25 MG Tab PO SCH ×3 (06:23→21:58)
[2020-10-30 06:45] LABS: ANION GAP 9.9 mEq/L (7-13); CHLORIDE,CL 100 mmol/L (98-107); SODIUM,NA 138 mmol/L (136-145)
--- NOTE | 2020-10-30 07:41 | PCM.SN.2 ---
- Free Text/Narrative Note: START OF DOCTOR ANGELICA PROGRESS NOTE Subjective: The patient Oswald that her respiratory status has improved compared to my encounter with her on 06/30/2020. She currently rates her respiratory status as a 7 out of 10 at times her baseline although she proceeded to indicate that she still feels dyspneic. Overnight patient has fever, rigors, nausea, vomiting, wheeze, abdominal pain, chest pain. She states that she has occasional cough which is nonproductive. I explained to the patient her current medical con dition and plan of care and I have answered all of her questions Objective: General: -Alert -No acute distress -Moderately dyspnea -Moderately tachypnea Heart: -Regular rate -Regular rhythm -No murmurs -No gallops -No rubs Lungs: -No wheeze -No rhonchi -Left basilar rales present -Distant sounds bilaterally Abdomen: -Normal bowel sounds in all four quadrants -No rebound -No guarding -No tenderness Extremities: -2/4 pulse in all four extremities -No clubbing -No cyanosis -No edema Additional Details / Additional Findings / Exceptions / Miscellaneous: Pertinent Laboratory Results / Pertinent Radiology Results / Pertinent Diagnostic Results / Pertinent Vital Signs: Respirations 26, patient saturating 98% on 12 L Assessment / Plan: Dyspnea, secondary to 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 DuoNeb every 4 hours + Medrol 80 mg IV every 8 hours to singular 10 mg p.o. nightly plus Claritin 10 mg p.o. nightly plus Levaquin 500 mg IV daily plus theophylline 200 mg p.o. twice daily COVID-19 positive. Proventil HFA: 90 mcg/spray: 2 puffs every 4 hours while awake plus random severe 100 mg IV daily plus incentive spirometer to be used 10 times hourly while awake Grade 1 diastolic dysfunction. Lasix 10 mg IV every 12 hours plus Toprol-XL 25 mg p.o. daily. Check strict I's/O. Daily weight. History of cerebral aneurysm, status post coiling History of CVA. Lipitor 40 mg p.o. nightly plus Plavix and 5 mg p.o. daily Osteoarthritis Osteoporosis Chronic pain. Oxycodone 5 mg p.o. daily Constipation. Senna/Colace: 8.6/50 m tabs p.o. twice daily History of seizure. Keppra 500 mg p.o. twice daily Iron deficiency anemia/macrocytic anemia. Will monitor hemoglobin level intermittently. Fecal occult blood pending. Ferrous sulfate 325 mg p.o. daily plus vitamin C 500 mg p.o. daily Coronary artery disease. Lipitor 40 mg p.o. nightly plus Plavix and 5 mg p.o. daily plus metoprolol 25 mg p.o. daily GERD. Protonix 40 mg p.o. daily Hyperlipidemia. Lipitor 40 mg p.o. nightly Hypertension. Toprol-XL 25 mg p.o. daily plus hydralazine 25 mg p.o. 3 times daily plus Lasix 10 mg IV every 12 hours Anxiety History of cholelithiasis History of nephrolithiasis Obstructive sleep apnea. CPAP/BiPAP: Okay to use home device and/or pressure when sleeping for obstructive sleep apnea if she uses CPAP/BiPAP at home DVT prophylaxis. Lovenox 30 mg subcutaneously every 12 hours Disposition: Guarded prognosis END OF DOCTOR ANGELICA PROGRESS NOTE
[2020-10-30] MEDS: oxyCODONE 5 MG Tab PO SCH (08:52)
[2020-10-30] MEDS: Enoxaparin 30 MG/0.3 ML Syringe SUBCUT SCH ×2 (09:36→20:54)
[2020-10-30] MEDS: Ascorbic Acid 500 MG Tab PO SCH (09:37)
[2020-10-30] MEDS: Metoprolol Succinate 50 MG Tab.ER PO SCH (09:37)
[2020-10-30] MEDS: Clopidogrel 75 MG Tab PO SCH (09:38)
[2020-10-30] MEDS: Furosemide 20 MG/2 ML VIAL IVPUSH SCH ×2 (09:38→15:11)
[2020-10-30] MEDS: Theophylline 200 MG Cap.ER PO SCH ×2 (09:38→20:50)
[2020-10-30] MEDS: Ferrous Sulfate 325 MG Tab PO SCH ×2 (09:38→17:27)
[2020-10-30] MEDS: levETIRAcetam 500 MG Tab PO SCH ×2 (09:38→20:50)
[2020-10-30] MEDS: Sodium Chloride 0.9% 10 ML Syringe FLUSH PRN ×6 (20:35→23:22)
[2020-10-30] MEDS: REMDESIVIR 100 MG in Sodium Chloride 0.9% 100 ML IV SCH (20:48)
[2020-10-30] MEDS: Loratadine 10 MG Tab PO SCH (20:50)
[2020-10-30] MEDS: Montelukast 10 MG Tab PO SCH (20:51)
[2020-10-30] MEDS: atorvaSTATin 20 MG Tab PO SCH (20:51)
[2020-10-30] MEDS: Levofloxacin/Dextrose 5%-Water 500 MG in Premix Bag 1 BAG IV SCH (22:10)
[2020-10-31] MEDS: Albuterol 6.7 GM Inhaler INH SCH ×6 (01:29→21:12)
[2020-10-31] MEDS: Sodium Chloride 0.9% 10 ML Syringe FLUSH PRN ×8 (04:29→23:35)
[2020-10-31] MEDS: methylPREDNISolone Sodium Succinate 40 MG/1 ML SDV IVPUSH SCH ×3 (04:30→22:06)
[2020-10-31] MEDS: hydrALAZINE 25 MG Tab PO SCH ×3 (05:15→22:40)
[2020-10-31] MEDS: Pantoprazole 40 MG Tab.CR PO SCH (05:16)
[2020-10-31] MEDS: oxyCODONE 5 MG Tab PO PRN (06:50)
--- NOTE | 2020-10-31 07:19 | PCM.SN.2 ---
- Free Text/Narrative Note: START OF DOCTOR ANGELICA PROGRESS NOTE Subjective: The patient complains of back pain. The patient in case her respiratory status has improved minimally compared to my encounter with her on 07/02/2020. She currently rates her respiratory status is a 6 out of 10 at times her baseline. Overnight she indicated that she felt cold but denies rigors. She denies fever, nausea, vomiting, cough, wheeze, abdominal pain, chest pain, or any other constitutional complaints. I explained to the patient her current medical condition and plan of care and have answered all of her questions Objective: General: -Alert -No acute distress -Moderately dyspnea -Moderately tachypnea Heart: -Regular rate -Regular rhythm -No murmurs -No gallops -No rubs Lungs: -No wheeze -No rhonchi -Left basilar rales present -Distant sounds bilaterally Abdomen: -Normal bowel sounds in all four quadrants -No rebound -No guarding -No tenderness Extremities: -2/4 pulse in all four extremities -No clubbing -No cyanosis -No edema Additional Details / Additional Findings / Exceptions / Miscellaneous: Pertinent Laboratory Results / Pertinent Radiology Results / Pertinent Diagnostic Results / Pertinent Vital Signs: Respirations 24, 9 9% on 10 L Assessment / Plan: Dyspnea, secondary to 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 DuoNeb every 4 hours + Medrol 80 mg IV every 8 hours to singular 10 mg p.o. nightly plus Claritin 10 mg p.o. nightly plus Levaquin 500 mg IV daily plus theophylline 200 mg p.o. twice daily COVID-19 positive. Proventil HFA: 90 mcg/spray: 2 puffs every 4 hours while awake plus random severe 100 mg IV daily plus incentive spirometer to be used 10 times hourly while awake Grade 1 diastolic dysfunction. Lasix 10 mg IV every 12 hours plus Toprol-XL 25 mg p.o. daily. Check strict I's/O. Daily weight. History of cerebral aneurysm, status post coiling History of CVA. Lipitor 40 mg p.o. nightly plus Plavix and 5 mg p.o. daily Osteoarthritis Osteoporosis Chronic pain. Oxycodone 5 mg p.o. daily Constipation. Senna/Colace: 8.6/50 m tabs p.o. twice daily History of seizure. Keppra 500 mg p.o. twice daily Iron deficiency anemia/macrocytic anemia. Will monitor hemoglobin level intermittently. Fecal occult blood positive for which patient will need follow- up with gastroenterology upon discharge. Ferrous sulfate 325 mg p.o. daily plus vitamin C 500 mg p.o. daily Coronary artery disease. Lipitor 40 mg p.o. nightly plus Plavix and 5 mg p.o. daily plus metoprolol 25 mg p.o. daily GERD. Protonix 40 mg p.o. daily Hyperlipidemia. Lipitor 40 mg p.o. nightly Hypertension. Toprol-XL 25 mg p.o. daily plus hydralazine 25 mg p.o. 3 times daily plus Lasix 10 mg IV every 12 hours Anxiety History of cholelithiasis History of nephrolithiasis Obstructive sleep apnea. CPAP/BiPAP: Okay to use home device and/or pressure when sleeping for obstructive sleep apnea if she uses CPAP/BiPAP at home DVT prophylaxis. Lovenox 30 mg subcutaneously every 12 hours Disposition: Guarded prognosis END OF DOCTOR ANGELICA PROGRESS NOTE
[2020-10-31] MEDS ORDERED: Zolpidem 5 MG Tab PO PRN (07:50)
[2020-10-31] MEDS: Enoxaparin 30 MG/0.3 ML Syringe SUBCUT SCH ×2 (09:24→21:08)
[2020-10-31] MEDS: Ferrous Sulfate 325 MG Tab PO SCH ×2 (09:25→17:22)
[2020-10-31] MEDS: Clopidogrel 75 MG Tab PO SCH (09:25)
[2020-10-31] MEDS: Theophylline 200 MG Cap.ER PO SCH ×2 (09:25→21:00)
[2020-10-31] MEDS: Ascorbic Acid 500 MG Tab PO SCH (09:25)
[2020-10-31] MEDS: levETIRAcetam 500 MG Tab PO SCH ×2 (09:25→21:00)
[2020-10-31] MEDS: Furosemide 20 MG/2 ML VIAL IVPUSH SCH ×2 (09:26→13:47)
[2020-10-31] MEDS: oxyCODONE 5 MG Tab PO SCH (09:27)
[2020-10-31] MEDS: Metoprolol Succinate 50 MG Tab.ER PO SCH (09:28)
[2020-10-31] MEDS: Levofloxacin/Dextrose 5%-Water 500 MG in Premix Bag 1 BAG IV SCH (20:53)
[2020-10-31] MEDS: Loratadine 10 MG Tab PO SCH (21:00)
[2020-10-31] MEDS: atorvaSTATin 20 MG Tab PO SCH (21:01)
[2020-10-31] MEDS: Montelukast 10 MG Tab PO SCH (21:01)
[2020-10-31] MEDS: REMDESIVIR 100 MG in Sodium Chloride 0.9% 100 ML IV SCH (22:29)
[2020-11-01] MEDS: Albuterol 6.7 GM Inhaler INH SCH ×6 (00:38→20:20)
[2020-11-01] MEDS: Sodium Chloride 0.9% 10 ML Syringe FLUSH PRN ×7 (04:21→23:29)
[2020-11-01] MEDS: methylPREDNISolone Sodium Succinate 40 MG/1 ML SDV IVPUSH SCH ×3 (04:22→20:34)
[2020-11-01] MEDS: Pantoprazole 40 MG Tab.CR PO SCH (06:12)
[2020-11-01] MEDS: hydrALAZINE 25 MG Tab PO SCH ×3 (06:12→22:24)
--- NOTE | 2020-11-01 07:19 | PCM.SN.2 ---
- Free Text/Narrative Note: START OF DOCTOR ANGELICA PROGRESS NOTE Subjective: The patient indicates that her respiratory status is unchanged compared to my encounter with her on October 31, 2020. She currently rates her respiratory status as a 5 out of 10 at times her baseline. Overnight she denies fever, rigors, nausea, vomiting, cough, wheeze, abdominal pain, chest pain. I explained to the patient her current medical condition and plan of care and I have answered all of her questions Objective: General: -Alert -No acute distress -No dyspnea dyspnea -Moderately tachypnea Heart: -Regular rate -Regular rhythm -No murmurs -No gallops -No rubs Lungs: -No wheeze -No rhonchi -Left basilar rales present -Distant sounds bilaterally Abdomen: -Normal bowel sounds in all four quadrants -No rebound -No guarding -No tenderness Extremities: -2/4 pulse in all four extremities -No clubbing -No cyanosis -No edema Additional Details / Additional Findings / Exceptions / Miscellaneous: Pertinent Laboratory Results / Pertinent Radiology Results / Pertinent Diagnostic Results / Pertinent Vital Signs: Respirations 24, patient saturating 96% on 6 L Assessment / Plan: Dyspnea, secondary to 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 DuoNeb every 4 hours + Medrol 80 mg IV every 8 hours to singular 10 mg p.o. nightly plus Claritin 10 mg p.o. nightly plus Levaquin 500 mg IV daily plus theophylline 200 mg p.o. twice daily COVID-19 positive. Proventil HFA: 90 mcg/spray: 2 puffs every 4 hours while awake plus random severe 100 mg IV daily plus incentive spirometer to be used 10 times hourly while awake Grade 1 diastolic dysfunction. Lasix 10 mg IV every 12 hours plus Toprol-XL 25 mg p.o. daily. Check strict I's/O. Daily weight. History of cerebral aneurysm, status post coiling History of CVA. Lipitor 40 mg p.o. nightly plus Plavix and 5 mg p.o. daily Osteoarthritis Osteoporosis Chronic pain. Oxycodone 5 mg p.o. daily Constipation. Senna/Colace: 8.6/50 m tabs p.o. twice daily History of seizure. Keppra 500 mg p.o. twice daily Iron deficiency anemia/macrocytic anemia. Will monitor hemoglobin level intermittently. Fecal occult blood positive for which patient will need follow- up with gastroenterology upon discharge. Ferrous sulfate 325 mg p.o. daily plus vitamin C 500 mg p.o. daily Coronary artery disease. Lipitor 40 mg p.o. nightly plus Plavix and 5 mg p.o. daily plus metoprolol 25 mg p.o. daily GERD. Protonix 40 mg p.o. daily Hyperlipidemia. Lipitor 40 mg p.o. nightly Hypertension. Toprol-XL 25 mg p.o. daily plus hydralazine 25 mg p.o. 3 times daily plus Lasix 10 mg IV every 12 hours Anxiety History of cholelithiasis History of nephrolithiasis Obstructive sleep apnea. CPAP/BiPAP: Okay to use home device and/or pressure when sleeping for obstructive sleep apnea if she uses CPAP/BiPAP at home DVT prophylaxis. Lovenox 30 mg subcutaneously every 12 hours Disposition: END OF DOCTOR EMAMIS PROGRESS NOTE
[2020-11-01] MEDS: Ascorbic Acid 500 MG Tab PO SCH (08:35)
[2020-11-01] MEDS: Clopidogrel 75 MG Tab PO SCH (08:35)
[2020-11-01] MEDS: Metoprolol Succinate 50 MG Tab.ER PO SCH (08:35)
[2020-11-01] MEDS: Ferrous Sulfate 325 MG Tab PO SCH ×2 (08:35→17:17)
[2020-11-01] MEDS: levETIRAcetam 500 MG Tab PO SCH ×2 (08:35→20:13)
[2020-11-01] MEDS: Theophylline 200 MG Cap.ER PO SCH ×2 (08:35→20:12)
[2020-11-01] MEDS: oxyCODONE 5 MG Tab PO SCH (08:36)
[2020-11-01] MEDS: Enoxaparin 30 MG/0.3 ML Syringe SUBCUT SCH ×2 (08:36→20:17)
[2020-11-01] MEDS: Furosemide 20 MG/2 ML VIAL IVPUSH SCH ×2 (08:38→13:38)
[2020-11-01] MEDS ORDERED: Famotidine 20 MG Tab PO PRN (11:04)
[2020-11-01] MEDS: Montelukast 10 MG Tab PO SCH (20:12)
[2020-11-01] MEDS: atorvaSTATin 20 MG Tab PO SCH (20:12)
[2020-11-01] MEDS: Loratadine 10 MG Tab PO SCH (20:13)
[2020-11-01] MEDS: Levofloxacin/Dextrose 5%-Water 500 MG in Premix Bag 1 BAG IV SCH (20:38)
[2020-11-01] MEDS: REMDESIVIR 100 MG in Sodium Chloride 0.9% 100 ML IV SCH (22:12)
[2020-11-02] MEDS: Albuterol 6.7 GM Inhaler INH SCH ×7 (03:28→21:42)
[2020-11-02] MEDS: Sodium Chloride 0.9% 10 ML Syringe FLUSH PRN ×2 (03:29→09:00)
[2020-11-02] MEDS: methylPREDNISolone Sodium Succinate 40 MG/1 ML SDV IVPUSH SCH ×3 (03:29→21:35)
[2020-11-02] MEDS: Pantoprazole 40 MG Tab.CR PO SCH (05:41)
[2020-11-02] MEDS: hydrALAZINE 25 MG Tab PO SCH ×3 (05:41→21:35)
[2020-11-02] MEDS: oxyCODONE 5 MG Tab PO PRN (05:42)
--- NOTE | 2020-11-02 08:01 | PCM.SN.2 ---
- Free Text/Narrative Note: START OF DOCTOR ANGELICA PROGRESS NOTE Subjective: The patient Oswald that her respiratory status has greatly improved compared to my encounter with her on November 01, 2020. She complains of back pain but she states this is chronic. She states that she has occasional cough which is nonproductive. Overnight she has fever, rigors, nausea, vomiting, wheeze, abdominal pain, chest pain, or any other constitutional complaints. I explained to the patient her current medical condition and plan of care and I have answe red all her questions Objective: General: -Alert -No acute distress -No dyspnea dyspnea -Moderately tachypnea Heart: -Regular rate -Regular rhythm -No murmurs -No gallops -No rubs Lungs: -No wheeze -No rhonchi -Left basilar rales present -Distant sounds bilaterally Abdomen: -Normal bowel sounds in all four quadrants -No rebound -No guarding -No tenderness Extremities: -2/4 pulse in all four extremities -No clubbing -No cyanosis -No edema Additional Details / Additional Findings / Exceptions / Miscellaneous: Pertinent Laboratory Results / Pertinent Radiology Results / Pertinent Gila gnostic Results / Pertinent Vital Signs: Respirations 28. 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 DuoNeb every 4 hours + Medrol 40 mg IV every 8 hours to singular 10 mg p.o. nightly plus Claritin 10 mg p.o. nightly plus Levaquin 500 mg IV daily plus theophylline 200 mg p.o. twice daily COVID-19 positive. Proventil HFA: 90 mcg/spray: 2 puffs every 4 hours while awake plus random severe 100 mg IV daily plus incentive spirometer to be used 10 times hourly while awake Grade 1 diastolic dysfunction. Lasix 10 mg IV every 12 hours plus Toprol-XL 25 mg p.o. daily. Check strict I's/O. Daily weight. History of cerebral aneurysm, status post coiling History of CVA. Lipitor 40 mg p.o. nightly plus Plavix and 5 mg p.o. daily Osteoarthritis Osteoporosis Chronic pain. Oxycodone 5 mg p.o. daily Constipation. Senna/Colace: 8.6/50 m tabs p.o. twice daily History of seizure. Keppra 500 mg p.o. twice daily Iron deficiency anemia/macrocytic anemia. Will monitor hemoglobin level intermittently. Fecal occult blood positive for which patient will need follow- up with gastroenterology upon discharge. Ferrous sulfate 325 mg p.o. daily plus vitamin C 500 mg p.o. daily Coronary artery disease. Lipitor 40 mg p.o. nightly plus Plavix and 5 mg p.o. daily plus metoprolol 25 mg p.o. daily GERD. Protonix 40 mg p.o. daily Hyperlipidemia. Lipitor 40 mg p.o. nightly Hypertension. Toprol-XL 25 mg p.o. daily plus hydralazine 25 mg p.o. 3 times daily plus Lasix 10 mg IV every 12 hours Anxiety History of cholelithiasis History of nephrolithiasis Obstructive sleep apnea. CPAP/BiPAP: Okay to use home device and/or pressure when sleeping for obstructive sleep apnea if she uses CPAP/BiPAP at home DVT prophylaxis. Lovenox 30 mg subcutaneously every 12 hours Disposition: Anticipate discharge within 48 hours END OF DOCTOR ANGELICA PROGRESS NOTE
[2020-11-02] MEDS: Ascorbic Acid 500 MG Tab PO SCH (08:52)
[2020-11-02] MEDS: Theophylline 200 MG Cap.ER PO SCH ×2 (08:52→20:24)
[2020-11-02] MEDS: Clopidogrel 75 MG Tab PO SCH (08:52)
[2020-11-02] MEDS: Metoprolol Succinate 50 MG Tab.ER PO SCH (08:53)
[2020-11-02] MEDS: levETIRAcetam 500 MG Tab PO SCH ×2 (08:53→20:24)
[2020-11-02] MEDS: Ferrous Sulfate 325 MG Tab PO SCH ×2 (08:54→17:53)
[2020-11-02] MEDS: oxyCODONE 5 MG Tab PO SCH (08:55)
[2020-11-02] MEDS: Furosemide 20 MG/2 ML VIAL IVPUSH SCH ×2 (08:59→15:03)
[2020-11-02] MEDS: Enoxaparin 30 MG/0.3 ML Syringe SUBCUT SCH ×2 (09:01→20:24)
[2020-11-02] MEDS: Levofloxacin/Dextrose 5%-Water 500 MG in Premix Bag 1 BAG IV SCH (20:23)
[2020-11-02] MEDS: Loratadine 10 MG Tab PO SCH (20:24)
[2020-11-02] MEDS: Montelukast 10 MG Tab PO SCH (20:24)
[2020-11-02] MEDS: atorvaSTATin 20 MG Tab PO SCH (20:24)
[2020-11-03] MEDS: Albuterol 6.7 GM Inhaler INH SCH ×6 (01:10→21:06)
[2020-11-03] MEDS: Pantoprazole 40 MG Tab.CR PO SCH (06:21)
[2020-11-03] MEDS: hydrALAZINE 25 MG Tab PO SCH ×3 (06:21→21:08)
[2020-11-03] MEDS: methylPREDNISolone Sodium Succinate 40 MG/1 ML SDV IVPUSH SCH ×3 (06:21→21:09)
--- NOTE | 2020-11-03 07:21 | PCM.PN ---
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 She currently rates her respiratory s tatus as a 7 out of 10 of 10 is her baseline. Overnight she states that she felt cold however she denies rigors. The patient has fever, nausea, vomiting, wheeze, abdominal pain, chest pain. She states that she has occasional cough which is nonproductive. I explained to the patient her current medical condition and plan of care and I have answered all of her questions - Review of Systems General: Reports: No Symptoms HEENT: Reports: No Symptoms Pulmonary: Reports: Shortness of Breath Cardiovascular: Reports: No Symptoms Gastrointestinal: Reports: No Symptoms Genitourinary: Reports: No Symptoms Musculoskeletal: Reports: No Symptoms Skin: Reports: No Symptoms Neurological: Reports: No Symptoms Psychiatric: Reports: No Symptoms - Patient Data Vitals - Most Recent: Last Vital Signs Temp 96.4 F L 11/03/20 04:00 Pulse 87 11/03/20 04:00 Resp 26 H 11/03/20 04:00 BP 133/69 11/03/20 06:21 Pulse Ox 89 L 11/03/20 04:00 Weight - Most Recent: 96 lb 4.8 oz I&O - Last 24 Hours: Intake & Output 11/02/20 11/03/20 11/03/20 22:59 06:59 14:59 Intake Total 750 150 Balance 750 150 Lab Results Last 24 Hours: Laboratory Results - last 24 hr 11/02/20 Range/Units 11:44 SARS-CoV-2 RNA (DANIA) Negative (NEGATIVE) Duc Results Last 24 Hours: Microbiology 10/28/20 17:38 Aerobic Blood Culture - Final Blood - Arm, Left NO GROWTH AFTER 5 DAYS Anaerobic Blood Culture - Final NO GROWTH AFTER 5 DAYS 10/28/20 17:34 Aerobic Blood Culture - Final Blood - Arm, Right NO GROWTH AFTER 5 DAYS Anaerobic Blood Culture - Final NO GROWTH AFTER 5 DAYS Med Orders - Current: Current Medications Acetaminophen (Acetaminophen 325 Mg Tab) 650 mg PO Q4H PRN PRN Reason: Pain (Mild 1-3)/fever Last Admin: 10/31/20 13:48 Dose: 650 mg Documented by: Albuterol (Albuterol 6.7 Gm Inhaler) 0 gm INH Q4H [facility] Last Admin: 11/03/20 04:05 Dose: 2 puff Documented by: Ascorbic Acid (Ascorbic Acid 500 Mg Tab) 500 mg PO DAILY [facility] Last Admin: 11/02/20 08:52 Dose: 500 mg Documented by: Atorvastatin Calcium (Atorvastatin 20 Mg Tab) 40 mg PO BEDTIME [facility] Last Admin: 11/02/20 20:24 Dose: 40 mg Documented by: Clopidogrel Bisulfate (Clopidogrel 75 Mg Tab) 75 mg PO DAILY [facility] Last Admin: 11/02/20 08:52 Dose: 75 mg Documented by: Enoxaparin Sodium (Enoxaparin 30 Mg/0.3 Ml Syringe) 30 mg SUBCUT Q12HR [facility] Last Admin: 11/02/20 20:24 Dose: 30 mg Documented by: Famotidine (Famotidine 20 Mg Tab) 20 mg PO Q12HR PRN PRN Reason: Dyspepsia Last Admin: 11/01/20 11:26 Dose: 20 mg Documented by: Ferrous Sulfate (Ferrous Sulfate 325 Mg Tab) 325 mg PO BIDMEALS [facility] Last Admin: 11/02/20 17:53 Dose: 325 mg Documented by: Furosemide (Furosemide 20 Mg/2 Ml Vial) 10 mg IVPUSH BIDDIURETIC [facility] Last Admin: 11/02/20 15:03 Dose: 10 mg Documented by: Hydralazine HCl (Hydralazine 25 Mg Tab) 25 mg PO Q8HR [facility] Last Admin: 11/03/20 06:21 Dose: 25 mg Documented by: Levofloxacin/Dextrose 500 mg/ (Premix) 100 mls @ 100 mls/hr IV Q24H [facility] Last Admin: 11/02/20 20:23 Dose: 100 mls/hr Documented by: Levetiracetam (Levetiracetam 500 Mg Tab) 500 mg PO BID [facility] Last Admin: 11/02/20 20:24 Dose: 500 mg Documented by: Loratadine (Loratadine 10 Mg Tab) 10 mg PO BEDTIME [facility] Last Admin: 11/02/20 20:24 Dose: 10 mg Documented by: Methylprednisolone Sodium Succinate (Methylprednisolone Sodium Succinate 40 Mg/1 Ml Sdv) 40 mg IVPUSH Q8HR [facility] Last Admin: 11/03/20 06:21 Dose: 40 mg Documented by: Metoprolol Succinate (Metoprolol Succinate 50 Mg Tab.Er) 50 mg PO DAILY [facility] Last Admin: 11/02/20 08:53 Dose: 50 mg Documented by: Montelukast Sodium (Montelukast 10 Mg Tab) 10 mg PO BEDTIME [facility] Last Admin: 11/02/20 20:24 Dose: 10 mg Documented by: Ondansetron HCl (Ondansetron 4 Mg/2 Ml Sdv) 4 mg IVPUSH Q4H PRN PRN Reason: Nausea/Vomiting Oxycodone HCl (Oxycodone 5 Mg Tab) 5 mg PO DAILY [facility] Last Admin: 11/02/20 08:55 Dose: 5 mg Documented by: Oxycodone HCl (Oxycodone 5 Mg Tab) 5 mg PO TID PRN PRN Reason: Pain (severe 7-10) Last Admin: 11/02/20 05:42 Dose: 5 mg Documented by: Pantoprazole Sodium (Pantoprazole 40 Mg Tab.Cr) 40 mg PO ACBREAKFAST [facility] Last Admin: 11/03/20 06:21 Dose: 40 mg Documented by: Senna/Docusate Sodium (Docusate Sodium/Sennosides 50-8.6 Mg Tab) 2 tab PO BID [facility] Last Admin: 11/02/20 20:24 Dose: 2 tab Documented by: Sodium Chloride (Sodium Chloride 0.9% 10 Ml Syringe) 10 ml FLUSH ASDIRECTED PRN PRN Reason: Keep Vein Open Last Admin: 11/02/20 09:00 Dose: 10 ml Documented by: Theophylline (Theophylline 200 Mg Cap.Er) 200 mg PO Q12H [facility] Last Admin: 11/02/20 20:24 Dose: 200 mg Documented by: Zolpidem Tartrate (Zolpidem 5 Mg Tab) 5 mg PO BEDTIME PRN PRN Reason: Insomnia Last Admin: 10/31/20 22:40 Dose: 5 mg Documented by: Discontinued Medications Albuterol/Ipratropium (Albuterol/Ipratropium 3.0-0.5 Mg/3 Ml Neb Soln) 3 ml NEB ONETIME ONE Stop: 10/28/20 16:42 Last Admin: 10/28/20 16:55 Dose: 3 ml Documented by: Albuterol/Ipratropium (Albuterol/Ipratropium 3.0-0.5 Mg/3 Ml Neb Soln) 3 ml NEB Q4HRRT [facility] Enoxaparin Sodium (Enoxaparin 40 Mg/0.4 Ml Syringe) 40 mg SUBCUT Q24H [facility] Last Admin: 10/28/20 21:07 Dose: 40 mg Documented by: Remdesivir 100 mg/ Sodium (Chloride) 100 mls @ 100 mls/hr IV Q24H [facility] Stop: 11/01/20 21:59 Last Infusion: 11/01/20 23:31 Dose: Infused Documented by: Remdesivir 200 mg/ Sodium (Chloride) 250 mls @ 250 mls/hr IV ONETIME ONE Stop: 10/28/20 21:59 Last Admin: 10/28/20 22:35 Dose: 250 mls/hr Documented by: Methylprednisolone Sodium Succinate (Methylprednisolone Sodium Succinate 125 Mg/2 Ml Sdv) 62.5 mg IVPUSH ONETIME ONE Stop: 10/28/20 16:42 Last Admin: 10/28/20 16:57 Dose: 62.5 mg Documented by: Methylprednisolone Sodium Succinate (Methylprednisolone Sodium Succinate 40 Mg/1 Ml Sdv) 80 mg IVPUSH Q8H [facility] Last Admin: 11/02/20 03:29 Dose: 80 mg Documented by: - Exam General: Alert, Oriented HEENT: Pupils Equal, Pupils Reactive, EOMI, Mucous Membr. Moist/[place] Neck: Supple Lungs: Decreased Breath Sounds Cardiovascular: Regular Rate, Regular Rhythm GI/Abdominal Exam: Normal Bowel Sounds, Soft, Non-Tender, No Organomegaly, No Distention, No Abnormal Bruit, No Mass, Pelvis Stable Extremities: Normal Inspection, Normal Range of Motion, Non-Tender, No Pedal Edema, Normal Capillary Refill Wound/Incisions: Healing Well Neurological: No New Focal Deficit Psy/Mental Status: Alert, Normal Affect, Normal Mood - Patient Data Lab Results Last 24 hrs: Laboratory Results - last 24 hr 11/02/20 Range/Units 11:44 SARS-CoV-2 RNA (DANIA) Negative (NEGATIVE) Result Diagrams: 10/29/20 06:00 10/30/20 06:05 Duc Results Last 24 hrs: Microbiology 10/28/20 17:38 Aerobic Blood Culture - Final Blood - Arm, Left NO GROWTH AFTER 5 DAYS Anaerobic Blood Culture - Final NO GROWTH AFTER 5 DAYS 10/28/20 17:34 Aerobic Blood Culture - Final Blood - Arm, Right NO GROWTH AFTER 5 DAYS Anaerobic Blood Culture - Final NO GROWTH AFTER 5 DAYS Sepsis Event Note - Evaluation Sepsis Screening Result: No Definite Risk - Focused Exam Vital Signs: Vital Signs Temp Pulse Resp BP BP Pulse Ox 11/03/20 06:21 133/69 11/03/20 04:00 96.4 F L 87 26 H 133/69 89 L 11/03/20 00:00 96.8 F L 90 26 H 130/70 91 L 11/02/20 21:35 114/62 11/02/20 20:00 97.6 F 88 26 H 112/62 92 L - Problem List Review Problem List Initiated/Reviewed/Updated: Yes - My Orders Last 24 Hours: My Active Orders 11/02/20 14:00 methylPREDNISolone Sod Succ [Solu-MEDROL] 40 mg IVPUSH Q8HR - Plan Plan:: Dyspnea, secondary to exacerbation of pulmonary fibrosis/COPD/severe interstit ial fibrosis for which the patient is O2 dependent 3 L. DuoNeb every 4 hours + Medrol 40 mg IV every 8 hours to singular 10 mg p.o. nightly plus Claritin 10 mg p.o. nightly plus Levaquin 500 mg IV daily plus theophylline 200 mg p.o. twice daily COVID-19 positive. Proventil HFA: 90 mcg/spray: 2 puffs every 4 hours while awake plus random severe 100 mg IV daily plus incentive spirometer to be used 10 times hourly while awake Grade 1 diastolic dysfunction. Lasix 10 mg IV every 12 hours plus Toprol-XL 25 mg p.o. daily. Check strict I's/O. Daily weight. History of cerebral aneurysm, status post coiling History of CVA. Lipitor 40 mg p.o. nightly plus Plavix and 5 mg p.o. daily Osteoarthritis Osteoporosis Chronic pain. Oxycodone 5 mg p.o. daily Constipation. Senna/Colace: 8.6/50 m tabs p.o. twice daily History of seizure. Keppra 500 mg p.o. twice daily Iron deficiency anemia/macrocytic anemia. Will monitor hemoglobin level intermittently. Fecal occult blood positive for which patient will need follow- up with gastroenterology upon discharge. Ferrous sulfate 325 mg p.o. daily plus vitamin C 500 mg p.o. daily Coronary artery disease. Lipitor 40 mg p.o. nightly plus Plavix and 5 mg p.o. daily plus metoprolol 25 mg p.o. daily GERD. Protonix 40 mg p.o. daily Hyperlipidemia. Lipitor 40 mg p.o. nightly Hypertension. Toprol-XL 25 mg p.o. daily plus hydralazine 25 mg p.o. 3 times daily plus Lasix 10 mg IV every 12 hours Anxiety History of cholelithiasis History of nephrolithiasis Obstructive sleep apnea. CPAP/BiPAP: Okay to use home device and/or pressure when sleeping for obstructive sleep apnea if she uses CPAP/BiPAP at home DVT prophylaxis. Lovenox 30 mg subcutaneously every 12 hours
[2020-11-03] MEDS: oxyCODONE 5 MG Tab PO SCH (08:42)
[2020-11-03] MEDS: Enoxaparin 30 MG/0.3 ML Syringe SUBCUT SCH ×2 (08:42→21:05)
[2020-11-03] MEDS: Ascorbic Acid 500 MG Tab PO SCH (08:42)
[2020-11-03] MEDS: levETIRAcetam 500 MG Tab PO SCH ×2 (08:43→21:05)
[2020-11-03] MEDS: Clopidogrel 75 MG Tab PO SCH (08:43)
[2020-11-03] MEDS: Theophylline 200 MG Cap.ER PO SCH ×2 (08:43→19:37)
[2020-11-03] MEDS: Furosemide 20 MG/2 ML VIAL IVPUSH SCH ×2 (08:43→15:04)
[2020-11-03] MEDS: Ferrous Sulfate 325 MG Tab PO SCH ×2 (08:43→17:45)
[2020-11-03] MEDS: Metoprolol Succinate 50 MG Tab.ER PO SCH (08:44)
[2020-11-03] MEDS: Levofloxacin/Dextrose 5%-Water 500 MG in Premix Bag 1 BAG IV SCH (19:37)
[2020-11-03] MEDS: Sodium Chloride 0.9% 10 ML Syringe FLUSH PRN (20:58)
[2020-11-03] MEDS: atorvaSTATin 20 MG Tab PO SCH (21:05)
[2020-11-03] MEDS: Loratadine 10 MG Tab PO SCH (21:05)
[2020-11-03] MEDS: Montelukast 10 MG Tab PO SCH (21:05)
[2020-11-04] MEDS: Albuterol 6.7 GM Inhaler INH SCH ×6 (01:14→20:36)
[2020-11-04] MEDS ORDERED: hydrALAZINE 25 MG Tab PO ONE (06:00)
[2020-11-04] MEDS ORDERED: methylPREDNISolone Sodium Succinate 40 MG/1 ML SDV IVPUSH ONE (06:00)
[2020-11-04] MEDS ORDERED: Pantoprazole 40 MG Tab.CR PO ONE (06:00)
--- NOTE | 2020-11-04 07:28 | PCM.PN ---
- General Info Date of Service: 11/04/20 Subjective Update: The patient indicates that her respiratory status remains unchanged compared to my encounter with her on November 03, 2020. She currently rates her respiratory status as a 5 out of 10 of 10 is her baseline. Overnight, she denies fever, rigors, nausea, vomiting, cough, wheeze, abdominal pain, chest pain. I explained to the patient her current medical condition and plan of care and I have answered all of her questions. Specifically I explained to the patient that her prospects of her pulmonary function improving or returning to her previous baseline are less likely and I briefly discussed hospice with her for which will provide more information - Review of Systems General: Reports: No Symptoms HEENT: Reports: No Symptoms Pulmonary: Reports: No Symptoms Cardiovascular: Reports: No Symptoms Gastrointestinal: Reports: No Symptoms Genitourinary: Reports: No Symptoms Musculoskeletal: Reports: No Symptoms Skin: Reports: No Symptoms Neurological: Reports: No Symptoms Psychiatric: Reports: No Symptoms - Patient Data Vitals - Most Recent: Last Vital Signs Temp 96.9 F 11/04/20 00:00 Pulse 90 11/04/20 00:00 Resp 26 H 11/04/20 00:00 BP 120/68 11/04/20 00:00 Pulse Ox 89 L 11/04/20 00:00 Weight - Most Recent: 96 lb 4.8 oz I&O - Last 24 Hours: Intake & Output 11/03/20 11/04/20 11/04/20 22:59 06:59 14:59 Intake Total 887 Balance 887 Med Orders - Current: Current Medications Acetaminophen (Acetaminophen 325 Mg Tab) 650 mg PO Q4H PRN PRN Reason: Pain (Mild 1-3)/fever Last Admin: 10/31/20 13:48 Dose: 650 mg Documented by: Albuterol (Albuterol 6.7 Gm Inhaler) 0 gm INH Q4H [facility] Last Admin: 11/04/20 01:14 Dose: 2 puff Documented by: Ascorbic Acid (Ascorbic Acid 500 Mg Tab) 500 mg PO DAILY [facility] Last Admin: 11/03/20 08:42 Dose: 500 mg Documented by: Atorvastatin Calcium (Atorvastatin 20 Mg Tab) 40 mg PO BEDTIME [facility] Last Admin: 11/03/20 21:05 Dose: 40 mg Documented by: Clopidogrel Bisulfate (Clopidogrel 75 Mg Tab) 75 mg PO DAILY [facility] Last Admin: 11/03/20 08:43 Dose: 75 mg Documented by: Enoxaparin Sodium (Enoxaparin 30 Mg/0.3 Ml Syringe) 30 mg SUBCUT Q12HR [facility] Last Admin: 11/03/20 21:05 Dose: 30 mg Documented by: Famotidine (Famotidine 20 Mg Tab) 20 mg PO Q12HR PRN PRN Reason: Dyspepsia Last Admin: 11/01/20 11:26 Dose: 20 mg Documented by: Ferrous Sulfate (Ferrous Sulfate 325 Mg Tab) 325 mg PO BIDMEALS [facility] Last Admin: 11/03/20 17:45 Dose: 325 mg Documented by: Furosemide (Furosemide 20 Mg/2 Ml Vial) 10 mg IVPUSH BIDDIURETIC [facility] Last Admin: 11/03/20 15:04 Dose: 10 mg Documented by: Hydralazine HCl (Hydralazine 25 Mg Tab) 25 mg PO Q8HR [facility] Last Admin: 11/03/20 21:08 Dose: Not Given Documented by: Levofloxacin/Dextrose 500 mg/ (Premix) 100 mls @ 100 mls/hr IV Q24H [facility] Stop: 11/04/20 20:01 Last Infusion: 11/03/20 21:00 Dose: Infused Documented by: Levetiracetam (Levetiracetam 500 Mg Tab) 500 mg PO BID [facility] Last Admin: 11/03/20 21:05 Dose: 500 mg Documented by: Loratadine (Loratadine 10 Mg Tab) 10 mg PO BEDTIME [facility] Last Admin: 11/03/20 21:05 Dose: 10 mg Documented by: Methylprednisolone Sodium Succinate (Methylprednisolone Sodium Succinate 40 Mg/1 Ml Sdv) 40 mg IVPUSH Q8HR [facility] Last Admin: 11/03/20 21:09 Dose: 40 mg Documented by: Metoprolol Succinate (Metoprolol Succinate 50 Mg Tab.Er) 50 mg PO DAILY [facility] Last Admin: 11/03/20 08:44 Dose: 50 mg Documented by: Montelukast Sodium (Montelukast 10 Mg Tab) 10 mg PO BEDTIME [facility] Last Admin: 11/03/20 21:05 Dose: 10 mg Documented by: Ondansetron HCl (Ondansetron 4 Mg/2 Ml Sdv) 4 mg IVPUSH Q4H PRN PRN Reason: Nausea/Vomiting Oxycodone HCl (Oxycodone 5 Mg Tab) 5 mg PO DAILY [facility] Last Admin: 11/03/20 08:42 Dose: 5 mg Documented by: Oxycodone HCl (Oxycodone 5 Mg Tab) 5 mg PO TID PRN PRN Reason: Pain (severe 7-10) Last Admin: 11/02/20 05:42 Dose: 5 mg Documented by: Pantoprazole Sodium (Pantoprazole 40 Mg Tab.Cr) 40 mg PO ACBREAKFAST [facility] Last Admin: 11/03/20 06:21 Dose: 40 mg Documented by: Senna/Docusate Sodium (Docusate Sodium/Sennosides 50-8.6 Mg Tab) 2 tab PO BID [facility] Last Admin: 11/03/20 21:05 Dose: 2 tab Documented by: Sodium Chloride (Sodium Chloride 0.9% 10 Ml Syringe) 10 ml FLUSH ASDIRECTED PRN PRN Reason: Keep Vein Open Last Admin: 11/03/20 20:58 Dose: 10 ml Documented by: Theophylline (Theophylline 200 Mg Cap.Er) 200 mg PO Q12H [facility] Last Admin: 11/03/20 19:37 Dose: 200 mg Documented by: Zolpidem Tartrate (Zolpidem 5 Mg Tab) 5 mg PO BEDTIME PRN PRN Reason: Insomnia Last Admin: 10/31/20 22:40 Dose: 5 mg Documented by: Discontinued Medications Albuterol/Ipratropium (Albuterol/Ipratropium 3.0-0.5 Mg/3 Ml Neb Soln) 3 ml NEB ONETIME ONE Stop: 10/28/20 16:42 Last Admin: 10/28/20 16:55 Dose: 3 ml Documented by: Albuterol/Ipratropium (Albuterol/Ipratropium 3.0-0.5 Mg/3 Ml Neb Soln) 3 ml NEB Q4HRRT [facility] Enoxaparin Sodium (Enoxaparin 40 Mg/0.4 Ml Syringe) 40 mg SUBCUT Q24H [facility] Last Admin: 10/28/20 21:07 Dose: 40 mg Documented by: Remdesivir 100 mg/ Sodium (Chloride) 100 mls @ 100 mls/hr IV Q24H [facility] Stop: 11/01/20 21:59 Last Infusion: 11/01/20 23:31 Dose: Infused Documented by: Remdesivir 200 mg/ Sodium (Chloride) 250 mls @ 250 mls/hr IV ONETIME ONE Stop: 10/28/20 21:59 Last Admin: 10/28/20 22:35 Dose: 250 mls/hr Documented by: Methylprednisolone Sodium Succinate (Methylprednisolone Sodium Succinate 125 Mg/2 Ml Sdv) 62.5 mg IVPUSH ONETIME ONE Stop: 10/28/20 16:42 Last Admin: 10/28/20 16:57 Dose: 62.5 mg Documented by: Methylprednisolone Sodium Succinate (Methylprednisolone Sodium Succinate 40 Mg/1 Ml Sdv) 80 mg IVPUSH Q8H [facility] Last Admin: 11/02/20 03:29 Dose: 80 mg Documented by: - Exam General: Alert, Oriented HEENT: Pupils Equal, Pupils Reactive, EOMI, Mucous Membr. Moist/[place] Neck: Supple Lungs: Decreased Breath Sounds Cardiovascular: Regular Rate, Regular Rhythm GI/Abdominal Exam: Normal Bowel Sounds, Soft, Non-Tender, No Organomegaly, No Distention, No Abnormal Bruit, No Mass, Pelvis Stable Extremities: Normal Inspection, Normal Range of Motion, Non-Tender, No Pedal Edema, Normal Capillary Refill Skin: Warm, Dry, Intact Neurological: No New Focal Deficit Psy/Mental Status: Alert, Normal Affect, Normal Mood - Patient Data Result Diagrams: 10/29/20 06:00 10/30/20 06:05 Sepsis Event Note - Evaluation Sepsis Screening Result: No Definite Risk - Focused Exam Vital Signs: Vital Signs Temp Pulse Resp BP BP Pulse Ox 11/04/20 00:00 96.9 F 90 26 H 120/68 89 L 11/03/20 21:08 93/60 11/03/20 20:00 97.6 F 88 24 H 98/60 91 L - Problem List Review Problem List Initiated/Reviewed/Updated: Yes - Plan Plan:: Dyspnea, secondary to 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 DuoNeb every 4 hours + Medrol 40 mg IV every 8 hours to singular 10 mg p.o. nightly plus Claritin 10 mg p.o. nightly plus Levaquin 500 mg IV daily plus theophylline 200 mg p.o. twice daily COVID-19 positive. Proventil HFA: 90 mcg/spray: 2 puffs every 4 hours while awake plus incentive spirometer to be used 10 times hourly while awake. Patient status post random severe treatment Grade 1 diastolic dysfunction. Lasix 10 mg IV every 12 hours plus Toprol-XL 25 mg p.o. daily. Check strict I's/O. Daily weight. History of cerebral aneurysm, status post coiling History of CVA. Lipitor 40 mg p.o. nightly plus Plavix and 5 mg p.o. daily Osteoarthritis Osteoporosis Chronic pain. Oxycodone 5 mg p.o. daily Constipation. Senna/Colace: 8.6/50 m tabs p.o. twice daily History of seizure. Keppra 500 mg p.o. twice daily Iron deficiency anemia/macrocytic anemia. Will monitor hemoglobin level intermittently. Fecal occult blood positive for which patient will need follow- up with gastroenterology upon discharge. Ferrous sulfate 325 mg p.o. daily plus vitamin C 500 mg p.o. daily Coronary artery disease. Lipitor 40 mg p.o. nightly plus Plavix and 5 mg p.o. daily plus metoprolol 25 mg p.o. daily GERD. Protonix 40 mg p.o. daily Hyperlipidemia. Lipitor 40 mg p.o. nightly Hypertension. Toprol-XL 25 mg p.o. daily plus hydralazine 25 mg p.o. 3 times daily plus Lasix 10 mg IV every 12 hours Anxiety History of cholelithiasis History of nephrolithiasis Obstructive sleep apnea. CPAP/BiPAP: Okay to use home device and/or pressure when sleeping for obstructive sleep apnea if she uses CPAP/BiPAP at home DVT prophylaxis. Lovenox 30 mg subcutaneously daily
[2020-11-04] MEDS: Pantoprazole 40 MG Tab.CR PO SCH (07:51)
[2020-11-04] MEDS: hydrALAZINE 25 MG Tab PO SCH ×3 (07:51→21:58)
[2020-11-04] MEDS: methylPREDNISolone Sodium Succinate 40 MG/1 ML SDV IVPUSH SCH ×3 (07:51→21:56)
[2020-11-04] MEDS: Ascorbic Acid 500 MG Tab PO SCH (08:47)
[2020-11-04] MEDS: Theophylline 200 MG Cap.ER PO SCH ×2 (08:47→20:34)
[2020-11-04] MEDS: Clopidogrel 75 MG Tab PO SCH (08:48)
[2020-11-04] MEDS: levETIRAcetam 500 MG Tab PO SCH ×2 (08:48→20:35)
[2020-11-04] MEDS: Ferrous Sulfate 325 MG Tab PO SCH ×2 (08:48→18:01)
[2020-11-04] MEDS: Metoprolol Succinate 50 MG Tab.ER PO SCH (08:49)
[2020-11-04] MEDS: oxyCODONE 5 MG Tab PO SCH (08:49)
[2020-11-04] MEDS: Furosemide 20 MG/2 ML VIAL IVPUSH SCH ×2 (08:50→14:06)
[2020-11-04] MEDS: Enoxaparin 30 MG/0.3 ML Syringe SUBCUT SCH (08:51)
[2020-11-04] MEDS: Sodium Chloride 0.9% 10 ML Syringe FLUSH PRN ×2 (08:51→19:57)
[2020-11-04] MEDS: oxyCODONE 5 MG Tab PO PRN (14:05)
[2020-11-04] MEDS: Levofloxacin/Dextrose 5%-Water 500 MG in Premix Bag 1 BAG IV SCH (19:57)
[2020-11-04] MEDS: Montelukast 10 MG Tab PO SCH (20:35)
[2020-11-04] MEDS: atorvaSTATin 20 MG Tab PO SCH (20:35)
[2020-11-04] MEDS: Loratadine 10 MG Tab PO SCH (20:35)
[2020-11-05] MEDS: Albuterol 6.7 GM Inhaler INH SCH ×3 (03:14→09:13)
[2020-11-05] MEDS: Pantoprazole 40 MG Tab.CR PO SCH (05:56)
[2020-11-05] MEDS: hydrALAZINE 25 MG Tab PO SCH (05:56)
[2020-11-05] MEDS: oxyCODONE 5 MG Tab PO PRN (06:01)
[2020-11-05] MEDS: methylPREDNISolone Sodium Succinate 40 MG/1 ML SDV IVPUSH SCH (06:02)
--- NOTE | 2020-11-05 07:44 | PCM.PN ---
- General Info Date of Service: 11/05/20 Subjective Update: Patient complains of back pain and of a dry mouth. She did get that her respiratory status is pre much unchanged compared to my encounter with her on November 04, 2020. She currently rates her respiratory status is a 6 out of 10 at times her baseline. Overnight she denies fever, rigors, nausea, vomiting, cough, wheeze, abdominal pain, chest pain. I explained to the patient her current medical condition and plan of care and I have answered all of her questions - Review of Systems General: Reports: No Symptoms HEENT: Reports: No Symptoms Pulmonary: Reports: Shortness of Breath Cardiovascular: Reports: No Symptoms Gastrointestinal: Reports: No Symptoms Genitourinary: Reports: No Symptoms Musculoskeletal: Reports: Back Pain Skin: Reports: No Symptoms Neurological: Reports: No Symptoms Psychiatric: Reports: No Symptoms - Patient Data Vitals - Most Recent: Last Vital Signs Temp 98.2 F 11/05/20 04:00 Pulse 78 11/05/20 04:00 Resp 24 H 11/05/20 04:00 BP 113/64 11/05/20 05:56 Pulse Ox 93 L 11/05/20 04:00 Weight - Most Recent: 96 lb 9.6 oz I&O - Last 24 Hours: Intake & Output 11/04/20 11/05/20 11/05/20 22:59 06:59 14:59 Intake Total 250 150 Balance 250 150 Med Orders - Current: Current Medications Acetaminophen (Acetaminophen 325 Mg Tab) 650 mg PO Q4H PRN PRN Reason: Pain (Mild 1-3)/fever Last Admin: 10/31/20 13:48 Dose: 650 mg Documented by: Albuterol (Albuterol 6.7 Gm Inhaler) 0 gm INH Q4H [facility] Last Admin: 11/05/20 05:58 Dose: 2 puff Documented by: Ascorbic Acid (Ascorbic Acid 500 Mg Tab) 500 mg PO DAILY [facility] Last Admin: 11/04/20 08:47 Dose: 500 mg Documented by: Atorvastatin Calcium (Atorvastatin 20 Mg Tab) 40 mg PO BEDTIME [facility] Last Admin: 11/04/20 20:35 Dose: 40 mg Documented by: Clopidogrel Bisulfate (Clopidogrel 75 Mg Tab) 75 mg PO DAILY [facility] Last Admin: 11/04/20 08:48 Dose: 75 mg Documented by: Enoxaparin Sodium (Enoxaparin 30 Mg/0.3 Ml Syringe) 30 mg SUBCUT DAILY [facility] Last Admin: 11/04/20 08:51 Dose: 30 mg Documented by: Famotidine (Famotidine 20 Mg Tab) 20 mg PO Q12HR PRN PRN Reason: Dyspepsia Last Admin: 11/01/20 11:26 Dose: 20 mg Documented by: Ferrous Sulfate (Ferrous Sulfate 325 Mg Tab) 325 mg PO BIDMEALS [facility] Last Admin: 11/04/20 18:01 Dose: 325 mg Documented by: Furosemide (Furosemide 20 Mg/2 Ml Vial) 10 mg IVPUSH BIDDIURETIC [facility] Last Admin: 11/04/20 14:06 Dose: 10 mg Documented by: Hydralazine HCl (Hydralazine 25 Mg Tab) 25 mg PO Q8HR [facility] Last Admin: 11/05/20 05:56 Dose: 25 mg Documented by: Levetiracetam (Levetiracetam 500 Mg Tab) 500 mg PO BID [facility] Last Admin: 11/04/20 20:35 Dose: 500 mg Documented by: Loratadine (Loratadine 10 Mg Tab) 10 mg PO BEDTIME [facility] Last Admin: 11/04/20 20:35 Dose: 10 mg Documented by: Methylprednisolone Sodium Succinate (Methylprednisolone Sodium Succinate 40 Mg/1 Ml Sdv) 40 mg IVPUSH Q8HR [facility] Last Admin: 11/05/20 06:02 Dose: 40 mg Documented by: Metoprolol Succinate (Metoprolol Succinate 50 Mg Tab.Er) 50 mg PO DAILY [facility] Last Admin: 11/04/20 08:49 Dose: 50 mg Documented by: Montelukast Sodium (Montelukast 10 Mg Tab) 10 mg PO BEDTIME [facility] Last Admin: 11/04/20 20:35 Dose: 10 mg Documented by: Ondansetron HCl (Ondansetron 4 Mg/2 Ml Sdv) 4 mg IVPUSH Q4H PRN PRN Reason: Nausea/Vomiting Oxycodone HCl (Oxycodone 5 Mg Tab) 5 mg PO DAILY [facility] Last Admin: 11/04/20 08:49 Dose: 5 mg Documented by: Oxycodone HCl (Oxycodone 5 Mg Tab) 5 mg PO TID PRN PRN Reason: Pain (severe 7-10) Last Admin: 11/05/20 06:01 Dose: 5 mg Documented by: Pantoprazole Sodium (Pantoprazole 40 Mg Tab.Cr) 40 mg PO ACBREAKFAST [facility] Last Admin: 11/05/20 05:56 Dose: 40 mg Documented by: Senna/Docusate Sodium (Docusate Sodium/Sennosides 50-8.6 Mg Tab) 2 tab PO BID [facility] Last Admin: 11/04/20 20:35 Dose: 2 tab Documented by: Sodium Chloride (Sodium Chloride 0.9% 10 Ml Syringe) 10 ml FLUSH ASDIRECTED PRN PRN Reason: Keep Vein Open Last Admin: 11/04/20 19:57 Dose: 10 ml Documented by: Theophylline (Theophylline 200 Mg Cap.Er) 200 mg PO Q12H [facility] Last Admin: 11/04/20 20:34 Dose: 200 mg Documented by: Zolpidem Tartrate (Zolpidem 5 Mg Tab) 5 mg PO BEDTIME PRN PRN Reason: Insomnia Last Admin: 10/31/20 22:40 Dose: 5 mg Documented by: Discontinued Medications Albuterol/Ipratropium (Albuterol/Ipratropium 3.0-0.5 Mg/3 Ml Neb Soln) 3 ml NEB ONETIME ONE Stop: 10/28/20 16:42 Last Admin: 10/28/20 16:55 Dose: 3 ml Documented by: Albuterol/Ipratropium (Albuterol/Ipratropium 3.0-0.5 Mg/3 Ml Neb Soln) 3 ml NEB Q4HRRT [facility] Enoxaparin Sodium (Enoxaparin 40 Mg/0.4 Ml Syringe) 40 mg SUBCUT Q24H [facility] Last Admin: 10/28/20 21:07 Dose: 40 mg Documented by: Enoxaparin Sodium (Enoxaparin 30 Mg/0.3 Ml Syringe) 30 mg SUBCUT Q12HR [facility] Last Admin: 11/03/20 21:05 Dose: 30 mg Documented by: Hydralazine HCl (Hydralazine 25 Mg Tab) 25 mg PO .STK-MED ONE Stop: 11/04/20 06:01 Levofloxacin/Dextrose 500 mg/ (Premix) 100 mls @ 100 mls/hr IV Q24H [facility] Stop: 11/04/20 20:01 Last Admin: 11/04/20 19:57 Dose: 100 mls/hr Documented by: Remdesivir 100 mg/ Sodium (Chloride) 100 mls @ 100 mls/hr IV Q24H [facility] Stop: 11/01/20 21:59 Last Infusion: 11/01/20 23:31 Dose: Infused Documented by: Remdesivir 200 mg/ Sodium (Chloride) 250 mls @ 250 mls/hr IV ONETIME ONE Stop: 10/28/20 21:59 Last Admin: 10/28/20 22:35 Dose: 250 mls/hr Documented by: Methylprednisolone Sodium Succinate (Methylprednisolone Sodium Succinate 125 Mg/2 Ml Sdv) 62.5 mg IVPUSH ONETIME ONE Stop: 10/28/20 16:42 Last Admin: 10/28/20 16:57 Dose: 62.5 mg Documented by: Methylprednisolone Sodium Succinate (Methylprednisolone Sodium Succinate 40 Mg/1 Ml Sdv) 80 mg IVPUSH Q8H [facility] Last Admin: 11/02/20 03:29 Dose: 80 mg Documented by: Methylprednisolone Sodium Succinate (Methylprednisolone Sodium Succinate 40 Mg/1 Ml Sdv) 40 mg IVPUSH .STK-MED ONE Stop: 11/04/20 06:01 Pantoprazole Sodium (Pantoprazole 40 Mg Tab.Cr) 40 mg PO .STK-MED ONE Stop: 11/04/20 06:01 - Exam General: Alert, Oriented HEENT: Pupils Equal, Pupils Reactive, EOMI, Mucous Membr. Moist/[place] Neck: Supple Lungs: Decreased Breath Sounds Cardiovascular: Regular Rate, Regular Rhythm GI/Abdominal Exam: Normal Bowel Sounds, Soft, Non-Tender, No Organomegaly, No Distention, No Abnormal Bruit, No Mass, Pelvis Stable Extremities: Normal Inspection, Normal Range of Motion, Non-Tender, No Pedal Edema, Normal Capillary Refill Skin: Warm, Dry, Intact Wound/Incisions: Healing Well Neurological: No New Focal Deficit Psy/Mental Status: Alert, Normal Affect, Normal Mood - Patient Data Result Diagrams: 10/29/20 06:00 10/30/20 06:05 Sepsis Event Note - Evaluation Sepsis Screening Result: No Definite Risk - Focused Exam Vital Signs: Vital Signs Temp Pulse Resp BP BP Pulse Ox 11/05/20 05:56 113/64 11/05/20 04:00 98.2 F 78 24 H 113/64 93 L 11/04/20 21:58 99/65 11/04/20 20:00 98.3 F 92 22 H 102/58 L 94 L - Problem List Review Problem List Initiated/Reviewed/Updated: Yes - My Orders Last 24 Hours: My Active Orders 11/04/20 07:28 Consult to Hospice [CONS] Routine 11/04/20 09:00 Enoxaparin [Lovenox] 30 mg SUBCUT DAILY - Plan Plan:: Dyspnea, secondary to 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 DuoNeb every 4 hours + Medrol 40 mg IV every 8 hours to singular 10 mg p.o. nightly plus Claritin 10 mg p.o. nightly plus Levaquin 500 mg IV daily plus theophylline 200 mg p.o. twice daily COVID-19 positive. Proventil HFA: 90 mcg/spray: 2 puffs every 4 hours while awake plus incentive spirometer to be used 10 times hourly while awake. Patient status post random severe treatment Grade 1 diastolic dysfunction. Lasix 10 mg IV every 12 hours plus Toprol-XL 25 mg p.o. daily. Check strict I's/O. Daily weight. History of cerebral aneurysm, status post coiling History of CVA. Lipitor 40 mg p.o. nightly plus Plavix and 5 mg p.o. daily Osteoarthritis Osteoporosis Chronic pain. Oxycodone 5 mg p.o. daily Constipation. Senna/Colace: 8.6/50 m tabs p.o. twice daily History of seizure. Keppra 500 mg p.o. twice daily Iron deficiency anemia/macrocytic anemia. Will monitor hemoglobin level intermittently. Fecal occult blood positive for which patient will need follow- up with gastroenterology upon discharge. Ferrous sulfate 325 mg p.o. daily plus vitamin C 500 mg p.o. daily Coronary artery disease. Lipitor 40 mg p.o. nightly plus Plavix and 5 mg p.o. daily plus metoprolol 25 mg p.o. daily GERD. Protonix 40 mg p.o. daily Hyperlipidemia. Lipitor 40 mg p.o. nightly Hypertension. Toprol-XL 25 mg p.o. daily plus hydralazine 25 mg p.o. 3 times daily plus Lasix 10 mg IV every 12 hours Anxiety History of cholelithiasis History of nephrolithiasis Obstructive sleep apnea. CPAP/BiPAP: Okay to use home device and/or pressure when sleeping for obstructive sleep apnea if she uses CPAP/BiPAP at home DVT prophylaxis. Lovenox 30 mg subcutaneously daily Disposition: Patient appears medically stable for discharge. I feel as though her respiratory status is currently as optimal as we will be able to achieve
[2020-11-05 08:35] VITALS: BP 108/68; PULSE 83
[2020-11-05] MEDS: Metoprolol Succinate 50 MG Tab.ER PO SCH (09:03)
[2020-11-05] MEDS: Theophylline 200 MG Cap.ER PO SCH (09:03)
[2020-11-05] MEDS: Ascorbic Acid 500 MG Tab PO SCH (09:03)
[2020-11-05] MEDS: Enoxaparin 30 MG/0.3 ML Syringe SUBCUT SCH (09:04)
[2020-11-05] MEDS: levETIRAcetam 500 MG Tab PO SCH (09:04)
[2020-11-05] MEDS: Clopidogrel 75 MG Tab PO SCH (09:04)
[2020-11-05] MEDS: Furosemide 20 MG/2 ML VIAL IVPUSH SCH (09:04)
[2020-11-05] MEDS: Ferrous Sulfate 325 MG Tab PO SCH (09:04)
[2020-11-05] MEDS: oxyCODONE 5 MG Tab PO SCH ×2 (09:08→11:00)
--- NOTE | 2020-11-05 09:28 | PCM.DCSUM1 ---
Discharge Summary - Hospital Course Free Text/Narrative:: START OF DOCTOR ANGELICA DISCHARGE SUMMARY Date of Admission: October 28, 2020 Date of Discharge: 9:24 AM on November 05, 2020 Primary Diagnosis: Dyspnea, secondary to exacerbation of pulmonary fibrosis/COPD/severe interstitial fibrotic process for which the patient is typically O2 dependent at 3 L Secondary Diagnosis: Covid 19+, query false positive Grade 1 diastolic dysfunction History of cerebral aneurysm, status post coiling History of CVA Osteoarthritis Osteoporosis Chronic pain Constipation History of seizure Iron deficiency anemia/macrocytic anemia Coronary artery disease GERD Hyperlipidemia Hypertension Anxiety History of cholelithiasis History of nephrolithiasis Obstructive sleep apnea Consultations: None Condition on Discharge: Poor to fair Disposition: The patient will be discharged to group home facility under the care of hospice The patient is advised follow-up with her primary care physician or provider as needed The patient is advised follow-up with pulmonology within 2 weeks of discharge for diagnosis of end-stage pulmonary fibrosis/COPD/interstitial fibrosis Discharge Medications: Biotene 237 mL p.o. twice daily Prednisone 10 mg p.o. daily Protonix 20 mg p.o. daily Zofran 4 mg p.o. every 6 hours as needed nausea/vomiting Morphine 5 mg p.o. every 4 hours as needed pain Lidocaine 5% patch to be applied to affected area for 12 hours daily Lasix 40 mg p.o. daily Budesonide 0.5 mg inhaled twice daily Benzoate 100 mg p.o. daily Fosamax 70 mg p.o. q. Monday DuoNeb inhaled twice daily DuoNeb inhaled twice daily as needed shortness of breath/wheeze Theophylline 200 mg p.o. every 12 hours Senna/Colace: 8.6/50 m tabs p.o. twice daily Oxycodone 5 mg p.o. 3 times daily as needed pain Oxycodone 5 mg p.o. daily Singulair 10 mg p.o. daily Vitamin C 500 mg p.o. daily Lipitor 40 mg p.o. nightly Plavix and 5 mg p.o. daily Ferrous sulfate 3.5 mg p.o. twice daily Hydralazine 25 mg p.o. every 8 hours Keppra 500 mg p.o. twice daily Claritin 10 mg p.o. nightly Toprol-XL 50 mg p.o. daily I will leave it to the discretion of the hospice agency to discontinue all nonessential/noncomfort based medications now that she is enrolled in hospice END OF DOCTOR EMAMIS DISCHARGE SUMMARY - Discharge Data Discharge Date: 11/05/20 Discharge Disposition: DC/Tfer to SNF 03 Condition: Poor - Referral to Home Health Primary Care Physician: PCP None - Patient Summary/Data Consults: Consultations 11/04/20 07:28 Consult to Hospice [CONS] Routine - Patient Instructions Diet: Heart Healthy Diet, Low Sodium Activity: As Tolerated - Discharge Plan *PRESCRIPTION DRUG MONITORING PROGRAM REVIEWED*: Not Applicable *COPY OF PRESCRIPTION DRUG MONITORING REPORT IN PATIENT MIAH: Not Applicable Prescriptions/Med Rec: hydrALAZINE [Apresoline] 25 mg PO Q8HR 30 Days #90 tablet Loratadine [Claritin] 10 mg PO BEDTIME 30 Days #30 tablet Ferrous Sulfate 325 mg PO BIDMEALS 30 Days #60 tablet Montelukast [Singulair] 10 mg PO BEDTIME 30 Days #30 tablet Theophylline [Amrit-24] 200 mg PO Q12H 30 Days #60 cap.er Ascorbic Acid [Vitamin C] 500 mg PO DAILY 30 Days #30 tablet Home Medications: Home Meds Clopidogrel Bisulfate [Clopidogrel] 75 mg PO DAILY 10/31/16 [History] Metoprolol Succinate [Toprol XL] 50 mg PO DAILY 10/31/16 [History] atorvaSTATin [Lipitor] 40 mg PO BEDTIME 10/31/16 [History] Budesonide [Pulmicort] 0.5 mg NEB BIDRT 12/01/16 [History] levETIRAcetam [Keppra] 500 mg PO BID 12/01/16 [History] Lidocaine 5% [Lidoderm 5%] 700 mg TOP Q24H #30 patch 06/20/17 [Rx] Albuterol/Ipratropium [DuoNeb 3.0-0.5 MG/3 ML] 3 ml INH BID PRN 10/01/20 [History] Albuterol/Ipratropium [DuoNeb 3.0-0.5 MG/3 ML] 3 ml NEB BID 10/01/20 [History] Alendronate Sodium [Fosamax] 70 mg PO .Tuesdays10/01/20 [History] Benzonatate [Tessalon Perle] 100 mg PO DAILY 10/01/20 [History] Furosemide 40 mg PO DAILY 10/01/20 [History] Ondansetron [Zofran ODT] 4 mg PO Q6H PRN 10/01/20 [History] Pantoprazole Sodium [Protonix] 20 mg PO DAILY 10/01/20 [History] Saliva Substitute Combo No.9 [Biotene] 237 ml MM BID 10/01/20 [History] Sennosides/Docusate Sodium [Senna Plus 8.6-50 mg Tablet] 2 each PO BID 10/01/20 [History] oxyCODONE 5 mg PO DAILY 10/01/20 [History] oxyCODONE 5 mg PO TID PRN 10/01/20 [History] predniSONE [Prednisone] 10 mg PO DAILY 10/01/20 [History] Morphine [Morphine 20 MG/ML Soln] 0.25 ml PO Q4H PRN 10/29/20 [History] Ascorbic Acid [Vitamin C] 500 mg PO DAILY 30 Days #30 tablet 11/05/20 [Rx] Ferrous Sulfate 325 mg PO BIDMEALS 30 Days #60 tablet 11/05/20 [Rx] Loratadine [Claritin] 10 mg PO BEDTIME 30 Days #30 tablet 11/05/20 [Rx] Montelukast [Singulair] 10 mg PO BEDTIME 30 Days #30 tablet 11/05/20 [Rx] Theophylline [Amrit-24] 200 mg PO Q12H 30 Days #60 cap.er 11/05/20 [Rx] hydrALAZINE [Apresoline] 25 mg PO Q8HR 30 Days #90 tablet 11/05/20 [Rx] - Discharge Summary/Plan Comment DC Time >30 min.: No - Review of Systems General: Reports: No Symptoms HEENT: Reports: No Symptoms Pulmonary: Reports: Shortness of Breath Cardiovascular: Reports: No Symptoms Gastrointestinal: Reports: No Symptoms Genitourinary: Reports: No Symptoms Musculoskeletal: Reports: No Symptoms Skin: Reports: No Symptoms Neurological: Reports: No Symptoms Psychiatric: Reports: No Symptoms - Patient Data Vitals - Most Recent: Last Vital Signs Temp 96.4 F L 11/05/20 08:32 Pulse 83 11/05/20 09:03 Resp 24 H 11/05/20 08:32 BP 108/68 11/05/20 09:03 Pulse Ox 92 L 11/05/20 08:32 Weight - Most Recent: 96 lb 9.6 oz I&O - Last 24 hours: Intake & Output 11/04/20 11/05/20 11/05/20 22:59 06:59 14:59 Intake Total 250 150 Balance 250 150 Med Orders - Current: Current Medications Acetaminophen (Acetaminophen 325 Mg Tab) 650 mg PO Q4H PRN PRN Reason: Pain (Mild 1-3)/fever Last Admin: 10/31/20 13:48 Dose: 650 mg Documented by: Albuterol (Albuterol 6.7 Gm Inhaler) 0 gm INH Q4H [facility] Last Admin: 11/05/20 09:13 Dose: 2 puff Documented by: Ascorbic Acid (Ascorbic Acid 500 Mg Tab) 500 mg PO DAILY [facility] Last Admin: 11/05/20 09:03 Dose: 500 mg Documented by: Atorvastatin Calcium (Atorvastatin 20 Mg Tab) 40 mg PO BEDTIME [facility] Last Admin: 11/04/20 20:35 Dose: 40 mg Documented by: Clopidogrel Bisulfate (Clopidogrel 75 Mg Tab) 75 mg PO DAILY [facility] Last Admin: 11/05/20 09:04 Dose: 75 mg Documented by: Enoxaparin Sodium (Enoxaparin 30 Mg/0.3 Ml Syringe) 30 mg SUBCUT DAILY [facility] Last Admin: 11/05/20 09:04 Dose: 30 mg Documented by: Famotidine (Famotidine 20 Mg Tab) 20 mg PO Q12HR PRN PRN Reason: Dyspepsia Last Admin: 11/01/20 11:26 Dose: 20 mg Documented by: Ferrous Sulfate (Ferrous Sulfate 325 Mg Tab) 325 mg PO BIDMEALS [facility] Last Admin: 11/05/20 09:04 Dose: 325 mg Documented by: Furosemide (Furosemide 20 Mg/2 Ml Vial) 10 mg IVPUSH BIDDIURETIC [facility] Last Admin: 11/05/20 09:04 Dose: 10 mg Documented by: Hydralazine HCl (Hydralazine 25 Mg Tab) 25 mg PO Q8HR [facility] Last Admin: 11/05/20 05:56 Dose: 25 mg Documented by: Levetiracetam (Levetiracetam 500 Mg Tab) 500 mg PO BID [facility] Last Admin: 11/05/20 09:04 Dose: 500 mg Documented by: Loratadine (Loratadine 10 Mg Tab) 10 mg PO BEDTIME [facility] Last Admin: 11/04/20 20:35 Dose: 10 mg Documented by: Methylprednisolone Sodium Succinate (Methylprednisolone Sodium Succinate 40 Mg/1 Ml Sdv) 40 mg IVPUSH Q8HR [facility] Last Admin: 11/05/20 06:02 Dose: 40 mg Documented by: Metoprolol Succinate (Metoprolol Succinate 50 Mg Tab.Er) 50 mg PO DAILY [facility] Last Admin: 11/05/20 09:03 Dose: 50 mg Documented by: Montelukast Sodium (Montelukast 10 Mg Tab) 10 mg PO BEDTIME [facility] Last Admin: 11/04/20 20:35 Dose: 10 mg Documented by: Ondansetron HCl (Ondansetron 4 Mg/2 Ml Sdv) 4 mg IVPUSH Q4H PRN PRN Reason: Nausea/Vomiting Oxycodone HCl (Oxycodone 5 Mg Tab) 5 mg PO DAILY [facility] Last Admin: 11/05/20 09:08 Dose: Not Given Documented by: Oxycodone HCl (Oxycodone 5 Mg Tab) 5 mg PO TID PRN PRN Reason: Pain (severe 7-10) Last Admin: 11/05/20 06:01 Dose: 5 mg Documented by: Pantoprazole Sodium (Pantoprazole 40 Mg Tab.Cr) 40 mg PO ACBREAKFAST [facility] Last Admin: 11/05/20 05:56 Dose: 40 mg Documented by: Senna/Docusate Sodium (Docusate Sodium/Sennosides 50-8.6 Mg Tab) 2 tab PO BID [facility] Last Admin: 11/05/20 09:04 Dose: 2 tab Documented by: Sodium Chloride (Sodium Chloride 0.9% 10 Ml Syringe) 10 ml FLUSH ASDIRECTED PRN PRN Reason: Keep Vein Open Last Admin: 11/04/20 19:57 Dose: 10 ml Documented by: Theophylline (Theophylline 200 Mg Cap.Er) 200 mg PO Q12H [facility] Last Admin: 11/05/20 09:03 Dose: 200 mg Documented by: Zolpidem Tartrate (Zolpidem 5 Mg Tab) 5 mg PO BEDTIME PRN PRN Reason: Insomnia Last Admin: 10/31/20 22:40 Dose: 5 mg Documented by: Discontinued Medications Albuterol/Ipratropium (Albuterol/Ipratropium 3.0-0.5 Mg/3 Ml Neb Soln) 3 ml NEB ONETIME ONE Stop: 10/28/20 16:42 Last Admin: 10/28/20 16:55 Dose: 3 ml Documented by: Albuterol/Ipratropium (Albuterol/Ipratropium 3.0-0.5 Mg/3 Ml Neb Soln) 3 ml NEB Q4HRRT [facility] Enoxaparin Sodium (Enoxaparin 40 Mg/0.4 Ml Syringe) 40 mg SUBCUT Q24H [facility] Last Admin: 10/28/20 21:07 Dose: 40 mg Documented by: Enoxaparin Sodium (Enoxaparin 30 Mg/0.3 Ml Syringe) 30 mg SUBCUT Q12HR [facility] Last Admin: 11/03/20 21:05 Dose: 30 mg Documented by: Hydralazine HCl (Hydralazine 25 Mg Tab) 25 mg PO .STK-MED ONE Stop: 11/04/20 06:01 Levofloxacin/Dextrose 500 mg/ (Premix) 100 mls @ 100 mls/hr IV Q24H [facility] Stop: 11/04/20 20:01 Last Admin: 11/04/20 19:57 Dose: 100 mls/hr Documented by: Remdesivir 100 mg/ Sodium (Chloride) 100 mls @ 100 mls/hr IV Q24H [facility] Stop: 11/01/20 21:59 Last Infusion: 11/01/20 23:31 Dose: Infused Documented by: Remdesivir 200 mg/ Sodium (Chloride) 250 mls @ 250 mls/hr IV ONETIME ONE Stop: 10/28/20 21:59 Last Admin: 10/28/20 22:35 Dose: 250 mls/hr Documented by: Methylprednisolone Sodium Succinate (Methylprednisolone Sodium Succinate 125 Mg/2 Ml Sdv) 62.5 mg IVPUSH ONETIME ONE Stop: 10/28/20 16:42 Last Admin: 10/28/20 16:57 Dose: 62.5 mg Documented by: Methylprednisolone Sodium Succinate (Methylprednisolone Sodium Succinate 40 Mg/1 Ml Sdv) 80 mg IVPUSH Q8H [facility] Last Admin: 11/02/20 03:29 Dose: 80 mg Documented by: Methylprednisolone Sodium Succinate (Methylprednisolone Sodium Succinate 40 Mg/1 Ml Sdv) 40 mg IVPUSH .STK-MED ONE Stop: 11/04/20 06:01 Pantoprazole Sodium (Pantoprazole 40 Mg Tab.Cr) 40 mg PO .STK-MED ONE Stop: 11/04/20 06:01 - Exam General: Reports: Alert, Oriented HEENT: Reports: Pupils Equal, Pupils Reactive, EOMI, Mucous Membr. Moist/[place] Neck: Reports: Supple Lungs: Reports: Decreased Breath Sounds Cardiovascular: Reports: Regular Rate, Regular Rhythm GI/Abdominal Exam: Normal Bowel Sounds, Soft, Non-Tender, No Organomegaly, No Distention, No Abnormal Bruit, No Mass, Pelvis Stable Extremities: Normal Inspection, Normal Range of Motion, Non-Tender, No Pedal Edema, Normal Capillary Refill Skin: Reports: Warm, Dry, Intact Wound/Incisions: Reports: Healing Well Neurological: Reports: No New Focal Deficit Psy/Mental Status: Reports: Alert, Normal Affect, Normal Mood
== END 2020-11-05 12:18 | DRG 196 ==
LOC: DL.ED 16:04 → DL.MS 18:42 → UNDOADMIN 19:16 → DL.MS 22:26
PROVIDERS: ADMIT Internal Medicine; ATTEND Internal Medicine
DX: J84.10 Pulmonary fibrosis, unspecified (principal); U07.1 COVID-19; H54.7 Unspecified visual loss; J44.1 Chronic obstructive pulmonary disease with (acute) exacerbation; Z86.73 Personal history of transient ischemic attack (TIA), and cerebral infarction without residual deficits; M19.90 Unspecified osteoarthritis, unspecified site; M81.0 Age-related osteoporosis without current pathological fracture; M54.9 Dorsalgia, unspecified; K59.00 Constipation, unspecified; G89.29 Other chronic pain; G40.909 Epilepsy, unspecified, not intractable, without status epilepticus; Z86.16 Personal history of COVID-19; Z88.6 Allergy status to analgesic agent; Z79.02 Long term (current) use of antithrombotics/antiplatelets; Z99.81 Dependence on supplemental oxygen; Z79.52 Long term (current) use of systemic steroids; D50.9 Iron deficiency anemia, unspecified; Z20.822 Contact with and (suspected) exposure to COVID-19; I25.10 Atherosclerotic heart disease of native coronary artery without angina pectoris; K21.9 Gastro-esophageal reflux disease without esophagitis; E78.5 Hyperlipidemia, unspecified; I10 Essential (primary) hypertension; F41.9 Anxiety disorder, unspecified; G47.33 Obstructive sleep apnea (adult) (pediatric); Z87.442 Personal history of urinary calculi; Z90.89 Acquired absence of other organs; Z90.49 Acquired absence of other specified parts of digestive tract; Z98.890 Other specified postprocedural states; Z66 Do not resuscitate; Z97.3 Presence of spectacles and contact lenses; Z79.899 Other long term (current) drug therapy; Z98.42 Cataract extraction status, left eye; Z98.41 Cataract extraction status, right eye
CPT/HCPCS: 36415; 71045; 80053; 82728; 83540; 83550; 83605; 83880; 84484; 85025; 86140; 87040 ×2; 93005; 93010; 94640; 96374; 99284; 99285; J2930; U0002; 80048; 82272; A9270-GY; J1650; J1940; J1956; J2920; J7050; J7620-GY